=== PATIENT | female | born 1955 | race Caucasian/White ===

== ENCOUNTER 2022-06-09 08:28 | Outpatient (REF) | payer MEDICARE, SELFPAY ==
--- NOTE | ~2022-06-09 | FL_ITS ---
EXAMINATION: FL UPPER GI AND BARIUM SWALLOW CLINICAL INFORMATION: Abdominal pain. COMPARISON: None. TECHNIQUE: Upper GI and barium swallow were performed using thin and thick barium and effervescent granules. Barium tablet was also administered. FLUOROSCOPY TIME: 1 minute. DAP: 6.4 Gy-cm2. IMAGES: 57 saved fluoroscopic images. FINDINGS: There is gastroesophageal reflux. There is mucosal irregularity of the distal thoracic esophagus, abnormal motility with the patient in the prone/CARABALLO drinking position and decreased distention suggestive of esophagitis. There is temporary stasis of the barium tablet in the distal thoracic esophagus. There is a small sliding-type hiatal hernia and Schatzki ring. No esophageal mass or stricture. The stomach and duodenum are normal appearing. No fold thickening, mass, ulcer or stricture is seen. FL/FL upper GI w Ba Swallow IMPRESSION: Gastroesophageal reflux. Question mild esophagitis of the distal thoracic esophagus. Small sliding-type hiatal hernia and Schatzki ring.
== END 2022-06-09 08:29 | disposition home or self-care (01) ==
LOC: HO.XRAY 08:28
PROVIDERS: Visit Provider Internal Medicine Gastroenterology
DX: R10.9 Unspecified abdominal pain (principal)
CPT/HCPCS: 74240

== ENCOUNTER 2022-12-29 09:49 | Day surgery (SDC) | payer MEDICARE, SELFPAY ==
--- NOTE | 2022-12-28 12:32 | HO.ANESPROP2 ---
HPI - Anesthesia Eval Consult details Narrative: 67yo F for Upper Endoscopy [facility] Past Medical History Medical History Anxiety and depression Asthma Fatty liver GERD (gastroesophageal reflux disease) Hyperlipidemia Irritable bowel syndrome with diarrhea Osteoporosis Surgical History Surgical History H/O colonoscopy H/O esophagogastroduodenoscopy Hx of tonsillectomy Social History Social History Patient Tobacco Use Status: Former Tobacco user Are you DNR?: No Advance Directives: No Advance Directives Information Provided: Yes Meds Allergies Allergy/AdvReac Type Severity Reaction Status Date / Time ciprofloxacin [From Cipro] Allergy Unknown Verified 12/28/22 07:28 escitalopram [From Lexapro] Allergy Unknown Verified 12/28/22 07:28 paroxetine [From Paxil] Allergy Unknown Verified 12/28/22 07:28 sulfamethoxazole Allergy Unknown Verified 12/28/22 07:28 [From Bactrim] trimethoprim [From Bactrim] Allergy Unknown Verified 12/28/22 07:28 Home Medications Medication Instructions Recorded Confirmed Last Taken Type Klonopin 12/28/22 12/28/22 Unknown History Probiotic 12/28/22 12/28/22 Unknown History Vitamin C 12/28/22 Unknown History Vitamin D (with calcium) 12/28/22 Unknown History Zyrtec 12/28/22 Unknown History albuterol sulfate 90 mcg/actuation 2 puff inhalation QID PRN wheezing 12/28/22 12/28/22 Unknown History aerosol inhaler amitriptyline 10 mg tablet 20 mg PO BEDTIME 12/28/22 12/28/22 Unknown History calcium 12/28/22 Unknown History choline 12/28/22 Unknown History dicyclomine 10 mg capsule 10 mg PO 12/28/22 Unknown History famotidine 20 mg tablet 20 mg PO BID 12/28/22 12/28/22 Unknown History magnesium 12/28/22 Unknown History nabumetone 500 mg tablet 500 mg PO BID 12/28/22 12/28/22 Unknown History nystatin 100,000 unit/gram topical topical BID 12/28/22 Unknown History cream salmeterol 50 mcg/dose blister 1 inh inhalation BID 12/28/22 12/28/22 Unknown History powder for inhalation (Serevent Diskus) tizanidine 2 mg tablet 2 mg PO Q8H PRN muscle spasms 12/28/22 12/28/22 Unknown History zinc 12/28/22 Unknown History Exam Exam Date and Time: December 28, 2022 1232 Assessment and Plan Assessment Anesthesia Assessment: Chart Reviewed
[2022-12-29 10:08] VITALS: BP 136/75; PULSE 102; RESP 18; TEMP 36.1; O2SAT 97; BMI 27.5
[2022-12-29] MEDS: Lactated Ringers 1,000 ML 100 ML IVCONT (10:36)
--- NOTE | 2022-12-29 11:28 | HO.ANESPROP2 ---
[facility] Past Medical History Medical History Anxiety and depression Asthma Fatty liver GERD (gastroesophageal reflux disease) Hyperlipidemia Irritable bowel syndrome with diarrhea Osteoporosis Functional capacity: independent ambulation Family History Family history of problems with anesthesia: No Surgical History Surgical History H/O colonoscopy H/O esophagogastroduodenoscopy Hx of tonsillectomy History of Problems with Anesthesia: No Social History Social History Patient Tobacco Use Status: Former Tobacco user Are you DNR?: No Advance Directives: No Advance Directives Information Provided: Yes Meds Allergies Allergy/AdvReac Type Severity Reaction Status Date / Time ciprofloxacin [From Cipro] Allergy Unknown Verified 12/28/22 07:28 escitalopram [From Lexapro] Allergy Unknown Verified 12/28/22 07:28 paroxetine [From Paxil] Allergy Unknown Verified 12/28/22 07:28 sulfamethoxazole Allergy Unknown Verified 12/28/22 07:28 [From Bactrim] trimethoprim [From Bactrim] Allergy Unknown Verified 12/28/22 07:28 Active Medications: Current Medications Albuterol Sulfate (Albuterol Sulfate (0.083%) 2.5 Mg/3 Ml Vial.Neb) 2.5 mg INHALE ONCE PRN PRN Reason: Shortness of Breath/Wheezing Lactated Ringer's (Lr) 1,000 mls @ 100 mls/hr IVCONT .Q10H JOHN Last Admin: 12/29/22 10:36 Dose: 100 mls/hr Home Medications Medication Instructions Recorded Confirmed Last Taken Type Klonopin 12/28/22 12/28/22 Unknown History Probiotic 12/28/22 12/28/22 Unknown History Vitamin C 12/28/22 Unknown History Vitamin D (with calcium) 12/28/22 Unknown History Zyrtec 12/28/22 Unknown History albuterol sulfate 90 mcg/actuation 2 puff inhalation QID PRN wheezing 12/28/22 12/28/22 Unknown History aerosol inhaler amitriptyline 10 mg tablet 20 mg PO BEDTIME 12/28/22 12/28/22 Unknown History calcium 12/28/22 Unknown History choline 12/28/22 Unknown History dicyclomine 10 mg capsule 10 mg PO 12/28/22 Unknown History famotidine 20 mg tablet 20 mg PO BID 12/28/22 12/28/22 Unknown History magnesium 12/28/22 Unknown History nabumetone 500 mg tablet 500 mg PO BID 12/28/22 12/28/22 Unknown History nystatin 100,000 unit/gram topical topical BID 12/28/22 Unknown History cream salmeterol 50 mcg/dose blister 1 inh inhalation BID 12/28/22 12/28/22 Unknown History powder for inhalation (Serevent Diskus) tizanidine 2 mg tablet 2 mg PO Q8H PRN muscle spasms 12/28/22 12/28/22 Unknown History zinc 12/28/22 Unknown History Exam Exam Date and Time: December 29, 2022 112 Height,Weight and Vital Signs: Height 5 ft 3 in Weight 70.307 kg Last Vital Signs Temp 97 F 12/29/22 10:08 Pulse 102 H 12/29/22 10:08 Resp 18 12/29/22 10:08 BP 136/75 12/29/22 10:08 Pulse Ox 97 12/29/22 10:08 O2 Del Method Room Air 12/29/22 10:08 Airway Mallampati Class: II TM Dist: >3cm Neck ROM: Full Heart: RRR Lungs: CTA Assessment and Plan Assessment Anesthesia Assessment: Anesthesia Plan Discussed Final Anesthetic Review Family History of Problems with Anesthesia: No History of Problems with Anesthesia: No NPO: Yes ASA Class: II Final Preanesthetic Review: Meds/Allgs Chart Reviewed, Consent Obtained/Reviewed and Anes Risks/Benef Reviewed Patient Risk: Low (u) Procedure Risk: Low Anesthetic Plan Anesthetic Plan: MAC: Disposition: Standard PACU
--- NOTE | 2022-12-29 11:42 | MHC.SHP ---
Pre-Procedural Eval Section A Date of Service: 12/29/22 The patient is an INPATIENT: No Changes since office visit: No Cold of Flu in the past 2 weeks, No New Medical Problems, No Changes in Medication and No Patient answered all questions The History & Physical has been completed within 30 days and I have reviewed it.: Yes Section B Chief Complaint: Epigastric pain Allergies: Allergies Allergy/AdvReac Type Severity Reaction Status Date / Time ciprofloxacin [From Cipro] Allergy Unknown Verified 12/28/22 07:28 escitalopram [From Lexapro] Allergy Unknown Verified 12/28/22 07:28 paroxetine [From Paxil] Allergy Unknown Verified 12/28/22 07:28 sulfamethoxazole Allergy Unknown Verified 12/28/22 07:28 [From Bactrim] trimethoprim [From Bactrim] Allergy Unknown Verified 12/28/22 07:28 Plan I have reviewed the history and physical and performed a pertinent physical examination on my patient. No changes have occurred unless specified. Time Spent With Patient Time: Total time managing care of this patient today ____ minutes.
--- NOTE | 2022-12-29 12:08 | PM.OP ---
Brief Operative Note Date of Service: 12/29/22 Pre-op diagnosis: epigastric pain Post-op diagnosis: same Procedure: EGD Surgeon: Parish Zuluaga Anesthesia: MAC Was an Community Dietitian used for this Procedure?: No Estimated blood loss (mL): 2 Pathology: other Condition: stable Disposition: PACU
[2022-12-29 12:10] VITALS: BP 128/76; PULSE 89; RESP 16; TEMP 36.5; O2SAT 98
--- NOTE | 2022-12-29 12:12 | HO.POSTANES ---
Post Anesthesia Evaluation Post Anesthesia Evaluation Date of Service: 12/29/22 Vital Signs: Vital Signs Temp Pulse Resp BP Pulse Ox O2 Del Method 12/29/22 10:08 97 F 102 H 18 136/75 97 Room Air Anesthesia: Monitored Mental Status: Awake Pain Control: Satisfactory Nausea/Vomiting: None Hydration: Adequate Anesthesia-Related Issues: No Anes. Related Issues
[2022-12-29 12:25] VITALS: BP 139/82; PULSE 84; RESP 16; TEMP 36.6; O2SAT 99
--- NOTE | 2022-12-29 13:02 | OP_ITS ---
DATE OF SERVICE: 12/29/2022 SURGEON: Parish Zuluaga MD INDICATIONS: Epigastric pain and irritable bowel syndrome with diarrhea. PREOPERATIVE DIAGNOSIS: POSTOPERATIVE DIAGNOSIS: PROCEDURE PERFORMED: Upper endoscopy with biopsy. ESTIMATED BLOOD LOSS: COMPLICATIONS: ANESTHESIA: Monitored anesthesia care. ASSISTANTS: SPECIMENS: DESCRIPTION OF PROCEDURE: A history and physical was performed. The risks and benefits of the procedure were explained to the patient. Informed consent was obtained. The patient was placed in the left lateral decubitus position. The Olympus video gastroscope was introduced into the esophagus, stomach, and duodenum. Examination was performed. The scope was removed. She tolerated the procedure well, and was returned to the recovery area in stable condition. FINDINGS: Esophagus: The esophagus was normal. Biopsies were obtained from the EG junction. There was a small sliding hiatal hernia. Stomach: The stomach showed no evidence of masses, ulcers, or polyps. Antral biopsies were obtained to evaluate for H pylori. Duodenum: The bulb and 2nd portion were normal. There was mild duodenitis involving the bulb. Biopsies were obtained from the second portion. IMPRESSION: Duodenitis. RECOMMENDATION: Follow up the biopsy results. MD SHANTI Burns/ERNAL / [id number]
== END 2022-12-29 13:00 | disposition home or self-care (01) ==
PROVIDERS: PCP Internal Medicine; Visit Provider Internal Medicine Gastroenterology
PROC: 0DJ08ZZ Inspection of Upper Intestinal Tract, Via Natural or Artificial Opening Endoscopic (ICD-10-PCS; CPT 43235; principal; 2022-12-29 11:10)
DX: K29.80 Duodenitis without bleeding (principal); K44.9 Diaphragmatic hernia without obstruction or gangrene; R10.13 Epigastric pain; K58.0 Irritable bowel syndrome with diarrhea; K21.9 Gastro-esophageal reflux disease without esophagitis; E78.5 Hyperlipidemia, unspecified; K76.0 Fatty (change of) liver, not elsewhere classified; Z87.891 Personal history of nicotine dependence; Z79.899 Other long term (current) drug therapy
CPT/HCPCS: 43239; 88305; 88342

== ENCOUNTER 2023-05-06 17:14 | Inpatient (IN) | payer MEDICARE, SELFPAY ==
--- NOTE | ~2023-05-06 | US_ITS ---
EXAMINATION: US ABDOMEN LIMITED CLINICAL INFORMATION: The liver function tests, dilated CBD on CT scan. COMPARISON: CT abdomen pelvis from the previous day TECHNIQUE: Real-time imaging of the right upper quadrant abdominal viscera. FINDINGS: PANCREAS: Pancreatic tail obscured. LIVER: Mild increased echogenicity likely related to fatty infiltration. Small hepatic cyst seen in the inferior right lobe tip at 11 x 12 x 10 mm. GALLBLADDER: Cholelithiasis noted. No evidence for gallbladder wall thickening or pericholecystic fluid. Gallbladder appears mildly distended. COMMON BILE DUCT: Maximal dimension 0.7 cm. RIGHT KIDNEY: Normal. No hydronephrosis. No renal calculi or focal parenchymal lesions. The kidney measures 9.4 cm in maximum dimension. FREE FLUID: None. US/US abdomen limited IMPRESSION: Cholelithiasis without any evidence for gallbladder wall thickening or pericholecystic fluid. Maximal CBD dimension 0.7 cm. Mild hepatic fatty infiltration with small hepatic cyst noted.
--- NOTE | ~2023-05-06 | FL_ITS ---
EXAMINATION: XR FLUOROSCOPY WITH IMAGES CLINICAL INFORMATION: Open reduction and internal fixation of femur fracture. COMPARISON: Radiographs of the pelvis/femur from 05/06/2023 TECHNIQUE: Fluoroscopy Time: 0.8 min Cumulative Dose: 23.1 mGy. DAP: 0.4 Gycm2. Images: 6 images are saved FINDINGS: The displaced comminuted intertrochanteric fracture of the right femur is seen on initial images. The fracture is then reduced by the intramedullary nail (with distal interlocking screw), fixation cable encircling subtrochanteric area and dynamic head-neck screw. The hardware is well-positioned. The proximal distal femoral fragments are reduced into near-anatomic position. There is mild residual medial displacement of the lesser trochanteric fragment. The femoral head is well-positioned within the acetabulum. Osteophytes present at the degenerated hip. FL/FL guidance in OR IMPRESSION: Status post open reduction and internal fixation of the intertrochanteric femur fracture.
--- NOTE | ~2023-05-06 | CT_ITS ---
EXAMINATION: CT cervical spine wo IV con, CT head/brain wo IV con INDICATION INFORMATION: Reason for Exam fall, pain COMPARISON: None TECHNIQUE: Separate noncontrast CT examinations of the head and cervical spine were performed. Coronal and sagittal images were created for each examination at the technologist workstation. This CT examination was performed using dose optimization techniques as appropriate, variously including the following: *Automated exposure control *Adjustment of mA and/or kV according to patient size (this includes techniques or standardized protocols for targeted exams where dose is matched to indication/reason for exam; i.e. extremities or head) *Use of iterative reconstruction technique DLP: 962.38 mGy-cm FINDINGS: Head: No acute osseous or soft tissue abnormality. The mastoid air cells and visualized portions of the paranasal sinuses are well aerated. There is no evidence of acute intracranial hemorrhage or territorial infarction. No abnormal mass effect or midline shift is seen. Husain to white matter differentiation is well preserved. No extra-axial fluid collections are identified. No hydrocephalus. No significant volume loss. There is no abnormal attenuation within the brain parenchyma. Cervical spine: There is no evidence of acute cervical spine fracture. Vertebral bodies remain normal in height. Mild anterolisthesis of C3 on C4 and retrolisthesis of C4 on C5 and C5 on C6. Multilevel degenerative disc disease with loss of disc space height with a broad-based disc bulge at C4-C5 and posterior disc osteophyte complex at C5-C6 resulting in at least moderate canal stenosis. No pre- or paravertebral soft tissue abnormality is identified. Mosaic attenuation in the lung apices suggesting small airways vessel disease. Biapical pleural parenchymal scarring 2.2 cm left thyroid nodule which warrants further evaluation with dedicated thyroid ultrasound. CT/CT cervical spine wo IV con IMPRESSION: * No acute intracranial abnormality. * No cervical spine fracture. * Mild anterolisthesis of C3 on C4 and retrolisthesis of C4 on C5 and C5 on C6, favored to be degenerative. Multilevel degenerative disc disease with a broad-based disc bulge at C4-C5 and posterior disc osteophyte complex at C5-C6 resulting in at least moderate canal stenosis. * 2.2 cm left thyroid nodule. Based on the recommendations of the ACR Incidental Thyroid Findings Committee (JACR 2014; 12(2):143-50), further evaluation by thyroid ultrasound is recommended for solitary incidental thyroid nodules greater than or equal to 1.5 cm in largest axial dimension in patients age 35 years and older who do not have limited life expectancy or significant morbidities, unless clinically warranted. * Mosaic attenuation in the lung apices suggesting small airways vessel disease.
--- NOTE | ~2023-05-06 | XR_ITS ---
EXAMINATION: XR chest 1V, XR femur RT 2V, XR pelvis 1-2V CLINICAL INFORMATION: Reason for Exam fall, pain COMPARISON: None. TECHNIQUE: Single frontal view of the chest and 2 views, 4 images of the right femur and frontal view of the pelvis were obtained. FINDINGS: Chest: Both lung whitfield are symmetrically expanded and appear clear. The cardiomediastinal silhouette is within normal limits. No evidence of any pleural effusion or pneumothorax. Visualized upper abdomen is unremarkable. Pelvis and right femur: Moderate diffuse osteopenia. Moderate to severe osteoarthrosis at the left hip. Comminuted intratrochanteric fracture is present involving the right femur the remainder of the right femur otherwise appear intact. XR/XR chest 1V IMPRESSION: 1. The chest radiograph shows bilateral clear lung whitfield. 2. The radiographs of the pelvis and the right femur shows moderate diffuse osteopenia and superimposed comminuted intertrochanteric fracture of the right femur and moderate to severe osteoarthrosis at the left hip.
--- NOTE | ~2023-05-06 | XR_ITS ---
EXAMINATION: XR chest 1V, XR femur RT 2V, XR pelvis 1-2V CLINICAL INFORMATION: Reason for Exam fall, pain COMPARISON: None. TECHNIQUE: Single frontal view of the chest and 2 views, 4 images of the right femur and frontal view of the pelvis were obtained. FINDINGS: Chest: Both lung whitfield are symmetrically expanded and appear clear. The cardiomediastinal silhouette is within normal limits. No evidence of any pleural effusion or pneumothorax. Visualized upper abdomen is unremarkable. Pelvis and right femur: Moderate diffuse osteopenia. Moderate to severe osteoarthrosis at the left hip. Comminuted intratrochanteric fracture is present involving the right femur the remainder of the right femur otherwise appear intact. XR/XR pelvis 1-2V IMPRESSION: 1. The chest radiograph shows bilateral clear lung whitfield. 2. The radiographs of the pelvis and the right femur shows moderate diffuse osteopenia and superimposed comminuted intertrochanteric fracture of the right femur and moderate to severe osteoarthrosis at the left hip.
--- NOTE | ~2023-05-06 | CT_ITS ---
EXAMINATION: CT ABDOMEN AND PELVIS WITH CONTRAST CLINICAL INFORMATION: Elevated lipase. Suspected pancreatitis. COMPARISON: Radiographs of the chest and pelvis and right femur done earlier today. TECHNIQUE: Multidetector volumetric images were obtained from the superior aspect of the liver through the pubic symphysis following administration 85 mL of Omnipaque 350 intravenous contrast. Sagittal and coronal reformatted images were obtained on the technologist's workstation. Oral contrast: No This CT examination was performed using dose optimization techniques as appropriate, variously including the following: *Automated exposure control *Adjustment of mA and/or kV according to patient size (this includes techniques or standardized protocols for targeted exams where dose is matched to indication/reason for exam; i.e. extremities or head) *Use of iterative reconstruction technique DLP: 604 mGy-cm FINDINGS: LUNG BASES: Linear airspace disease is noted at both lower lobes and lingular segment of the left upper lobe, likely represent hypoventilatory, atelectatic changes versus pleural parenchymal scar and less likely to be infiltrate or combination thereof. LIVER, GALLBLADDER, AND BILIARY TREE: The liver is normal in size, shape, and attenuation. There is a circumscribed 1.2 cm subcapsular hyperechoic hypodensity present at the segment 6 of right lobe with mean Hounsfield value of 5 (267:4), consistent with an incidental cyst. Mild central biliary ductal prominence is noted. The common bile duct measures 0.8 cm at its maximum dimension, mildly dilated. The gallbladder is mildly distended, shows mild asymmetric subtle mural thickening near the fundus without any pericholecystic fluid or gallstone (302:4). PANCREAS: The proximal pancreatic duct is slightly prominent however, by measurement within normal limits. No evidence of any pancreatic hypodensity or areas of nonenhancement to suspect edematous or necrotizing pancreatitis. No peripancreatic inflammatory changes. No peripancreatic fluid collection. SPLEEN: Unremarkable. ADRENAL GLANDS: Unremarkable. KIDNEYS AND URETERS: The kidneys are normal in size, shape, and attenuation. Mild fullness of both renal pelvis is likely secondary to physiologic changes given the significantly distended bladder. No evidence of perinephric stranding. No evidence of any urinary tract calculi. BLADDER: Significantly distended, presumably physiologic. GASTROINTESTINAL TRACT: The small and large bowel are unremarkable. The appendix is nonvisualized. No evidence of any pericecal inflammatory changes. ABDOMINAL WALL: No significant hernia is appreciated. Nonspecific soft tissue thickening is noted around the umbilicus. LYMPH NODES: Normal. VASCULAR: Diffuse calcific atherosclerotic disease of the aorta and its branches without aneurysm formation. PELVIC VISCERA: There is no pelvic mass present. No evidence of any free fluid and/or free air. OSSEOUS STRUCTURES: Previously documented comminuted fracture involving the intertrochanteric region of the right femur and associated soft tissue hematoma is reidentified. Marked diffuse osteopenia is noted. Multilevel moderate degenerative spondylosis related changes are present. Moderate to severe osteoarthrosis of the left hip. CT/CT abdomen pelvis w IV con IMPRESSION: 1. Mild central biliary ductal prominence is noted. The common bile duct is mildly dilated measuring 0.8 cm. The gallbladder is also mildly distended and shows mild asymmetric subtle mural thickening near the fundus without any pericholecystic fluid or gallstone. 2. The proximal pancreatic duct is slightly prominent however, by measurement still within normal limits. No CT evidence of any acute or chronic pancreatitis. 3. Markedly distended bladder, presumably physiologic. Mild fullness of both renal pelvicalyceal system is likely secondary to bladder distention. 4. Nonspecific soft tissue thickening around the umbilicus. 5. Marked diffuse osteopenia and comminuted fracture involving the right intertrochanteric region as was seen on the prior radiographs done earlier today. Multilevel moderate degenerative spondylosis and moderate to severe osteoarthrosis of the left hip. Fleischner guidelines were followed.
--- NOTE | ~2023-05-06 | XR_ITS ---
EXAMINATION: XR chest 1V, XR femur RT 2V, XR pelvis 1-2V CLINICAL INFORMATION: Reason for Exam fall, pain COMPARISON: None. TECHNIQUE: Single frontal view of the chest and 2 views, 4 images of the right femur and frontal view of the pelvis were obtained. FINDINGS: Chest: Both lung whitfield are symmetrically expanded and appear clear. The cardiomediastinal silhouette is within normal limits. No evidence of any pleural effusion or pneumothorax. Visualized upper abdomen is unremarkable. Pelvis and right femur: Moderate diffuse osteopenia. Moderate to severe osteoarthrosis at the left hip. Comminuted intratrochanteric fracture is present involving the right femur the remainder of the right femur otherwise appear intact. XR/XR femur RT 2V IMPRESSION: 1. The chest radiograph shows bilateral clear lung whitfield. 2. The radiographs of the pelvis and the right femur shows moderate diffuse osteopenia and superimposed comminuted intertrochanteric fracture of the right femur and moderate to severe osteoarthrosis at the left hip.
--- NOTE | ~2023-05-06 | CT_ITS ---
EXAMINATION: CT ANGIOGRAM OF THE CHEST WITH AND WITHOUT CONTRAST (CT PULMONARY ANGIOGRAM FOR PE) CLINICAL INFORMATION: Tachycardia, post hip surgery. COMPARISON: None available. TECHNIQUE: Prior to contrast administration, noncontrast localization images were obtained. Subsequently, multidetector volumetric imaging was performed from the thoracic inlet to below the diaphragms following the administration of 65 mL Omnipaque 350 intravenous contrast. No contrast reaction reported Sagittal, coronal, and MIP oblique sagittal reformatted images were obtained on the CT workstation, uploaded to PACS, and reviewed. This CT examination was performed using dose optimization techniques as appropriate, variously including the following: *Automated exposure control *Adjustment of mA and/or kV according to patient size (this includes techniques or standardized protocols for targeted exams where dose is matched to indication/reason for exam; i.e. extremities or head) *Use of iterative reconstruction technique Total exam dose-length product 214 mGy-cm FINDINGS: QUALITY OF STUDY/CONTRAST BOLUS: Satisfactory. PULMONARY ARTERIES: Small segmental pulmonary emboli in the right lung base (image 323, series 6). No central pulmonary emboli. THORACIC AORTA: No aneurysm. LUNG: Mild diffuse bronchial wall thickening. Platelike opacities in the right lower lobe favoring to represent subsegmental atelectasis and/or scarring. No focal consolidation or significant groundglass disease. Central airways are patent. A few bilateral up to 4 mm solid pulmonary nodules are seen, for instance employment representative 4 mm left upper lobe nodule on image 182, series 6. PLEURA: No pleural effusion or pneumothorax. MEDIASTINUM: Normal heart size. Trace amount of pericardial fluid. No hilar or mediastinal lymphadenopathy. No evidence of septal bowing or right heart strain. There is a 1.7 cm thyroid nodule in the left posterior lobe (image 7, series 4). CORONARY ARTERY CALCIFICATION: Coronary artery calcifications are present. CHEST WALL/AXILLA: Small calcification versus surgical clip in the medial right breast (image 30, series 4). No axillary or internal mammary lymphadenopathy. OSSEOUS STRUCTURES: No acute or suspicious osseous abnormality. UPPER ABDOMEN: Unremarkable. No reflux of contrast into the hepatic veins to suggest elevated right heart pressures. CT/CT angio chest PE protocol IMPRESSION: 1. Small segmental pulmonary emboli in the right lung base. No central pulmonary emboli. No evidence of increased right-sided heart pressures. 2. Mild diffuse bronchial wall thickening which could be seen in the setting of small airways disease. 3. A few up to 4 mm solid pulmonary nodules are nonspecific, some located in the upper lobes. According to the UPDATED 2017 Fleischner Society recommendations, the advised follow-up imaging for nodules <6mm in the upper lobes is not necessarily required in low-risk patients. In high-risk patients with a nodule in the upper lobe and/or demonstrating suspicious morphology, an optional CT follow-up at 12 months may be obtained. If stable at 12 months, no further follow-up is recommended. . 4. Incidentally noted 1.7 cm left-sided thyroid nodule. Based on the recommendations of the ACR Incidental Thyroid Findings Committee (JACR 2014; 12(2):143-50), further evaluation by thyroid ultrasound is recommended for solitary incidental thyroid nodules greater than or equal to 1.5 cm in largest axial dimension in patients age 35 years and older who do not have limited life expectancy or significant morbidities, unless clinically warranted. This critical result was discussed with BOBO Abraham at 05/10/2023 2:24 PM and it was ascertained that the content and urgency of the report was understood at the time of direct communication.
--- NOTE | 2023-05-06 17:20 | ECG_ITS ---
Test Reason : FALL Blood Pressure : / mmHG Vent. Rate : 082 BPM Atrial Rate : 082 BPM P-R Int : 138 ms QRS Dur : 084 ms QT Int : 380 ms P-R-T Axes : 008 064 024 degrees QTc Int : 443 ms Normal sinus rhythm Normal ECG No previous ECGs available Referred By: Misty Manley Electronically Signed By:ANDRES PERALES MD
--- NOTE | 2023-05-06 17:20 | ED.FALL ---
HPI - Fall General Chief Complaint: Fall Stated Complaint: UNWIT FALL, -THINNERS, CANNOT RECALL EVENT, ETOH Time Seen by Provider: 05/06/23 17:16 History of Present Illness HPI Narrative: Patient is a 59-year-old female who presents emergency department via EMS for evaluation after potential unwitnessed fall. Patient reportedly was out to dinner with her significant other today. Upon arriving back home, she was sleeping in the car. He entered the home to 10 to the dog's. Reportedly when he came outside patient was found to be lying on the ground in the driveway asleep. She was arousable to verbal stimuli. Patient is unable to recall the events surrounding this. Significant other did endorse ETOH consumption today. Patient is oriented only to person at this time, she is reporting pain to the right mid thigh/hip region. She is able to recall that she was out to dinner at a local restaurant with her significant other, which is the report that he provided to EMS as well. When asked, she currently denies headache, neck pain, chest pain, shortness of breath, dizziness, lightheadedness, numbness or tingling of her extremities, abdominal pain. No reported use of anticoagulants Related Data Home Medications Medication Instructions Recorded Confirmed Klonopin 20 mg PO ONCE 12/28/22 05/06/23 Probiotic 12/28/22 12/28/22 Vitamin C 12/28/22 Vitamin D (with calcium) 12/28/22 Zyrtec 12/28/22 albuterol sulfate 90 mcg/actuation 2 puff inhalation QID PRN wheezing 12/28/22 05/06/23 aerosol inhaler amitriptyline 10 mg tablet 20 mg PO BEDTIME 12/28/22 05/06/23 calcium 12/28/22 choline 12/28/22 famotidine 20 mg tablet 20 mg PO BID 12/28/22 05/06/23 magnesium 12/28/22 nabumetone 500 mg tablet 500 mg PO BID 12/28/22 05/06/23 nystatin 100,000 unit/gram topical topical BID 12/28/22 cream salmeterol 50 mcg/dose blister 1 inh inhalation BID 12/28/22 05/06/23 powder for inhalation (Serevent Diskus) tizanidine 2 mg tablet 2 mg PO Q8H PRN muscle spasms 12/28/22 12/28/22 zinc 12/28/22 Allergies Allergy/AdvReac Type Severity Reaction Status Date / Time ciprofloxacin [From Cipro] Allergy Unknown Verified 05/06/23 17:27 escitalopram [From Lexapro] Allergy Unknown Verified 05/06/23 17:27 paroxetine [From Paxil] Allergy Unknown Verified 05/06/23 17:27 sulfamethoxazole Allergy Unknown Verified 05/06/23 17:27 [From Bactrim] trimethoprim [From Bactrim] Allergy Unknown Verified 05/06/23 17:27 Review of Systems Review of Systems: Yes all other systems are reviewed and are negative PMFSH Past Medical History Attestation statement: The following information was validated with the patient. Source: old records reviewed Medical History GERD (gastroesophageal reflux disease) Osteoporosis Hyperlipidemia Irritable bowel syndrome with diarrhea Fatty liver Asthma Anxiety and depression Surgical History Hx of tonsillectomy H/O esophagogastroduodenoscopy H/O colonoscopy Social History Household Members: Spouse Housing: Condominium Do you presently have visiting nurse or other home services: No Alcohol intake: current Alcohol intake frequency: 3 or more drinks per day Alcohol type: hard liquor Patient Tobacco Use Status: Former Tobacco user Quit Date: 2011 Smoked in Last 30 Days: No Patient Interested in Nicotine Replacement: No Patient Given Instructions on How to Stop Smoking: No Second Hand Smoke Exposure: No Use of substances other than those prescribed or required for medical reasons: No Currently Displaying Signs/Symptoms of Drug Intoxication Withdrawal: No Have you been hit, kicked, punched, or otherwise hurt by someone within the past year? If so, by whom?: No Do you feel safe in your current relationship?: Yes Is there a partner from a previous relationship who is making you feel unsafe now?: No Are you made to feel afraid or neglected: No Advance Directives: No Do you have thoughts of harming others: None Do you have a plan to hurt others: No Plan Recently lost weight without trying: No How much weight loss: Not applicable Eating poorly because of decreased appetite: No Nutrition screen score: 0 Nutrition Risks: No Nutritional Risk Patient : No : No Poor oral hygiene: No Physical Exam Vital Signs: Vital Signs: Last Vital Signs Temp 97.8 F 05/06/23 17:28 Pulse 80 05/06/23 17:28 Resp 18 05/06/23 17:28 BP 139/80 05/06/23 17:28 Pulse Ox 99 05/06/23 17:28 O2 Del Method Room Air 05/06/23 17:28 BMI result Body Mass Index 28.1 Appearance: Alert.?Oriented to person, disoriented to event, place and time. No acute distress.?Normal affect. Eyes: Pupils equal, round and reactive to light.? EOMI. No nystagmus. ENT: Pharynx normal.?? Neck: Normal inspection.? Neck supple.??No palpable midline cervical spine tenderness, step-offs, deformities. Hard cervical spine collar is in place. CVS: Heart sounds normal. Normal heart rate and rhythm.? Pulses normal.?? Respiratory: No respiratory distress.? Lung sounds clear to auscultation bilaterally no palpable chest wall tenderness. Back: No palpable thoracic and lumbar spine tenderness, step-offs, deformities.?? Abdomen: Soft and non-tender. Normoactive bowel sounds. ? Skin: Skin warm and dry.? Normal skin color.? Extremities: No lower extremity edema.? No calf ttp. No shortening or rotation of the lower extremities. 2+ DP/PT pulse bilaterally. Tenderness over the right femur/hip. Right lower extremity is externally rotated. Neuro: Moves all extremities spontaneously. Sensation intact bilaterally. No focal neuro deficits. Course Reevaluation(s) Reevaluation #1: I personally Reviewed XR imaging, notable right comminuted intertrochanteric fracture. At this time extremities neurovascularly intact distally. Patient and her significant other were made aware of these findings. Consulted with Orthopedics on-call, Dr. Shay, planning for surgery tomorrow. Time: 18:30 Reevaluation #2: Review of serum labs, noted to have Elevated lipase, with mildly elevated AST and ALT, bilirubin and alk-phos are normal. Abdominal examination is benign, no tenderness. Denies nausea or vomiting. Has been present at bedside who states that she has not complained of any of the above recently. ETOH level is elevated, she may not be the greatest historian at this time. Plan to obtain CT of the abdomen and pelvis to evaluate for pancreatitis, most likely ETOH related verses gallstone pancreatitis. CT of the head and cervical spine without acute intracranial pathology or fracture/subluxation. Hard cervical spine collar removed. Time: 19:48 Reevaluation #3: CT of the abdomen and pelvis revealing mild central biliary ductal prominence, CBD dilation 0.8 cm, gallbladder distension and subtle mural thickening without pericholecystic fluid or gallstones, no CT evidence of acute pancreatitis. I spoke with Dr. De Souza, who accepts patient for admission to medicine service. Medications Administered Generic Name Dose Route Start Last Admin Trade Name Freq PRN Reason Stop Dose Admin Amitriptyline HCl 20 mg 05/06/23 22:15 05/06/23 22:23 Amitriptyline Hcl 10 Mg Tablet PO 20 mg BEDTIME JOHN Administration Melatonin 6 mg 05/06/23 22:30 05/06/23 22:23 Melatonin 3 Mg Tablet PO 6 mg BEDTIME JOHN Administration Morphine Sulfate 4 mg 05/06/23 22:11 05/06/23 22:22 Morphine Sulfate 4 Mg/Ml Cartridge IVPUSH 4 mg Q4H PRN Administration Pain, Severe (Pain Scale 7-10) Protocol Ondansetron HCl 4 mg 05/06/23 20:23 05/06/23 23:49 Ondansetron Hcl 4 Mg/2 Ml Vial IVPUSH 4 mg Q8H PRN Administration Nausea and Vomiting Sodium Chloride 3 ml 05/07/23 00:00 05/06/23 22:23 0.9 % Sodium Chloride Flush 3 Ml Syringe IVFLUSH 3 ml QSHIFT JOHN Administration Discontinued Medications Generic Name Dose Route Start Last Admin Trade Name Freq PRN Reason Stop Dose Admin Acetaminophen 975 mg 05/06/23 17:31 05/06/23 17:39 Acetaminophen 325 Mg Tablet PO 05/06/23 17:32 975 mg ONCE ONE Administration Iohexol 100 ml 05/06/23 20:24 05/06/23 20:25 Iohexol 350 Mg/Ml 100 Ml Infus..Btl IV 05/06/23 20:25 85 ml ONCE ONE Administration Medical Decision Making Medical Decision Making MDM Narrative: Patient is a 67-year-old female past medical history of GERD, osteoporosis, hyperlipidemia, IBS, fatty liver, asthma, anxiety, depression presented to the emergency department for evaluation after a possible unwitnessed fall as per HPI. At this time her only complaint is pain to the right lower extremity without obvious deformity. She is oriented to person, disoriented to place time and event, this may be secondary to ETOH consumption, however plan to obtain CT of the head and cervical spine with good ICH/SDH/rash sure/traumatic subluxation in addition to XR imaging of the right femur/hip and pelvis to exclude fracture/dislocation. Given the uncertainty as to why she was on the ground, plan to obtain labs to exclude alternative etiology including CBC to evaluate for leukocytosis/ anemia, CMP and lipase to evaluate for abnormal electrolytes /abnormal renal function/ abnormal hepatic/biliary function, EKG and troponin to evaluate for ischemia/ACS, toxicology and Urinalysis. Will trial acetaminophen for pain management at this time so as to prevent possible further confusion Differential Diagnosis Differential Diagnoses: The differential diagnosis associated with the presentation includes (As noted above) Admission/Observation Consideration of admission/observation: Escalation of care including admission/observation considered (See narrative above and course narrative for further detail) Consult Healthcare Provider Management of the patient was discussed with: Hospitalist and Sales Representative (Orthopedics as per course narrative) Lab Data MDM Lab Attestation statement: I reviewed the patient's lab results. (See course narrative for further detail) 05/06/23 18:48 05/06/23 18:01 Labs: Lab Results 05/06/23 05/06/23 05/06/23 Range/Units 18:01 18:48 18:58 WBC 11.8 H (4.8-10.8) X10*3/uL RBC 4.37 (4.20-5.50) X10*6/uL Hgb 14.5 (12.0-16.0) g/dl Hct 44.3 (37.0-47.0) % MCV 101.4 H (80.0-98.0) fL MCH 33.2 H (27.0-33.0) pg MCHC 32.7 (31.0-35.0) g/dl RDW 12.8 (11.0-16.0) % Plt Count 314 (160-400) X10*3/uL MPV 9.1 L (9.4-12.3) fL Immature Gran % (Auto) 1.0 H (0.0-0.4) % Neut % (Auto) 85.2 H (45-73) % Lymph % (Auto) 9.1 L (20-40) % [place] % (Auto) 4.1 (2-11) % Eos % (Auto) 0.3 (0-4) % Baso % (Auto) 0.3 (0-2) % Lymph # (Auto) 1.1 L (1.2-4.9) X10*3/uL [place] # (Auto) 0.5 (0.1-1.2) X10*3/uL Eos # (Auto) 0.0 (0.0-0.4) X10*3/uL Baso # (Auto) 0.0 (0.0-0.2) X10*3/uL Abs Immat Gran (auto) 0.12 H (0.00-0.03) X10*3/uL Absolute Neuts (auto) 10.0 H (2.0-8.3) x10*3/uL Absolute Nucleated RBC 0.000 (0.0-0.012) X10*3/uL Nucleated RBC % (auto) 0.0 (0.0-0.2) /100WBC PT 10.1 L (11.1-13.3) SEC INR 0.8 L (0.9-1.1) Sodium 140 (135-145) mmol/L Potassium 4.1 (3.3-5.1) mmol/L Chloride 107 (96-108) mmol/L Carbon Dioxide 21 L (22-29) mmol/L Anion Gap 16 (12-20) BUN 14 (9-16) mg/dL Creatinine 0.88 (0.5-1.4) mg/dL Estim Creat Clear Calc 60.4 Estimated GFR > 60 Random Glucose 100 (60-115) mg/dL Calcium 9.3 (8.4-10.2) mg/dL Total Bilirubin 0.2 (0.0-1.0) mg/dL AST 39 H (5-31) U/L ALT 44 H (0-31) U/L Alkaline Phosphatase 117 (39-117) U/L Total Creatine Kinase 83 (26-140) U/L Total Protein 7.6 (6.5-8.0) g/dL Albumin 4.1 (3.5-5.0) g/dL Lipase 1652 H (8-78) U/L Ethyl Alcohol 208 mg/dL COVID-19 (SID) Negative (Negative) COVID-19 Clin Com See Note Influenza Type A (AIDA) Negative (Negative) Influenza Type B (AIDA) Negative (Negative) Influenza A & B Note See Note Blood Type A Positive Antibody Screen NEGATIVE Independent Interpretation I performed an independent interpretation of an: EKG, Plain X-Ray (I personally interpreted XR imaging of the right femur/hip and pelvis and agree with radiologist impression.) and CT Scan Interpretation: Rate: 82 Rhythm:? Normal sinus rhythm [place]:? Normal Normal P waves.? Normal FABI.?? Normal QRS complex.?? ST T wave :??No ST elevation, no ST depression, T-wave inversion only noted in III qTC: 443 prior studies:? No priors available for review The study has been interpreted contemporaneously by me. Radiology Impression Discussion of test interpretation with radiology: I have reviewed the radiologist's reading. Radiologist Impression: IMPRESSION: 1. The chest radiograph shows bilateral clear lung [place]. 2. The radiographs of the pelvis and the right femur shows moderate diffuse osteopenia and superimposed comminuted intertrochanteric fracture of the right femur and moderate to severe osteoarthrosis at the left hip. CT/CT head/brain wo IV con IMPRESSION: * No acute intracranial abnormality. * No cervical spine fracture. * Mild anterolisthesis of C3 on C4 and retrolisthesis of C4 on C5 and C5 on C6, favored to be degenerative. Multilevel degenerative disc disease with a broad-based disc bulge at C4-C5 and posterior disc osteophyte complex at C5-C6 resulting in at least moderate canal stenosis. * 2.2 cm left thyroid nodule. Based on the recommendations of the ACR Incidental Thyroid Findings Committee (JACR 2015 Jul; 12(2):143-50), further evaluation by thyroid ultrasound is recommended for solitary incidental thyroid nodules greater than or equal to 1.5 cm in largest axial dimension in patients age 35 years and older who do not have limited life expectancy or significant morbidities, unless clinically warranted. * Mosaic attenuation in the lung apices suggesting small airways vessel disease. CT/CT abdomen pelvis w IV con IMPRESSION: 1. Mild central biliary ductal prominence is noted. The common bile duct is mildly dilated measuring 0.8 cm. The gallbladder is also mildly distended and shows mild asymmetric subtle mural thickening near the fundus without any pericholecystic fluid or gallstone. 2. The proximal pancreatic duct is slightly prominent however, by measurement still within normal limits. No CT evidence of any acute or chronic pancreatitis. 3. Markedly distended bladder, presumably physiologic. Mild fullness of both renal pelvicalyceal system is likely secondary to bladder distention. 4. Nonspecific soft tissue thickening around the umbilicus. 5. Marked diffuse osteopenia and comminuted fracture involving the right intertrochanteric region as was seen on the prior radiographs done earlier today. Multilevel moderate degenerative spondylosis and moderate to severe osteoarthrosis of the left hip. Independent Historian Clinical information obtained from an independent historian. History obtained from or confirmed by: EMS External Record Review External record reviewed: Outpatient record and Prior outpatient labs Critical Care Time Critical Care Time Critical Care Time: Yes Total Critical Care Time: 40 Attestation: I personally attest to this critical care time spent taking care of the patient exclusive of all other billable procedures was approximately 40 minutes including initial evaluation of patient, ordering tests, x-ray interpretation, EKG interpretation, medical consultation, documentation, re-evaluation. Discharge Plan Discharge Clinical Impression: Fall Closed comminuted intertrochanteric fracture of femur Qualifiers: Encounter type: initial encounter Laterality: right Qualified Code(s): S72.141A - Displaced intertrochanteric fracture of right femur, initial encounter for closed fracture Patient Disposition: Admitted As Inpatient Interventions: Admission Worksheet (ED) Last Done: 05/06/23 21:04 Discharge Date/Time: 05/06/23 21:52
[2023-05-06 17:28] VITALS: BP 139/80; BP 143/85; PULSE 80; PULSE 85; RESP 18; TEMP 36.6; O2SAT 97; O2SAT 99; BMI 28.1
[2023-05-06] MEDS: Acetaminophen 325 MG TABLET 975 MG PO (17:39)
--- NOTE | 2023-05-06 17:47 | PC.NURSE ---
patient a&ox3, vss, iv previously inserted by ems, labs being drawn by ems, swabs obtained, pt awaiting imaging and ekg.
[2023-05-06 18:21] LABS: COVID-19 Test Negative (Negative); IDNOW Serial# 08D9AD1C
[2023-05-06 18:22] LABS: IDNOW Serial# BCCEAD1C; Influenza A Negative (Negative); Influenza B2 Negative (Negative)
[2023-05-06 18:23] LABS: Alanine Aminotransferase 44 U/L (0-31); Albumin Level 4.1 g/dL (3.5-5.0); Alkaline Phosphatase 117 U/L (39-117); Anion Gap 16 (12-20); Aspartate Amino Transferase 39 U/L (5-31); Bilirubin Total 0.2 mg/dL (0.0-1.0); Blood Urea Nitrogen 14 mg/dL (9-16); Calcium 9.3 mg/dL (8.4-10.2); Carbon Dioxide 21 mmol/L (22-29); Chloride 107 mmol/L (96-108); Creatinine Clr Calc Pharmacy 60.4; Estimated Glomerular Filt Rate > 60; Ethanol 208 mg/dL; Glucose Random 100 mg/dL (60-115); Potassium 4.1 mmol/L (3.3-5.1); Sodium 140 mmol/L (135-145); Total Protein 7.6 g/dL (6.5-8.0)
[2023-05-06 18:30] LABS: Lipase 1652 U/L (8-78)
--- NOTE | 2023-05-06 18:33 | PC.NURSE ---
pt currently in radiology
[2023-05-06 18:51] LABS: MANUAL DIFF FLAG NO
[2023-05-06 18:57] LABS: Basophils Percent Auto 0.3 % (0-2); Eosinophils Percent Auto 0.3 % (0-4); Hematocrit 44.3 % (37.0-47.0); Hemoglobin 14.5 g/dl (12.0-16.0); Imm Gran Abs Auto 0.12 X10*3/uL (0.00-0.03); Lymphocytes Absolute Auto 1.1 X10*3/uL (1.2-4.9); Lymphocytes Percent Auto 9.1 % (20-40); Mean Corpuscular HGB Conc 32.7 g/dl (31.0-35.0); Mean Corpuscular Hemoglobin 33.2 pg (27.0-33.0); Mean Corpuscular Volume 101.4 fL (80.0-98.0); Mean Platelet Volume 9.1 fL (9.4-12.3); Monocytes Absolute Auto 0.5 X10*3/uL (0.1-1.2); Monocytes Percent Auto 4.1 % (2-11); Neutrophils Percent Auto 85.2 % (45-73); Platelet Count 314 X10*3/uL (160-400); Red Blood Count 4.37 X10*6/uL (4.20-5.50); Red Cell Distribution Width 12.8 % (11.0-16.0); White Blood Count 11.8 X10*3/uL (4.8-10.8)
[2023-05-06 19:10] LABS: INTERNATIONAL NORM RATIO 0.8 (0.9-1.1); Prothrombin Time 10.1 SEC (11.1-13.3)
--- NOTE | 2023-05-06 20:16 | PC.NURSE ---
I assumed care of the pt at 1900. Pt resting in bed with huand at bedside, c-collar still in tact. Pt appears comfortable, A&Ox4, GCS 15, no obvious signs of distress. Pt reports needing to void and was placed on a bedpan. Pt was unable to void. Provider aware. Pt going to CT at this time.
[2023-05-06] MEDS: iohexoL 350 MG/ML 100 ML INFUS..BTL IV (20:25)
--- NOTE | 2023-05-06 20:49 | PC.NURSE ---
Pt was able to void, urine collected and sent to lab. Pt given new linens and cleaned. Pt resting comfortably at this time.
[2023-05-06 20:55] LABS: Appearance Urine Clear; Color Urine Yellow; Glucose Urine UA Negative (Negative); Leukocyte Esterase Urine Negative (Negative); Nitrite Urine Negative (Negative); PH 5.5 (5.0-9.0); Urine Blood Negative (Negative); Urine Ketones Trace mg/dL (Negative); Urine Protein Negative (Neg-Trace)
[2023-05-06 21:07] LABS: Amphetamine Screen Urine Not Detected (Not Detect); Barbiturates, Urine Not Detected (Not Detect); Benzodiazepines Screen Urine Not Detected (Not Detect); Cannabinoid Screen Urine Not Detected (Not Detect); Cocaine Screen Urine Not Detected (Not Detect); Fentanyl, urine Not Detected (Not Detect); Opiate Screen Urine Not Detected (Not Detect); Phencyclidine Screen Urine Not Detected (Not Detect)
[2023-05-06 21:52] VITALS: BMI 28.1
--- NOTE | 2023-05-06 22:18 | PM.IMHP ---
History of Present Illness Date of Service: 05/06/23 Chief Complaint: Fall 59-year-old female past medical history of asthma, IBS, anxiety depression, osteoporosis, HLD, GERD comes into the hospital after a fall and having Right leg pain. she was coming home from Thanksgiving dinner, she reports that she had 2 drinks, on the way home she was sleeping in the car, her got in the car go inside, he came out and found her on the floor. Patient reports that she does not remember how she ended up on the floor but has significant right-sided leg pain therefore brought into the hospital. Denies any headache, chest pain, No shortness of breath, no weakness numbness or tingling,no abdominal pain nausea vomiting, no diarrhea constipation, no urinary symptoms and no lower extremity edema on arrival to the ED patient hemodynamically stable Labs are significant for WBC count of 11.8, INR of 0.8, lipase of 1652, ALT of 44, AST of 39, UA negative, Imaging showed moderate diffuse osteopenia and superimposed commuted intra current Luis fracture of the right femur and moderate to severe osteoarthrosis at the left hip The elevated LFTs as well as lipase and abdominal CT was also obtained which showed central biliary ductal prominence with a common bile duct mildly dilated measuring 0.8 cm. The gallbladder is also mildly distended and shows mild asymmetric subtle mural thickening near the fundus without any pericholecystic fluid or gallstone. The proximal pancreatic duct is slightly prominent however by measurements still within normal limits Patient scheduled for surgery in a.m., and will be admitted for further management Review of Systems Review of Systems: Yes all other systems are reviewed and are negative FOR[facility]LY [facility] Medical History GERD (gastroesophageal reflux disease) Osteoporosis Hyperlipidemia Irritable bowel syndrome with diarrhea Fatty liver Asthma Anxiety and depression Surgical History Hx of tonsillectomy H/O esophagogastroduodenoscopy H/O colonoscopy Household Members: Spouse Housing: Condominium Do you presently have visiting nurse or other home services: No Alcohol intake: current Alcohol intake frequency: 3 or more drinks per day Alcohol type: hard liquor Patient Tobacco Use Status: Former Tobacco user Quit Date: 2011 Smoked in Last 30 Days: No Patient Interested in Nicotine Replacement: No Patient Given Instructions on How to Stop Smoking: No Second Hand Smoke Exposure: No Use of substances other than those prescribed or required for medical reasons: No Currently Displaying Signs/Symptoms of Drug Intoxication Withdrawal: No Have you been hit, kicked, punched, or otherwise hurt by someone within the past year? If so, by whom?: No Do you feel safe in your current relationship?: Yes Is there a partner from a previous relationship who is making you feel unsafe now?: No Are you made to feel afraid or neglected: No Advance Directives: No Do you have thoughts of harming others: None Do you have a plan to hurt others: No Plan Recently lost weight without trying: No How much weight loss: Not applicable Eating poorly because of decreased appetite: No Nutrition screen score: 0 Nutrition Risks: No Nutritional Risk Patient : No : No Poor oral hygiene: No Meds Allergies Allergy/AdvReac Type Severity Reaction Status Date / Time ciprofloxacin [From Cipro] Allergy Unknown Verified 05/06/23 17:27 escitalopram [From Lexapro] Allergy Unknown Verified 05/06/23 17:27 paroxetine [From Paxil] Allergy Unknown Verified 05/06/23 17:27 sulfamethoxazole Allergy Unknown Verified 05/06/23 17:27 [From Bactrim] trimethoprim [From Bactrim] Allergy Unknown Verified 05/06/23 17:27 Active Medications: Current Medications Acetaminophen (Acetaminophen 325 Mg Tablet) 650 mg PO Q6H PRN PRN Reason: Pain, Mild (Pain Scale 1-3) Amitriptyline HCl (Amitriptyline Hcl 10 Mg Tablet) 20 mg PO BEDTIME JOHN Docusate Sodium (Docusate Sodium 100 Mg Capsule) 100 mg PO DAILY PRN PRN Reason: Constipation Famotidine (Famotidine 20 Mg Tablet) 20 mg PO BID JOHN Morphine Sulfate (Morphine Sulfate 4 Mg/Ml Cartridge) 4 mg IVPUSH Q4H PRN; Protocol PRN Reason: Pain, Severe (Pain Scale 7-10) Non-Formulary Medication (Klonopin) 20 mg PO ONCE JOHN Ondansetron HCl (Ondansetron Hcl 4 Mg/2 Ml Vial) 4 mg IVPUSH Q8H PRN PRN Reason: Nausea and Vomiting Sodium Chloride (0.9 % Sodium Chloride Flush 3 Ml Syringe) 3 ml IVFLUSH QSHIFT [facility] Home Medications Medication Instructions Recorded Confirmed Last Taken Type Klonopin 20 mg PO ONCE 12/28/22 05/06/23 05/05/23 History Probiotic 12/28/22 12/28/22 05/05/23 History Vitamin C 12/28/22 05/05/23 History Vitamin D (with calcium) 12/28/22 05/05/23 History Zyrtec 12/28/22 05/05/23 History albuterol sulfate 90 mcg/actuation 2 puff inhalation QID PRN wheezing 12/28/22 05/06/23 05/05/23 History aerosol inhaler amitriptyline 10 mg tablet 20 mg PO BEDTIME 12/28/22 05/06/23 05/05/23 History calcium 12/28/22 05/05/23 History choline 12/28/22 Unknown History famotidine 20 mg tablet 20 mg PO BID 12/28/22 05/06/23 05/05/23 History magnesium 12/28/22 05/05/23 History nabumetone 500 mg tablet 500 mg PO BID 12/28/22 05/06/23 05/05/23 History nystatin 100,000 unit/gram topical topical BID 12/28/22 05/05/23 History cream salmeterol 50 mcg/dose blister 1 inh inhalation BID 12/28/22 05/06/23 05/06/23 History powder for inhalation (Serevent Diskus) tizanidine 2 mg tablet 2 mg PO Q8H PRN muscle spasms 12/28/22 12/28/22 05/05/23 History zinc 12/28/22 05/05/23 History Physical Exam Vital Signs and Narrative: Vital Signs: Last Vital Signs Temp 97.8 F 05/06/23 17:28 Pulse 80 05/06/23 17:28 Resp 18 05/06/23 17:28 BP 139/80 05/06/23 17:28 Pulse Ox 99 05/06/23 17:28 O2 Del Method Room Air 05/06/23 17:28 BMI result Body Mass Index 28.1 Const: General: cooperative and no acute distress Orientation/consciousness: patient oriented x3 Eyes: General: appearance normal, both eyes and all related structures Resp: Effort & Inspection: normal respiratory effort Auscultation: clear to auscultation bilaterally Cardio: Rate: regular rate Rhythm: regular rhythm GI: Other: abdomen is soft, nontender, no rebound or guarding, no right upper quadrant tenderness Palpation (GI): Soft to palpation Auscultation: normal bowel sounds Skin: General skin exam: no rashes or lesions noted Neuro: General: patient oriented x3 Cognition (Neuro): normal cognition Extrem: Other: tenderness around right hip General: Yes normal to inspection and Yes no pedal edema Results Labs 05/06/23 18:48 05/06/23 18:01 Labs: Laboratory Results - last 24 hr 05/06/23 05/06/23 05/06/23 18:01 18:48 18:58 MCV 101.4 H MCH 33.2 H MCHC 32.7 RDW 12.8 Plt Count 314 MPV 9.1 L Immature Gran % (Auto) 1.0 H Neut % (Auto) 85.2 H Lymph % (Auto) 9.1 L [place] % (Auto) 4.1 Eos % (Auto) 0.3 Baso % (Auto) 0.3 Lymph # (Auto) 1.1 L [place] # (Auto) 0.5 Eos # (Auto) 0.0 Baso # (Auto) 0.0 Abs Immat Gran (auto) 0.12 H Absolute Neuts (auto) 10.0 H Absolute Nucleated RBC 0.000 Nucleated RBC % (auto) 0.0 PT 10.1 L INR 0.8 L Anion Gap 16 Estim Creat Clear Calc 60.4 Estimated GFR > 60 Random Glucose 100 Calcium 9.3 Total Bilirubin 0.2 AST 39 H ALT 44 H Alkaline Phosphatase 117 Total Creatine Kinase 83 Total Protein 7.6 Albumin 4.1 Lipase 1652 H Urine Color Urine Appearance Urine pH Ur Specific [place] Urine Protein Urine Glucose (UA) Urine Ketones Urine Blood Urine Nitrite Ur Leukocyte Esterase Urine Opiates Screen Urine Fentanyl Screen Ur Barbiturates Screen Ur Phencyclidine Scrn Ur Amphetamines Screen U Benzodiazepines Scrn Urine Cocaine Screen U Marijuana (THC) Screen Ethyl Alcohol 208 COVID-19 (SID) Negative COVID-19 Clin Com See Note Influenza Type A (AIDA) Negative Influenza Type B (AIDA) Negative Influenza A & B Note See Note Blood Type A Positive Antibody Screen NEGATIVE 05/06/23 20:47 MCV MCH MCHC RDW Plt Count MPV Immature Gran % (Auto) Neut % (Auto) Lymph % (Auto) [place] % (Auto) Eos % (Auto) Baso % (Auto) Lymph # (Auto) [place] # (Auto) Eos # (Auto) Baso # (Auto) Abs Immat Gran (auto) Absolute Neuts (auto) Absolute Nucleated RBC Nucleated RBC % (auto) PT INR Anion Gap Estim Creat Clear Calc Estimated GFR Random Glucose Calcium Total Bilirubin AST ALT Alkaline Phosphatase Total Creatine Kinase Total Protein Albumin Lipase Urine Color Yellow Urine Appearance Clear Urine pH 5.5 Ur Specific [place] 1.010 Urine Protein Negative Urine Glucose (UA) Negative Urine Ketones Trace Urine Blood Negative Urine Nitrite Negative Ur Leukocyte Esterase Negative Urine Opiates Screen Not Detected Urine Fentanyl Screen Not Detected Ur Barbiturates Screen Not Detected Ur Phencyclidine Scrn Not Detected Ur Amphetamines Screen Not Detected U Benzodiazepines Scrn Not Detected Urine Cocaine Screen Not Detected U Marijuana (THC) Screen Not Detected Ethyl Alcohol COVID-19 (SID) COVID-19 Clin Com Influenza Type A (AIDA) Influenza Type B (AIDA) Influenza A & B Note Blood Type Antibody Screen Imaging Radiologist's Impressions: Impressions Chest X-Ray 05/06/23 18:37 IMPRESSION: 1. The chest radiograph shows bilateral clear lung whitfield. 2. The radiographs of the pelvis and the right femur shows moderate diffuse osteopenia and superimposed comminuted intertrochanteric fracture of the right femur and moderate to severe osteoarthrosis at the left hip. Femur X-Ray 05/06/23 18:37 IMPRESSION: 1. The chest radiograph shows bilateral clear lung whitfield. 2. The radiographs of the pelvis and the right femur shows moderate diffuse osteopenia and superimposed comminuted intertrochanteric fracture of the right femur and moderate to severe osteoarthrosis at the left hip. Pelvis X-Ray 05/06/23 18:37 IMPRESSION: 1. The chest radiograph shows bilateral clear lung whitfield. 2. The radiographs of the pelvis and the right femur shows moderate diffuse osteopenia and superimposed comminuted intertrochanteric fracture of the right femur and moderate to severe osteoarthrosis at the left hip. Cervical Spine CT 05/06/23 18:51 IMPRESSION: * No acute intracranial abnormality. * No cervical spine fracture. * Mild anterolisthesis of C3 on C4 and retrolisthesis of C4 on C5 and C5 on C6, favored to be degenerative. Multilevel degenerative disc disease with a broad-based disc bulge at C4-C5 and posterior disc osteophyte complex at C5-C6 resulting in at least moderate canal stenosis. * 2.2 cm left thyroid nodule. Based on the recommendations of the ACR Incidental Thyroid Findings Committee (JACR 2014; 12(2):143-50), further evaluation by thyroid ultrasound is recommended for solitary incidental thyroid nodules greater than or equal to 1.5 cm in largest axial dimension in patients age 35 years and older who do not have limited life expectancy or significant morbidities, unless clinically warranted. * Mosaic attenuation in the lung apices suggesting small airways vessel disease. Head CT 05/06/23 18:51 IMPRESSION: * No acute intracranial abnormality. * No cervical spine fracture. * Mild anterolisthesis of C3 on C4 and retrolisthesis of C4 on C5 and C5 on C6, favored to be degenerative. Multilevel degenerative disc disease with a broad-based disc bulge at C4-C5 and posterior disc osteophyte complex at C5-C6 resulting in at least moderate canal stenosis. * 2.2 cm left thyroid nodule. Based on the recommendations of the ACR Incidental Thyroid Findings Committee (JACR 2014; 12(2):143-50), further evaluation by thyroid ultrasound is recommended for solitary incidental thyroid nodules greater than or equal to 1.5 cm in largest axial dimension in patients age 35 years and older who do not have limited life expectancy or significant morbidities, unless clinically warranted. * Mosaic attenuation in the lung apices suggesting small airways vessel disease. Assessment and Plan (1) Closed comminuted intertrochanteric fracture of femur: Qualifiers: Encounter type: initial encounter Laterality: right Qualified Code(s): S72.141A - Displaced intertrochanteric fracture of right femur, initial encounter for closed fracture Status: Acute (2) Fall: Qualifiers: Encounter type: initial encounter Qualified Code(s): W19.XXXA - Unspecified fall, initial encounter Status: Acute (3) Transaminitis: Status: Acute (4) Elevated lipase: Status: Acute (5) Dilated cbd, acquired: Status: Acute Plan 59-year-old female past medical history as mentioned above comes into the hospital after a noted to have a fracture of the right intertrochanteric femur # close comminuted intertrochanteric fracture of the femur on the right - likely do to a mechanical fall secondary to intoxication - patient plan for surgery in a.m. - NPO after midnight - pain management # transaminitis - unclear etiology, abdominal CT shows dilated CBD, no evidence of cholecystitis, or retained stone, - patient's exam completely benign - at this time possibly secondary to a past gallbladder stone versus alcohol related transaminitis - will obtain abdominal ultrasound - follow LFTs # elevated lipase - no evidence of acute pancreatitis - possibly secondary to alcohol consumption - CT abdomen shows no acute or chronic pancreatitis - monitor # dilated CBD - possibly secondary to past bladder stone - will obtain abdominal ultrasound # fall - likely mechanical due to intoxication - PT OT prior to discharge # history of anxiety and depression - continue Klonopin and amitriptyline DVT prophylaxis: SCDs in anticipation of surgery in a.m. given patient's need for surgical intervention patient require minimum 2 nights inpatient hospital stay for further management and monitoring Quality Stroke Does the patient have a stroke diagnosis?: No VTE Prior VTE?: No VTE Risk Level:: Medical - moderate - high VTE Device Contraindication: N/A - Device Ordered VTE Drug Contraindication: Treatment Not Indicated
[2023-05-06] MEDS: Morphine Sulfate 4 MG/ML CARTRIDGE IVPUSH (22:22)
[2023-05-06] MEDS: Amitriptyline HCl 10 MG TABLET 20 MG PO (22:23)
[2023-05-06] MEDS: Melatonin 3 MG TABLET 6 MG PO (22:23)
[2023-05-06] MEDS: 0.9 % Sodium Chloride Flush 3 ML SYRINGE IVFLUSH (22:23)
[2023-05-06] MEDS: ondansetron HCL 4 MG/2 ML VIAL IVPUSH (23:49)
[2023-05-07] VITALS (10 sets, daily range): BP systolic 125–157; BP diastolic 61–83; PULSE 65–104; RESP 16–18; TEMP 36–37.6; O2SAT 92–97
[2023-05-07] MEDS: HYDROmorphone HCl 1 MG/ML SYRINGE IVPUSH (01:40)
--- NOTE | 2023-05-07 01:42 | PC.NURSE ---
Addendum entered by Kavita Gant RN 05/07/23 01:46: tiger text to Dr. De Souza to let her know. Original Note: discussed with pt regarding dilaudid vs. morphine and explained that dilaudid was stronger than morphine. pt agreed to try 0.5 mg rather than 1 mg of dilaudid. will continue to monitor.
[2023-05-07] MEDS: clonazePAM 1 MG TABLET PO ×2 (03:18→23:00)
[2023-05-07] MEDS: Prochlorperazine Edisylate 10 MG/2 ML VIAL 5 MG IVPUSH (05:25)
[2023-05-07 05:54] LABS: Basophils Percent Auto 0.4 % (0-2); Hematocrit 40.6 % (37.0-47.0); Hemoglobin 13.6 g/dl (12.0-16.0); Imm Gran Abs Auto 0.04 X10*3/uL (0.00-0.03); Imm Gran Pct Auto 0.4 % (0.0-0.4); Lymphocytes Absolute Auto 0.5 X10*3/uL (1.2-4.9); Lymphocytes Percent Auto 4.3 % (20-40); MANUAL DIFF FLAG SCAN; Mean Corpuscular HGB Conc 33.5 g/dl (31.0-35.0); Mean Corpuscular Hemoglobin 33.9 pg (27.0-33.0); Mean Corpuscular Volume 101.2 fL (80.0-98.0); Mean Platelet Volume 9.5 fL (9.4-12.3); Monocytes Absolute Auto 0.4 X10*3/uL (0.1-1.2); Monocytes Percent Auto 3.4 % (2-11); Neutrophils Absolute Auto 10.3 x10*3/uL (2.0-8.3); Neutrophils Percent Auto 91.5 % (45-73); Platelet Count 318 X10*3/uL (160-400); Red Blood Count 4.01 X10*6/uL (4.20-5.50); Red Cell Distribution Width 13.1 % (11.0-16.0); SCAN SMEAR FLAG 1; White Blood Count 11.3 X10*3/uL (4.8-10.8)
[2023-05-07 06:12] LABS: Alanine Aminotransferase 53 U/L (0-31); Albumin Level 4.2 g/dL (3.5-5.0); Alkaline Phosphatase 114 U/L (39-117); Anion Gap 15 (12-20); Aspartate Amino Transferase 36 U/L (5-31); Bilirubin Total 0.5 mg/dL (0.0-1.0); Blood Urea Nitrogen 17 mg/dL (9-16); Calcium 9.4 mg/dL (8.4-10.2); Carbon Dioxide 25 mmol/L (22-29); Chloride 104 mmol/L (96-108); Creatinine Clr Calc Pharmacy 62.5; Estimated Glomerular Filt Rate > 60; Glucose Random 123 mg/dL (60-115); Potassium 4.8 mmol/L (3.3-5.1); Sodium 139 mmol/L (135-145); Total Protein 7.7 g/dL (6.5-8.0)
[2023-05-07] MEDS: HYDROmorphone HCl 1 MG/ML SYRINGE 0.5 MG IVPUSH ×3 (06:35→22:59)
--- NOTE | 2023-05-07 07:49 | PHA.MEDREC ---
Pharmacy Consult ? Medication Reconciliation Medication reconciliation completed by RN, reviewed pharmacy
[2023-05-07 08:02] LABS: Lipase 283 U/L (8-78)
[2023-05-07 08:03] LABS: SLIDE REVIEW VERIFIED
[2023-05-07] MEDS: 0.9 % Sodium Chloride Flush 3 ML SYRINGE IVFLUSH (08:10)
--- NOTE | 2023-05-07 08:17 | P.CONAN_ITS ---
HPI - Anesthesia Eval Consult details Narrative: hip fracture PMFSH Active Problems Active Problems: All Active Problems (Updated 05/07/23 @ 05:08 by Angie De Souza MD) Dilated cbd, acquired (Acute) Elevated lipase (Acute) Transaminitis (Acute) Closed comminuted intertrochanteric fracture of femur (Acute) Fall (Acute) Past Medical History Medical History GERD (gastroesophageal reflux disease) Osteoporosis Hyperlipidemia Irritable bowel syndrome with diarrhea Fatty liver Asthma Anxiety and depression Family History Family history of problems with anesthesia: No Surgical History Surgical History Hx of tonsillectomy H/O esophagogastroduodenoscopy H/O colonoscopy History of Problems with Anesthesia: No Social History Household Members: [facility] Do you presently have visiting nurse or other home services: No Alcohol intake: current Alcohol intake frequency: 3 or more drinks per day Alcohol type: hard liquor Patient Tobacco Use Status: Former Tobacco user Quit Date: 2011 Smoked in Last 30 Days: No Patient Interested in Nicotine Replacement: No Patient Given Instructions on How to Stop Smoking: No Second Hand Smoke Exposure: No Use of substances other than those prescribed or required for medical reasons: No Currently Displaying Signs/Symptoms of Drug Intoxication Withdrawal: No Have you been hit, kicked, punched, or otherwise hurt by someone within the past year? If so, by whom?: No Do you feel safe in your current relationship?: Yes Is there a partner from a previous relationship who is making you feel unsafe now?: No Are you made to feel afraid or neglected: No Advance Directives: No Do you have thoughts of harming others: None Do you have a plan to hurt others: No Plan Recently lost weight without trying: No How much weight loss: Not applicable Eating poorly because of decreased appetite: No Nutrition screen score: 0 Nutrition Risks: No Nutritional Risk Patient : No : No Poor oral hygiene: No Meds Allergies Allergy/AdvReac Type Severity Reaction Status Date / Time ciprofloxacin [From Cipro] Allergy Unknown Verified 05/06/23 17:27 escitalopram [From Lexapro] Allergy Unknown Verified 05/06/23 17:27 paroxetine [From Paxil] Allergy Unknown Verified 05/06/23 17:27 sulfamethoxazole Allergy Unknown Verified 05/06/23 17:27 [From Bactrim] trimethoprim [From Bactrim] Allergy Unknown Verified 05/06/23 17:27 Active Medications: Current Medications Acetaminophen (Acetaminophen 325 Mg Tablet) 650 mg PO Q6H PRN PRN Reason: Pain, Mild (Pain Scale 1-3) Amitriptyline HCl (Amitriptyline Hcl 10 Mg Tablet) 20 mg PO BEDTIME [facility] Last Admin: 05/06/23 22:23 Dose: 20 mg Clonazepam (Clonazepam 1 Mg Tablet) 1 mg PO BID PRN PRN Reason: Anxiety Last Admin: 05/07/23 03:18 Dose: 1 mg Docusate Sodium (Docusate Sodium 100 Mg Capsule) 100 mg PO DAILY PRN PRN Reason: Constipation Famotidine (Famotidine 20 Mg Tablet) 20 mg PO BID [facility] Hydromorphone HCl (Hydromorphone Hcl 1 Mg/Ml Syringe) 0.5 mg IVPUSH Q4H PRN; Protocol PRN Reason: Pain, Severe (Pain Scale 7-10) Last Admin: 05/07/23 06:35 Dose: 0.5 mg Melatonin (Melatonin 3 Mg Tablet) 6 mg PO BEDTIME [facility] Last Admin: 05/06/23 22:23 Dose: 6 mg Morphine Sulfate (Morphine Sulfate 4 Mg/Ml Cartridge) 4 mg IVPUSH Q4H PRN; Protocol PRN Reason: Pain, Severe (Pain Scale 7-10) Ondansetron HCl (Ondansetron Hcl 4 Mg/2 Ml Vial) 4 mg IVPUSH Q8H PRN PRN Reason: Nausea and Vomiting Last Admin: 05/06/23 23:49 Dose: 4 mg Sodium Chloride (0.9 % Sodium Chloride Flush 3 Ml Syringe) [facility] Last Admin: 05/07/23 08:10 Dose: 3 ml Home Medications Medication Instructions Recorded Confirmed Last Taken Type albuterol sulfate 90 mcg/actuation 2 puff inhalation QID PRN wheezing 12/28/22 05/06/23 05/05/23 History aerosol inhaler amitriptyline 10 mg tablet 20 mg PO BEDTIME 12/28/22 05/06/23 05/05/23 History famotidine 20 mg tablet 20 mg PO BID 12/28/22 05/06/23 05/05/23 History nabumetone 500 mg tablet 500 mg PO BID 12/28/22 05/06/23 05/05/23 History salmeterol 50 mcg/dose blister 1 inh inhalation BID 12/28/22 05/06/23 05/06/23 History powder for inhalation (Serevent Diskus) clonazepam 1 mg tablet 1 mg PO BID 05/07/23 05/07/23 Unknown History ketoconazole 2 % topical cream 1 appl topical BID 05/07/23 05/07/23 Unknown History nystatin 100,000 unit/gram topical 1 appl topical BID 05/07/23 05/07/23 Unknown History cream Exam Height,Weight and Vital Signs: Height 5 ft 4 in Weight 74.2 kg Last Vital Signs Temp 98.2 F 05/07/23 03:15 Pulse 94 05/07/23 03:15 Resp 18 05/07/23 03:15 BP 133/61 05/07/23 03:15 Pulse Ox 96 05/07/23 03:15 O2 Del Method Room Air 05/07/23 03:15 Pertinent Lab Results Pertinent Lab Results: Laboratory Tests 05/06/23 05/06/23 05/06/23 18:01 18:48 18:58 WBC 11.8 H RBC 4.37 Hgb 14.5 Hct 44.3 MCV 101.4 H MCH 33.2 H MCHC 32.7 RDW 12.8 Plt Count 314 MPV 9.1 L Immature Gran % (Auto) 1.0 H Neut % (Auto) 85.2 H Lymph % (Auto) 9.1 L [place] % (Auto) 4.1 Eos % (Auto) 0.3 Baso % (Auto) 0.3 Lymph # (Auto) 1.1 L [place] # (Auto) 0.5 Eos # (Auto) 0.0 Baso # (Auto) 0.0 Abs Immat Gran (auto) 0.12 H Absolute Neuts (auto) 10.0 H Absolute Nucleated RBC 0.000 Nucleated RBC % (auto) 0.0 Smear Tech's Comments PT 10.1 L INR 0.8 L Sodium 140 Potassium 4.1 Chloride 107 Carbon Dioxide 21 L Anion Gap 16 BUN 14 Creatinine 0.88 Estim Creat Clear Calc 60.4 Estimated GFR > 60 Random Glucose 100 Calcium 9.3 Total Bilirubin 0.2 AST 39 H ALT 44 H Alkaline Phosphatase 117 Total Creatine Kinase 83 Total Protein 7.6 Albumin 4.1 Lipase 1652 H Urine Color Urine Appearance Urine pH Ur Specific [place] Urine Protein Urine Glucose (UA) Urine Ketones Urine Blood Urine Nitrite Ur Leukocyte Esterase Urine Opiates Screen Urine Fentanyl Screen Ur Barbiturates Screen Ur Phencyclidine Scrn Ur Amphetamines Screen U Benzodiazepines Scrn Urine Cocaine Screen U Marijuana (THC) Screen Ethyl Alcohol 208 COVID-19 (SID) Negative COVID-19 Clin Com See Note Influenza Type A (AIDA) Negative Influenza Type B (AIDA) Negative Influenza A & B Note See Note Blood Type A Positive Antibody Screen NEGATIVE 05/06/23 05/07/23 20:47 05:17 WBC 11.3 H RBC 4.01 L Hgb 13.6 Hct 40.6 MCV 101.2 H MCH 33.9 H MCHC 33.5 RDW 13.1 Plt Count 318 MPV 9.5 Immature Gran % (Auto) 0.4 Neut % (Auto) 91.5 H Lymph % (Auto) 4.3 L [place] % (Auto) 3.4 Eos % (Auto) 0.0 Baso % (Auto) 0.4 Lymph # (Auto) 0.5 L [place] # (Auto) 0.4 Eos # (Auto) 0.0 Baso # (Auto) 0.0 Abs Immat Gran (auto) 0.04 H Absolute Neuts (auto) 10.3 H Absolute Nucleated RBC 0.000 Nucleated RBC % (auto) 0.0 Smear Tech's Comments VERIFIED PT INR Sodium 139 Potassium 4.8 Chloride 104 Carbon Dioxide 25 Anion Gap 15 BUN 17 H Creatinine 0.85 Estim Creat Clear Calc 62.5 Estimated GFR > 60 Random Glucose 123 H Calcium 9.4 Total Bilirubin 0.5 AST 36 H ALT 53 H Alkaline Phosphatase 114 Total Creatine Kinase Total Protein 7.7 Albumin 4.2 Lipase 283 H Urine Color Yellow Urine Appearance Clear Urine pH 5.5 Ur Specific [place] 1.010 Urine Protein Negative Urine Glucose (UA) Negative Urine Ketones Trace Urine Blood Negative Urine Nitrite Negative Ur Leukocyte Esterase Negative Urine Opiates Screen Not Detected Urine Fentanyl Screen Not Detected Ur Barbiturates Screen Not Detected Ur Phencyclidine Scrn Not Detected Ur Amphetamines Screen Not Detected U Benzodiazepines Scrn Not Detected Urine Cocaine Screen Not Detected U Marijuana (THC) Screen Not Detected Ethyl Alcohol COVID-19 (SID) COVID-19 Clin Com Influenza Type A (AIDA) Influenza Type B (AIDA) Influenza A & B Note Blood Type Antibody Screen Airway Mallampati Class: II TM Dist: >3cm Neck ROM: Limited Heart: rrr Lungs: cta Assessment and Plan Assessment Anesthesia Assessment: Anesthesia Plan Discussed and Chart Reviewed Final Anesthetic Review Family History of Problems with Anesthesia: No History of Problems with Anesthesia: No NPO: Yes ASA Class: III and Emergency Final Preanesthetic Review: No Changes in Pt Med Stat, Meds/Allgs Chart Reviewed, Consent Obtained/Reviewed and Anes Risks/Benef Reviewed Patient Risk: Intermediate Procedure Risk: Intermediate Anesthetic Plan Anesthetic Plan: GA Disposition: Standard PACU
[2023-05-07] MEDS: oxyCODONE HCl Immed Release 5 MG TABLET PO (11:08)
--- NOTE | 2023-05-07 11:18 | MHC.CM.PN ---
CM ATTEMPTED TO MEET WITH PT WHO IS IN THE OR CM WILL RETURN WHEN PT IS BACK ON THE UNIT
--- NOTE | 2023-05-07 11:18 | PM.OP ---
Brief Operative Note Date of Service: 05/07/23 Pre-op diagnosis: Right hip intertrochanteric fracture Post-op diagnosis: same Procedure: Open reduction and internal fixation of right hip intertrochanteric fracture with placement of a Dall-Miles cable and short gamma nail Implants: Hermilo short gamma nail measuring 180 mm in length by 11 mm in diameter with a 130 degree neck-shaft angle, lag screw measuring 105 mm in length, a standard set screw, distal locking bolt measuring 35 mm in length, 1 Dall-Miles cable Surgeon: Ephraim Shay MD Anesthesia: GETA Was an Direct Support Professional used for this Procedure?: No Estimated blood loss (mL): 50 Pathology: none sent Condition: stable Disposition: PACU
--- NOTE | 2023-05-07 11:20 | P.OP_ITS ---
Operative Note Operative Note Date of Service: 05/07/23 Narrative: After the patient was identified as Manju Ashley and her right hip was initialed by myself they were brought to the operating room where general anesthesia was induced by the anesthesiologist in routine fashion. The patient was given 2 g of IV Ancef for infection prophylaxis. The patient was then gently transferred from the hospital bed onto the fracture table. The patient's left lower extremity was placed into the well leg hernandez. The patient's right lower extremity was placed in gentle in-line traction with their patella parallel to the floor. All bony prominences were well padded. C-arm AP and lateral radio graphs were taken of the fracture site. In spite of multiple closed reduction attempts the fracture did remain medially displaced on the AP view. Thus, the decision was made to place a Dall-Miles cable around the fracture prior to insertion of the gamma nail. The patient's right hip region was prepped and draped in sterile fashion. A formal time-out was completed. A #10 scalpel blade was used to make a 10 cm incision along the lateral aspect of the patient's thigh at the level of the fracture. The subcutaneous tissues, fascia curry and vastus lateralis were split using electrocautery. The fracture site was identified. A Dall-Miles cable was then placed in routine fashion. C-arm AP and lateral radiographs were taken to confirm good fracture reduction. A #10 scalpel blade was used to make a 5 cm incision just proximal to the tip of the greater trochanter. A curved cannulated awl was introduced into the proximal femur in routine fashion. A ball-tipped guidewire was then placed through the cannula and into the femoral canal. The awl was removed. Reaming was begun with a 9 mm reamer. Reaming was increased incrementally up to a size 13 reamer distally. The proximal canal was reamed with a 15.5 mm reamer. The gamma nail measuring 11 mm in diameter by 180 mm in length was passed over the guidewire. Good fracture reduction and nail positioning were confirmed using C-arm AP and lateral radiographs. A 2 cm incision was then made where the lag screw trocar met the patient's lateral thigh. The subcutaneous tissues and fascia curry were split down to the lateral cortex of the femur using a hemostat. The lag screw trocar was passed down to the lateral cortex of the femur. A threaded guidewire was then placed into the inferior aspect of the femoral head on the AP x-ray and the center of the femoral head on the lateral x-ray. The guidewire measured 105 mm in length. Reaming was then performed over the guidewire to a depth of 105 mm. The lag screw measuring 105 mm in length was then placed over the guidewire. The guidewire was removed. The set screw was then placed into the nail and tightened fully. It was then turned 1/4 of a turn counter-clockwise to allow for fracture compression. The end cap was then put into place in routine fashion. A 2 cm incision was then made where the distal locking bolt trocar met the lateral aspect of the patient's thigh. The subcutaneous tissues and the fascia curry were split down to the lateral cortex of the femur. The locking bolt hole was drilled in routine fashion. The drill bit measured 35 mm in length. The distal locking bolt measuring 35 mm in length was put into place without difficulty. The Dall-Miles cable was then tightened, crimped and cut in routine fashion. Final AP and lateral radiographs showed good fracture reduction and hardware positioning. All 3 wounds were irrigated with copious amounts of normal saline solution. The distal 2 wounds were closed with 2-0 Vicryl and skin andrew. The proximal wound was once again irrigated. The fascia curry was closed with 0 Vicryl [id number] interrupted suture. The wound was once again irrigated. The subcutaneous tissues were closed with 2-0 Vicryl interrupted suture. The skin was closed with skin andrew. Dry sterile dressing was placed over all incisions. The patient was gently transferred from the fracture table onto their hospital bed. The patient was awoken and extubated in the operating room. The patient was transferred to the recovery room in stable condition.
[2023-05-07] MEDS: Lactated Ringers 1,000 ML 100 ML IVCONT ×2 (11:50→20:36)
--- NOTE | 2023-05-07 13:48 | P.PNIM_ITS ---
Subjective Subjective Date of Service: 05/07/23 Interval History: seen and examined this morning follow up for right hip fracture s/p right ORIF pain under adequate control, denies abdominal pain, nausea or vomiting Review of Systems Review of Systems: Yes all other systems are reviewed and are negative Constitutional Constitutional: Denies chills and Denies fever(s) Cardiovascular Cardiovascular: Denies chest pain, Denies palpitations and Denies dyspnea Respiratory Respiratory: Denies cough and Denies dyspnea Gastrointestinal Gastrointestinal: Denies abdominal pain, Denies nausea and Denies vomiting Endocrine Endocrine: Denies palpitations Physical Exam 2 Vital Signs: Vital Signs: Last Vital Signs Temp 96.8 F 05/07/23 13:00 Pulse 96 05/07/23 13:00 Resp 16 05/07/23 13:00 BP 137/66 05/07/23 13:00 Pulse Ox 97 05/07/23 13:00 O2 Del Method Room Air 05/07/23 13:00 BMI result Body Mass Index 28.1 Const: General: cooperative, comfortable, no acute distress, alert and awake Nutritional Appearance: average body habitus Orientation/consciousness: p atient oriented x3 Resp: Effort & Inspection: normal respiratory effort, able to speak in complete sentences, no respiratory distress and no use of accessory muscles Cardio: Rate: regular rate GI: Inspection: No distended Palpation (GI): Soft to palpation and nontender Neuro: General: patient oriented x3, moves all extremities and CN's II-XI intact bilaterally Extrem: Other: right hip dressing c/d/i Objective Data Active Medications Acetaminophen (Acetaminophen 325 Mg Tablet) 650 mg PO Q6H PRN PRN Reason: Pain, Mild (Pain Scale 1-3) Albuterol Sulfate (Albuterol Sulfate 90 Mcg 8 Gm Inhaler) 2 puff INHALE QID PRN PRN Reason: wheezing Amitriptyline HCl (Amitriptyline Hcl 10 Mg Tablet) 20 mg PO BEDTIME [facility] Last Admin: 05/06/23 22:23 Dose: 20 mg Documented By: RASHMI Aspirin (Aspirin 325 Mg Tablet) 325 mg PO BID [facility] Clonazepam (Clonazepam 1 Mg Tablet) 1 mg PO BID PRN PRN Reason: Anxiety Last Admin: 05/07/23 03:18 Dose: 1 mg Documented By: RASHMI Clonazepam (Clonazepam 1 Mg Tablet) 1 mg PO BID [facility] Clotrimazole (Clotrimazole 1 % Cream 15 Gm Tube) 1 appl TOPICAL BID [facility] Docusate Sodium (Docusate Sodium 100 Mg Capsule) 100 mg PO DAILY PRN PRN Reason: Constipation Famotidine (Famotidine 20 Mg Tablet) 20 mg PO BID [facility] Last Admin: 05/07/23 10:24 Dose: Not Given Documented By: KIKO Non-Admin Reason: NPO Hydromorphone HCl (Hydromorphone Hcl 1 Mg/Ml Syringe) 0.5 mg IVPUSH Q4H PRN; Protocol PRN Reason: Pain, Severe (Pain Scale 7-10) Last Admin: 05/07/23 06:35 Dose: 0.5 mg Documented By: RASHMI Hydromorphone HCl (Hydromorphone Hcl 0.5 Mg/0.5 Ml Syringe) 0.25 mg IVPUSH Q5M PRN; Protocol PRN Reason: Pain, Severe (Pain Scale 7-10) Cefazolin Sodium/Dextrose (Ancef) 2 gm in 50 mls @ 100 mls/hr IV Q8H [facility] Stop: 05/08/23 08:00 Lactated Ringer's (Lr) 1,000 mls @ 100 mls/hr IVCONT .Q10H [facility] Last Admin: 05/07/23 11:50 Dose: 100 mls/hr Documented By: KIKO Melatonin (Melatonin 3 Mg Tablet) 6 mg PO BEDTIME [facility] Last Admin: 05/06/23 22:23 Dose: 6 mg Documented By: RASHMI Morphine Sulfate (Morphine Sulfate 4 Mg/Ml Cartridge) 4 mg IVPUSH Q4H PRN; Protocol PRN Reason: Pain, Severe (Pain Scale 7-10) Nystatin (Nystatin Cream 15 Gm Tube) 1 appl TOPICAL BID [facility]; Protocol Ondansetron HCl (Ondansetron Hcl 4 Mg/2 Ml Vial) 4 mg IVPUSH Q8H PRN PRN Reason: Nausea and Vomiting Last Admin: 05/06/23 23:49 Dose: 4 mg Documented By: RASHMI Ondansetron HCl (Ondansetron Hcl 4 Mg/2 Ml Vial) 4 mg IVPUSH ONCE PRN PRN Reason: Nausea and Vomiting Salmeterol Xinafoate (Salmeterol Xinafoate 50 Mcg Blst.W.Dev) 1 puff INHALE BID [facility] Sodium Chloride (0.9 % Sodium Chloride Flush 3 Ml Syringe) 3 ml IVFLUSH QSHIFT [facility] Last Admin: 05/07/23 08:10 Dose: 3 ml Documented By: KIKO Labs 05/07/23 05:17 05/07/23 05:17 Labs: Laboratory Results - last 24 hr 05/06/23 05/06/23 05/06/23 18:01 18:48 18:58 MCV 101.4 H MCH 33.2 H MCHC 32.7 RDW 12.8 Plt Count 314 MPV 9.1 L Immature Gran % (Auto) 1.0 H Neut % (Auto) 85.2 H Lymph % (Auto) 9.1 L [place] % (Auto) 4.1 Eos % (Auto) 0.3 Baso % (Auto) 0.3 Lymph # (Auto) 1.1 L [place] # (Auto) 0.5 Eos # (Auto) 0.0 Baso # (Auto) 0.0 Abs Immat Gran (auto) 0.12 H Absolute Neuts (auto) 10.0 H Absolute Nucleated RBC 0.000 Nucleated RBC % (auto) 0.0 Smear Tech's Comments PT 10.1 L INR 0.8 L Anion Gap 16 Estim Creat Clear Calc 60.4 Estimated GFR > 60 Random Glucose 100 Calcium 9.3 Total Bilirubin 0.2 AST 39 H ALT 44 H Alkaline Phosphatase 117 Total Creatine Kinase 83 Total Protein 7.6 Albumin 4.1 Lipase 1652 H Urine Color Urine Appearance Urine pH Ur Specific [place] Urine Protein Urine Glucose (UA) Urine Ketones Urine Blood Urine Nitrite Ur Leukocyte Esterase Urine Opiates Screen Urine Fentanyl Screen Ur Barbiturates Screen Ur Phencyclidine Scrn Ur Amphetamines Screen U Benzodiazepines Scrn Urine Cocaine Screen U Marijuana (THC) Screen Ethyl Alcohol 208 COVID-19 (SID) Negative COVID-19 Clin Com See Note Influenza Type A (AIDA) Negative Influenza Type B (AIDA) Negative Influenza A & B Note See Note Blood Type A Positive Antibody Screen NEGATIVE 05/06/23 05/07/23 20:47 05:17 MCV 101.2 H MCH 33.9 H MCHC 33.5 RDW 13.1 Plt Count 318 MPV 9.5 Immature Gran % (Auto) 0.4 Neut % (Auto) 91.5 H Lymph % (Auto) 4.3 L [place] % (Auto) 3.4 Eos % (Auto) 0.0 Baso % (Auto) 0.4 Lymph # (Auto) 0.5 L [place] # (Auto) 0.4 Eos # (Auto) 0.0 Baso # (Auto) 0.0 Abs Immat Gran (auto) 0.04 H Absolute Neuts (auto) 10.3 H Absolute Nucleated RBC 0.000 Nucleated RBC % (auto) 0.0 Smear Tech's Comments VERIFIED PT INR Anion Gap 15 Estim Creat Clear Calc 62.5 Estimated GFR > 60 Random Glucose 123 H Calcium 9.4 Total Bilirubin 0.5 AST 36 H ALT 53 H Alkaline Phosphatase 114 Total Creatine Kinase Total Protein 7.7 Albumin 4.2 Lipase 283 H Urine Color Yellow Urine Appearance Clear Urine pH 5.5 Ur Specific [place] 1.010 Urine Protein Negative Urine Glucose (UA) Negative Urine Ketones Trace Urine Blood Negative Urine Nitrite Negative Ur Leukocyte Esterase Negative Urine Opiates Screen Not Detected Urine Fentanyl Screen Not Detected Ur Barbiturates Screen Not Detected Ur Phencyclidine Scrn Not Detected Ur Amphetamines Screen Not Detected U Benzodiazepines Scrn Not Detected Urine Cocaine Screen Not Detected U Marijuana (THC) Screen Not Detected Ethyl Alcohol COVID-19 (SID) COVID-19 Clin Com Influenza Type A (AIDA) Influenza Type B (AIDA) Influenza A & B Note Blood Type Antibody Screen Assessment and Plan (1) Transaminitis: Status: Acute (2) Closed comminuted intertrochanteric fracture of femur: Status: Acute Plan 59-year-old female past medical history as mentioned above comes into the hospital after a noted to have a fracture of the right intertrochanteric femur # close comminuted intertrochanteric fracture of the femur on the right due to a mechanical fall secondary to intoxication s/p ORIF ortho following # mild transaminitis abdominal exam benign, no GI complaints abdominal ultrasound with cholelithiasis without evidence of acute cholecystitis likely due to fatty liver dz LFTs stable # elevated lipase - no evidence of acute pancreatitis - possibly secondary to alcohol consumption no GI symptoms, trending down # dilated CBD does not appear dilated on abdominal ultrasound # fall - likely mechanical due to intoxication etoh level 208 on arrival in ED # history of anxiety and depression - continue Klonopin and amitriptyline DVT prophylaxis: ASA per orthopedic service attending - dr. logan needs ongoing inpatient stay for post-op care/safe dispo Quality Stroke Does the patient have a stroke diagnosis?: No VTE Prior VTE?: No VTE Risk Level:: Medical - moderate - high VTE Device Contraindication: N/A - Device Ordered VTE Drug Contraindication: Treatment Not Indicated
--- NOTE | 2023-05-07 14:33 | MHC.CM.PN ---
PT REPORTS SHE LIVES WITH HER S/O SHE IS INDEPENDENT WITH CARE NO DME OR SERVICES SHE SAYS SHE HAS A HCP NAMING HER S/O HER AGENT - COPY REQUESTED PCP: [facility] IMM DELIVERED PT REPORTS SHE DOES NOT WANT TO GO TO STR SHE IS AGREEABLE TO HOME SERVICES SHE IS AWARE SHE WILL HAVE A PT EVAL PRIOR TO DISCHARGE SAYS S/O WILL TRANSPORT LONG SHE CAN GET IN AND OUT OF CAR
[2023-05-07] MEDS: ceFAZolin Sodium/Dextrose,Iso 2 GM/50 ML PIGGYBACK IV (19:21)
[2023-05-07] MEDS: Salmeterol Xinafoate 50 MCG BLST.W.DEV 1 PUFF INHALE (19:26)
[2023-05-07] MEDS: Acetaminophen 325 MG TABLET 650 MG PO (19:28)
[2023-05-07] MEDS: Aspirin 325 MG TABLET PO (20:29)
[2023-05-07] MEDS: Famotidine 20 MG TABLET PO (20:39)
[2023-05-07] MEDS: Melatonin 3 MG TABLET 6 MG PO (23:00)
[2023-05-07] MEDS: Amitriptyline HCl 10 MG TABLET 20 MG PO (23:01)
[2023-05-08] VITALS (9 sets, daily range): BP systolic 116–150; BP diastolic 59–80; PULSE 89–109; RESP 16–18; TEMP 36.3–36.9; O2SAT 94–98
[2023-05-08] MEDS: HYDROmorphone HCl 1 MG/ML SYRINGE 0.5 MG IVPUSH ×3 (03:06→22:30)
[2023-05-08] MEDS: ceFAZolin Sodium/Dextrose,Iso 2 GM/50 ML PIGGYBACK IV ×3 (03:14→18:14)
[2023-05-08] MEDS: Lactated Ringers 1,000 ML 100 ML IVCONT (05:54)
[2023-05-08] MEDS: Famotidine 20 MG TABLET PO ×2 (08:01→20:49)
[2023-05-08] MEDS: Aspirin 325 MG TABLET PO ×2 (08:01→22:34)
[2023-05-08] MEDS: clonazePAM 1 MG TABLET PO ×2 (08:01→22:24)
[2023-05-08] MEDS: Clotrimazole 1 % Cream 15 GM TUBE 1 APPL TOPICAL ×2 (08:02→20:49)
[2023-05-08] MEDS: Nystatin Cream 15 GM TUBE 1 APPL TOPICAL ×2 (08:02→20:22)
[2023-05-08] MEDS: Salmeterol Xinafoate 50 MCG BLST.W.DEV 1 PUFF INHALE ×2 (08:18→19:46)
--- NOTE | 2023-05-08 09:16 | PM.PNORT ---
Subjective Subjective Date of Service: 05/08/23 Principal diagnosis: Right hip fracture ORIF Interval history: The patient is seen resting in bed this AM c/o mild to moderate right hip pain s/p ORIF yesterday. She has not yet been out of bed. She denies any f/c, sob, cp. Physical Exam Vital Signs: Vital Signs: Last Vital Signs Temp 98.3 F 05/08/23 07:00 Pulse 99 05/08/23 08:19 Resp 16 05/08/23 08:19 BP 131/60 05/08/23 07:00 Pulse Ox 97 05/08/23 07:00 O2 Del Method Room Air 05/08/23 07:00 BMI result Body Mass Index 28.1 Extrem: Other: Right LE - dressing clean, EHL/sens nl Procedures Date of Service Date of Service: 05/08/23 Progress Note: A&P Assessment and plan (1) Intertrochanteric fracture of right hip: Status: Acute Plan Ms. Ashley is doing well after undergoing right hip fracture open reduction and internal fixation surgery yesterday. Continue aspiring BID for DVT prophylaxis. OOB with PT. Will keep 50% weight bearing on her right leg for now using walker/assistance due to fracture comminution. commissioner of relocation services for home PT or possible inpt rehab over the next few days. The patient is stable at present. Time Spent With Patient Time: Total time managing care of this patient today 14 minutes. Quality Stroke Does the patient have a stroke diagnosis?: No VTE Prior VTE?: No VTE Risk Level:: Medical - moderate - high VTE Device Contraindication: N/A - Device Ordered VTE Drug Contraindication: Treatment Not Indicated
--- NOTE | 2023-05-08 11:38 | P.PNIM_ITS ---
Subjective Subjective Date of Service: 05/08/23 Interval History: seen and examined this morning follow up for right hip fracture s/p right ORIF pain under adequate control, denies abdominal pain, nausea or vomiting Review of Systems Review of Systems: Yes all other systems are reviewed and are negative Constitutional Constitutional: Denies chills and Denies fever(s) Cardiovascular Cardiovascular: Denies chest pain, Denies palpitations and Denies dyspnea Respiratory Respiratory: Denies cough and Denies dyspnea Gastrointestinal Gastrointestinal: Denies abdominal pain, Denies nausea and Denies vomiting Endocrine Endocrine: Denies palpitations Physical Exam 2 Vital Signs: Vital Signs: Last Vital Signs Temp 98.3 F 05/08/23 07:00 Pulse 99 05/08/23 08:19 Resp 16 05/08/23 08:19 BP 131/60 05/08/23 07:00 Pulse Ox 97 05/08/23 07:00 O2 Del Method Room Air 05/08/23 07:00 BMI result Body Mass Index 28.1 Objective Data Active Medications Acetaminophen (Acetaminophen 325 Mg Tablet) 650 mg PO Q6H PRN PRN Reason: Pain, Mild (Pain Scale 1-3) Last Admin: 05/07/23 19:28 Dose: 650 mg Documented By: BEN Albuterol Sulfate (Albuterol Sulfate 90 Mcg 8 Gm Inhaler) 2 puff INHALE QID PRN PRN Reason: wheezing Amitriptyline HCl (Amitriptyline Hcl 10 Mg Tablet) 20 mg PO BEDTIME [facility] Last Admin: 05/07/23 23:01 Dose: 20 mg Documented By: BEN Aspirin (Aspirin 325 Mg Tablet) 325 mg PO BID [facility] Last Admin: 05/08/23 08:01 Dose: 325 mg Documented By: BEATA Clonazepam (Clonazepam 1 Mg Tablet) 1 mg PO BID PRN PRN Reason: Anxiety Last Admin: 05/07/23 03:18 Dose: 1 mg Documented By: RASHMI Clonazepam (Clonazepam 1 Mg Tablet) 1 mg PO BID [facility] Last Admin: 05/08/23 08:01 Dose: 1 mg Documented By: BEATA Clotrimazole (Clotrimazole 1 % Cream 15 Gm Tube) 1 appl TOPICAL BID [facility] Last Admin: 05/08/23 08:02 Dose: 1 appl Documented By: BEATA Docusate Sodium (Docusate Sodium 100 Mg Capsule) 100 mg PO DAILY PRN PRN Reason: Constipation Famotidine (Famotidine 20 Mg Tablet) 20 mg PO BID [facility] Last Admin: 05/08/23 08:01 Dose: 20 mg Documented By: BEATA Hydromorphone HCl (Hydromorphone Hcl 1 Mg/Ml Syringe) 0.5 mg IVPUSH Q4H PRN; Protocol PRN Reason: Pain, Severe (Pain Scale 7-10) Last Admin: 05/08/23 08:18 Dose: 0.5 mg Documented By: BEATA Hydromorphone HCl (Hydromorphone Hcl 0.5 Mg/0.5 Ml Syringe) 0.25 mg IVPUSH Q5M PRN; Protocol PRN Reason: Pain, Severe (Pain Scale 7-10) Cefazolin Sodium/Dextrose (Ancef) 2 gm in 50 mls @ 100 mls/hr IV Q8H [facility] Last Infusion: 05/08/23 11:07 Dose: Infused Documented By: BEATA Melatonin (Melatonin 3 Mg Tablet) 6 mg PO BEDTIME [facility] Last Admin: 05/07/23 23:00 Dose: 6 mg Documented By: ODRISDylon Morphine Sulfate (Morphine Sulfate 4 Mg/Ml Cartridge) 4 mg IVPUSH Q4H PRN; Protocol PRN Reason: Pain, Severe (Pain Scale 7-10) Nystatin (Nystatin Cream 15 Gm Tube) 1 appl TOPICAL BID [facility]; Protocol Last Admin: 05/08/23 08:02 Dose: 1 appl Documented By: BEATA Ondansetron HCl (Ondansetron Hcl 4 Mg/2 Ml Vial) 4 mg IVPUSH Q8H PRN PRN Reason: Nausea and Vomiting Last Admin: 05/06/23 23:49 Dose: 4 mg Documented By: RASHMI Ondansetron HCl (Ondansetron Hcl 4 Mg/2 Ml Vial) 4 mg IVPUSH ONCE PRN PRN Reason: Nausea and Vomiting Salmeterol Xinafoate (Salmeterol Xinafoate 50 Mcg Blst.W.Dev) 1 puff INHALE BID [facility] Last Admin: 05/08/23 08:18 Dose: 1 puff Documented By: RIANA Labs 05/07/23 05:17 05/07/23 05:17 Assessment and Plan (1) Transaminitis: Status: Acute (2) Closed comminuted intertrochanteric fracture of femur: Status: Acute Plan 59-year-old female past medical history as mentioned above comes into the hospital after a noted to have a fracture of the right intertrochanteric femur Close comminuted intertrochanteric fracture of the femur on the right due to a mechanical fall secondary to intoxication s/p ORIF ortho following PT consult pending pain management mild transaminitis abdominal exam benign, no GI complaints abdominal ultrasound with cholelithiasis without evidence of acute cholecystitis likely due to fatty liver dz LFTs stable elevated lipase no evidence of acute pancreatitis possibly secondary to alcohol consumption no GI symptoms, trending down dilated CBD does not appear dilated on abdominal ultrasound fall likely mechanical due to intoxication etoh level 208 on arrival in ED history of anxiety and depression continue Klonopin and amitriptyline DVT prophylaxis: ASA per orthopedic service attending - dr. logan needs ongoing inpatient stay for post-op care/safe dispo Quality Stroke Does the patient have a stroke diagnosis?: No VTE Prior VTE?: No VTE Risk Level:: Medical - moderate - high VTE Device Contraindication: N/A - Device Ordered VTE Drug Contraindication: Treatment Not Indicated
[2023-05-08] MEDS: HYDROmorphone HCl 0.5 MG/0.5 ML SYRINGE 0.25 MG IVPUSH (16:58)
[2023-05-08] MEDS: Acetaminophen 325 MG TABLET 650 MG PO (20:49)
[2023-05-08] MEDS: Amitriptyline HCl 10 MG TABLET 20 MG PO (22:23)
[2023-05-08] MEDS: Melatonin 3 MG TABLET 6 MG PO (22:24)
[2023-05-09] VITALS (8 sets, daily range): BP systolic 113–138; BP diastolic 59–80; PULSE 115–122; RESP 18; TEMP 36.3–37.1; O2SAT 92–98
[2023-05-09] MEDS: ceFAZolin Sodium/Dextrose,Iso 2 GM/50 ML PIGGYBACK IV ×3 (02:40→18:27)
[2023-05-09] MEDS: Morphine Sulfate 4 MG/ML CARTRIDGE IVPUSH ×4 (02:48→23:06)
--- NOTE | 2023-05-09 03:04 | PC.NURSE ---
pt was very disoriented middle of the night; she was yelling for help to change incontinent of urine. provided incontinent care. pt abd palpated with distention. feels like a something in there. abd CT shows that bladder distention. pt c/o heartburn esophageal pain and headache. provided famotidine but still pain and tylenol per eMar. will continue to monitor.
[2023-05-09] MEDS: HYDROmorphone HCl 1 MG/ML SYRINGE 0.5 MG IVPUSH (05:52)
[2023-05-09] MEDS: Salmeterol Xinafoate 50 MCG BLST.W.DEV 1 PUFF INHALE ×2 (08:09→19:45)
--- NOTE | 2023-05-09 08:26 | ECG_ITS ---
Test Reason : tachycardia Blood Pressure : / mmHG Vent. Rate : 126 BPM Atrial Rate : 126 BPM P-R Int : 118 ms QRS Dur : 078 ms QT Int : 304 ms P-R-T Axes : 013 061 014 degrees QTc Int : 440 ms Sinus tachycardia Nonspecific T wave abnormality Abnormal ECG When compared with ECG of 06-MAY-2023 18:08, Vent. rate has increased BY 44 BPM Referred By: Heaven Pickett Electronically Signed By:ANDRES PERALES MD
[2023-05-09] MEDS: clonazePAM 1 MG TABLET PO ×2 (08:35→23:06)
[2023-05-09] MEDS: Famotidine 20 MG TABLET PO ×2 (08:35→23:06)
[2023-05-09] MEDS: Aspirin 325 MG TABLET PO ×2 (08:35→23:05)
[2023-05-09] MEDS: Nystatin Cream 15 GM TUBE 1 APPL TOPICAL (08:35)
[2023-05-09] MEDS: Clotrimazole 1 % Cream 15 GM TUBE 1 APPL TOPICAL (08:35)
--- NOTE | 2023-05-09 09:14 | P.PNIM_ITS ---
Subjective Subjective Date of Service: 05/09/23 Interval History: follow up for right hip fracture s/p right ORIF pain under adequate control, denies abdominal pain, nausea or vomiting Review of Systems Review of Systems: Yes all other systems are reviewed and are negative Constitutional Constitutional: Denies chills and Denies fever(s) Cardiovascular Cardiovascular: Denies chest pain, Denies palpitations and Denies dyspnea Respiratory Respiratory: Denies cough and Denies dyspnea Gastrointestinal Gastrointestinal: Denies abdominal pain, Denies nausea and Denies vomiting Endocrine Endocrine: Denies palpitations Physical Exam 2 Vital Signs: Vital Signs: Last Vital Signs Temp 97.7 F 05/09/23 07:00 Pulse 122 H 05/09/23 08:10 Resp 18 05/09/23 08:10 BP 130/68 05/09/23 07:00 Pulse Ox 92 05/09/23 07:00 O2 Del Method Room Air 05/09/23 07:00 BMI result Body Mass Index 28.1 Appearing in no acute distress lung sounds are clear to auscultation heart regular rate rhythm, clear S1, S2 positive bowel sounds, abdomen is soft, nontender neuro patient is alert x3, no focal deficits Surgical incision covered with dry clean dressing Objective Data Active Medications Acetaminophen (Acetaminophen 325 Mg Tablet) 650 mg PO Q6H PRN PRN Reason: Pain, Mild (Pain Scale 1-3) Last Admin: 05/08/23 20:49 Dose: 650 mg Documented By: SHANNON Albuterol Sulfate (Albuterol Sulfate 90 Mcg 8 Gm Inhaler) 2 puff INHALE QID PRN PRN Reason: wheezing Amitriptyline HCl (Amitriptyline Hcl 10 Mg Tablet) 20 mg PO DAILY@2300 [facility] Last Admin: 05/08/23 22:23 Dose: 20 mg Documented By: SHANNON Aspirin (Aspirin 325 Mg Tablet) 325 mg PO BID@0900,2300 [facility] Last Admin: 05/09/23 08:35 Dose: 325 mg Documented By: BEATA Clonazepam (Clonazepam 1 Mg Tablet) 1 mg PO BID PRN PRN Reason: Anxiety Last Admin: 05/07/23 03:18 Dose: 1 mg Documented By: RASHMI Clonazepam (Clonazepam 1 Mg Tablet) 1 mg PO BID@0900,2300 [facility] Last Admin: 05/09/23 08:35 Dose: 1 mg Documented By: BEATA Clotrimazole (Clotrimazole 1 % Cream 15 Gm Tube) 1 appl TOPICAL BID [facility] Last Admin: 05/09/23 08:35 Dose: 1 appl Documented By: BEATA Docusate Sodium (Docusate Sodium 100 Mg Capsule) 100 mg PO DAILY PRN PRN Reason: Constipation Famotidine (Famotidine 20 Mg Tablet) 20 mg PO BID@0900,2300 [facility] Last Admin: 05/09/23 08:35 Dose: 20 mg Documented By: BEATA Hydromorphone HCl (Hydromorphone Hcl 1 Mg/Ml Syringe) 0.5 mg IVPUSH Q4H PRN; Protocol PRN Reason: Pain, Severe (Pain Scale 7-10) Last Admin: 05/09/23 05:52 Dose: 0.5 mg Documented By: SHANNON Hydromorphone HCl (Hydromorphone Hcl 0.5 Mg/0.5 Ml Syringe) 0.25 mg IVPUSH Q5M PRN; Protocol PRN Reason: Pain, Severe (Pain Scale 7-10) Last Admin: 05/08/23 16:58 Dose: 0.25 mg Documented By: KAREN Cefazolin Sodium/Dextrose (Ancef) 2 gm in 50 mls @ 100 mls/hr IV Q8H [facility] Last Infusion: 05/09/23 03:10 Dose: Infused Documented By: SHANNON Melatonin (Melatonin 3 Mg Tablet) 6 mg PO DAILY@2300 [facility] Last Admin: 05/08/23 22:24 Dose: 6 mg Documented By: SHANNON Morphine Sulfate (Morphine Sulfate 4 Mg/Ml Cartridge) 4 mg IVPUSH Q4H PRN; Protocol PRN Reason: Pain, Severe (Pain Scale 7-10) Last Admin: 05/09/23 08:55 Dose: 4 mg Documented By: BEATA Nystatin (Nystatin Cream 15 Gm Tube) 1 appl TOPICAL BID [facility]; Protocol Last Admin: 05/09/23 08:35 Dose: 1 appl Documented By: BEATA Ondansetron HCl (Ondansetron Hcl 4 Mg/2 Ml Vial) 4 mg IVPUSH Q8H PRN PRN Reason: Nausea and Vomiting Last Admin: 05/06/23 23:49 Dose: 4 mg Documented By: RASHMI Ondansetron HCl (Ondansetron Hcl 4 Mg/2 Ml Vial) 4 mg IVPUSH ONCE PRN PRN Reason: Nausea and Vomiting Salmeterol Xinafoate (Salmeterol Xinafoate 50 Mcg Blst.W.Dev) 1 puff INHALE BID [facility] Last Admin: 05/09/23 08:09 Dose: 1 puff Documented By: RIANA Labs 05/07/23 05:17 05/07/23 05:17 Assessment and Plan (1) Transaminitis: Status: Acute (2) Closed comminuted intertrochanteric fracture of femur: Status: Acute Plan 59-year-old female past medical history as mentioned above comes into the hospital after a noted to have a fracture of the right intertrochanteric femur Close comminuted intertrochanteric fracture of the femur on the right due to a mechanical fall secondary to intoxication s/p ORIF ortho following PT consult>rec acute rehab, cm looking at facilities pain management mild transaminitis abdominal exam benign, no GI complaints abdominal ultrasound with cholelithiasis without evidence of acute cholecystitis likely due to fatty liver dz LFTs stable elevated lipase no evidence of acute pancreatitis possibly secondary to alcohol consumption no GI symptoms, trending down dilated CBD does not appear dilated on abdominal ultrasound fall likely mechanical due to intoxication etoh level 208 on arrival in ED patient denied heavy alcohol use and no signs of withdrawal during hospitalization history of anxiety and depression continue Klonopin and amitriptyline DVT prophylaxis: ASA per orthopedic service attending - dr. logan needs ongoing inpatient stay for post-op care/safe dispo Quality Stroke Does the patient have a stroke diagnosis?: No VTE Prior VTE?: No VTE Risk Level:: Medical - moderate - high VTE Device Contraindication: N/A - Device Ordered VTE Drug Contraindication: Treatment Not Indicated
--- NOTE | 2023-05-09 10:46 | PC.NURSE ---
8:30am Patient heart rate 122 while lying in bed. Pt with no complaint of pain or shortness of breath. Hospitalist notified. 12 lead EKG ordered. EKG showed sinus tach.
[2023-05-09] MEDS: Melatonin 3 MG TABLET 6 MG PO (22:17)
[2023-05-09] MEDS: Amitriptyline HCl 10 MG TABLET 20 MG PO (22:17)
[2023-05-10] VITALS (8 sets, daily range): BP systolic 113–128; BP diastolic 58–84; PULSE 100–122; RESP 16–20; TEMP 36.1–37; O2SAT 92–97
[2023-05-10] MEDS: ceFAZolin Sodium/Dextrose,Iso 2 GM/50 ML PIGGYBACK IV (03:03)
--- NOTE | 2023-05-10 04:26 | PC.NURSE ---
Pt seen on bed alert and oriented, disoriented at times but redirectible, right hip dressing CDI, right hip pain claimed but tolerated, pt also mentioned some chest pressure that is relieved by deep breathing, encouraged use of incentive spirometry, meds tolerated, encouraged po fluids. Pt had HR at 118-122 on routine vitals, pt is on and off and claimed chest pressure is gone, denies any pain, noted with poor intake, Dr. De Souza was updated.
--- NOTE | 2023-05-10 07:43 | PM.PNORT ---
Subjective Subjective Date of Service: 05/10/23 Principal diagnosis: Right hip fracture ORIF Interval history: POD2 s/p right hip IM Nail Patient is resting in bed comfortably No overnight events Pain is managed Reports urinary incontinence that is not her baseline No additional complaints Physical Exam Vital Signs: Vital Signs: Last Vital Signs Temp 97.8 F 05/10/23 07:31 Pulse 100 05/10/23 07:31 Resp 16 05/10/23 07:31 BP 113/84 05/10/23 07:31 Pulse Ox 94 05/10/23 07:31 O2 Del Method Room Air 05/10/23 07:31 BMI result Body Mass Index 28.1 Const: General: cooperative, healthy appearing and no acute distress Resp: Effort & Inspection: normal respiratory effort and able to speak in complete sentences Cardio: Rate: regular rate Peripheral pulses: Peripheral pulses 2+ throughout GI: Palpation (GI): Soft to palpation Skin: Lesions: no lesions Rashes: no rashes Extrem: Other: right hip dressing is c/d/i. Able to dorsi/plantar flex. Calf is supple and nontender. Sensation intact. Pedal pulse intact. Procedures Date of Service Date of Service: 05/10/23 Progress Note: A&P Assessment and plan (1) Intertrochanteric fracture of right hip: Status: Acute Assessment and Plan: Continue pain mgmnt Continue ASA for dvt ppx Continue PT for right hip IM Nail - WBAT Dispo planning-Pending PT eval, pain mgmnt (2) Closed comminuted intertrochanteric fracture of femur: Status: Acute Time Spent With Patient Time: Total time managing care of this patient today ____ minutes. Quality Stroke Does the patient have a stroke diagnosis?: No VTE Prior VTE?: No VTE Risk Level:: Medical - moderate - high VTE Device Contraindication: N/A - Device Ordered VTE Drug Contraindication: Treatment Not Indicated
[2023-05-10] MEDS: Acetaminophen 325 MG TABLET 650 MG PO (07:47)
[2023-05-10] MEDS: Aspirin 325 MG TABLET PO (07:47)
[2023-05-10] MEDS: Salmeterol Xinafoate 50 MCG BLST.W.DEV 1 PUFF INHALE (07:47)
[2023-05-10] MEDS: clonazePAM 1 MG TABLET PO (07:48)
[2023-05-10] MEDS: Docusate Sodium 100 MG CAPSULE PO (07:48)
[2023-05-10] MEDS: Famotidine 20 MG TABLET PO (07:48)
--- NOTE | 2023-05-10 08:36 | MHC.CM.PN ---
Medical indicates Pt requesting [facility] and that [facility] is first choice. Reached out to [facility] requesting they pursue auth. Pending auth status. CM to follow.
[2023-05-10] MEDS: Morphine Sulfate 4 MG/ML CARTRIDGE IVPUSH (10:57)
[2023-05-10] MEDS: iohexoL 350 MG/ML 100 ML INFUS..BTL IV (12:22)
--- NOTE | 2023-05-10 12:28 | P.DS_ITS ---
DS: Providers Provider Date of Service: 05/10/23 Date of admission: 05/06/23 20:23 Primary care physician: Francisco Parnell MD DS: Diagnosis Discharge Diagnosis (1) Intertrochanteric fracture of right hip: Status: Acute (2) Closed comminuted intertrochanteric fracture of femur: Status: Acute DS: Summary Hospital Course Hospital Course: History and physical as per admitting provider. 59-year-old female past medical history of asthma, IBS, anxiety depression, osteoporosis, HLD, GERD comes into the hospital after a fall and having Right leg pain. she was coming home from [employer] dinner, she reports that she had 2 drinks, on the way home she was sleeping in the car, her got in the car go inside, he came out and found her on the floor. Patient reports that she does not remember how she ended up on the floor but has significant right-sided leg pain therefore brought into the hospital. Denies any headache, chest pain, No shortness of breath, no weakness numbness or tingling,no abdominal pain nausea vomiting, no diarrhea constipation, no urinary symptoms and no lower extremity edema on arrival to the ED patient hemodynamically stable Labs are significant for WBC count of 11.8, INR of 0.8, lipase of 1652, ALT of 44, AST of 39, UA negative, Imaging showed moderate diffuse osteopenia and superimposed commuted intra current Luis fracture of the right femur and moderate to severe osteoarthrosis at the left hip The elevated LFTs as well as lipase and abdominal CT was also obtained which showed central biliary ductal prominence with a common bile duct mildly dilated measuring 0.8 cm. The gallbladder is also mildly distended and shows mild asymmetric subtle mural thickening near the fundus without any pericholecystic fluid or gallstone. The proximal pancreatic duct is slightly prominent however by measurements still within normal limits. Patient scheduled for surgery in a.m., and will be admitted for further management 67-year-old woman admitted and treated for close comminuted inter trochanteric fracture of the right femur secondary to mechanical fall after intoxication. She is status post ORIF. She has done well postoperatively, she had mild transaminitis likely secondary to the alcohol use, had abdominal ultrasound which did not show any evidence of acute cholecystitis. She also had elevated lipase with no evidence of acute pancreatitis. Patient reported that she did have some drinks for the holidays but she does not drink on a daily basis or excessively. She has been out of bed to the chair and ambulating with physical therapy, appetite has been good. Patient did have a degree of tachycardia as well with no hypoxia shortness of breath but due to being postoperative hip surgery a chest CTA was obtained which showed a small segmental right lower lobe pulmonary embolus. Patient started on Eliquis, 10 mg twice daily for 7 days then 5 mg daily for at least 3 months. She should follow-up with primary care provider to manage this medication and determine when she can stop taking it. At this time she is hemodynamically stable and ready for rehab. She is weight- bearing as tolerated. Mental health. Continue Klonopin and amitriptyline Time Attestation Discharge coordination time: Greater than 30 minutes Quality: Safe Use of Opioids Does Pt have an Active Cancer Diagnosis on the Problem List?: No Quality: Stroke Does the patient have a stroke diagnosis?: No Physical Exam Vital Signs: Vital Signs: Last Vital Signs Temp 97.8 F 05/10/23 11:43 Pulse 118 H 05/10/23 11:49 Resp 16 05/10/23 11:43 BP 128/61 05/10/23 11:49 Pulse Ox 97 05/10/23 11:49 O2 Del Method Room Air 05/10/23 11:43 BMI result Body Mass Index 28.1 Appearing in no acute distress head is normocephalic atraumatic eyes pupils are PERRLA sclera is anicteric mouth throat mucous membranes are intact and moist neck is supple no lymphadenopathy, no JVD noted lung sounds are clear to auscultation heart regular rate rhythm, clear S1, S2 positive bowel sounds, abdomen is soft, nontender neuro patient is alert x3, no focal deficits Discharge Plan Discharge Anticipated Discharge Date/Time: 05/10/23 12:31 Patient Disposition: Xfer Inpatient Rehab Fac Discharge Diagnosis: Intertrochanteric right femur fracture status post ORIF Transaminitis Elevated lipase Fall Pulmonary embolism Referrals: Francisco Parnell MD [Primary Care Provider] - 1 Week Discharge Medications: New Eliquis 5 mg tablet 10 mg PO BID Qty: 64 0RF Rx Instructions: Take 10 mg twice daily for 7 days then 5 mg twice daily Continued clonazepam 1 mg tablet 1 mg PO BID nystatin 100,000 unit/gram cream 1 appl TOPICAL BID ketoconazole 2 % cream 1 appl topical BID Rx Instructions: APPLY TO FEET famotidine 20 mg tablet 20 mg PO BID amitriptyline 10 mg tablet 20 mg PO BEDTIME Serevent Diskus 50 mcg/dose blister with device 1 inh inhalation BID albuterol sulfate 90 mcg/actuation HFA aerosol inhaler 2 puff inhalation QID PRN (Reason: wheezing) nabumetone 500 mg tablet 500 mg PO BID Discharge Orders: Discharge Order (Routine); Ordered 05/10/23 Ordered By: Heaven Pickett Diet: Advance to usual diet Activity on Discharge: As tolerated Stand Alone Forms: Patient Portal Discharge page Care Plan Goals: Transfer to acute rehabilitation center Health Concerns: Intertrochanteric right femur fracture status post ORIF Transaminitis Elevated lipase Fall Pulmonary embolism Plan of Treatment: Follow-up with primary care provider as needed Take all medications as prescribed He has been diagnosed with pulmonary embolism, you will be on Eliquis. Take 10 mg twice daily for 7 days then 5 mg twice daily after that. Follow-up with primary care provider for management of this medication, he will likely need to be on it for at least 3 months. give first dose of eliquis at 7pm on 05/10/23 Assessment: See discharge summary
--- NOTE | 2023-05-10 13:31 | MHC.CM.PN ---
MD request D/C today for 3:00pm to Acute Rehab; [facility] offering bed and has authorization. 3:30pm transport booked through [facility]. Medical Necessity Form completed and turned in to desk and Pt's nurse notified.
== END 2023-05-10 17:20 | DRG 482 ==
LOC: HO.ED 18:05 → HO.EDOVER 20:28 → HO.S3 20:44
PROVIDERS: Nurse Practitioner Family; Orthopaedic Surgery; Physician Assistant Medical; Admitting Provider Internal Medicine; Emergency Provider Emergency Medicine Emergency Medical Services; PCP Internal Medicine; Visit Provider Nurse Practitioner Acute Care
PROC: 0QS604Z Reposition Right Upper Femur with Internal Fixation Device, Open Approach (ICD-10-PCS; principal; 2023-05-07 08:30)
DX: S72.141A Displaced intertrochanteric fracture of right femur, initial encounter for closed fracture (principal); W19.XXXA Unspecified fall, initial encounter; F10.929 Alcohol use, unspecified with intoxication, unspecified; M85.851 Other specified disorders of bone density and structure, right thigh; J45.909 Unspecified asthma, uncomplicated; K21.9 Gastro-esophageal reflux disease without esophagitis; E78.5 Hyperlipidemia, unspecified; Y90.7 Blood alcohol level of 200-239 mg/100 ml; F41.9 Anxiety disorder, unspecified; F32.A Depression, unspecified; Z20.822 Contact with and (suspected) exposure to COVID-19; Z87.891 Personal history of nicotine dependence; Z79.899 Other long term (current) drug therapy
CPT/HCPCS: 36415; 70450; 71045; 71275; 72125; 72170; 73552; 74177; 76705; 80053; 80307; 81003; 82550; 83690; 85025; 85610; 86850; 86900; 86901; 87502; 87635; 93005; 97161; 97165; 97530; 99285; C1713; C1769; J0131; J0690; J0737; J1100; J1170; J1885; J2270; J2371; J2405; J2704; J3010; J7120; Q9967

== ENCOUNTER → 2023-05-06 20:23 | Outpatient (BNV) | payer MEDICARE, SELFPAY | PROVIDERS: Admitting Provider Internal Medicine; Emergency Provider Emergency Medicine Emergency Medical Services; PCP Internal Medicine; Visit Provider Orthopaedic Surgery | DX: S72.141A Displaced intertrochanteric fracture of right femur, initial encounter for closed fracture (principal) | CPT/HCPCS: 27245; 99024 ==

== ENCOUNTER → 2023-05-06 20:23 | Outpatient (BNV) | payer MEDICARE, SELFPAY | PROVIDERS: Admitting Provider Internal Medicine; Emergency Provider Emergency Medicine Emergency Medical Services; PCP Internal Medicine; Visit Provider Internal Medicine | DX: S72.141A Displaced intertrochanteric fracture of right femur, initial encounter for closed fracture (principal) | CPT/HCPCS: 99223; 99232; 99233; 99239 ==

== ENCOUNTER 2023-05-25 11:37 | Outpatient (REF) | payer MEDICARE, SELFPAY ==
--- NOTE | ~2023-05-25 | XR_ITS ---
EXAMINATION: XR HIP, RIGHT CLINICAL INFORMATION: Hip pain COMPARISON: Femur radiographs 05/06/2023 TECHNIQUE: Two views of the right hip. One view of the pelvis. FINDINGS: Interval open reduction internal fixation of the previously seen comminuted intertrochanteric hip fracture in improved alignment with the displaced lesser trochanteric fragment excluded from the fixation hardware. No evidence of hardware fracture or complication. Mild osteoarthritis of the right hip with degenerative osteophytes and advanced osteoarthritis of the left hip with complete loss of joint space. Increasing amorphous mineralization adjacent to the right hip may reflect sequelae of developing heterotopic ossification. XR/XR hip RT min 2V IMPRESSION: 1. Interval open reduction internal fixation of the previously seen comminuted intertrochanteric hip fracture in improved alignment with the displaced lesser trochanteric fragment excluded from the fixation hardware. No evidence of hardware fracture or complication. 2. Mild osteoarthritis of the right hip with advanced osteoarthritis of the left hip. 3. Increasing amorphous mineralization adjacent to the right hip may reflect sequelae of developing heterotopic ossification.
== END 2023-05-25 11:38 | disposition home or self-care (01) ==
LOC: HO.HOSX 11:37
PROVIDERS: Visit Provider Orthopaedic Surgery
DX: S72.001D Fracture of unspecified part of neck of right femur, subsequent encounter for closed fracture with routine healing (principal); M25.551 Pain in right hip; X58.XXXD Exposure to other specified factors, subsequent encounter; Z79.899 Other long term (current) drug therapy
CPT/HCPCS: 73502; 99212

== ENCOUNTER 2023-05-25 13:39 | Outpatient (AMB) | payer MEDICARE, SELFPAY ==
--- NOTE | 2023-05-25 13:51 | A.OFFVIS_ITS ---
Intake Intake Visit Reasons: PO - Right Hip ORIF 05/08/23 Intake Note: Manju a 67 year old female presents today for a post operative right hip ORIF, DOS 05/07/23 The patient reports mild to moderate discomfort in her right hip. She denies any fevers or chills. She has returned to living at home after being at [facility]. Allergies ciprofloxacin [From Cipro] Allergy (Verified 05/25/23 13:54) Unknown escitalopram [From Lexapro] Allergy (Verified 05/25/23 13:54) Unknown paroxetine [From Paxil] Allergy (Verified 05/25/23 13:54) Unknown sulfamethoxazole [From Bactrim] Allergy (Verified 05/25/23 13:54) Unknown trimethoprim [From Bactrim] Allergy (Verified 05/25/23 13:54) Unknown Medication List - Last Reconciled 05/26/23 by Ephraim Shay MD albuterol sulfate 90 mcg/actuation 2 puffs inhalation QID PRN amitriptyline 20 mg PO BEDTIME apixaban (Eliquis) 10 mg (2 x 5 mg) PO BID clonazepam 1 mg PO BID famotidine 20 mg PO BID ketoconazole 2% 1 appl topical BID nabumetone 500 mg PO BID nystatin 1 appl topical BID salmeterol (Serevent Diskus) 1 inh inhalation BID PFSH Medical History (Updated 05/25/23 @ 15:00 by Мария Cabrera RN) Pulmonary embolism Intertrochanteric fracture of right hip Closed comminuted intertrochanteric fracture of femur GERD (gastroesophageal reflux disease) Osteoporosis Hyperlipidemia Irritable bowel syndrome with diarrhea Fatty liver Asthma Anxiety and depression Surgical History Hx of tonsillectomy H/O esophagogastroduodenoscopy H/O colonoscopy Social History Household Members: Spouse Housing: Condominium Do you presently have visiting nurse or other home services: No Alcohol intake: current Alcohol intake frequency: 3 or more drinks per day Alcohol type: hard liquor Patient Tobacco Use Status: Former Tobacco user Quit Date: 2011 Second Hand Smoke Exposure: No service: No Physical Exam Extrem Other: Right hip examination shows that the surgical incisions are well healed, no erythema, mild discomfort with range of motion Results Reviewed Results Reviewed: X-rays of the patient's right hip show a short gamma nail in good position with no signs of loosening, her subtrochanteric fracture remains minimally displaced, no callus formation Assessment & Plan Assessment & Plan (1) Right hip pain: Code(s): M25.551 - Pain in right hip Plan: Ms. Ashley continues to do well after undergoing open reduction and internal fixation of her right hip fracture with placement of a short gamma nail on 05/07/2023. She can continue weight-bearing as tolerated. She will contact me prior to her follow-up appointment in 4-6 weeks should any questions or concerns arise. Feel free to call me at any time should questions regarding her orthopedic management arise. Orders: Orders XR hip RT min 2V 05/25/23 M25.551 - Pain in right hip Referrals Urology Referral R33.9 - Retention of urine, unspecified Coding Level of Care Code Global (49952) Diagnoses Right hip pain M25.551
== END 2023-05-25 14:23 | disposition home or self-care (01) ==
PROVIDERS: PCP Internal Medicine; Visit Provider Orthopaedic Surgery
DX: M25.551 Pain in right hip (principal)
CPT/HCPCS: 99024

== ENCOUNTER 2023-05-28 10:58 | Inpatient (IN) | payer MEDICARE, SELFPAY ==
[2023-05-28] VITALS (9 sets, daily range): BP systolic 96–148; BP diastolic 51–94; PULSE 107–124; RESP 16–21; TEMP 36.6–37.2; O2SAT 94–99; BMI 25.7; BMI 28.9
--- NOTE | ~2023-05-28 | CT_ITS ---
EXAMINATION: CT ANGIOGRAM OF THE CHEST WITH AND WITHOUT CONTRAST (CT PULMONARY ANGIOGRAM FOR PE) CLINICAL INFORMATION: Reason for Exam sob tachy non med compliant w/ anticoagas COMPARISON: CT chest 05/10/2023. TECHNIQUE: Prior to contrast administration, noncontrast localization images were obtained. Subsequently, multidetector volumetric imaging was performed from the thoracic inlet to below the diaphragms following the administration of 80 mL Omnipaque 350 intravenous contrast. No contrast reaction reported Sagittal, coronal, and MIP oblique sagittal reformatted images were obtained on the CT workstation, uploaded to PACS, and reviewed. This CT examination was performed using dose optimization techniques as appropriate, variously including the following: *Automated exposure control *Adjustment of mA and/or kV according to patient size (this includes techniques or standardized protocols for targeted exams where dose is matched to indication/reason for exam; i.e. extremities or head) *Use of iterative reconstruction technique Total exam dose-length product 247 mGy-cm FINDINGS: QUALITY OF STUDY/CONTRAST BOLUS: Satisfactory. PULMONARY ARTERIES: Normal pulmonary arteries without any evidence of PE. THORACIC AORTA: No aneurysm or dissection seen. LUNG: There is bibasilar compressive atelectasis. Rest of lungs are clear and expanded. PLEURA: There are small bilateral pleural effusions. MEDIASTINUM: The left thyroid lobe is slightly enlarged with a small Normal heart size. Mild to moderate pericardial effusion is visualized. No hilar or mediastinal lymphadenopathy. No evidence of septal bowing or right heart strain. CORONARY ARTERY CALCIFICATION: Mild coronary artery calcification is present. CHEST WALL/AXILLA: No axillary or internal mammary lymphadenopathy. OSSEOUS STRUCTURES: No aggressive lytic or sclerotic process seen. UPPER ABDOMEN: Unremarkable. No reflux of contrast into the hepatic veins to suggest elevated right heart pressures. CT/CT angio chest PE protocol IMPRESSION: No evidence of PE. No evidence of aortic aneurysm or dissection. Small bilateral pleural effusions slightly greater on the left. There is mild to moderate pericardial effusion. Small left thyroid nodule. VTE: negative
--- NOTE | ~2023-05-28 | US_ITS ---
EXAMINATION: US VENOUS ULTRASOUND WITH DOPPLER LOWER EXTREMITY, BILATERAL CLINICAL INFORMATION: Leg swelling COMPARISON: None available. TECHNIQUE: Ultrasound of the deep veins is performed from the hip to the calf with compression sonography and color and pulse Doppler assessment. Spectral analysis with color-flow imaging is performed. FINDINGS: RIGHT: There is normal venous compression and respiratory variation and augmented flow. The visualized common femoral vein, superficial femoral vein, profunda femoral vein, popliteal vein, and the trifurcation region shows no evidence of deep venous thrombosis. There is no significant popliteal fossa cyst. LEFT: There is normal venous compression and respiratory variation and augmented flow. The visualized common femoral vein, superficial femoral vein, profunda femoral vein, popliteal vein, and the trifurcation region shows no evidence of deep venous thrombosis. There is no significant popliteal fossa cyst. If the patient's symptoms persist, followup ultrasound in 5 days 7 days might be of value to exclude proximal propagation from a non-visualized calf vein. US/US venous duplex LE BI IMPRESSION: No DVT demonstrated in the bilateral lower extremity.
--- NOTE | ~2023-05-28 | XR_ITS ---
EXAMINATION: XR CHEST CLINICAL INFORMATION: Chest pain, shortness of breath. COMPARISON: 05/06/2023 TECHNIQUE: 2 views of the chest were obtained. FINDINGS: Lungs are well expanded. The left lateral costophrenic sulcus is blunted from a small pleural effusion. No evidence of pulmonary edema, consolidation or pneumothorax. Cardiac silhouette is normal in size. The hilar contours are normal. Bones are diffusely osteopenic. Mild multilevel discovertebral degenerative changes of the visualized spine. XR/XR chest 2V IMPRESSION: * Small left pleural effusion is present. * No evidence of pulmonary edema, pneumothorax or other significant change.
--- NOTE | 2023-05-28 11:16 | ECG_ITS ---
Test Reason : sob Blood Pressure : / mmHG Vent. Rate : 121 BPM Atrial Rate : 121 BPM P-R Int : 122 ms QRS Dur : 072 ms QT Int : 314 ms P-R-T Axes : 046 054 027 degrees QTc Int : 445 ms Sinus tachycardia Low voltage QRS Nonspecific T wave abnormality Abnormal ECG When compared with ECG of 09-MAY-2023 08:32, Nonspecific T wave abnormality, worse in Anterior leads Referred By: Aurora Mckeon Electronically Signed By:Jamir Dagile
--- NOTE | 2023-05-28 11:16 | ED.GENADULT ---
HPI - General Adult General Chief complaint: Dyspnea Stated complaint: Diff Breathing Time Seen by Provider: 05/28/23 11:51 Related Data Home Medications Medication Instructions Recorded Confirmed albuterol sulfate 90 mcg/actuation 2 puff inhalation QID PRN wheezing 12/28/22 05/26/23 aerosol inhaler amitriptyline 10 mg tablet 20 mg PO BEDTIME 12/28/22 05/26/23 famotidine 20 mg tablet 20 mg PO BID 12/28/22 05/26/23 nabumetone 500 mg tablet 500 mg PO BID 12/28/22 05/26/23 salmeterol 50 mcg/dose blister 1 inh inhalation BID 12/28/22 05/26/23 powder for inhalation (Serevent Diskus) clonazepam 1 mg tablet 1 mg PO BID 05/07/23 05/26/23 ketoconazole 2 % topical cream 1 appl topical BID 05/07/23 05/26/23 nystatin 100,000 unit/gram topical 1 appl topical BID 05/07/23 05/26/23 cream Previous Rx's Medication Instructions Recorded apixaban 5 mg tablet (Eliquis) 10 mg (2 x 5 mg) PO BID #64 tabs 05/10/23 Allergies Allergy/AdvReac Type Severity Reaction Status Date / Time ciprofloxacin [From Cipro] Allergy Unknown Verified 05/25/23 13:54 escitalopram [From Lexapro] Allergy Unknown Verified 05/25/23 13:54 paroxetine [From Paxil] Allergy Unknown Verified 05/25/23 13:54 sulfamethoxazole Allergy Unknown Verified 05/25/23 13:54 [From Bactrim] trimethoprim [From Bactrim] Allergy Unknown Verified 05/25/23 13:54 COUNT INCLUDES THE [facility] Past Medical History Medical History (Updated 05/25/23 @ 15:00 by Мария Cabrera RN) Pulmonary embolism Intertrochanteric fracture of right hip Closed comminuted intertrochanteric fracture of femur GERD (gastroesophageal reflux disease) Osteoporosis Hyperlipidemia Irritable bowel syndrome with diarrhea Fatty liver Asthma Anxiety and depression Surgical History Hx of tonsillectomy H/O esophagogastroduodenoscopy H/O colonoscopy Social History Social History Household Members: Spouse Housing: Condominium Do you presently have visiting nurse or other home services: No Alcohol intake: current Alcohol intake frequency: 3 or more drinks per day Alcohol type: hard liquor Patient Tobacco Use Status: Former Tobacco user Quit Date: 2011 Second Hand Smoke Exposure: No service: No Physical Exam ED Vital Signs: Vital Signs - 24 hr 05/28/23 11:14 Temperature 98.3 F Pulse Rate 124 H Respiratory Rate 20 Blood Pressure 96/51 L Pulse Oximetry 96 Oxygen Delivery Method Room Air BMI result Body Mass Index 25.7 Course Course Course Narrative: RME performed by Aurora Mckeon PA-C. Patient is a 67 year old assigned female at presenting to the emergency department with a cough / shortness of breath. Labs, imaging, swabs ordered. Patient placed back in the waiting room pending room availability and results. Medical Decision Making Lab Data 05/28/23 11:47 05/28/23 11:47 Labs: Lab Results 05/28/23 05/28/23 Range/Units 11:42 11:47 WBC 11.2 H (4.8-10.8) X10*3/uL RBC 2.73 L D (4.20-5.50) X10*6/uL Hgb 8.8 L D (12.0-16.0) g/dl Hct 28.3 L D (37.0-47.0) % MCV 103.7 H (80.0-98.0) fL MCH 32.2 (27.0-33.0) pg MCHC 31.1 (31.0-35.0) g/dl RDW 14.9 (11.0-16.0) % Plt Count 602 H D (160-400) X10*3/uL MPV 8.5 L (9.4-12.3) fL Immature Gran % (Auto) 0.4 (0.0-0.4) % Neut % (Auto) 83.8 H (45-73) % Lymph % (Auto) 7.2 L (20-40) % Walker % (Auto) 7.5 (2-11) % Eos % (Auto) 0.7 (0-4) % Baso % (Auto) 0.4 (0-2) % Lymph # (Auto) 0.8 L (1.2-4.9) X10*3/uL Walker # (Auto) 0.8 (0.1-1.2) X10*3/uL Eos # (Auto) 0.1 (0.0-0.4) X10*3/uL Baso # (Auto) 0.0 (0.0-0.2) X10*3/uL Abs Immat Gran (auto) 0.05 H (0.00-0.03) X10*3/uL Absolute Neuts (auto) 9.4 H (2.0-8.3) x10*3/uL Absolute Nucleated RBC 0.000 (0.0-0.012) X10*3/uL Nucleated RBC % (auto) 0.0 (0.0-0.2) /100WBC Urine Color Dark Yellow Urine Appearance Turbid Urine pH 5.5 (5.0-9.0) Ur Specific [place] 1.020 (1.005-1.025) Urine Protein 300 (3+) H (Neg-Trace) mg/dL Urine Glucose (UA) Negative (Negative) mg/dL Urine Ketones Trace (Negative) mg/dL Urine Blood Large (3+) H (Negative) Urine Nitrite Positive H (Negative) Ur Leukocyte Esterase Moderate (2+) H (Negative) Discharge Plan Discharge Prescriptions: No Action clonazepam 1 mg tablet 1 mg PO BID nystatin 100,000 unit/gram cream 1 appl TOPICAL BID ketoconazole 2 % cream 1 appl topical BID Rx Instructions: APPLY TO FEET Eliquis 5 mg tablet 10 mg PO BID Qty: 64 0RF Rx Instructions: Take 10 mg twice daily for 7 days then 5 mg twice daily famotidine 20 mg tablet 20 mg PO BID amitriptyline 10 mg tablet 20 mg PO BEDTIME Serevent Diskus 50 mcg/dose blister with device 1 inh inhalation BID albuterol sulfate 90 mcg/actuation HFA aerosol inhaler 2 puff inhalation QID PRN (Reason: wheezing) nabumetone 500 mg tablet 500 mg PO BID
[2023-05-28 11:55] LABS: MANUAL DIFF FLAG NO
[2023-05-28 11:58] LABS: Appearance Urine Turbid; Color Urine Dark Yellow; Glucose Urine UA Negative (Negative); Leukocyte Esterase Urine Moderate (2+) (Negative); Nitrite Urine Positive (Negative); PH 5.5 (5.0-9.0); UMIC TRIGGER UACC YES; Urine Blood Large (3+) (Negative); Urine Ketones Trace mg/dL (Negative); Urine Protein 300 (3+) mg/dL (Neg-Trace)
[2023-05-28 12:02] LABS: Basophils Percent Auto 0.4 % (0-2); Eosinophils Absolute Auto 0.1 X10*3/uL (0.0-0.4); Eosinophils Percent Auto 0.7 % (0-4); Hematocrit 28.3 % (37.0-47.0); Hemoglobin 8.8 g/dl (12.0-16.0); INTERNATIONAL NORM RATIO 1.6 (0.9-1.1); Imm Gran Abs Auto 0.05 X10*3/uL (0.00-0.03); Imm Gran Pct Auto 0.4 % (0.0-0.4); Lymphocytes Absolute Auto 0.8 X10*3/uL (1.2-4.9); Lymphocytes Percent Auto 7.2 % (20-40); Mean Corpuscular HGB Conc 31.1 g/dl (31.0-35.0); Mean Corpuscular Hemoglobin 32.2 pg (27.0-33.0); Mean Corpuscular Volume 103.7 fL (80.0-98.0); Mean Platelet Volume 8.5 fL (9.4-12.3); Monocytes Absolute Auto 0.8 X10*3/uL (0.1-1.2); Monocytes Percent Auto 7.5 % (2-11); Neutrophils Absolute Auto 9.4 x10*3/uL (2.0-8.3); Neutrophils Percent Auto 83.8 % (45-73); Platelet Count 602 X10*3/uL (160-400); Prothrombin Time 19.3 SEC (11.1-13.3); Red Blood Count 2.73 X10*6/uL (4.20-5.50); Red Cell Distribution Width 14.9 % (11.0-16.0)
[2023-05-28 12:04] LABS: White Blood Count 11.2 X10*3/uL (4.8-10.8)
--- NOTE | 2023-05-28 12:04 | ED_ITS ---
HPI - SOB/Dyspnea General Chief Complaint: Dyspnea Stated Complaint: Diff Breathing Time Seen by Provider: 05/28/23 11:51 Source: patient and family Mode of arrival: ambulatory Limitations: no limitations History of Present Illness HPI Narrative: 59-year-old female history of PE on Eliquis, IBS, osteoporosis, GERD presenting to the emergency department with complaints of fatigue, malaise, myalgias, shortness of breath since this morning, patient does has not been feeling herself over the past few days. Feels like something is wrong. Lower abdominal pressure recently had a fooley placed. She reports she has not been taking her blood thinners as prescribed however she still taking them daily. Poor historian. Denies chest pain, nausea, vomiting, fevers, chills. Related Data Home Medications Medication Instructions Recorded Confirmed albuterol sulfate 90 mcg/actuation 2 puff inhalation QID PRN wheezing 12/28/22 05/26/23 aerosol inhaler amitriptyline 10 mg tablet 20 mg PO BEDTIME 12/28/22 05/26/23 famotidine 20 mg tablet 20 mg PO BID 12/28/22 05/26/23 nabumetone 500 mg tablet 500 mg PO BID 12/28/22 05/26/23 salmeterol 50 mcg/dose blister 1 inh inhalation BID 12/28/22 05/26/23 powder for inhalation (Serevent Diskus) clonazepam 1 mg tablet 1 mg PO BID 05/07/23 05/26/23 ketoconazole 2 % topical cream 1 appl topical BID 05/07/23 05/26/23 nystatin 100,000 unit/gram topical 1 appl topical BID 05/07/23 05/26/23 cream Previous Rx's Medication Instructions Recorded apixaban 5 mg tablet (Eliquis) 10 mg (2 x 5 mg) PO BID #64 tabs 05/10/23 Allergies Allergy/AdvReac Type Severity Reaction Status Date / Time ciprofloxacin [From Cipro] Allergy Unknown Verified 05/25/23 13:54 escitalopram [From Lexapro] Allergy Unknown Verified 05/25/23 13:54 paroxetine [From Paxil] Allergy Unknown Verified 05/25/23 13:54 sulfamethoxazole Allergy Unknown Verified 05/25/23 13:54 [From Bactrim] trimethoprim [From Bactrim] Allergy Unknown Verified 05/25/23 13:54 Review of Systems 2 Review of Systems: Constitutional : No Weight loss, No Fever, No Chills, + Fatigue, + Malaise ENT/Mouth : No sore throat, No Rhinorrhea Eyes: No Eye Pain, No Swelling, No Redness Cardiovascular : No Chest Pain, + SOB, No Dyspnea on Exertion, No Orthopnea, No Edema, No Palpitations Respiratory : No Cough, No Sputum, No Wheezing Gastrointestinal : No Nausea, No Vomiting, No Diarrhea, No Constipation, No abdominal Pain, No Hematochezia, No Melena Genitourinary : No Dysuria, No Urinary Frequency, No Hematuria, Musculoskeletal : No joint pain, No Myalgias, No Joint Swelling Skin : No Skin Lesions, No rash Neuro : No Weakness, No Numbness, No Dizziness, No Headache Psych : No Anxiety/Panic, No Depression All other systems reviewed and are negative Yes all other systems are reviewed and are negative [facility] Past Medical History Attestation statement: The following information was validated with the patient. Source: old records reviewed and nursing notes reviewed Medical History Pulmonary embolism Intertrochanteric fracture of right hip Closed comminuted intertrochanteric fracture of femur GERD (gastroesophageal reflux disease) Osteoporosis Hyperlipidemia Irritable bowel syndrome with diarrhea Fatty liver Asthma Anxiety and depression Surgical History Hx of tonsillectomy H/O esophagogastroduodenoscopy H/O colonoscopy Social History Social History Household Members: Spouse Housing: Condominium Do you presently have visiting nurse or other home services: No Alcohol intake: current Alcohol intake frequency: 3 or more drinks per day Alcohol type: hard liquor Patient Tobacco Use Status: Former Tobacco user Quit Date: 2011 Second Hand Smoke Exposure: No Advance Directives: No Advance Directives Information Provided: No service: No Physical Exam 2 Vital Signs: Vital Signs: Last Vital Signs Temp 98.7 F 05/28/23 12:45 Pulse 113 H 05/28/23 12:45 Resp 19 05/28/23 12:45 BP 128/94 H 05/28/23 12:45 Pulse Ox 95 05/28/23 12:45 O2 Del Method Room Air 05/28/23 12:45 BMI result Body Mass Index 25.7 Patient noted to be hypotensive, tachycardic. Appearance: Alert.? Oriented X3.? No acute distress.? Head: Normocephalic, atraumatic, no step-offs or deformities Eyes: Pupils equal, round and reactive to light.? ENT: Pharynx normal.? Neck: Normal inspection.? Neck supple.? CVS: Normal heart rate and rhythm.? Pulses normal.? Respiratory: No respiratory distress.? Breath sounds diminished throughout with crackles to the left lower lobe..? Abdomen: Soft and nontender.? Massey catheter in place Skin: Skin warm and dry.? Normal skin color.? Normal skin turgor.? Extremities: No lower extremity edema.? No calf ttp. 5/5 strength to bilateral upper and lower extremities Neuro: Oriented X 3.? No motor deficit.? No sensory deficit. CN 2-12 intact Course Reevaluation(s) Reevaluation #1: CBC with leukocytosis and left shift also noted to be anemic and have high platelets I suspect this is secondary to sepsis/infection. Chemistry pending. UA with positive nitrates, leukocyte esterases concerning for UTI. Urosepsis is suspected at this time. Lactic acid, blood cultures pending. 30 cc/kilos bolus as well as antibiotics have been ordered Time: 12:11 Reevaluation #2: Family no tells us that patient is not actually med compliant with her Eliquis. There for CTA ordered. Time: 12:21 Reevaluation #3: Lactic acid normal however patient is meeting SIRS criteria. Chest x-ray small left pleural effusion. Chest CTA with no PE. There is bilateral pleural effusions slightly greater on the left mild to moderate pericardial effusion. Time: 13:54 Additional Reevaluation(s): Plan hospital admission Dr. Hernández Medications Administered Discontinued Medications Generic Name Dose Route Start Last Admin Trade Name Freq PRN Reason Stop Dose Admin Sodium Chloride 2,041.17 mls @ 2,041.17 mls/hr 05/28/23 12:04 05/28/23 12:45 Ns 30 ml/kg infuse over 1 hr (2041.17 ml) 05/28/23 13:03 2,041.17 mls/hr IV Administration .Q1H STA Ceftriaxone Sodium 1 gm/ 50 mls @ 100 mls/hr 05/28/23 12:05 05/28/23 13:13 Sodium Chloride IV 05/28/23 12:34 100 mls/hr ONCE ONE Administration Iohexol 65 ml 05/28/23 13:28 05/28/23 13:28 Iohexol 350 Mg/Ml 100 Ml Infus..Btl IV 05/28/23 13:29 65 ml ONCE ONE Administration Medical Decision Making Medical Decision Making [facility] Narrative: 1204 67-year-old female presents with shortness of breath, fatigue malaise since this morning. Physical examination crackles to left lung base and diminished breath sounds bilaterally. With right-sided carotid bruit History and physical exam concerning for possible pneumonia versus UTI. Carotid bruits likely old, unlikely acute. No signs of TIA, stroke, posterior stroke. History and physical exam with low suspicion for pulmonary embolism as patient is anticoagulated. Unlikely ACS, dissection, acute abdomen. This history and physical exam is however concerning for urosepsis and possibly sepsis secondary to pneumonia due to findings on physical exam. Sepsis alert paged overhead. Concerns for infection. Sepsis focus exam done on initial eval of patient after coming in from waitingroom Differential Diagnosis Differential Diagnoses: The differential diagnosis associated with the presentation includes History and physical exam concerning for possible pneumonia versus UTI. Carotid bruits likely old, unlikely acute. No signs of TIA, stroke, posterior stroke. History and physical exam with low suspicion for pulmonary embolism as patient is anticoagulated. Unlikely ACS, dissection, acute abdomen. This history and physical exam is however concerning for urosepsis and possibly sepsis secondary to pneumonia due to findings on physical exam. Admission/Observation Consideration of admission/observation: Escalation of care including admission/observation considered Lab Data [facility] Lab Attestation statement: I reviewed the patient's lab results. 05/28/23 11:47 05/28/23 11:47 Labs: Lab Results 05/28/23 05/28/23 05/28/23 Range/Units 11:42 11:47 12:39 WBC 11.2 H (4.8-10.8) X10*3/uL RBC 2.73 L D (4.20-5.50) X10*6/uL Hgb 8.8 L D (12.0-16.0) g/dl Hct 28.3 L D (37.0-47.0) % MCV 103.7 H (80.0-98.0) fL MCH 32.2 (27.0-33.0) pg MCHC 31.1 (31.0-35.0) g/dl RDW 14.9 (11.0-16.0) % Plt Count 602 H D (160-400) X10*3/uL MPV 8.5 L (9.4-12.3) fL Immature Gran % (Auto) 0.4 (0.0-0.4) % Neut % (Auto) 83.8 H (45-73) % Lymph % (Auto) 7.2 L (20-40) % [place] % (Auto) 7.5 (2-11) % Eos % (Auto) 0.7 (0-4) % Baso % (Auto) 0.4 (0-2) % Lymph # (Auto) 0.8 L (1.2-4.9) X10*3/uL Fallon # (Auto) 0.8 (0.1-1.2) X10*3/uL Eos # (Auto) 0.1 (0.0-0.4) X10*3/uL Baso # (Auto) 0.0 (0.0-0.2) X10*3/uL Abs Immat Gran (auto) 0.05 H (0.00-0.03) X10*3/uL Absolute Neuts (auto) 9.4 H (2.0-8.3) x10*3/uL Absolute Nucleated RBC 0.000 (0.0-0.012) X10*3/uL Nucleated RBC % (auto) 0.0 (0.0-0.2) /100WBC PT 19.3 H D (11.1-13.3) SEC INR 1.6 H (0.9-1.1) APTT 30.5 (26.0-36.4) SEC Sodium 139 (135-145) mmol/L Potassium 3.4 D (3.3-5.1) mmol/L Chloride 102 (96-108) mmol/L Carbon Dioxide 28 (22-29) mmol/L Anion Gap 12 (12-20) BUN 9 (9-16) mg/dL Creatinine 0.74 (0.5-1.4) mg/dL Estim Creat Clear Calc 68.9 Estimated GFR > 60 Random Glucose 140 H (60-115) mg/dL Lactic Acid 1.3 (0.5-2.0) mmol/L Calcium 8.6 D (8.4-10.2) mg/dL Magnesium 1.9 (1.6-2.6) mg/dL Total Bilirubin 0.7 (0.0-1.0) mg/dL AST 26 (5-31) U/L ALT 15 (0-31) U/L Alkaline Phosphatase 150 H (39-117) U/L Troponin I High Sens < 2.7 (<3.5-17.0) ng/L B-Natriuretic Peptide 26 (<100) pg/mL Total Protein 6.9 (6.5-8.0) g/dL Albumin 2.9 L (3.5-5.0) g/dL Urine Color Dark Yellow Urine Appearance Turbid Urine pH 5.5 (5.0-9.0) Ur Specific [employer] 1.020 (1.005-1.025) Urine Protein 300 (3+) H (Neg-Trace) mg/dL Urine Glucose (UA) Negative (Negative) mg/dL Urine Ketones Trace (Negative) mg/dL Urine Blood Large (3+) H (Negative) Urine Nitrite Positive H (Negative) Ur Leukocyte Esterase Moderate (2+) H (Negative) Urine RBC >20 H (0-2) /HPF Urine WBC >50 H (0-5) /HPF Ur Squamous Epith Cells 3-5 (0-2) /HPF Urine Bacteria 4+ (None Seen) Hyaline Casts 6-10 (0-2) /LPF Influenza Type A (PCR) NEGATIVE (Negative) Influenza Type B (PCR) NEGATIVE (Negative) RSV RNA Qual (PCR) NEGATIVE (Negative) SARS-CoV-2 RNA (RT-PCR) NEGATIVE (Negative) Independent Interpretation I performed an independent interpretation of an: Plain X-Ray (Left-sided pleural effusion) and CT Scan ( CT/CT angio chest PE protocol IMPRESSION: No evidence of PE. No evidence of aortic aneurysm or dissection. Small bilateral pleural effusions slightly greater on the left. There is mild to moderate pericardial effusion. Small left thyroid nodule. VTE: negative) Radiology Impression Discussion of test interpretation with radiology: I have reviewed the radiologist's reading. Chronic Conditions Patient?s care impacted by: Other (Pulmonary embolism on Eliquis. GERD, asthma,) Critical Care Time Critical Care Time Critical Care Time: Yes Total Critical Care Time: 35 Attestation: I attest to this time spent taking care of the patient, obtaining history, physical, reviewing labs, imaging, speaking to my attending, speaking to specialist. Discharge Plan Discharge Clinical Impression: Acute UTI, Sepsis Patient Disposition: Admitted As Inpatient Prescriptions: No Action clonazepam 1 mg tablet 1 mg PO BID nystatin 100,000 unit/gram cream 1 appl TOPICAL BID ketoconazole 2 % cream 1 appl topical BID Rx Instructions: APPLY TO FEET Eliquis 5 mg tablet 10 mg PO BID Qty: 64 0RF Rx Instructions: Take 10 mg twice daily for 7 days then 5 mg twice daily famotidine 20 mg tablet 20 mg PO BID amitriptyline 10 mg tablet 20 mg PO BEDTIME Serevent Diskus 50 mcg/dose blister with device 1 inh inhalation BID albuterol sulfate 90 mcg/actuation HFA aerosol inhaler 2 puff inhalation QID PRN (Reason: wheezing) nabumetone 500 mg tablet 500 mg PO BID
[2023-05-28 12:05] LABS: Partial Thromboplastin Time 30.5 SEC (26.0-36.4)
[2023-05-28 12:10] LABS: Alanine Aminotransferase 15 U/L (0-31); Albumin Level 2.9 g/dL (3.5-5.0); Alkaline Phosphatase 150 U/L (39-117); Anion Gap 12 (12-20); Aspartate Amino Transferase 26 U/L (5-31); Bilirubin Total 0.7 mg/dL (0.0-1.0); Blood Urea Nitrogen 9 mg/dL (9-16); Calcium 8.6 mg/dL (8.4-10.2); Carbon Dioxide 28 mmol/L (22-29); Chloride 102 mmol/L (96-108); Creatinine Clr Calc Pharmacy 68.9; Estimated Glomerular Filt Rate > 60; Glucose Random 140 mg/dL (60-115); Magnesium 1.9 mg/dL (1.6-2.6); Potassium 3.4 mmol/L (3.3-5.1); Sodium 139 mmol/L (135-145); Total Protein 6.9 g/dL (6.5-8.0)
[2023-05-28 12:18] LABS: Troponin-I High Sensitivity < 2.7 ng/L (<3.5-17.0)
[2023-05-28 12:18] LABS: Bacteria Urine 4+ (None Seen); RBC Urine >20 /HPF (0-2); UACC Culture Trigger YES; WBC Urine >50 /HPF (0-5)
--- OUTSIDE RECORDS SUMMARY | 2023-05-28 12:23 | XMS_ITS | Continuity of Care Document ---
Author Name Unknown Organization [facility] Address [address] [place] [address]- Care Team Providers Care Drug Room Clerk Name Role Phone Soheila SORTO, Francisco Lim Primary Care Physician Encounter [facility] Date(s): 03/20/20 - 04/19/20 [facility] [address] [place] [address]- Allergies, Adverse Reactions, Alerts Substance Reaction Severity Status meclizine Active hydrOXYzine Unknown Active selective serotonin reuptake inhibitors U nknown Active Cipro Active Zithromax Active Valtrex 1 Active Paxil makes her manic Active Bactrim Active Lexapro manic depressive thoughts Ac tive traZODone BRAIN FOG SEVERE Active 1GI/other Immunizations Given and Recorded Vaccine Date Status Refusal Reason pneumococcal 13-valent vaccine 12/07/19 Given influenza virus vaccine, inactivated 03/03/18 Give n influenza virus vaccine, inactivated 1 03/12/16 Re corded influenza virus vaccine, inactivated 2 02/21/15 Re corded influenza virus vaccine, inactivated 04/06/14 Cristi rded influenza virus vaccine, inactivated 3 03/14/14 Re corded Influenza Virus Vaccine (oldterm) 4 02/12/17 Given Zoster Vaccine Live 5 11/26/14 Recorded tetanus/diphtheria/pertussis, acel(Tdap) 09/03/14 Given pneumococcal 23-valent vaccine 6 11/25/11 Recorded 1Location History: [facility] 2Location History[facility] 3Location [facility] [place] 4[facility] 6Location History: [facility] Medications amitriptyline 10 mg oral tablet 20 mg, 2, tablet, By Mouth, Daily at bedtime, Patient is allergic to red and blue dye. Pt requires a tablet that is dye free., # 60 tablet, Refills 11, Tot. Refills 11, Maintenance, 07/26/19 16:18:00EST, Route to Pharmacy Electronically, [facility]/pharmacy... Start Date: 07/26/19 Status: Ordered Calcium And Vitamin D Combination See Instructions, 1 tab daily, 0 Refills, Maintenance, 10/25/15 10:45:23 Start Date: 10/25/15 Status: Ordered Choline 0 Refills, Maintenance, 09/03/14 14:38:35 Start Date: 09/03/14 Status: Ordered clonazePAM 1 mg oral tablet 1 tablet = 1 mg, By Mouth, 2 times a day, # 60 tablet, 5 Refills, Soft Stop, 02/12/20 15:30:00 EDT,[facility]/pharmacy #1230, 162, cm, 02/12/20 15:07:00 EDT, Height Start Date: 02/12/20 Stop Date: 08/10/20 Status: Ordered D-Mannose Maintenance, urinary frequency, 12/17/16 11:39:55, D-Mannose Start Date: 12/17/16 Status: Ordered hyluronic acid Maintenance, 12/17/16 11:49:49, hyluronic acid Start Date: 12/17/16 Status: Ordered ipratropium nasal 21 mcg/inh spray 2 sprays, Nares, Both, 2 times a day, # 30 mL, 1 Refills, Maintenance, 04/09/20 9:39:00 EDT, [place],[facility]/pharmacy #1230, 2 sprays Nares, Both 2 times a day, 162, cm, 02/20/20 14:33:00 EDT, Height Start Date: 04/09/20 Status: Ordered magnesium malate Maintenance, 12/17/16 11:46:55, magnesium malate Start Date: 12/17/16 Status: Ordered Melatonin 3 mg oral tablet 1 tablet = 3 mg, By Mouth, Daily at bedtime, PRN for insomnia, # 60 tablet, 0 Refills, Maintenance,09/27/15 14:34:23, Tablet Start Date: 09/27/15 Status: Ordered Multivitamin By Mouth, Daily, 0 Refills, Maintenance Start Date: 01/01/12 Status: Ordered nystatin topical 441854 u/gm cream 1 application, Topically, 2 times a day, # 30 Gm, 1 Refills, Maintenance, 03/29/20 15:20:00 EDT, Cream, [facility]/pharmacy #1230, 1 application Topically 2 times a day, 162, cm, 02/20/20 14:33:00 EDT, Height Start Date: 03/29/20 Status: Ordered ProAir HFA 90 mcg/inh inhalation aerosol with adapter 1, puffs, Inhalation, 4 times a day, PRN, BRAND NAME ONLY, # 8.5 Gm, Refills 6, Tot. Refills 6, Maintenance, 07/26/19 16:20:00 EST, Aerosol, Route to Pharmacy Electronically, [id number][facility], cm, 07/26/19... Start Date: 07/26/19 Status: Ordered Probiotic Formula 1 capsule, By Mouth, Daily, 0 Refills, Maintenance Start Date: 05/12/13 Status: Ordered Serevent Diskus 50 mcg inhalation powder 1 each = 50 mcg, Inhalation, Every 12 hours, # 180 each, 11 Refills, Maintenance, 12/22/19 13:33:00EDT, Powder, [facility]/pharmacy #1230, 1 each Inhalation Every 12 hours, 162, cm, 12/06/19 15:37:00 EDT, Height Start Date: 12/22/19 Status: Ordered Vitamin C 100 mg oral tablet, chewable 1 tablet = 100 mg, Chew, Daily, # 30 tablet, 0 Refills, Maintenance, 09/03/14 14:36:57, Chew Tablet Start Date: 09/03/14 Status: Ordered ZyrTEC 10 mg oral tablet 1 tablet = 10 mg, By Mouth, 2 times a day, # 30 tablet, 0 Refills, Maintenance, 09/27/15 14:34:10, Tablet Start Date: 09/27/15 Status: Ordered Problem List Condition Effective Dates Status Health Status Inform ant Rhinitis, allergic(Confirmed) Active Anxiety(Confirmed) Active Asthma(Confirmed) Active Chronic interstitial cystitis(Confirmed) Active Depression(Confirmed) Active Diarrhea(Confirmed) Active Disorder of back(Confirmed) Active Rash(Confirmed) Active GERD (gastroesophageal reflu x disease)(Confirmed) Active H/O thyroid nodule(Confirmed) Active H/O colonoscopy(Confirmed) 1 Active Hypercholesterolemia(Confirmed) Active Increased frequency of urination(Confirmed) Active Indigestion(Confirmed) Active Injury of left shoulder(Confirmed) 06/14/15 Active Insomnia(Confirmed) Active Internal hemorrhoids(Confirmed) 2 Active Osteoporosis(Confirmed) 3, 4, 5 Active Tinea cruris(Confirmed) Active 1Colonoscopy 2011 normal, repeat 2021. 2colo 2011 3Bone density 2016 positive for osteopenia. 4Patient intolerant to bisphosphonates. Patient treating with calcium and vitamin D and weightbearing exercise. 5Osteoporosis on one view on bone density 2013. Social History Social History Type Response Smoking Status Former smoker; Other : Quit smoking 2011.; entered on: 11/08/15 Sex
--- OUTSIDE RECORDS SUMMARY | 2023-05-28 12:23 | XMS_ITS | Continuity of Care Document ---
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 Name Role Phone Soheila SORTO, Francisco Lim Primary Care Physician [phone] [place] [facility] [place]04[place]20 [facility] [address] [place] [id number]- [facility] Attending Physician: Nabila Casarez Admitting Physician: AdmNabila winhcester Referring Physician: AdmtrNabila Allergies, Adverse Reactions, Alerts Substance Reaction Severity [...] [facility] 3Location History[facility] [place] [facility]Location [facility] [place] 6Location History: [facility] Medications amitriptyline 10 mg oral tablet 20 mg, 2, tablet, By Mouth, Daily at bedtime, Patient is allergic to red and blue dye. Pt requires a tablet that is dye free., # 60 tablet, Refills 11, Tot. Refills 11, Maintenance, 07/26/19 16:18:00EST, Route to Pharmacy Electronically, [facility]/pharmacy... Start Date: 07/26/19 Status: Ordered Calcium And Vitamin D Combination See Instructions, 1 tab daily, 0 Refills, Maintenance, 10/25/15 10:45:23 Start Date: 10/25/15 Status: Ordered Choline 0 Refills, Maintenance, 09/03/14 14:38:35 Start Date: 09/03/14 Status: Ordered clonazePAM 1 mg oral tablet 1 tablet = 1 mg, By Mouth, 2 times a day, # 60 tablet, 5 Refills, Soft Stop, 02/12/20 15:30:00 EDT,[facility]/pharmacy #1230, 162, cm, 02/12/20 15:07:00 EDT, Height Start Date: 02/12/20 Stop Date: 08/10/20 Status: Ordered D-Mannose Maintenance, urinary frequency, 12/17/16 11:39:55, D-Mannose Start Date: 12/17/16 Status: Ordered hyluronic acid Maintenance, 12/17/16 11:49:49, hyluronic acid Start Date: 12/17/16 Status: Ordered magnesium malate Maintenance, 12/17/16 11:46:55, magnesium malate Start Date: 12/17/16 Status: Ordered Melatonin 3 mg oral tablet 1 tablet = 3 mg, By Mouth, Daily at bedtime, PRN for insomnia, # 60 tablet, 0 Refills, Maintenance,09/27/15 14:34:23, Tablet Start Date: 09/27/15 Status: Ordered Multivitamin By Mouth, Daily, 0 Refills, Maintenance Start Date: 01/01/12 Status: Ordered nystatin topical [id number] u/gm cream 1 application, Topically, 2 times a day, # 30 Gm, 1 Refills, Maintenance, 03/29/20 15:20:00 EDT, Cream, [facility]/pharmacy #1230, 1 application Topically 2 times a day, 162, cm, 02/20/20 14:33:00 EDT, Height Start Date: 03/29/20 Status: Ordered ProAir HFA 90 mcg/inh inhalation aerosol with adapter 1, puffs, Inhalation, 4 times a day, PRN, BRAND NAME ONLY, # 8.5 Gm, Refills 6, Tot. Refills 6, Maintenance, 07/26/19 16:20:00 EST, Aerosol, Route to Pharmacy Electronically, [id number], [facility]/pharmacy #1230, 162, cm, 07/26/19... Start Date: 07/26/19 Status: Ordered Probiotic Formula 1 capsule, By Mouth, Daily, 0 Refills, Maintenance Start Date: 05/12/13 Status: Ordered Serevent Diskus 50 mcg inhalation powder 1 each = 50 mcg, Inhalation, Every 12 hours, # 180 each, 11 Refills, Maintenance, 12/22/19 13:33:00EDT, Powder, [facility]/pharmacy #1230, 1 each Inhalation Every 12 hours, [...]
--- OUTSIDE RECORDS SUMMARY | 2023-05-28 12:23 | XMS_ITS | Continuity of Care Document ---
Author Name Unknown Organization [facility] [place] Address [address] [place] [address]- Care Team Providers Care Silk Hanger Name Role Phone Francisco Parnell MD Primary Care Physician [phone] Encounter [facility] Date(s): 02/25/22 - 03/27/22 [facility] [place] [address], [place] [address] Attending Physician: Hermelindo, Nabila Admitting Physician: Admtr, Nabila Referring Physician: Admtr, Ar8 Allergies, Adverse Reactions, Alerts Substance Reaction Severity Status meclizine Active hydrOXYzine Unknown Active selective serotonin reuptake inhibitors U nknown Active Cipro Active Zithromax Active Valtrex 1 Active Paxil makes her manic Active Bactrim Active Lexapro manic depressive thoughts Ac tive traZODone BRAIN FOG SEVERE Active 1GI/other Immunizations Given and Recorded Vaccine Date Status Refusal Reason pneumococcal 13-valent vaccine 06/08/21 Recorded pneumococcal 13-valent vaccine 12/07/19 Given SARS-CoV-2 (COVID-19) mRNA BNT-162b2 vac 03/09/21 Recorded SARS-CoV-2 (COVID-19) mRNA BNT-162b2 vac 08/12/20 Recorded SARS-CoV-2 (COVID-19) mRNA BNT-162b2 vac 07/22/20 Recorded influenza virus vaccine, inactivated 03/05/21 Cristi rded influenza virus vaccine, inactivated 02/17/20 Cristi rded influenza virus vaccine, inactivated 03/03/18 Give n influenza virus vaccine, inactivated 1 03/12/16 Re corded influenza virus vaccine, inactivated 2 02/21/15 Re corded influenza virus vaccine, inactivated 04/06/14 Cristi rded influenza virus vaccine, inactivated 3 10/1/14 Re corded zoster vaccine, inactivated 02/25/21 Recorded zoster vaccine, inactivated 11/29/20 Recorded Influenza Virus Vaccine (oldterm) 4 02/12/17 Given Zoster Vaccine Live 5 11/26/14 Recorded tetanus/diphtheria/pertussis, acel(Tdap) 09/03/14 Given pneumococcal 23-valent vaccine 6 11/25/11 Recorded pneumococcal 23-valent vaccine 05/27/01 Recorded 1Location History: [facility] 2Location History: [facility] 3Location History[facility] [place] 4Admin Note: [facility] 5[facility]: [facility] 6Location History: [facility] Medications Albuterol (Eqv-ProAir HFA) 90 mcg/inh inhalation aerosol 2 puffs, Inhalation, 4 times a day, PRN NEEDED FOR WHEEZING, # 8.5 each, 11 Refills, Maintenance, 02/09/22 8:40:00 EDT, [facility] STORE [id number], 25, INHALE 2 PUFFS BY MOUTH 4 TIMES A DAY NEEDED FOR WHEEZING, 162, cm, 09/23/21 15:24:00 EDT, Height Start Date: 02/09/22 Status: Ordered amitriptyline 10 mg oral tablet 2, tablet, By Mouth, Daily at bedtime, INSTR:PATIENT IS ALLERGIC TO RED AND BLUE DYE, # 180 tablet,Refills 3, Tot. Refills 3, 09/23/21 15:52:00 EDT, Route to Pharmacy Electronically, [facility]/pharmacy #[id number], 162, cm, 09/23/21 15:24:00 EDT, Height Start Date: 09/23/21 Status: Ordered azelastine nasal 0.15% spray 2 sprays, Nares, Both, Daily, PRN for allergy symptoms, # 30 mL, 5 Refills, Maintenance, 01/16/22 13:15:00 EDT, [place], [id number], Partial fill upon patient request if the prescription is for a schedule II opioid drug., 2 sprays Nares,... Start Date: 01/16/22 Status: Ordered Calcium And Vitamin D Combination See Instructions, 1 tab daily, 0 Refills, Maintenance, 10/25/15 10:45:23 Start Date: 10/25/15 Status: Ordered Choline 0 Refills, Maintenance, 09/03/14 14:38:35 Start Date: 09/03/14 Status: Ordered clonazePAM 1 mg oral tablet 1 tablet, By Mouth, 2 times a day, # 60 tablet, 5 Refills, Maintenance, 12/12/21 9:06:00 EDT, [facility]/pharmacy #1230, 162, cm, 09/23/21 15:24:00 EDT, Height Start Date: 12/12/21 Stop Date: 06/10/22 Status: Ordered D-Mannose Maintenance, urinary frequency, 12/17/16 [...] 14:34:23, Tablet Start Date: 09/27/15 Status: Ordered nystatin topical 360423 u/gm cream See Instructions, APPLY TO AFFECTED AREA TWICE A DAY, # 30 Gm, 11 Refills, Maintenance, 09/23/21 15:51:00 EDT, [facility]/pharmacy #1230, 30, APPLY TO AFFECTED AREA TWICE A DAY, 162, cm, 09/23/21 15:24:00 EDT, Height Start Date: 09/23/21 Status: Ordered Probiotic Formula 1 capsule, By Mouth, Daily, 0 Refills, Maintenance Start Date: 05/12/13 Status: Ordered Serevent Diskus 50 mcg inhalation powder 1 puffs, Inhalation, Every 12 hours, # 180 Unknown, 5 Refills, Maintenance, 12/29/20 13:31:00 EDT, [facility], 90, INHALE 1 PUFF BY MOUTH EVERY 12 HOURS, 162, cm, 09/03/20 15:36:00 EDT, Height Start Date: 12/29/20 Status: Ordered Vitamin C 100 mg oral tablet, chewable 1 tablet = 100 mg, Chew, Daily, # 30 tablet, 0 Refills, Maintenance, 03/23/15 14:36:57, Chew Tablet Start Date: 09/03/14 Status: Ordered ZyrTEC 10 mg oral tablet 1 tablet = 10 mg, By Mouth, 2 times a day, # 30 tablet, 0 Refills, Maintenance, 09/27/15 14:34:10, Tablet Start Date: 09/27/15 Status: Ordered Problem List Condition Confirmation Course Effective Dates Status Health Status Informant Rhinitis, allergic Confirmed Active Anxiety Confirmed Active Asthma Confirmed Active Chronic interstitial cystitis Confirmed Active Depression Confirmed Active Diarrhea Confirmed Active Disorder of back Confirmed Active Rash Confirmed Active Gallstone 1 Confirmed Active GERD (gastroesophageal reflux disease) Confirmed Active H/O thyroid nodule Confirmed Active H/O colonoscopy 2 Confirmed Active Hypercholesterolemia Confirmed Active Increased frequency of urination Confirmed Active Indigestion Confirmed Active Injury of left shoulder Confirmed 06/14/15 Active Insomnia Confirmed Active Internal hemorrhoids 3 Confirmed Active IBS (irritable bowel syndrome) Confirmed Active Osteoporosis 4, 5, 6 Confirmed Active Fatty liver 7 Confirmed Active Tinea cruris Confirmed Active 1U/S done at [place] 2Colonoscopy 2011 normal, repeat 2021. 3colo 2011 4Bone density 2016 positive for osteopenia. 5Patient intolerant to bisphosphonates. Patient treating with calcium and vitamin D and weightbearing exercise. 6Osteoporosis on one view on bone density 2013. 7ultrasound Procedures Procedure Date Related Diagnosis Body Site Status Gastroscopy 1 12/17/16 Completed 1biopsies look okay Social History Social History Type Response Smoking Status Former smoker; Other : Quit smoking 2011.; entered on: 11/08/15 Sex Patient Care team information Personnel Name: Soheila SORTO, Francisco Lim Address: Address: [address] [place] [address]
--- OUTSIDE RECORDS SUMMARY | 2023-05-28 12:23 | XMS_ITS | Continuity of Care Document ---
Author Name Unknown Organization [facility] [place] Address [address] [place] [address]- Care Team Providers Care Plater Helper Name Role Phone Francisco Parnell MD Primary Care Physician Encounter [facility] Date(s): 04/08/21 - 05/08/21 [facility] [place] [address] [place] [address]- Attending Physician: Nabila Casarez Admitting Physician: AdmtrNabila Referring Physician: Admtr, Ar8 Allergies, Adverse Reactions, Alerts Substance Reaction Severity Status meclizine Active hydrOXYzine Unknown Active selective serotonin reuptake inhibitors U nknown Active Cipro Active Zithromax Active Valtrex 1 Active Paxil makes her manic Active Bactrim Active Lexapro manic depressive thoughts Ac tive traZODone BRAIN FOG SEVERE Active 1GI/other Immunizations Given and Recorded Vaccine Date Status Refusal Reason SARS-CoV-2 (COVID-19) mRNA BNT-162b2 vac 03/09/21 Recorded SARS-CoV-2 (COVID-19) mRNA BNT-162b2 vac 08/12/20 Recorded SARS-CoV-2 (COVID-19) mRNA BNT-162b2 vac 07/22/20 Recorded influenza virus vaccine, inactivated 03/05/21 Cristi rded influenza virus vaccine, inactivated 03/03/18 Give n influenza virus vaccine, inactivated 1 03/12/16 Re corded influenza virus vaccine, inactivated 2 02/21/15 Re corded influenza virus vaccine, inactivated 04/06/14 Cristi rded influenza virus vaccine, inactivated 3 03/14/14 Re corded zoster vaccine, inactivated 02/25/21 Recorded zoster vaccine, inactivated 11/29/20 Recorded pneumococcal 13-valent vaccine 12/07/19 Given Influenza Virus Vaccine (oldterm) 4 02/12/17 Given Zoster Vaccine Live 5 11/26/14 Recorded tetanus/diphtheria/pertussis, acel(Tdap) 09/03/14 Given pneumococcal 23-valent vaccine 6 11/25/11 Recorded pneumococcal 23-valent vaccine 05/27/01 Recorded 1Location History: [facility] 2Location History: [facility] 3Location History: [facility] [place] 4Admin Note: [facility] 5Location History: [facility] [place] 6Location History: [facility] Medications albuterol CFC free 90 mcg/inh inhalation aerosol 2, puffs, Inhalation, 4 times a day, PRN, for 30 days, # 1 each, Refills 11, Tot. Refills 11, Hard Stop 08/29/21 15:52:00 EDT, 09/03/20 15:52:00 EDT, Aerosol, Route to Pharmacy Electronically, [id number], [facility]/pharmacy #[id number],... Start Date: 09/03/20 Stop Date: 08/29/21 Status: Ordered amitriptyline 10 mg oral tablet 2, tablet, By Mouth, Daily at bedtime, INSTR:PATIENT IS ALLERGIC TO RED AND BLUE DYE, # 180 tablet,Refills 1, Tot. Refills 0, Maintenance, 12/29/20 13:31:00 EDT, Route to Pharmacy Electronically, [id number], 162, cm, 09/03/20 15:36:00 EDT, Height Start Date: 12/29/20 Status: Ordered Calcium And Vitamin D Combination See Instructions, 1 tab daily, 0 Refills, Maintenance, 10/25/15 10:45:23 Start Date: 10/25/15 Status: Ordered Choline 0 Refills, Maintenance, 09/03/14 14:38:35 Start Date: 09/03/14 Status: Ordered clonazePAM 1 mg oral tablet 1 tablet = 1 mg, By Mouth, 2 times a day, # 60 tablet, 5 Refills, Soft Stop, 02/24/21 7:46:00 EDT, [facility]/pharmacy #1230, 162, cm, 01/23/21 14:21:00 EDT, Height Start Date: 02/24/21 Stop Date: 08/23/21 Status: Ordered D-Mannose Maintenance, urinary frequency, 12/17/16 11:39:55, D-Mannose Start Date: 12/17/16 Status: Ordered FiberCon 625 mg oral tablet 1 tablet = 625 mg, By Mouth, Daily, # 30 tablet, 11 Refills, Maintenance, 03/13/21 10:44:00 EDT, [facility]/pharmacy #1230, Partial fill upon patient request if the prescription is for a schedule II opioid drug., 162, cm, 03/10/21 14:31:00 EDT, Height Start Date: 03/13/21 Status: Ordered fluocinonide 0.05% topical cream 1 application, Topically, 2 times a day, # 60 Gm, 2 Refills, Maintenance, 09/03/20 15:53:00 EDT, Cream, [facility]/pharmacy #1230, Partial fill upon patient request if the prescription is for a schedule II opioid drug., 1 application Topically 2 times a day,... Start Date: 09/03/20 Status: Ordered hyluronic acid Maintenance, 12/17/16 11:49:49, hyluronic acid Start Date: 12/17/16 Status: Ordered ipratropium nasal 21 mcg/inh spray See Instructions, SPRAY 2 SPRAYS INTO EACH NOSTRIL 2 TIMES A DAY, # 30 sprays, 5 Refills, Acute, [facility], 30, SPRAY 2 SPRAYS INTO EACH NOSTRIL 2 TIMES A DAY, 162, cm, 09/03/20 15:36:00 EDT, Height Start Date: 12/01/20 Status: Ordered magnesium malate Maintenance, 12/17/16 11:46:55, magnesium malate Start Date: 12/17/16 Status: Ordered Melatonin 3 mg oral tablet 1 tablet = 3 mg, By Mouth, Daily at bedtime, PRN for insomnia, # 60 tablet, 0 Refills, Maintenance,09/27/15 14:34:23, Tablet Start Date: 09/27/15 Status: Ordered Multivitamin By Mouth, Daily, 0 Refills, Maintenance Start Date: 01/01/12 Status: Ordered nystatin topical 044688 u/gm cream See Instructions, APPLY TO AFFECTED AREA TWICE A DAY, # 30 Gm, 11 Refills, Maintenance, 03/10/21 15:03:00 EDT, [facility], 30, APPLY TO AFFECTED AREA TWICE A DAY, 162, cm, 03/10/21 14:31:00 EDT, Height Start Date: 03/10/21 Status: Ordered Probiotic Formula 1 capsule, By Mouth, Daily, 0 Refills, Maintenance Start Date: 05/12/13 Status: Ordered Serevent Diskus 50 mcg inhalation powder 1 puffs, Inhalation, Every 12 hours, # 180 Unknown, 5 Refills, Maintenance, 12/29/20 13:31:00 EDT, [facility], 90, INHALE 1 PUFF BY MOUTH EVERY [...] Active Insomnia(Confirmed) Active Internal hemorrhoids(Confirmed) 2 Active IBS (irritable bowel syndrome)(Confirmed) Active Osteoporosis(Confirmed) 3, 4, 5 Active Tinea [...]
--- OUTSIDE RECORDS SUMMARY | 2023-05-28 12:24 | XMS_ITS | Continuity of Care Document ---
Author Name Unknown Organization [facility] Address [address] [place] [address]- Care Team Providers Care Swift Tender Name Role Phone Soheila SORTO, Francisco Lim Primary Care Physician [phone] Encounter [facility] Date(s): 01/11/23 - 02/10/23 [facility] Adult [address] [place] [address]- Allergies, Adverse Reactions, Alerts Substance Reaction Severity Status meclizine Active hydrOXYzine Unknown Active selective serotonin reuptake inhibitors U nknown Active Cipro Active Zithromax Active Valtrex 1 Active Paxil makes her manic Active Bactrim Active Lexapro manic depressive thoughts Ac tive traZODone BRAIN FOG SEVERE Active 1GI/other Immunizations Given and Recorded Vaccine Date Status Refusal Reason influenza virus vaccine, inactivated 03/09/22 Cristi rded influenza virus vaccine, inactivated 03/05/21 Cristi rded influenza virus vaccine, inactivated 02/17/20 Cristi rded influenza virus vaccine, inactivated 03/03/18 Give n influenza virus vaccine, inactivated 1 03/12/16 Re corded influenza virus vaccine, inactivated 2 02/21/15 Re corded influenza virus vaccine, inactivated 04/06/14 Cristi rded influenza virus vaccine, inactivated 3 03/14/14 Re corded [id number] 12y+ bivalent booster vax 03/09/22 Recorded SARS-CoV-2 mRNA ([id number]) vax 09/24/21 Recorded pneumococcal 13-valent vaccine 06/08/21 Recorded pneumococcal 13-valent vaccine 12/07/19 Given SARS-CoV-2 (COVID-19) mRNA BNT-162b2 vac 03/09/21 Recorded SARS-CoV-2 (COVID-19) mRNA BNT-162b2 vac 08/12/20 Recorded SARS-CoV-2 (COVID-19) mRNA BNT-162b2 vac 07/22/20 Recorded zoster vaccine, inactivated 02/25/21 Recorded zoster vaccine, inactivated 11/29/20 Recorded Influenza Virus Vaccine (oldterm) 4 02/12/17 Given Zoster Vaccine Live 5 11/26/14 Recorded tetanus/diphtheria/pertussis, acel(Tdap) 09/03/14 Given pneumococcal 23-valent vaccine 6 11/25/11 Recorded pneumococcal 23-valent vaccine 05/27/01 Recorded 1Location History: [facility] 2Location History: [facility] 3Location History: [facility] [place] 4Admin Note: [facility] 5[facility] 6Location History: [facility] Medications Albuterol (Eqv-ProAir HFA) 90 mcg/inh inhalation aerosol 2 puffs, Inhalation, 4 times a day, PRN NEEDED FOR WHEEZING, # 8.5 each, 5 Refills, Maintenance,11/22/22 10:28:00 EDT, [facility]/pharmacy #1230, 25, 2 puffs Inhalation 4 times a day,PRN: NEEDED FOR WHEEZING, 162, cm, 11/18/22 15:00:00 EDT, Height, 76,... Start Date: 11/22/22 Status: Ordered amitriptyline 10 mg oral tablet 2, tablet, By Mouth, Daily at bedtime, INSTR:PATIENT IS ALLERGIC TO RED AND BLUE DYE, # 180 tablet,Refills 3, Tot. Refills 3, 05/26/22 15:23:00 EST, Route to Pharmacy Electronically, [facility]/pharmacy #1230, 162, cm, 05/26/22 14:47:00 EST, Height Start Date: 05/26/22 Status: Ordered Calcium And Vitamin D Combination See Instructions, 1 tab daily, 0 Refills, Maintenance, 10/25/15 10:45:23 Start Date: 10/25/15 Status: Ordered Choline 0 Refills, Maintenance, 09/03/14 14:38:35 Start Date: 09/03/14 Status: Ordered Claritin 10 mg oral tablet 10 mg, 1, tablet, By Mouth, Daily, # 30 tablet, Refills 0, Maintenance, 12/30/22 16:08:00 EDT, Partial fill upon patient request if the prescription is for a schedule II opioid drug. Start Date: 12/30/22 Status: Ordered clonazePAM 1 mg oral tablet 1 tablet, By Mouth, 2 times a day, # 60 tablet, 5 Refills, Maintenance, 12/30/22 16:09:00 EDT, [facility]/pharmacy #1230, 162, cm, 12/30/22 15:36:00 EDT, Height, 76, kg, 11/10/22 16:02:00 EDT, Dry Weight Start Date: 12/30/22 Stop Date: 06/28/23 Status: Ordered D-Mannose Maintenance, urinary frequency, 12/17/16 11:39:55, D-Mannose Start Date: 12/17/16 Status: Ordered Flonase 50 mcg/inh nasal spray 2 sprays, Nares, Both, Daily in AM, 0 Refills, Maintenance, 12/30/22 16:08:00 EDT, [place], Partial fill upon patient request if the prescription is for a schedule II opioid drug. Start Date: 12/30/22 Status: Ordered hyluronic acid Maintenance, 12/17/16 11:49:49, hyluronic acid Start Date: 12/17/16 Status: Ordered magnesium malate Maintenance, 12/17/16 11:46:55, magnesium malate Start Date: 12/17/16 Status: Ordered Melatonin 3 mg oral tablet 1 tablet = 3 mg, By Mouth, Daily at bedtime, PRN for insomnia, # 60 tablet, 0 Refills, Maintenance,09/27/15 14:34:23, Tablet Start Date: 09/27/15 Status: Ordered nabumetone 500 mg oral tablet 1 tablet = 500 mg, By Mouth, 2 times a day, # 60 tablet, 1 Refills, Maintenance, 01/16/23 10:07:00 EDT, [facility], Partial fill upon patient request if the prescription is for a schedule II opioid drug., 162, cm, 12/30/22 15:36:00 EDT, Height... Start Date: 01/16/23 Status: Ordered nystatin topical 336561 u/gm cream See Instructions, APPLY TO AFFECTED AREA TWICE A DAY, # 30 Gm, 11 Refills, Maintenance, 12/30/22 16:08:00 EDT, [facility]/pharmacy #1230, 30, APPLY TO AFFECTED AREA TWICE A DAY, 162, cm, 12/30/22 15:36:00 EDT, Height, 76, kg, 11/10/22 16:02:00 EDT, Dry Weight Start Date: 12/30/22 Status: Ordered Probiotic Formula 1 capsule, By Mouth, Daily, 0 Refills, Maintenance Start Date: 05/12/13 Status: Ordered Serevent Diskus 50 mcg inhalation powder 1 puffs = 50 mcg, Inhalation, 2 times a day, # 3 each, 3 Refills, Maintenance, 06/10/22 15:52:00 EST, Powder, [facility], Partial fill upon patient request if the prescription is for a schedule II opioid drug., 1 puffs Inhalatio... Start Date: 06/10/22 Status: Ordered tiZANidine 2 mg oral tablet 1, tablet, By Mouth, Every 8 hours, PRN, # 90 tablet, Refills 1, Maintenance, NEEDED, 02/03/23 16:10:00 EDT, Route to Pharmacy Electronically, [id number], 162, cm, 12/30/22 15:36:00 EDT, Height, 76, kg, 11/10/22 16:02:00 EDT, Dry Weight Start Date: 02/03/23 Status: Ordered Vitamin C 100 mg oral [...] Tinea cruris Confirmed Active 1U/S done at [place] 2Colonoscopy 2011 normal, repeat 2021. 3colo 2011 4Bone density 2016 positive for osteopenia. 5Patient intolerant to bisphosphonates. Patient treating with calcium and vitamin D and weightbearing exercise. 6Osteoporosis on one view on bone density 2013. 7ultrasound Social History Social History Type Response Smoking Status Former smoker; Other : Quit smoking 2011.; entered on: 11/08/15 Sex Patient Care team information Care Team Personnel Name: Francisco Parnell MD Position: [facility] Physician - Primary Care Member Role: PCP Address: Address: [address] [place] [address]- Care Team Related Persons Name: DONAVON PETTIT Name: DONAVON REDDING Address: home [address] [place] [id number] Name: MARY LOYD Address: home [address] [address] Name: MARY PHILLIPS Address: [address] [address]
--- OUTSIDE RECORDS SUMMARY | 2023-05-28 12:24 | XMS_ITS | Continuity of Care Document ---
Author Name Unknown Organization [facility] [place] Address [address] [place] [address]- Care Team Providers Care Microfiche Duplicator Name Role Phone Soheila SORTO, Francisco Lim Primary Care Physician Encounter [facility] Date(s): 10/12/19 - 11/11/19 [facility] [place] [address] [place] [address]- [facility] Attending Physician: Admranulfo, Agustin8 Admitting Physician: Admtr, Agustin8 Referring Physician: Admtr, Ar8 Allergies, Adverse Reactions, Alerts Substance Reaction Severity Status meclizine Active hydrOXYzine Unknown Active selective serotonin reuptake inhibitors U nknown Active Cipro Active Zithromax Active Valtrex 1 Active Paxil makes her manic Active Bactrim Active Lexapro manic depressive thoughts Ac tive traZODone BRAIN FOG SEVERE Active 1GI/other Immunizations Given and Recorded Vaccine Date Status Refusal Reason influenza virus vaccine, inactivated 03/03/18 Give n [...] [facility] 3Location History[facility] [place] [facility]Location [facility] 6Location History: [facility] Medications amitriptyline 10 mg oral tablet 20 mg, 2, tablet, By Mouth, Daily at bedtime, Patient is allergic to red and blue dye. Pt requires a tablet that is dye free., # 60 tablet, Refills 11, Tot. Refills 11, Maintenance, 07/26/19 16:18:00EST, Route to Pharmacy Electronically, [facility]/pharmacy... Start Date: 07/26/19 Status: Ordered Calcium And Vitamin D Combination See Instructions, 1 tab daily, 0 Refills, Maintenance, 10/25/15 10:45:23 Start Date: 10/25/15 Status: Ordered Choline 0 Refills, Maintenance, 09/03/14 14:38:35 Start Date: 09/03/14 Status: Ordered clonazePAM 1 mg oral tablet 1 tablet = 1 mg, By Mouth, 2 times a day, # 60 tablet, 5 Refills, Soft Stop, 07/26/19 16:19:00 EST,[facility]/pharmacy #1230, 162, cm, 07/26/19 15:53:00 EST, Height Start Date: 07/26/19 Stop Date: 01/22/20 Status: Ordered D-Mannose Maintenance, urinary frequency, 12/17/16 11:39:55, D-Mannose Start Date: 12/17/16 Status: Ordered fluticasone-salmeterol 500 mcg-50 mcg inhalation powder 1, puffs, Inhalation, 2 times a day, # 60 each, Refills 11, Tot. Refills 11, Maintenance, 10/16/19 11:57:00 EDT, Powder, Route to Pharmacy Electronically, [id number], [facility]/pharmacy #1230, 162, cm, 08/21/19 15:55:00 EDT, Height Start Date: 10/16/19 Status: Ordered hyluronic acid Maintenance, 12/17/16 11:49:49, hyluronic acid Start Date: 12/17/16 Status: Ordered ibuprofen 200 mg oral capsule 3 capsule = 600 mg, By Mouth, Every 8 hours, PRN for fever, # 120 capsule, 0 Refills, Maintenance, 07/12/18 15:01:22 EST, Capsule Start Date: 07/12/18 Status: Ordered magnesium malate Maintenance, 12/17/16 11:46:55, magnesium malate Start Date: 12/17/16 Status: Ordered Melatonin 3 mg oral tablet 1 tablet = 3 mg, By Mouth, Daily at bedtime, PRN for insomnia, # 60 tablet, 0 Refills, Maintenance,09/27/15 14:34:23, Tablet Start Date: 09/27/15 Status: Ordered Multivitamin By Mouth, Daily, 0 Refills, Maintenance Start Date: 01/01/12 Status: Ordered nystatin topical [id number] u/gm cream 1 application, Topically, 2 times a day, # 30 Gm, 5 Refills, Maintenance, 07/26/19 16:20:00 EST, Cream, [facility]/pharmacy #1230, 1 application Topically 2 times a day, 162, cm, 07/26/19 15:53:00 EST, Height Start Date: 07/26/19 Status: Ordered ProAir HFA 90 mcg/inh inhalation aerosol with adapter 1, puffs, Inhalation, 4 times a day, PRN, BRAND NAME ONLY, # 8.5 Gm, Refills 6, Tot. Refills 6, Maintenance, 07/26/19 16:20:00 EST, Aerosol, Route to Pharmacy Electronically, [id number], [facility]/pharmacy #1230, 162, cm, 07/26/19... Start Date: 07/26/19 Status: Ordered Probiotic Formula 1 capsule, By Mouth, Daily, 0 Refills, Maintenance Start Date: 05/12/13 Status: Ordered Vitamin C 100 mg oral [...] Active Chronic interstitial cystitis(Confirmed) Active Depression(Confirmed) Active Disorder of back(Confirmed) Active Rash(Confirmed) Active [...]
--- OUTSIDE RECORDS SUMMARY | 2023-05-28 12:24 | XMS_ITS | Continuity of Care Document ---
Author Name Unknown Organization [facility] [place]ris [place] Address [address] [place] [address]- Care Team Providers Care Test Lab Technician Name Role Phone Soheila SORTO, Francisco Lim Primary Care Physician [phone] [facility]counter [facility] Date[facility]s): 03/04/20 - 04/03/20 [facility] Adult [address] [place] [address]- [facility] Allergies, Adverse Reactions, Alerts Substance Reaction Severity [...] Note: [facility] 6Location History: [facility] Medications amitriptyline 10 mg oral tablet 20 mg, 2, tablet, By Mouth, Daily at bedtime, Patient is allergic to red and blue dye. Pt requires a tablet that is dye free., # 60 tablet, Refills 11, Tot. Refills 11, Maintenance, 07/26/19 16:18:00EST, Route to Pharmacy Electronically, [facility]/pharmacy... Start Date: 07/26/19 Status: Ordered Calcium And Vitamin D Combination See Instructions, 1 tab daily, 0 Refills, Maintenance, 10/25/15 10:45:23 Start Date: 10/25/15 Status: Ordered Choline 0 Refills, Maintenance, 09/03/14 14:38:35 Start Date: 09/03/14 Status: Ordered clonazePAM 1 mg oral tablet 1 tablet = 1 mg, By Mouth, 2 times a day, # 60 tablet, 5 Refills, Soft Stop, 02/12/20 15:30:00 EDT,[facility]/pharmacy #1230, 162, cm, 02/12/20 15:07:00 EDT, [...] Start Date: 01/01/12 Status: Ordered nystatin topical 734665 u/gm cream 1 application, Topically, 2 times a day, # 30 Gm, 1 Refills, Maintenance, 03/29/20 15:20:00 EDT, Cream, [facility]/pharmacy #1230, 1 application Topically 2 times a day, 162, cm, 02/20/20 14:33:00 EDT, Height Start Date: 03/29/20 Status: Ordered ProAir HFA 90 mcg/inh inhalation aerosol with adapter 1, puffs, Inhalation, 4 times a day, PRN, BRAND NAME ONLY, # 8.5 Gm, Refills 6, Tot. Refills 6, Maintenance, 07/26/19 16:20:00 EST, Aerosol, Route to Pharmacy Electronically, [id number], [facility]/pharmacy #1230, 162, cm, 07/26/19... Start Date: 07/26/19 Status: Ordered Probiotic Formula 1 capsule, By Mouth, Daily, 0 Refills, Maintenance Start Date: 05/12/13 Status: Ordered Serevent Diskus 50 mcg inhalation powder 1 each = 50 mcg, Inhalation, Every 12 hours, # 180 each, 11 Refills, Maintenance, 12/22/19 13:33:00EDT, Powder, [facility]/pharmacy #1230, 1 each Inhalation Every 12 [...]
--- OUTSIDE RECORDS SUMMARY | 2023-05-28 12:24 | XMS_ITS | Continuity of Care Document ---
Author Name Unknown Organization [facility]ris [place] Address [address] [place] [address]- Care Team Providers Care Ethnographer Name Role Phone Soheila SORTO, Francisco Lim Primary Care Physician [facility] Date(s): 09/04/20 - 10/04/20 [facility] Adult [address] [place] [address]- Allergies, Adverse Reactions, Alerts Substance Reaction Severity Status meclizine Active selective serotonin reuptake inhibitors U nknown Active Bactrim Active traZODone BRAIN FOG SEVERE Active hydrOXYzine Unknown Active Cipro Active Zithromax Active Valtrex 1 Active Paxil makes her manic Active Lexapro manic depressive thoughts Ac tive 1GI/other Immunizations Given and Recorded Vaccine Date [...] Note: [facility] 6Location History: [facility] Medications albuterol CFC free 90 mcg/inh inhalation aerosol 2, puffs, Inhalation, 4 times a day, PRN, for 30 days, # 1 each, Refills 11, Tot. Refills 11, Hard Stop 08/29/21 15:52:00 EDT, 09/03/20 15:52:00 EDT, Aerosol, Route to Pharmacy Electronically, [id number], [facility]/pharmacy #1230,... Start Date: 09/03/20 Stop Date: 08/29/21 Status: Ordered albuterol CFC free 90 mcg/inh inhalation aerosol 2, puffs, Inhalation, 4 times a day, PRN, # 1 each, Refills 5, Tot. Refills 5, Maintenance, 08/29/21 15:52:00 EDT, Aerosol, Route to Pharmacy Electronically, [id number], [facility]/pharmacy #1230, 162, cm, 09/03/20 15:36:00 EDT, Height Start Date: 08/29/21 Stop Date: 02/25/22 Status: Ordered amitriptyline 10 mg oral tablet 20 mg, 2, tablet, By Mouth, Daily at bedtime, Patient is allergic to red and blue dye. Pt requires a tablet that is dye free., # 60 tablet, Refills 5, Tot. Refills 5, Maintenance, 07/29/20 11:02:00 EST, [facility], [facility] Start Date: 07/29/20 Status: Ordered Calcium And Vitamin D Combination See Instructions, 1 tab daily, 0 Refills, Maintenance, 10/25/15 10:45:23 Start Date: 10/25/15 Status: Ordered Choline 0 Refills, Maintenance, 09/03/14 14:38:35 Start Date: 09/03/14 Status: Ordered clonazePAM 1 mg oral tablet 1 tablet = 1 mg, By Mouth, 2 times a day, # 60 tablet, 5 Refills, Soft Stop, 07/30/20 7:21:00 EST, [facility], 08/05/20, 162, cm, 02/20/20 14:33:00 EDT, Height Start Date: 07/30/20 Stop Date: 01/26/21 Status: Ordered D-Mannose Maintenance, urinary frequency, 12/17/16 11:39:55, D-Mannose Start Date: 12/17/16 Status: Ordered fluocinonide 0.05% topical cream 1 application, Topically, 2 times a day, # 60 Gm, 2 Refills, Maintenance, 09/03/20 15:53:00 EDT, Cream, [facility]/pharmacy #1230, Partial fill upon patient request if the prescription is for a schedule II opioid drug., 1 application Topically 2 times a day,... Start Date: 09/03/20 Status: Ordered hyluronic acid Maintenance, 12/17/16 11:49:49, hyluronic acid Start Date: 12/17/16 Status: Ordered ipratropium nasal 21 mcg/inh spray 2 sprays, Nares, Both, 2 times a day, # 30 mL, 5 Refills, Maintenance, 05/27/20 16:22:00 EST, [place], [facility], 2 sprays Nares, Both 2 times a day, 162, cm, 02/20/20 14:33:00 EDT, Height Start Date: 05/27/20 Status: Ordered magnesium malate Maintenance, 12/17/16 11:46:55, magnesium malate Start Date: 12/17/16 Status: Ordered Melatonin 3 mg oral tablet 1 tablet = 3 mg, By Mouth, Daily at bedtime, PRN for insomnia, # 60 tablet, 0 Refills, Maintenance,09/27/15 14:34:23, Tablet Start Date: 09/27/15 Status: Ordered Multivitamin By Mouth, Daily, 0 Refills, Maintenance Start Date: 01/01/12 Status: Ordered nystatin topical 939327 u/gm cream 1 application, Topically, 2 times a day, # 30 Gm, 1 Refills, Maintenance, 07/30/20 7:20:00 EST, Cream, [facility], 1 application Topically 2 times a day, 162, cm, 02/20/20 14:33:00 EDT, Height Start Date: 07/30/20 Status: Ordered nystatin topical 800947 u/gm powder 1 application, Topically, 2 times a day, # 60 Gm, 2 Refills, Maintenance, 09/03/20 15:54:00 EDT, Powder, [facility], Partial fill upon patient request if the prescription is for a schedule IIopioid drug., 1 application Topically 2 times a day... Start Date: 09/03/20 Status: Ordered Probiotic Formula 1 capsule, By Mouth, Daily, 0 Refills, Maintenance Start Date: 05/12/13 Status: Ordered Serevent Diskus 50 mcg inhalation powder 1 each = 50 mcg, Inhalation, Every 12 hours, # 180 each, 11 Refills, Maintenance, 12/22/19 13:33:00EDT, Powder, [facility]/pharmacy #1230, 1 each Inhalation Every 12 hours, [...]
--- OUTSIDE RECORDS SUMMARY | 2023-05-28 12:24 | XMS_ITS | Continuity of Care Document ---
Author Name Unknown Organization [facility] Idris [place] Address [address] [place] [address]- Care Team Providers Care Sales Representative Printing Name Role Phone Soheila SORTO, Francisco Lim Primary Care Physician [phone] Encounter [facility] Date(s): 12/22/19 - 01/21/20 [facility] Adult [address] [place] [address]- [facility] Allergies, Adverse Reactions, Alerts Substance [...] Note: [facility] 5Location [facility]: [facility] [place] 6Location History: [facility] Medications amitriptyline 10 mg oral tablet 20 mg, 2, tablet, By Mouth, Daily at bedtime, Patient is allergic to red and blue dye. Pt requires a tablet that is dye free., # 60 tablet, Refills 11, Tot. Refills 11, Maintenance, 07/26/19 16:18:00EST, Route to Pharmacy Electronically, [facility]/pharmacy... Start Date: 07/26/19 Status: Ordered Calcium And Vitamin D Combination See Instructions, 1 tab daily, 0 Refills, Maintenance, 10/25/15 10:45:23 Start Date: 10/25/15 Status: Ordered Choline 0 Refills, Maintenance, 09/03/14 14:38:35 Start Date: 09/03/14 Status: Ordered clonazePAM 1 mg oral tablet 1 tablet = 1 mg, By Mouth, 2 times a day, # 60 tablet, 5 Refills, Soft Stop, 07/26/19 16:19:00 EST,[facility]/pharmacy #1230, 162, cm, 07/26/19 15:53:00 EST, Height [...] Start Date: 01/01/12 Status: Ordered nystatin topical 292337 u/gm cream 1 application, Topically, 2 times a day, # 30 Gm, 5 Refills, Maintenance, 07/26/19 16:20:00 EST, Cream, [facility]/pharmacy #1230, 1 application Topically 2 times a day, 162, cm, 07/26/19 15:53:00 EST, Height Start Date: 07/26/19 Status: Ordered ProAir HFA 90 mcg/inh inhalation aerosol with adapter 1, puffs, Inhalation, 4 times a day, PRN, BRAND NAME ONLY, # 8.5 Gm, Refills 6, Tot. Refills 6, Maintenance, 07/26/19 16:20:00 EST, Aerosol, Route to Pharmacy Electronically, [id number], [facility], 162, cm, 07/26/19... Start Date: 07/26/19 Status: Ordered Probiotic Formula 1 capsule, By Mouth, Daily, 0 Refills, Maintenance Start Date: 05/12/13 Status: Ordered Serevent Diskus 50 mcg inhalation powder 1 each = 50 mcg, Inhalation, Every 12 hours, # 180 each, 11 Refills, Maintenance, 12/22/19 13:33:00EDT, Powder, [facility]/pharmacy #1230, 1 each Inhalation Every 12 hours, [...]
--- OUTSIDE RECORDS SUMMARY | 2023-05-28 12:24 | XMS_ITS | Continuity of Care Document ---
Author Name Unknown Organization [facility] Address [address] [place] [address]- Care Team Providers Care Product Development Director Name Role Phone Francisco Parnell MD Primary Care Physician Encounter [facility] Date(s): 01/27/23 - 02/26/23 [facility] [address] [place] [address]- Allergies, Adverse Reactions, Alerts Substance Reaction Severity Status traZODone BRAIN FOG SEVERE Active meclizine Active Bactrim Active hydrOXYzine Unknown Active selective serotonin reuptake [...] virus vaccine, inactivated 3 03/14/14 Re corded [id number] 12y+ bivalent booster vax 03/09/22 Recorded SARS-CoV-2 mRNA ([id number]) vax 09/24/21 Recorded pneumococcal 13-valent vaccine 06/08/21 [...] pneumococcal 23-valent vaccine 05/27/01 Recorded 1Location History: [facility] 2Location History: [facility] 3Location History: [facility] 4Admin Note: [facility] 5Location History: [facility] 6Location History: [facility] Medications Albuterol (Eqv-ProAir HFA) 90 mcg/inh inhalation aerosol 2 puffs, Inhalation, 4 times a day, PRN NEEDED FOR WHEEZING, # 8.5 each, 5 Refills, Maintenance,11/22/22 10:28:00 EDT, [facility]/pharmacy #1230, 25, 2 puffs Inhalation 4 times a day,PRN: NEEDED FOR WHEEZING, 162, cm, 11/18/22 15:00:00 EDT, Height, 76,... Start Date: 11/22/22 Status: Ordered amitriptyline 10 mg oral tablet 2, tablet, By Mouth, Daily at bedtime, INSTR:PATIENT IS ALLERGIC TO RED AND BLUE DYE, # 180 tablet,Refills 3, Tot. Refills 3, 05/26/22 15:23:00 EST, Route to Pharmacy Electronically, [facility]/pharmacy #1230, 162, cm, 05/26/22 14:47:00 EST, Height [...] tablet, 5 Refills, Maintenance, 12/30/22 16:09:00 EDT, [facility]/pharmacy #1230, 162, cm, 12/30/22 15:36:00 EDT, Height, 76, kg, 11/10/22 16:02:00 EDT, Dry Weight Start Date: 12/30/22 Stop Date: 06/28/23 Status: Ordered D-Mannose Maintenance, urinary frequency, 12/17/16 11:39:55, D-Mannose Start Date: 12/17/16 Status: Ordered Flonase 50 mcg/inh nasal spray 2 sprays, Nares, Both, Daily in AM, 0 Refills, Maintenance, 12/30/22 16:08:00 EDT, [place], Partial fill upon patient request if the [...] Start Date: 01/16/23 Status: Ordered nystatin topical 495180 u/gm cream See Instructions, APPLY TO AFFECTED AREA TWICE A DAY, # 30 Gm, 11 Refills, Maintenance, 12/30/22 16:08:00 EDT, [facility], 30, APPLY TO AFFECTED [...] 3 Refills, Maintenance, 06/10/22 15:52:00 EST, Powder, [facility], Partial fill upon patient request if the prescription is for a schedule II opioid drug., 1 puffs Inhalatio... Start Date: 06/10/22 Status: Ordered tiZANidine 2 mg oral tablet 1, tablet, By Mouth, Every 8 hours, PRN, # 90 tablet, Refills 1, Maintenance, NEEDED, 02/03/23 16:10:00 EDT, Route to Pharmacy Electronically, [facility] STORE [id number], 162, cm, 12/30/22 15:36:00 EDT, Height, 76, [...] Tinea cruris Confirmed Active 1U/S done at [facility] 2Colonoscopy 2011 normal, repeat 2021. 3colo 2011 [...] Team Personnel Name: Francisco Parnell MD Position: [facility] Physician - Primary Care Member Role: PCP Address: Address: [address] [place] [address]- Care Team Related Persons Name: DONAVON PETTIT Name: DONAVON REDDING Address: home [address] [place] [address] Name: MARY LOYD Address: home [address] [address] Name: MARY PHILLIPS Address: home [address] [address]
--- OUTSIDE RECORDS SUMMARY | 2023-05-28 12:24 | XMS_ITS | Continuity of Care Document ---
Author Name Unknown Organization [facility] Idris lt Address [address] [place] [address]- Care Team Providers Care Licensed Physical Therapist Name Role Phone Francisco Parnell MD Primary Care Physician Encounter [facility] Date(s): 11/23/19 - 01/04/20 [facility] Adult [address] [place] [address]- [facility] Attending Physician: Francisco Parnell MD Allergies, Adverse Reactions, Alerts Substance Reaction Severity [...] History: [facility] 6Location History: [facility] Medications amitriptyline 10 mg oral tablet 20 mg, 2, tablet, By Mouth, Daily at bedtime, Patient is allergic to red and blue dye. Pt requires a tablet that is dye free., # 60 tablet, Refills 11, Tot. Refills 11, Maintenance, 07/26/19 16:18:00EST, Route to Pharmacy Electronically, [facility]/pharmacy... Start Date: 07/26/19 Status: Ordered Calcium And Vitamin D Combination See Instructions, 1 tab daily, 0 Refills, Maintenance, 10/25/15 10:45:23 Start Date: 10/25/15 Status: Ordered Choline 0 Refills, Maintenance, 09/03/14 14:38:35 Start Date: 09/03/14 Status: Ordered clonazePAM 1 mg oral tablet 1 tablet = 1 mg, By Mouth, 2 times a day, # 60 tablet, 5 Refills, Soft Stop, 07/26/19 16:19:00 EST,[facility]/pharmacy #1230, 162, cm, 07/26/19 15:53:00 EST, Height [...] Start Date: 01/01/12 Status: Ordered nystatin topical 244918 u/gm cream 1 application, Topically, 2 times a day, # 30 Gm, 5 Refills, Maintenance, 07/26/19 16:20:00 EST, Cream, [facility]/pharmacy #1230, 1 application Topically 2 times a day, 162, cm, 07/26/19 15:53:00 EST, Height Start Date: 07/26/19 Status: Ordered ProAir HFA 90 mcg/inh inhalation aerosol with adapter 1, puffs, Inhalation, 4 times a day, PRN, BRAND NAME ONLY, # 8.5 Gm, Refills 6, Tot. Refills 6, Maintenance, 07/26/19 16:20:00 EST, Aerosol, Route to Pharmacy Electronically, [id number][facility], cm, 07/26/19... Start Date: 07/26/19 Status: Ordered Probiotic Formula 1 capsule, By Mouth, Daily, 0 Refills, Maintenance Start Date: 05/12/13 Status: Ordered Serevent Diskus 50 mcg inhalation powder 1 each = 50 mcg, Inhalation, Every 12 hours, # 180 each, 11 Refills, Maintenance, 12/22/19 13:33:00EDT, Powder, [facility]/pharmacy #1230, 1 each Inhalation Every 12 hours, [...]
--- OUTSIDE RECORDS SUMMARY | 2023-05-28 12:24 | XMS_ITS | Continuity of Care Document ---
Author Name Unknown Organization [facility] Address [address] [place] [address]- Care Team Providers Care Quality Control Tester Name Role Phone Francisco Parnell MD Primary Care Physician Encounter [facility] Date(s): 04/01/21 - 05/01/21 [facility] [address] [place] [address]- Allergies, Adverse Reactions, Alerts Substance Reaction Severity [...] Vaccine Live 5 11/26/14 Recorded tetanus/diphtheria/pertussis, acel(Tdap) 3/23/15 Given pneumococcal 23-valent vaccine 6 11/25/11 Recorded pneumococcal 23-valent vaccine 05/27/01 Recorded 1Location History: [facility] 2Location History: [facility] 3Location History: [facility] [place] 4[facility]: [facility] Medications albuterol CFC free 90 mcg/inh inhalation aerosol 2, puffs, Inhalation, 4 times a day, PRN, for 30 days, # 1 each, Refills 11, Tot. Refills 11, Hard Stop 08/29/21 15:52:00 EDT, 09/03/20 15:52:00 EDT, Aerosol, Route to Pharmacy Electronically, [id number], [facility]/pharmacy #1230,... Start Date: 09/03/20 Stop Date: 08/29/21 Status: Ordered amitriptyline 10 mg oral tablet 2, tablet, By Mouth, Daily at bedtime, INSTR:PATIENT IS ALLERGIC TO RED AND BLUE DYE, # 180 tablet,Refills 1, Tot. Refills 0, Maintenance, 12/29/20 13:31:00 EDT, Route to Pharmacy Electronically, [facility] ST[facility] 04[facility], 162, cm, 09/03/20 15:36:00 EDT, Height Start [...] 5 Refills, Soft Stop, 02/24/21 7:46:00 EDT, [facility]/pharmacy #1230, 162, cm, 01/23/21 14:21:00 EDT, Height Start Date: 02/24/21 Stop Date: 08/23/21 Status: Ordered D-Mannose Maintenance, urinary frequency, 12/17/16 11:39:55, D-Mannose Start Date: 12/17/16 Status: Ordered FiberCon 625 mg oral tablet 1 tablet = 625 mg, By Mouth, Daily, # 30 tablet, 11 Refills, Maintenance, 03/13/21 10:44:00 EDT, [facility], Partial fill upon patient request if the prescription is for a schedule II opioid drug., 162, cm, 03/10/21 14:31:00 EDT, Height Start Date: 03/13/21 Status: Ordered fluocinonide 0.05% topical cream 1 application, Topically, 2 times a day, # 60 Gm, 2 Refills, Maintenance, 09/03/20 15:53:00 EDT, Cream, [facility], Partial fill upon patient request [...] 30 sprays, 5 Refills, Acute, [facility], 30, SPRAY 2 SPRAYS INTO EACH NOSTRIL [...] Start Date: 01/01/12 Status: Ordered nystatin topical 544759 u/gm cream See Instructions, APPLY TO AFFECTED [...] Unknown, 5 Refills, Maintenance, 12/29/20 13:31:00 EDT, [facility], 90, INHALE 1 PUFF BY MOUTH EVERY [...]
--- OUTSIDE RECORDS SUMMARY | 2023-05-28 12:24 | XMS_ITS | Continuity of Care Document ---
Author Name Unknown Organization [facility] Address [address] [place] [address]- Care Team Providers Care Retail Pricing Coordinator Name Role Phone Francisco Parnell MD Primary Care Physician Encounter [facility] Date(s): 12/06/19 - 12/13/19 [facility] Adult [address] [place] [address]- [facility] Encounter Diagnosis Asthma(Discharge Diagnosis) - 12/06/19 Attending Physician: Francisco Parnell MD Allergies, Adverse [...] Note: [facility] [place] 6Location History: [facility] Medications amitriptyline 10 mg oral tablet 20 mg, 2, tablet, By Mouth, Daily at bedtime, Patient is allergic to red and blue dye. Pt requires a tablet that is dye free., # 60 tablet, Refills 11, Tot. Refills 11, Maintenance, 07/26/19 16:18:00EST, Route to Pharmacy Electronically, [facility]/pharmacy... Start Date: 07/26/19 Status: Ordered Calcium And Vitamin D Combination See Instructions, 1 tab daily, 0 Refills, Maintenance, 10/25/15 10:45:23 Start Date: 10/25/15 Status: Ordered Choline 0 Refills, Maintenance, 09/03/14 14:38:35 Start Date: 09/03/14 Status: Ordered clonazePAM 1 mg oral tablet 1 tablet = 1 mg, By Mouth, 2 times a day, # 60 tablet, 5 Refills, Soft Stop, 07/26/19 16:19:00 EST,[facility]/pharmacy #1230, 162, cm, 07/26/19 15:53:00 EST, Height [...] Start Date: 01/01/12 Status: Ordered nystatin topical 739746 u/gm cream 1 application, Topically, 2 times a day, # 30 Gm, 5 Refills, Maintenance, 07/26/19 16:20:00 EST, Cream, [facility]/pharmacy #1230, 1 application Topically 2 times a day, 162, cm, 07/26/19 15:53:00 EST, Height Start Date: 07/26/19 Status: Ordered ProAir HFA 90 mcg/inh inhalation aerosol with adapter 1, puffs, Inhalation, 4 times a day, PRN, BRAND NAME ONLY, # 8.5 Gm, Refills 6, Tot. Refills 6, Maintenance, 07/26/19 16:20:00 EST, Aerosol, Route to Pharmacy Electronically, [id number], [facility]/pharmacy #1230, 162, cm, 07/26/19... Start Date: 07/26/19 [...] on one view on bone density 2013. Diagnosis Diagnosis Type Effective Dates Health Status Clini gladys Service Informant Asthma Discharge Diagnosis 12/06/19 Vital Signs Most recent to oldest [Reference Range]: 1 Height 162 cm (12/06/19 3:37 PM) Weight 75.3 kg (12/06/19 3:37 PM) Oxygen Saturation [94-100 %] 98 % (12/06/19 3:37 PM) Pulse Rate [55-90 bpm] 98 bpm *H* (12/06/19 3:37 PM) Body Mass Index [18.5-24.99] 28.69 *H* (12/06/19 3:37 PM) Blood Pressure [90-138/55-84 mm Hg] 116/ 70mm Hg (12/06/19 3:37 PM) Respiratory Rate [16-30 br/min] 12 br/mi n *L* (12/06/19 3:37 PM) Mode of Delivery (Oxygen) Room air (12/06/19 3:37 PM) Blood pressure sites Arm, left (12/06/19 3:37 PM) Weight Obtained Via Standing scale (12/06/19 3:37 PM) Social History Social History Type Response Smoking Status Former smoker; Other : Quit smoking 2011.; entered on: 11/08/15 Sex
--- OUTSIDE RECORDS SUMMARY | 2023-05-28 12:24 | XMS_ITS | Continuity of Care Document ---
Author Name Unknown Organization [facility] Idris lt Address [address] [place] [address]- Care Team Providers Care Gaming Table Operator Name Role Phone Francisco Parnell MD Primary Care Physician [phone] [place] [facility] [place] 10/26/22 - 11/25/22 [facility] Adult [address] [place] [address]- Allergies, Adverse Reactions, Alerts Substance Reaction Severity [...] virus vaccine, inactivated 3 03/14/14 Re corded [id number] 12y+ bivalent booster vax 03/09/22 Recorded SARS-CoV-2 mRNA ([id number]-qxdqo) vax 09/24/21 Recorded pneumococcal 13-valent vaccine 06/08/21 [...] pneumococcal 23-valent vaccine 05/27/01 Recorded 1Location History: [facility] 2Location History: [facility] 3Location History: [facility] [place] 4Admin Note: [facility] 5Location History: [facility] [place] 6Location History: [facility] Medications Albuterol (Eqv-ProAir HFA) 90 mcg/inh inhalation aerosol 2 puffs, Inhalation, 4 times a day, PRN NEEDED FOR WHEEZING, # 8.5 each, 5 Refills, Maintenance,11/22/22 10:28:00 EDT, [facility], 25, 2 puffs Inhalation 4 times a day,PRN: NEEDED FOR WHEEZING, 162, cm, 11/18/22 15:00:00 EDT, Height, 76,... Start Date: 11/22/22 Status: Ordered amitriptyline 10 mg oral tablet 2, tablet, By Mouth, Daily at bedtime, INSTR:PATIENT IS ALLERGIC TO RED AND BLUE DYE, # 180 tablet,Refills 3, Tot. Refills 3, 05/26/22 15:23:00 EST, Route to [facility] Electronically, [facility], 162, cm, 05/26/22 14:47:00 EST, Height Start Date: 05/26/22 Status: Ordered azelastine nasal 0.15% spray 2 sprays, Nares, Both, Daily, PRN for allergy symptoms, # 30 mL, 5 Refills, Maintenance, 01/16/22 13:15:00 EDT, [place], [facility], Partial fill [...] day, # 60 tablet, 5 Refills, Maintenance, 05/26/22 15:23:00 EST, [facility]/pharmacy #1230, 162, cm, 05/26/22 14:47:00 EST, Height Start Date: 05/26/22 Stop Date: 11/22/22 Status: Ordered D-Mannose Maintenance, urinary frequency, 12/17/16 [...] day, # 60 tablet, 1 Refills, Maintenance, 11/19/22 15:29:00 EDT, [facility]/pharmacy #1230, Partial fill upon patient request if the prescription is for a schedule II opioid drug., 162, cm, 11/18/22 15:00:00 EDT, Height... Start Date: 11/19/22 Status: Ordered nystatin topical 348938 u/gm cream See Instructions, APPLY TO AFFECTED AREA TWICE A DAY, # 30 Gm, 1 Refills, Maintenance, 11/22/22 13:10:00 EDT, [id number], 30, APPLY TO AFFECTED AREA TWICE A DAY, 162, cm, 11/18/22 15:00:00 EDT, Height, 76, kg, 11/10/22 16:02:00 EDT, Dry Weight Start Date: 11/22/22 Status: Ordered Probiotic Formula 1 capsule, By Mouth, Daily, 0 Refills, Maintenance Start Date: 05/12/13 Status: Ordered Serevent Diskus 50 mcg inhalation powder 1 puffs = 50 mcg, Inhalation, 2 times a day, # 3 each, 3 Refills, Maintenance, 06/10/22 15:52:00 EST, Pow[place], [facility], Partial fill upon patient request if the prescription is for a schedule II opioid drug., 1 puffs Inhalatio... Start Date: 06/10/22 Status: Ordered tiZANidine 2 mg oral tablet 2 mg, 1, tablet, By Mouth, Every 8 hours, Take as needed, # 90 tablet, Refills 0, Tot. Refills 0, Maintenance, 11/19/22 13:59:00 EDT, [facility] Partial fill upon patient request if the prescription is for a... Start Date: 11/19/22 Stop Date: 12/19/22 Status: Ordered tiZANidine 2 mg oral tablet 2 mg, 1, tablet, By Mouth, Every 8 hours, Take as needed, # 90 tablet, Refills 1, Tot. Refills 1, Maintenance, 11/19/22 15:30:00 EDT, [facility]ically[facility] Partial fill upon patient request if the prescription is for a... Start Date: 11/19/22 Status: Ordered Vitamin C 100 mg oral [...] Tinea cruris Confirmed Active 1U/S done at [place] 2Colonoscopy 2011 normal, repeat 2021. 3colo 2011 [...] Team Personnel Name: Francisco Parnell MD Position: [facility] Physician - Primary Care Member Role: PCP Address: Address: [address] [place] [phone] [place] Care Team Related Persons Name: DONAVON PETTIT Name: DONAVON REDDING Address: home [address] [place] [id number] Name: MARY LOYD Address: [address] [address] Name: MARY PHILLIPS Address: [address] [address]
--- OUTSIDE RECORDS SUMMARY | 2023-05-28 12:24 | XMS_ITS | Continuity of Care Document ---
Author Name Unknown Organization [facility] Address [address] [place] [address]- Care Team Providers Care Textiles Printer Name Role Phone Francisco Parnell MD Primary Care Physician Encounter [facility] Date(s): 04/25/19 - 10/25/[address] [address]- [facility] [phone] Attending Physician: Bishop Miller MD Admitting Physician: Bishop Miller MD Referring Physician: Bishop Miller MD Allergies, Adverse Reactions, Alerts Substance Reaction Severity Status meclizine Active selective serotonin reuptake inhibitors U nknown Active Cipro Active Zithromax Active Bactrim Active Lexapro manic depressive thoughts Ac tive traZODone BRAIN FOG SEVERE Active hydrOXYzine Unknown Active Valtrex 1 Active Paxil makes her manic Active 1GI/other Immunizations Given and Recorded Vaccine [...] [facility] 3Location History[facility] [place] 4[facility] 5Location History: [facility] [place] 6Location History: [facility] Medications amitriptyline 10 mg oral tablet 20 mg, 2, tablet, By Mouth, Daily at bedtime, Patient is allergic to red and blue dye. Pt requires a tablet that is dye free., # 60 tablet, Refills 11, Tot. Refills 11, Maintenance, 07/26/19 16:18:00EST, [facility], [facility] Start Date: 07/26/19 Status: Ordered Calcium And Vitamin D Combination See Instructions, 1 tab daily, 0 Refills, Maintenance, 10/25/15 10:45:23 Start Date: 10/25/15 Status: Ordered Choline 0 Refills, Maintenance, 09/03/14 14:38:35 Start Date: 09/03/14 Status: Ordered clonazePAM 1 mg oral tablet 1 tablet = 1 mg, By Mouth, 2 times a day, # 60 tablet, 5 Refills, Soft Stop, 07/26/19 16:19:00 EST,[facility], 162, cm, 07/26/19 15:53:00 EST, Height Start Date: 07/26/19 Stop Date: 01/22/20 Status: Ordered D-Mannose Maintenance, urinary frequency, 12/17/16 11:39:55, D-Mannose Start Date: 12/17/16 Status: Ordered fluticasone-salmeterol 500 mcg-50 mcg inhalation powder 1, puffs, Inhalation, 2 times a day, # 60 each, Refills 11, Tot. Refills 11, Maintenance, 10/16/19 11:57:00 EDT, Powder, Route to Pharmacy Electronically, [id number], [facility] #1230, 162, cm, 08/21/19 15:55:00 EDT, Height [...] Start Date: 01/01/12 Status: Ordered nystatin topical 337882 u/gm cream 1 application, Topically, 2 times a day, # 30 Gm, 5 Refills, Maintenance, 07/26/19 16:20:00 EST, Cream, [facility] #1230, 1 application Topically 2 times a day, 162, cm, 07/26/19 15:53:00 EST, Height Start Date: 07/26/19 Status: Ordered ProAir HFA 90 mcg/inh inhalation aerosol with adapter 1, puffs, Inhalation, 4 times a day, PRN, BRAND NAME ONLY, # 8.5 Gm, Refills 6, Tot. Refills 6, Maintenance, 07/26/19 16:20:00 EST, Aerosol, Route to Pharmacy Electronically, [id number], [facility] #1230, 162, cm, 07/26/19... Start Date: [...]
--- OUTSIDE RECORDS SUMMARY | 2023-05-28 12:24 | XMS_ITS | Continuity of Care Document ---
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 Adult [address] [place] [address]- Encounter Diagnosis COVID-19 virus infection(Discharge Diagnosis) - 04/02/22 Attending Physician: Aneesh WEB ANALYTICS SPECIALIST, Renée Allergies, Adverse Reactions, Alerts Substance Reaction Severity [...] [facility]: [facility] [place] 4Admin Note: [facility] 5[facility] 6Location History: [facility] Medications Albuterol (Eqv-ProAir HFA) 90 mcg/inh inhalation aerosol 2 puffs, Inhalation, 4 times a day, PRN NEEDED FOR WHEEZING, # 8.5 each, 11 Refills, Maintenance, 02/09/22 8:40:00 EDT, [facility], 25, INHALE 2 PUFFS BY MOUTH 4 TIMES A DAY NEEDED FOR WHEEZING, 162, cm, 09/23/21 15:24:00 EDT, Height Start Date: 02/09/22 Status: Ordered amitriptyline 10 mg oral tablet 2, tablet, By Mouth, Daily at bedtime, INSTR:PATIENT IS ALLERGIC TO RED AND BLUE DYE, # 180 tablet,Refills 3, Tot. Refills 3, 09/23/21 15:52:00 EDT, Route to Pharmacy Electronically, [facility]12[facility], 162, cm, 09/23/21 15:24:00 EDT, Height Start Date: 09/23/21 Status: Ordered azelastine nasal 0.15% spray 2 sprays, Nares, Both, Daily, PRN for allergy symptoms, # 30 mL, 5 Refills, Maintenance, 01/16/22 13:15:00 EDT, [place], [facility], Partial fill upon patient request if the prescription is for a schedule II opioid drug., 2 sprays Nares,... Start Date: 01/16/22 Status: Ordered Calcium And Vitamin D Combination See Instructions, 1 tab daily, 0 Refills, Maintenance, 10/25/15 10:45:23 Start Date: 10/25/15 Status: Ordered Choline 0 Refills, Maintenance, 03/23/15 14:38:35 Start Date: 09/03/14 Status: Ordered clonazePAM 1 mg oral tablet 1 tablet, By Mouth, 2 times a day, # 60 tablet, 5 Refills, Maintenance, 12/12/21 9:06:00 EDT, [facility] #1230, 162, cm, 09/23/21 15:24:00 EDT, [...] Start Date: 09/27/15 Status: Ordered nystatin topical [id number] u/gm cream See Instructions, APPLY TO AFFECTED AREA TWICE A DAY, # 30 Gm, 11 Refills, Maintenance, 09/23/21 15:51:00 EDT, [facility] #1230, 30, APPLY TO AFFECTED AREA TWICE A DAY, 162, cm, 09/23/21 15:24:00 EDT, Height Start Date: 09/23/21 Status: Ordered Paxlovid 150 mg-100 mg (150 mg-100 mg Dose) oral tablet See Instructions, Take 3 tablets twice a day by mouth for 5 days. GFR above 60., # 30 tablet, 0 Refills, Maintenance, 04/02/22 13:28:00 EDT, [facility], Partial fill upon patient request if the prescription is for a schedule II opioid drug.,... Start Date: 04/02/22 Status: Ordered Probiotic Formula 1 capsule, By Mouth, Daily, 0 Refills, Maintenance Start Date: 05/12/13 Status: Ordered Serevent Diskus 50 mcg inhalation powder 1 puffs, Inhalation, Every 12 hours, # 180 Unknown, 5 Refills, Maintenance, 12/29/20 13:31:00 EDT, [facility], 90, INHALE 1 PUFF BY MOUTH EVERY [...] Tinea cruris Confirmed Active 1U/S done at [place] 2Colonoscopy 2011 normal, repeat 2021. 3colo 2011 4Bone density 2016 positive for osteopenia. 5Patient intolerant to bisphosphonates. Patient treating with calcium and vitamin D and weightbearing exercise. 6Osteoporosis on one view on bone density 2013. 7ultrasound Diagnosis Diagnosis Type Effective Dates Health Status Cl inical Service Informant COVID-19 virus infection Discharge Diagnosis 04/02/22 Vital Signs Most recent to oldest [Reference Range]: 1 Height 162 cm (04/02/22 1:14 PM) Social History Social History Type Response Smoking Status Former smoker; Other : Quit smoking 2011.; entered on: 11/08/15 Sex Patient Care team information Personnel Name: Soheila SORTO, Francisco Lim Address: Address: [address] [place] [address]
--- OUTSIDE RECORDS SUMMARY | 2023-05-28 12:24 | XMS_ITS | Continuity of Care Document ---
Author Name Unknown Organization [facility] Idris lt Address [address] [place] [address]- Care Team Providers Care Visitor Services Specialist Name Role Phone Francisco Parnell MD Primary Care Physician Encounter [facility] Date(s): 10/16/19 - 10/23/19 [facility] Adult [address] [place] [address]- [facility] Attending Physician: Francisco Parnell MD Allergies, Adverse [...] History: [facility] [place] 6Location History: [facility] Medications amitriptyline 10 mg oral tablet 20 [...] tablet, 5 Refills, Soft Stop, 07/26/19 16:19:00 EST,[facility] #1230, 162, cm, 07/26/19 15:53:00 EST, Height Start Date: 07/26/19 Stop Date: 01/22/20 Status: Ordered D-Mannose Maintenance, urinary frequency, 12/17/16 11:39:55, D-Mannose Start Date: 12/17/16 Status: Ordered fluticasone-salmeterol 500 mcg-50 mcg inhalation powder 1, puffs, Inhalation, 2 times a day, # 60 each, Refills 11, Tot. Refills 11, Maintenance, 10/16/19 11:57:00 EDT, Powder, Route to Pharmacy Electronically, [id number], [facility]/pharmacy #1230, 162, cm, 08/21/19 15:55:00 EDT, Height [...] Start Date: 01/01/12 Status: Ordered nystatin topical [id number] u/gm cream 1 application, Topically, 2 times a day, # 30 Gm, 5 Refills, Maintenance, 07/26/19 16:20:00 EST, Cream, [facility]/pharmacy #1230, 1 application Topically 2 times a day, 162, cm, 07/26/19 15:53:00 EST, Height Start Date: 07/26/19 Status: Ordered ProAir HFA 90 mcg/inh inhalation aerosol with adapter 1, puffs, Inhalation, 4 times a day, PRN, BRAND NAME ONLY, # 8.5 Gm, Refills 6, Tot. Refills 6, Maintenance, 07/26/19 16:20:00 EST, Aerosol, Route to Pharmacy Electronically, [id number], [facility]/pharmacy #1230, 162, cm, 07/26/19... Start Date: [...]
--- OUTSIDE RECORDS SUMMARY | 2023-05-28 12:24 | XMS_ITS | Continuity of Care Document ---
Author Name Unknown Organization [facility] Idris lt Address [address] [place] [address]- Care Team Providers Care Accountant Assistant Name Role Phone Soheila SORTO, Francisco Lim Primary Care Physician Encounter [facility] Date(s): 03/04/23 - 04/03/23 [facility] Adult [address] [place] [address]- Allergies, Adverse Reactions, Alerts Substance Reaction Severity Status hydrOXYzine Unknown Active Zithromax Active Paxil makes her manic Active traZODone BRAIN FOG SEVERE Active meclizine Active Bactrim Active selective serotonin reuptake inhibitors U nknown Active Cipro Active Valtrex 1 Active Lexapro manic depressive thoughts Ac tive [...] virus vaccine, inactivated 3 03/14/14 Re corded [id number] 12y+ bivalent booster vax 03/09/22 Recorded SARS-CoV-2 mRNA (lmjwvgf-hoiw-fajan) vax 09/24/21 Recorded pneumococcal 13-valent vaccine 06/08/21 [...] pneumococcal 23-valent vaccine 05/27/01 Recorded 1Location History: [facility] 2Location History: [facility] 3Location History: [facility] [place] 4Admin Note: [facility] 5[facility] 6Location History: [facility] Medications Albuterol (Eqv-ProAir HFA) 90 mcg/inh inhalation aerosol 2 puffs, Inhalation, 4 times a day, PRN NEEDED FOR WHEEZING, # 8.5 each, 5 Refills, Maintenance,11/22/22 10:28:00 EDT, [facility]/pharmacy #1230, 25, 2 puffs Inhalation 4 times a day,PRN: NEEDED FOR WHEEZING, 162, cm, 11/18/22 15:00:00 EDT, Height, 76,... Start Date: 11/22/22 Status: Ordered amitriptyline 10 mg oral tablet 2, tablet, By Mouth, Daily at bedtime, INSTR:PATIENT IS ALLERGIC TO RED AND BLUE DYE, # 180 tablet,Refills 3, Tot. Refills 3, 05/26/22 15:23:00 EST, Route to Pharmacy Electronically, [facility]/pharmacy #1230, 162, cm, 05/26/22 14:47:00 EST, [...] 2 times a day, # 60 tablet, 0 Refills, Maintenance, 03/04/23 12:27:00 EDT, [facility]/pharmacy #7111, 162, cm, 12/30/22 15:36:00 EDT, Height, 76, kg, 11/10/22 16:02:00 EDT, Dry Weight Start Date: 03/04/23 Stop Date: 04/03/23 Status: Ordered clonazePAM 1 mg oral tablet 1 tablet, By Mouth, 2 times a day, # 60 tablet, 5 Refills, Maintenance, 12/30/22 16:09:00 EDT, [facility]/pharmacy #1230, 162, cm, 12/30/22 15:36:00 EDT, Height, 76, kg, 11/10/22 16:02:00 EDT, Dry Weight Start Date: 12/30/22 Stop Date: 06/28/23 Status: Ordered D-Mannose Maintenance, urinary frequency, 12/17/16 11:39:55, D-Mannose Start Date: 12/17/16 Status: Ordered Flonase 50 mcg/inh nasal spray 2 sprays, Nares, Both, Daily in AM, 0 Refills, Maintenance, 12/30/22 16:08:00 EDT, [place], Partial fill upon patient request if the [...] day, # 60 tablet, 1 Refills, Maintenance, 03/18/23 11:42:00 EDT, [facility]/pharmacy #1230, Partial fill upon patient request if the prescription is for a schedule II opioid drug., 162, cm, 12/30/22 15:36:00 EDT, Height... Start Date: 03/18/23 Status: Ordered nystatin topical 249209 u/gm cream See Instructions, APPLY TO AFFECTED AREA TWICE A DAY, # 30 Gm, 11 Refills, Maintenance, 12/30/22 16:08:00 EDT, [facility]/pharmacy #1230, 30, APPLY TO AFFECTED AREA [...] 3 Refills, Maintenance, 06/10/22 15:52:00 EST, Powder, [facility], Partial fill upon patient request if the prescription is for a schedule II opioid drug., 1 puffs Inhalatio... Start Date: 06/10/22 Status: Ordered tiZANidine 2 mg oral tablet 1, tablet, By Mouth, Every 8 hours, PRN, # 90 tablet, Refills 1, Maintenance, NEEDED, 02/03/23 16:10:00 EDT, Route to Pharmacy Electronically, [facility], 162, cm, 12/30/22 15:36:00 EDT, Height, 76, [...] Tinea cruris Confirmed Active 1U/S done at [place] 2Colonoscopy 2011 normal, repeat 2021. 3colo 2011 [...] Team Personnel Name: Francisco Parnell MD Position: [facility] Physician - Primary Care Member Role: PCP Address: Address: [address] [place] [address]- Care Team Related Persons Name: DONAVON PETTIT Name: DONAVON REDDING Address: home [address] [place] [address] Name: MARY LOYD Address: [address] [address] Name: MARY PHILLIPS Address: [address] [address]
--- OUTSIDE RECORDS SUMMARY | 2023-05-28 12:24 | XMS_ITS | Continuity of Care Document ---
Author Name Unknown Organization [facility] Idris lt Address [address] [place] [address]- Care Team Providers Care Powerhouse Electrician Apprentice Name Role Phone Francisco Parnell MD Primary Care Physician Encounter [facility] Date(s): 03/10/22 - 04/09/22 [facility] Adult [address] [place] [address]- Allergies, Adverse Reactions, Alerts Substance Reaction Severity [...] History: [facility] [place] 4Admin Note: [facility] 5Location History: [facility] [place] 6Location History: [facility] Medications Albuterol (Eqv-ProAir HFA) 90 mcg/inh inhalation aerosol 2 puffs, Inhalation, 4 times a day, PRN NEEDED FOR WHEEZING, # 8.5 each, 11 Refills, Maintenance, 02/09/22 8:40:00 EDT, [facility] STORE 137[facility], 25, INHALE 2 PUFFS BY MOUTH 4 TIMES A DAY NEEDED FOR WHEEZING, 162, cm, 09/23/21 15:24:00 EDT, Height Start Date: 02/09/22 Status: Ordered amitriptyline 10 mg oral tablet 2, tablet, By Mouth, Daily at bedtime, INSTR:PATIENT IS ALLERGIC TO RED AND BLUE DYE, # 180 tablet,Refills 3, Tot. Refills 3, 09/23/21 15:52:00 EDT, Route to Pharmacy Electronically, [facility]/pharmacy #1230, 162, cm, 09/23/21 15:24:00 EDT, Height Start Date: 09/23/21 Status: Ordered azelastine nasal 0.15% spray 2 sprays, Nares, Both, Daily, PRN for allergy symptoms, # 30 mL, 5 Refills, Maintenance, 01/16/22 13:15:00 EDT, [place], [facility], Partial fill [...] 5 Refills, Maintenance, 12/12/21 9:06:00 EDT, [facility]/pharmacy #1230, 162, cm, 09/23/21 15:24:00 EDT, Height [...] Start Date: 09/27/15 Status: Ordered nystatin topical 546129 u/gm cream See Instructions, APPLY TO AFFECTED AREA TWICE A DAY, # 30 Gm, 11 Refills, Maintenance, 09/23/21 15:51:00 EDT, [facility]/pharmacy #1230, 30, APPLY TO AFFECTED AREA TWICE [...] Unknown, 5 Refills, Maintenance, 12/29/20 13:31:00 EDT, [facility] STORE 34[facility], 90, INHALE 1 PUFF BY MOUTH EVERY [...] Tinea cruris Confirmed Active 1U/S done at [place] 2Colonoscopy 2011 normal, repeat 2021. 3colo 2011 4Bone density 2016 positive for osteopenia. 5Patient intolerant to bisphosphonates. Patient treating with calcium and vitamin D and weightbearing exercise. 6Osteoporosis on one view on bone density 2013. 7ultrasound Social History Social History Type Response Smoking Status Former smoker; Other : Quit smoking 2011.; entered on: 11/08/15 Sex Patient Care team information Personnel Name: Francisco Parnell MD Address: Address: [address] [place] [id number]
--- OUTSIDE RECORDS SUMMARY | 2023-05-28 12:24 | XMS_ITS | Continuity of Care Document ---
Author Name Unknown Organization [facility] [place] Address [address] [place] [address]- Care Team Providers Care Plant Control Operator Name Role Phone Francisco Parnell MD Primary Care Physician Encounter [facility] Date(s): 01/23/21 - 02/22/21 [facility] [place] [address] [place] [address]- Attending Physician: Nabila Casarez Admitting Physician: Nabila Casarez Referring Physician: Nabila Casarez Allergies, Adverse Reactions, Alerts Substance Reaction Severity Status meclizine Active hydrOXYzine Unknown Active selective serotonin reuptake inhibitors U nknown Active Cipro Active Zithromax Active Valtrex 1 Active Paxil makes her manic Active Bactrim Active Lexapro manic depressive thoughts Ac tive traZODone BRAIN FOG SEVERE Active 1GI/other Immunizations Given and Recorded Vaccine Date Status Refusal Reason zoster vaccine, inactivated 11/29/20 Recorded pneumococcal 13-valent vaccine 12/07/19 Given influenza virus [...] [facility] 3Location History: [facility] [place] 4Admin Note: [facility] 5Location History: [facility] [place] 6Location History: [facility] Medications albuterol CFC free 90 mcg/inh inhalation aerosol 2, puffs, Inhalation, 4 times a day, PRN, for 30 days, # 1 each, Refills 11, Tot. Refills 11, Hard Stop 08/29/21 15:52:00 EDT, 09/03/20 15:52:00 EDT, Aerosol, Route to Pharmacy Electronically, [id number], [facility]/pharmacy #1230,... Start Date: 09/03/20 Stop Date: 08/29/21 Status: Ordered albuterol CFC free 90 mcg/inh inhalation aerosol 2, puffs, Inhalation, 4 times a day, PRN, # 1 each, Refills 5, Tot. Refills 5, Maintenance, 08/29/21 15:52:00 EDT, Aerosol, Route to Pharmacy Electronically, [id number], [facility]/pharmacy #1230, 162, cm, 09/03/20 15:36:00 EDT, Height Start Date: 08/29/21 Stop Date: 02/25/22 Status: Ordered amitriptyline 10 mg oral tablet 2, tablet, By Mouth, Daily at bedtime, INSTR:PATIENT IS ALLERGIC TO RED AND BLUE DYE, # 180 tablet,Refills 1, Tot. Refills 0, Maintenance, 12/29/20 13:31:00 EDT, Route to Pharmacy Electronically, [facility] STORE [facility], 162, cm, 09/03/20 15:36:00 EDT, Height Start [...] 5 Refills, Soft Stop, 07/30/20 7:21:00 EST, [facility]/pharmacy #1230, 08/05/20, 162, cm, 02/20/20 14:33:00 EDT, [...] DAY, # 30 sprays, 5 Refills, Acute, [facility], 30, SPRAY 2 SPRAYS INTO EACH NOSTRIL [...] Start Date: 01/01/12 Status: Ordered nystatin topical 282751 u/gm cream See Instructions, APPLY TO AFFECTED AREA TWICE A DAY, # 30 Gm, 1 Refills, Acute, [facility], 30, APPLY TO AFFECTED AREA TWICE A DAY, 162, cm, 09/03/20 15:36:00 EDT, Height Start Date: 12/17/20 Status: Ordered nystatin topical 639516 u/gm cream 1 application, Topically, 2 times a day, # 30 Gm, 1 Refills, Maintenance, 07/30/20 7:20:00 EST, Cream, [facility]/pharmacy #1230, 1 application Topically 2 times a day, 162, cm, 02/20/20 14:33:00 EDT, Height Start Date: 07/30/20 Status: Ordered nystatin topical 389555 u/gm powder 1 application, Topically, 2 times a day, # 60 Gm, 2 Refills, Maintenance, 09/03/20 15:54:00 EDT, Powder, [facility]/pharmacy #1230, Partial fill [...] Unknown, 5 Refills, Maintenance, 12/29/20 13:31:00 EDT, [facility] STORE 38325, 90, INHALE 1 PUFF BY MOUTH EVERY [...] on one view on bone density 2013. Procedures Procedure Date Related Diagnosis Body Site Status Gastroscopy 1 12/17/16 Completed 1biopsies look okay Social History Social History Type Response Smoking Status Former smoker; Other : Quit smoking 2011.; entered on: 11/08/15 Sex
--- OUTSIDE RECORDS SUMMARY | 2023-05-28 12:24 | XMS_ITS | Continuity of Care Document ---
Author Name Unknown Organization [facility] Address [address] [place] [address]- Care Team Providers Care Environmental Aid Name Role Phone Francisco Parnell MD Primary Care Physician [phone] Encounter [facility] Date(s): 11/20/22 - 12/20/22 [facility] [address] [place] [address]- Allergies, Adverse Reactions, Alerts Substance Reaction Severity [...] virus vaccine, inactivated 3 03/14/14 Re corded [id number] 12y+ bivalent booster vax 03/09/22 Recorded SARS-CoV-2 mRNA ([id number]) vax 09/24/21 Recorded pneumococcal 13-valent vaccine 06/08/21 [...] pneumococcal 23-valent vaccine 05/27/01 Recorded 1Location History: [facility] 2Location History: [facility] 3Location History: [facility] [place] 4[facility] Note: [facility] 6Location History: [facility] Medications Albuterol (Eqv-ProAir HFA) 90 [...] mL, 5 Refills, Maintenance, 01/16/22 13:15:00 EDT, [place], Partial fill [...] tablet, 5 Refills, Maintenance, 05/26/22 15:23:00 EST, [facility]/pharmacy #1230, 162, cm, 05/26/22 14:47:00 EST, Height [...] tablet, 1 Refills, Maintenance, 11/19/22 15:29:00 EDT, [facility]/pharmacy #1230, Partial fill upon patient request if the prescription is for a schedule II opioid drug., 162, cm, 11/18/22 15:00:00 EDT, Height... Start Date: 11/19/22 Status: Ordered nystatin topical 146084 u/gm cream See Instructions, APPLY TO AFFECTED AREA TWICE A DAY, # 30 Gm, 1 Refills, Maintenance, 11/22/22 13:10:00 EDT, [facility], 30, APPLY TO AFFECTED AREA TWICE A [...] 3 Refills, Maintenance, 06/10/22 15:52:00 EST, Pow[place], [facility], Partial fill upon patient request if the prescription is for a schedule II opioid drug., 1 puffs Inhalatio... Start Date: 06/10/22 Status: Ordered tiZANidine 2 mg oral tablet 1, tablet, By Mouth, Every 8 hours, PRN, # 90 tablet, Refills 0, Maintenance, NEEDED FOR, 12/16/22 10:38:00 EDT, Route to Pharmacy Electronically, [facility] STORE [facility]262, 162, cm, 11/18/22 15:00:00 EDT, Height, 76, kg, 11/10/22 16:02:00 EDT, Dry Weight Start Date: 12/16/22 Stop Date: 01/15/23 Status: Ordered Vitamin C 100 mg oral [...] Tinea cruris Confirmed Active 1U/S done at [place] 2Colonoscopy 2011 normal, repeat 2021. 3colo 2011 [...] Team Personnel Name: Francisco Parnell MD Position: S Physician - Primary Care Member Role: PCP Address: Address: [address] [place] [address]- Care Team Related Persons Name: DONAVON PETTIT Name: DONAVON REDDING Address: home [address] [place] [address] Name: MARY LOYD Address: home [address] [address] Name: MARY PHILLIPS Address: [address] [address]
--- OUTSIDE RECORDS SUMMARY | 2023-05-28 12:25 | XMS_ITS | Continuity of Care Document ---
Author Name Unknown Organization [facility] [place] Address [address] [place] [address]- Care Team Providers Care Coordinator Cardiopulmonary Services Name Role Phone Francisco Parnell MD Primary Care Physician Encounter [facility] Date(s): 09/29/22 - 10/29/22 [facility] Adult [address] [place] [address]- Allergies, Adverse Reactions, Alerts Substance Reaction Severity Status Paxil makes her manic Active traZODone BRAIN FOG SEVERE Active meclizine Active Bactrim Active hydrOXYzine Unknown Active selective serotonin reuptake inhibitors U nknown Active Cipro Active Zithromax Active Valtrex 1 Active Lexapro manic depressive [...] virus vaccine, inactivated 3 03/14/14 Re corded [id number] 12y+ bivalent booster vax 03/09/22 Recorded SARS-CoV-2 mRNA (jaquovh-ghcv-dxkur) vax 09/24/21 Recorded pneumococcal 13-valent vaccine 06/08/21 [...] pneumococcal 23-valent vaccine 05/27/01 Recorded 1Location History: [facility] 2Location History: [facility] 3Location History: [facility] [place] 4Admin Note: [facility] 5Location History[facility] [place] 6Location History: [facility] Medications Albuterol (Eqv-ProAir HFA) 90 mcg/inh inhalation aerosol 2 puffs, Inhalation, 4 times a day, PRN NEEDED FOR WHEEZING, # 8.5 each, 11 Refills, Maintenance, 02/09/22 8:40:00 EDT, [facility] STORE 93809, 25, INHALE 2 PUFFS BY MOUTH 4 TIMES A DAY NEEDED FOR WHEEZING, 162, cm, 09/23/21 15:24:00 EDT, Height Start Date: 02/09/22 Status: Ordered amitriptyline 10 mg oral tablet 2, tablet, By Mouth, Daily at bedtime, INSTR:PATIENT IS ALLERGIC TO RED AND BLUE DYE, # 180 tablet,Refills 3, Tot. Refills 3, 05/26/22 15:23:00 EST, Route to Pharmacy Electronically, [facility]/pharmacy #1230, 162, cm, 05/26/22 14:47:00 EST, Height Start Date: 05/26/22 Status: Ordered azelastine nasal 0.15% spray 2 sprays, Nares, Both, Daily, PRN for allergy symptoms, # 30 mL, 5 Refills, Maintenance, 01/16/22 13:15:00 EDT, [place], [facility], Partial fill [...] tablet, 5 Refills, Maintenance, 05/26/22 15:23:00 EST, [facility]/pharmacy #1230, 162, cm, 05/26/22 14:47:00 EST, Height [...] Start Date: 09/27/15 Status: Ordered nystatin topical [id number] u/gm cream See Instructions, APPLY TO AFFECTED AREA TWICE A DAY, # 30 Gm, 1 Refills, Maintenance, 09/29/22 16:11:00 EDT, [facility] STORE 03568, 30, APPLY TO AFFECTED AREA TWICE A DAY, 162, cm, 05/26/22 14:47:00 EST, Height Start Date: 09/29/22 Status: Ordered Probiotic Formula 1 capsule, By Mouth, Daily, 0 Refills, Maintenance Start Date: 05/12/13 Status: Ordered Serevent Diskus 50 mcg inhalation powder 1 puffs = 50 mcg, Inhalation, 2 times a day, # 3 each, 3 Refills, Maintenance, 06/10/22 15:52:00 EST, Powder, [facility], Partial fill upon patient request if the prescription is for a schedule II opioid drug., 1 puffs Inhalatio... Start Date: 06/10/22 Status: Ordered Vitamin C 100 mg oral [...] Tinea cruris Confirmed Active 1U/S done at [place] 2Colonoscopy 2011 normal, repeat 2021. 3colo 2011 [...] Team Personnel Name: Francisco Parnell MD Position: [facility] Primary Care Physician Member Role: PCP Address: Address: [address] [place] [id number]- Care Team Related Persons Name: DONAVON PETTIT Name: DONAVON REDDING Address: home [address] [place] [address] Name: MARY LOYD Address: [address] Name: MARY PHILLIPS Address: [address] [address]
--- OUTSIDE RECORDS SUMMARY | 2023-05-28 12:25 | XMS_ITS | Continuity of Care Document ---
Author Name Unknown Organization [facility] [place] Address [address] [place] [address]- Care Team Providers Care Primary Health Care Nurse Name Role Phone Soheila SORTO, Francisco Lim Primary Care Physician [phone] Encounter [facility] Date(s): 07/29/20 - 08/28/20 [facility] Adult [address] [place] [address]- Allergies, Adverse Reactions, Alerts Substance Reaction Severity [...] [facility] 6Location History: [facility] Medications albuterol CFC free 90 mcg/inh inhalation aerosol 2, puffs, Inhalation, 4 times a day, PRN, # 1 each, Refills 1, Tot. Refills 1, Maintenance, 07/31/20 20:56:00 EST, Aerosol, Route to Pharmacy Electronically, [id number], [facility], 162, cm, 02/20/20 14:33:00 EDT, Height Start Date: 07/31/20 Stop Date: 09/29/20 Status: Ordered amitriptyline 10 mg oral tablet [...] mL, 5 Refills, Maintenance, 05/27/20 16:22:00 EST, [place], [facility], 2 sprays Nares, Both 2 [...] Start Date: 01/01/12 Status: Ordered nystatin topical 403801 u/gm cream 1 application, Topically, 2 times a day, # 30 Gm, 1 Refills, Maintenance, 07/30/20 7:20:00 EST, Cream, [facility]/pharmacy #1230, 1 application Topically 2 times a day, 162, cm, 02/20/20 14:33:00 EDT, Height Start Date: 07/30/20 Status: Ordered ProAir HFA 90 mcg/inh inhalation aerosol with adapter 1, puffs, Inhalation, 4 times a day, PRN, BRAND NAME ONLY, # 8.5 Gm, Refills 5, Tot. Refills 5, Maintenance, 07/29/20 11:02:00 EST, Aerosol, Route to Pharmacy Electronically, [id number], [facility]/pharmacy #1230, 162, cm, 02/20/20... Start Date: 07/29/20 Status: Ordered Probiotic Formula 1 capsule, By Mouth, Daily, 0 Refills, Maintenance Start Date: 05/12/13 Status: Ordered Serevent Diskus 50 mcg inhalation powder 1 each = 50 mcg, Inhalation, Every 12 hours, # 180 each, 11 Refills, Maintenance, 12/22/19 13:33:00EDT, Powder, [facility]/pharmacy #1230, 1 each Inhalation Every 12 [...]
--- OUTSIDE RECORDS SUMMARY | 2023-05-28 12:25 | XMS_ITS | Continuity of Care Document ---
Author Name Unknown Organization [facility] [place] Address [address] [place] [address]- Care Team Providers Care Chief Medical Technologist Name Role Phone Soheila SORTO, Francisco Lim Primary Care Physician Encounter [facility] Date(s): 02/20/20 - 03/21/20 [facility] Adult [address] [place] [address]- [facility] Attending Physician: Admtr, Ar8 Admitting Physician: Admtr, Ar8 Referring Physician: Admtr, Ar8 Allergies, Adverse Reactions, Alerts Substance Reaction Severity Status Cipro Active traZODone BRAIN FOG SEVERE Active meclizine Active Bactrim Active hydrOXYzine Unknown Active selective serotonin reuptake inhibitors U nknown Active Zithromax Active Valtrex 1 Active Paxil [...] & [facility] 3Location History: [facility] [place] 4Admin Note: [facility] 5Location History: [facility] [place] 6Location History: [facility] Medications amitriptyline 10 mg oral tablet 20 mg, 2, tablet, By Mouth, Daily at bedtime, Patient is allergic to red and blue dye. Pt requires a tablet that is dye free., # 60 tablet, Refills 11, Tot. Refills 11, Maintenance, 07/26/19 16:18:00EST, Route to Pharmacy Electronically, [facility]/pharmacy... Start Date: 07/26/19 Status: Ordered Calcium And Vitamin D Combination See Instructions, 1 tab daily, 0 Refills, Maintenance, 10/25/15 10:45:23 Start Date: 10/25/15 Status: Ordered Choline 0 Refills, Maintenance, 09/03/14 14:38:35 Start Date: 09/03/14 Status: Ordered clonazePAM 1 mg oral tablet 1 tablet = 1 mg, By Mouth, 2 times a day, # 60 tablet, 5 Refills, Soft Stop, 02/12/20 15:30:00 EDT,[facility]/pharmacy #1230, 162, cm, 02/12/20 15:07:00 EDT, Height [...] Start Date: 01/01/12 Status: Ordered nystatin topical 714834 u/gm cream 1 application, Topically, 2 times a day, # 30 Gm, 1 Refills, Maintenance, 03/20/20 10:29:00 EDT, Cream, [facility]/pharmacy #1230, 1 application Topically 2 times a day, 162, cm, 02/20/20 14:33:00 EDT, Height Start Date: 03/20/20 Status: Ordered ProAir HFA 90 mcg/inh inhalation aerosol with adapter 1, puffs, Inhalation, 4 times a day, PRN, BRAND NAME ONLY, # 8.5 Gm, Refills 6, Tot. Refills 6, Maintenance, 07/26/19 16:20:00 EST, Aerosol, Route to Pharmacy Electronically, [id number], [facility]/pharmacy #1230, 162, cm, 07/26/19... Start Date: 07/26/19 Status: Ordered Probiotic Formula 1 capsule, By Mouth, Daily, 0 Refills, Maintenance Start Date: 05/12/13 Status: Ordered Serevent Diskus 50 mcg inhalation powder 1 each = 50 mcg, Inhalation, Every 12 hours, # 180 each, 11 Refills, Maintenance, 12/22/19 13:33:00EDT, Powder, [facility]/pharmacy #1230, 1 each Inhalation Every 12 hours, [...]
--- OUTSIDE RECORDS SUMMARY | 2023-05-28 12:25 | XMS_ITS | Continuity of Care Document ---
Author Name Unknown Organization [facility] Idris lt Address [address] [place] [address]- Care Team Providers Care Organ Builder Name Role Phone Soheila SORTO, Francisco Lim Primary Care Physician [facility]): [facility]22 - 07/05/22 [facility] Adult [address] [place] [address]- Attending Physician: Nabila Casarez Admitting Physician: AdmtrNabila Referring Physician: Admtr, ArAlly Allergies, Adverse Reactions, Alerts Substance Reaction Severity Status Paxcari makes her manic Active traZODone BRAIN FOG [...] virus vaccine, inactivated 3 03/14/14 Re corded [id number] 12y+ bivalent booster vax 03/09/22 Recorded SARS-CoV-2 mRNA (uhshnur-quua-hrzys) vax 09/24/21 Recorded pneumococcal 13-valent vaccine 06/08/21 [...] pneumococcal 23-valent vaccine 05/27/01 Recorded 1Location History: [facility] 2Location History: [facility] 3Location History: [facility] [place] 4Admin Note: [facility] 5Location History: [facility] [place] 6Location History: [facility] Medications Albuterol (Eqv-ProAir HFA) 90 mcg/inh inhalation aerosol 2 puffs, Inhalation, 4 times a day, PRN NEEDED FOR WHEEZING, # 8.5 each, 11 Refills, Maintenance, 02/09/22 8:40:00 EDT, [facility]52, 25, INHALE 2 PUFFS BY MOUTH 4 TIMES A DAY NEEDED FOR WHEEZING, 162, cm, 09/23/21 15:24:00 EDT, Height Start Date: 02/09/22 Status: Ordered amitriptyline 10 mg oral tablet 2, tablet, By Mouth, Daily at bedtime, INSTR:PATIENT IS ALLERGIC TO RED AND BLUE DYE, # 180 tablet,Refills 3, Tot. Refills 3, 05/26/22 15:23:00 EST, Route to Pharmacy Electronically, [facility]/pharmacy #1230, 162, cm, 05/26/22 14:47:00 EST, Height Start Date: 05/26/22 Status: Ordered azelastine nasal 0.15% spray 2 sprays, Nares, Both, Daily, PRN for allergy symptoms, # 30 mL, 5 Refills, Maintenance, 01/16/22 13:15:00 EDT, [place], [facility], Partial fill [...] tablet, 5 Refills, Maintenance, 05/26/22 15:23:00 EST, [facility]/pharmacy #1230, 162, cm, 05/26/22 14:47:00 EST, Height [...] Start Date: 09/27/15 Status: Ordered nystatin topical 133253 u/gm cream See Instructions, APPLY TO AFFECTED AREA TWICE A DAY, # 30 Gm, 11 Refills, Maintenance, 09/23/21 15:51:00 EDT, [facility]/pharmacy #1230, 30, APPLY TO AFFECTED AREA TWICE A DAY, 162, cm, 09/23/21 15:24:00 EDT, Height Start Date: 09/23/21 Status: Ordered Probiotic Formula 1 capsule, By Mouth, Daily, 0 Refills, Maintenance Start Date: 05/12/13 Status: Ordered Serevent Diskus 50 mcg inhalation powder 1 puffs = 50 mcg, Inhalation, 2 times a day, # 3 each, 3 Refills, Maintenance, 06/10/22 15:52:00 EST, Powder, [facility], Partial fill upon patient request if [...] Tinea cruris Confirmed Active 1U/S done at [place] 2Colonoscopy 2011 normal, repeat 2021. 3colo 2011 4Bone density 2016 positive for osteopenia. 5Patient intolerant to bisphosphonates. Patient treating with calcium and vitamin D and weightbearing exercise. 6Osteoporosis on one view on bone density 2013. 7ultrasound Social History Social History Type Response Smoking Status Former smoker; Other : Quit smoking 2011.; entered on: 11/08/15 Sex EKG study * Event Display: EKG Authored Date: * Event Display: EKG Authored Date: Note * Event Display: MM Mammogram Authored Date: * Event Display: Ultrasound Abdomen, Non-BH Authored Date: * Event Display: Non BH Lab Results Authored Date: * Event Display: Laboratory Result Scanned Authored Date: * Event Display: Laboratory Result Scanned Authored Date: * Event Display: MM Mammogram Authored Date: * Event Display: MM Mammogram Authored Date: * Event Display: MM Mammogram, Non- BH Authored Date: * Event Display: MM Mammogram, Non- BH Authored Date: * Event Display: MM Mammogram, Non- BH Authored Date: * Kaitlyn Verdin: PERFORM, SIGN, VERIFY Event Display: Patient Education/Instruction Authored Date: [facility] BMP So Jonny Gleason Clinical Summary Person Information Visit Date 03/09/2016 1:20 PM Name JANET SUTHERLAND Age 59 Years 1955 12:00 AM PCP Francisco Guerrier MD PCP Sex Female Race White Ethnicity Non-/Non- Language Surinamese You can now view a summary of your hospital visit from the comfort of your home through a free online portal called [employer]. [employer] is a website that allows you to securely view your medical information including discharge summary, medications and follow-up visits. You can also send a secure electronic message to your doctor???s office to request appointments, renew medicationsor just ask a question. You can enroll at [email or web address] or register during your next office visit. Smoking can increase your chances of developing chronic health problems and can cause harmful effects to other family members in your house. If you smoke, you are strongly encouraged to quit. Please call the [place] Smokers??? Helpline at 2-170-ARGBNOW (or ) or log on to [email or web address] for more information. Reason for Visit: Allergy Info: traZODone; Lexapro; Bactrim; Paxil; Cipro; meclizine Smoking Status Former smoker Vital Signs Height Weight BMI Blood Pressure / Temperature Pulse Rate Respiratory Rate 02 Sat Mode of Delivery / Medication Information Albuterol (albuterol CFC free 90 mcg/inh inhalation aerosol) 1 puffs, Inhalation, 4 times a day, AsNeeded, for wheezing, Refills: 11 amiTRIPTYLINE (amitriptyline 10 mg oral tablet) 2 tablet, Oral, Daily at Bedtime, Patient is allergic to red and blue dye. If possible patient needs pill that is not red or blue or pink., 30 days, Refills: 11 Ascorbic Acid (Vitamin C 100 mg oral tablet, chewable) 1 tablet, Chew, Daily, Refills: 0 bifidobacterium-lactobacillus (Probiotic Formula) 1 capsule, Oral, Daily, Refills: 0 Choline , Refills: 0 Clonazepam (Klonopin 1 mg oral tablet) , See Instructions, 1/2 to 1 tablet By Mouth 2 times a day PRN fax [phone] GUERRIER REPLACES LORAZEPAM, Refills: 5 Magnesium Citrate (magnesium citrate - oral tablet) , Refills: 0 Multivitamin , Oral, Daily, Refills: 0 Niacin , Oral Coamo-3 Polyunsaturated Fatty Acids (omega-3 polyunsaturated fatty acids 1000 mg oral capsule) 1 capsule, Oral, twice a day, Refills: 0 Ubiquinone (elppa CoQ10) 50 mg, Oral, Daily, Refills: 0 Zinc Sulfate (Zinc) 140 mg, Oral, Daily, Refills: 0 Future Orders No future orders Orders Completed this Visit No visit orders documented Problem List Problem Injury of shoulder region Asthma 19-AUG-2013 07:18:10 GERD (gastroesophageal reflux disease) 19-AUG-2013 07:21:16 Depression 19-AUG-2013 07:24:12 Anxiety 19-AUG-2013 07:27:06 Chronic interstitial cystitis Increased frequency of urination Osteoporosis Allergic rhinitis Disorder of back Indigestion History of colonoscopy 10-SEP-2015 19:14:30 Insomnia Internal hemorrhoids Diagnosis Other forms of dyspnea Procedures No Procedures Documented If the following labs have been performed in the last year, the most recent result is displayed below. Diagnostic Results Lab Result Value Date Lead Hemoglobin A1C LDL 170 03/06/15 HDL Triglycerides Total Cholesterol Disclaimer: The information provided is of a general nature and is intended to be used in conjunction with the recommendations and advice of your health care practitioner. Every effort has been made to ensure that the information provided is accurate and complete at the time it is provided to you however, as your needs change, or, as new information becomes available, different or additional instructions may be required. If you have questions, please consult with your primary care provider or pharmacist, as appropriate. This information is not intended to serve as substitution for assessment and evaluation by a qualified health care provider. If you do not have a primary care provider, you may find a [facility] provider by calling [facility] Link at [phone]. For information about the plan of care including goals and instructions for your diagnosis, please see the patient education orders section of this document. Patient Visit Summary: Future Appointments: Type Location Start [facility] State New Patient Visit [facility] 09/27/2015 2:40 PM 09/27/2015 3:00 PM Pending Follow-Up Instructions With: Address: When: Consult - Orders Referral Coordinator : Oleg Nunez MD Appointment Date and Time : 09/24/2015 14:40 ACPOE - Location : [facility], [address] Consult note sent or requested : No Consult - Comments : dx: thyromegaly, mailed appt in Comments: Patient Education Materials Additional Instructions: * Event Display: CT Scan Neck, Non- BH Authored Date: * Event Display: Bone Density, Non-BH Authored Date: Patient Care team information Care Team Personnel Name: Francisco Guerrier MD Position: S Primary Care Physician Member Role: PCP Address: Address: [address] [place] [address]- Care Team Related Persons Name: DONAVON PETTIT Name: DONAVON REDDING Address: home [address] [place] [address] Name: MARY LOYD Address: [address] Name: MARY PHILLIPS Address: [address] [address]
--- OUTSIDE RECORDS SUMMARY | 2023-05-28 12:25 | XMS_ITS | Continuity of Care Document ---
Author Name Unknown Organization [facility] Idris lt Address [address] [place] [address]- Care Team Providers Care Anglesmith Name Role Phone Francisco Parnell MD Primary Care Physician [facility]): 03/10/22 - 04/09/22 [facility] [place] Adult [address] [place] [address]- Allergies, Adverse Reactions, Alerts Substance Reaction Severity [...] History: [facility] [place] 4Admin Note: [facility] 5Location History: [facility] [place] 6Location History: [facility] Medications Albuterol (Eqv-ProAir HFA) 90 mcg/inh inhalation aerosol 2 puffs, Inhalation, 4 times a day, PRN NEEDED FOR WHEEZING, # 8.5 each, 11 Refills, Maintenance, 02/09/22 8:40:00 EDT, [facility] [address], 25, INHALE 2 PUFFS BY MOUTH 4 TIMES A DAY NEEDED FOR WHEEZING, 162, cm, 09/23/21 15:24:00 EDT, Height Start Date: 02/09/22 Status: Ordered amitriptyline 10 mg oral tablet 2, tablet, By Mouth, Daily at bedtime, INSTR:PATIENT IS ALLERGIC TO RED AND BLUE DYE, # 180 tablet,Refills 3, Tot. Refills 3, 09/23/21 15:52:00 EDT, Route to Pharmacy Electronically, [facility]/pharmacy #1230, 162, cm, 09/23/21 15:24:00 EDT, Height Start Date: 09/23/21 Status: Ordered azelastine nasal 0.15% spray 2 sprays, Nares, Both, Daily, PRN for allergy symptoms, # 30 mL, 5 Refills, Maintenance, 01/16/22 13:15:00 EDT, [place], [facility], Partial fill [...] tablet, 5 Refills, Maintenance, 12/12/21 9:06:00 EDT, [facility]/pharmacy #1230, 162, cm, 09/23/21 15:24:00 EDT, [...] Start Date: 09/27/15 Status: Ordered nystatin topical 237141 u/gm cream See Instructions, APPLY TO AFFECTED AREA TWICE A DAY, # 30 Gm, 11 Refills, Maintenance, 09/23/21 15:51:00 EDT, [facility]/pharmacy #1230, 30, APPLY TO AFFECTED AREA [...] 5 Refills, Maintenance, 12/29/20 13:31:00 EDT, [facility] [address]17, 90, INHALE 1 PUFF BY MOUTH EVERY [...] Tinea cruris Confirmed Active 1U/S done at [place] 2Colonoscopy 2011 normal, repeat 2021. 3colo 2011 [...] Personnel Name: Francisco Parnell MD Address: Address: [address] [place] [address]-
--- OUTSIDE RECORDS SUMMARY | 2023-05-28 12:25 | XMS_ITS | Continuity of Care Document ---
Author Name Unknown Organization [facility] Idris lt Address [address] [place] [address]- Care Team Providers Care Campus Director Name Role Phone Soheila SORTO, Francisco Lim Primary Care Physician Encounter [facility] Date(s): 05/26/22 - 06/02/22 [facility] Adult [address] [place] [address]- Encounter Diagnosis Anxiety(Discharge Diagnosis) - 05/26/22 Insomnia(Discharge Diagnosis) - 05/26/22 Rhinitis, allergic(Discharge Diagnosis) - 05/26/22 IBS (irritable bowel syndrome)(Discharge Diagnosis) - 05/26/22 Attending Physician: Francisco Parnell MD Allergies, Adverse [...] virus vaccine, inactivated 3 03/14/14 Re corded [id number] 12y+ bivalent booster vax 03/09/22 Recorded SARS-CoV-2 mRNA (ozkiism-bepu-ttqqb) vax 09/24/21 Recorded pneumococcal 13-valent vaccine 06/08/21 [...] pneumococcal 23-valent vaccine 05/27/01 Recorded 1Location History: [facility] 2Location [facility]: [facility] 3Location History: [facility] [place] 4Admin Note: [facility] 5[facility] 6Location History: [facility] Medications Albuterol (Eqv-ProAir HFA) 90 mcg/inh inhalation aerosol 2 puffs, Inhalation, 4 times a day, PRN NEEDED FOR WHEEZING, # 8.5 each, 11 Refills, Maintenance, 02/09/22 8:40:00 EDT, [facility] [address], 25, INHALE 2 PUFFS BY MOUTH 4 TIMES A DAY NEEDED FOR WHEEZING, 162, cm, 09/23/21 15:24:00 EDT, Height Start Date: 02/09/22 Status: Ordered amitriptyline 10 mg oral tablet 2, tablet, By Mouth, Daily at bedtime, INSTR:PATIENT IS ALLERGIC TO RED AND BLUE DYE, # 180 tablet,Refills 3, Tot. Refills 3, 05/26/22 15:23:00 EST, Route to Pharmacy Electronically, [facility]/pharmacy #1230, 162, cm, 05/26/22 14:47:00 EST, Height Start Date: 05/26/22 Status: Ordered azelastine nasal 0.15% spray 2 sprays, Nares, Both, Daily, PRN for allergy symptoms, # 30 mL, 5 Refills, Maintenance, 01/16/22 13:15:00 EDT, [place], [facility], Partial fill [...] tablet, 5 Refills, Maintenance, 05/26/22 15:23:00 EST, [facility]/pharmacy #1230, 162, cm, 05/26/22 14:47:00 EST, [...] Start Date: 09/27/15 Status: Ordered nystatin topical 197014 u/gm cream See Instructions, APPLY TO AFFECTED AREA TWICE A DAY, # 30 Gm, 11 Refills, Maintenance, 09/23/21 15:51:00 EDT, [facility]/pharmacy #1230, 30, APPLY TO AFFECTED AREA TWICE A DAY, 162, cm, 09/23/21 15:24:00 EDT, Height Start Date: 09/23/21 Status: Ordered predniSONE 20 mg oral tablet See Instructions, 2 tablets daily for 5 days then 1 tablet daily for 5 days, # 15 tablet, 0 Refills, Maintenance, 05/26/22 15:30:00 EST, Tablet, [facility]/pharmacy #1230, Partial fill upon patient request if the prescription is for a schedule II opioid drug... Start Date: 05/26/22 Status: Ordered Probiotic Formula 1 capsule, By [...] Tinea cruris Confirmed Active 1U/S done at [place] 2Colonoscopy 2011 normal, repeat 2021. 3colo 2011 4Bone density 2016 positive for osteopenia. 5Patient intolerant to bisphosphonates. Patient treating with calcium and vitamin D and weightbearing exercise. 6Osteoporosis on one view on bone density 2013. 7ultrasound Diagnosis Diagnosis Type Effective Dates Health Status inical Service Informant Anxiety Discharge Diagnosis 05/26/22 Insomnia Discharge Diagnosis 05/26/22 Rhinitis, allergic Discharge Diagnosis 05/26/22 IBS (irritable bowel syndrome) Discharge Diagnosis 05/26/22 Vital Signs Most recent to oldest [Reference Range]: 1 Height 162 cm (05/26/22 2:47 PM) Weight 77.6 kg (05/26/22 2:47 PM) Oxygen Saturation [94-100 %] 97 % (05/26/22 2:47 PM) Pulse Rate [55-90 bpm] 106 bpm *H* (05/26/22 2:47 PM) Body Mass Index [18.5-24.99 kg/m2] 29.57 kg/m2 *H* (05/26/22 2:47 PM) Blood Pressure [90-138/55-84 mm Hg] 132/ 70mm Hg (05/26/22 2:47 PM) Mode of Delivery (Oxygen) Room air (05/26/22 2:47 PM) Blood pressure sites Arm, left (05/26/22 2:47 PM) Weight Obtained Via Standing scale (05/26/22 2:47 PM) Social History Social History Type Response Smoking Status Former smoker; Other : Quit smoking 2011.; entered on: 11/08/15 Sex Patient Care team information Care Team Personnel Name: Francisco Parnell MD Position: [facility] Primary Care Physician Member Role: PCP Address: Address: [address] [place] [address]- Care Team Related Persons Name: DONAVON PETTIT Name: DONAVON REDDING Address: home [address] [place] [address] Name: MARY LOYD Address: home [address] [facility] [address] [place] [address] Name: MARY PHILLIPS Address: [address] [address]
--- OUTSIDE RECORDS SUMMARY | 2023-05-28 12:25 | XMS_ITS | Continuity of Care Document ---
Author Name Unknown Organization [facility] Address [address] [place] [address]- Care Team Providers Care School Examiner Name Role Phone Francisco Parnell MD Primary Care Physician [phone] Encounter [facility] Date(s): 05/09/19 - 10/27/[address] [address]- [facility] Attending Physician: Bishop Miller MD Admitting Physician: [...] [facility] 3[facility] 4[facility] 5Location History[facility] 6Location History: [facility] Medications amitriptyline 10 mg oral tablet 20 mg, 2, tablet, By Mouth, Daily at bedtime, Patient is allergic to red and blue dye. Pt requires a tablet that is dye free., # 60 tablet, Refills 11, Tot. Refills 11, Maintenance, 07/26/19 16:18:00EST, Route to Pharmacy Electronically, [facility]/pharmacy... Start Date: 07/26/19 Status: Ordered Calcium And Vitamin D Combination See Instructions, 1 tab daily, 0 Refills, Maintenance, 10/25/15 10:45:23 Start Date: 10/25/15 Status: Ordered Choline 0 Refills, Maintenance, 09/03/14 14:38:35 Start Date: 09/03/14 Status: Ordered clonazePAM 1 mg oral tablet 1 tablet = 1 mg, By Mouth, 2 times a day, # 60 tablet, 5 Refills, Soft Stop, 07/26/19 16:19:00 EST,[facility]/pharmacy #1230, 162, cm, 07/26/19 15:53:00 EST, Height Start Date: 07/26/19 Stop Date: 01/22/20 Status: Ordered D-Mannose Maintenance, urinary frequency, 12/17/16 11:39:55, D-Mannose Start Date: 12/17/16 Status: Ordered fluticasone-salmeterol 500 mcg-50 mcg inhalation powder 1, puffs, Inhalation, 2 times a day, # 60 each, Refills 11, Tot. Refills 11, Maintenance, 10/16/19 11:57:00 EDT, Powder, Route to Pharmacy Electronically, [id number], [facility]/pharmacy #1230, 162, cm, 08/21/19 15:55:00 EDT, Height [...] Start Date: 01/01/12 Status: Ordered nystatin topical 530002 u/gm cream 1 application, Topically, 2 times a day, # 30 Gm, 5 Refills, Maintenance, 07/26/19 16:20:00 EST, Cream, [facility]/pharmacy #1230, 1 application Topically 2 times a day, 162, cm, 07/26/19 15:53:00 EST, Height Start Date: 07/26/19 Status: Ordered ProAir HFA 90 mcg/inh inhalation aerosol with adapter 1, puffs, Inhalation, 4 times a day, PRN, BRAND NAME ONLY, # 8.5 Gm, Refills 6, Tot. Refills 6, Maintenance, 07/26/19 16:20:00 EST, Aerosol, Route to Pharmacy Electronically, [id number], [facility]/pharmacy #1230, 162, cm, 07/26/19... Start Date: 07/26/19 [...]
--- OUTSIDE RECORDS SUMMARY | 2023-05-28 12:25 | XMS_ITS | Continuity of Care Document ---
Author Name Unknown Organization [facility] Idris lt Address [address] [place] [address]- Care Team Providers Care Automobile Club Travel Counselor Name Role Phone Soheila SORTO, Francisco Lim Primary Care Physician [facility]): 02[facility]15[facility]20 - 03/16/20 [facility] Adult [address] [place] [address]- [facility] Allergies, Adverse Reactions, Alerts Substance [...] History: [facility] [place] 6Location History: [facility] Medications amitriptyline 10 mg oral tablet 20 [...] tablet, 5 Refills, Soft Stop, 02/12/20 15:30:00 EDT,[facility]/pharmacy #1230, 162, cm, 02/12/20 15:07:00 EDT, Height [...] Start Date: 01/01/12 Status: Ordered nystatin topical 618350 u/gm cream 1 application, Topically, 2 times [...] 16:20:00 EST, Aerosol, Route to Pharmacy Electronically, [id number], [facility]/pharmacy #1230, 162, cm, 07/26/19... Start Date: 07/26/19 [...]
--- OUTSIDE RECORDS SUMMARY | 2023-05-28 12:25 | XMS_ITS | Continuity of Care Document ---
Author Name Unknown Organization [facility] Idris lt Address [address] [place] [address]- Care Team Providers Care Hair Baler Name Role Phone Soheila SORTO, Francisco Lim Primary Care Physician [facility]s): 09/15/22 - 10/15/22 [facility] Adult [address] [place] [address]- Allergies, Adverse Reactions, Alerts Substance Reaction Severity [...] virus vaccine, inactivated 3 03/14/14 Re corded [id number] 12y+ bivalent booster vax 03/09/22 Recorded SARS-CoV-2 mRNA (kyghvnx-vrmv-zqchy) vax 09/24/21 Recorded pneumococcal 13-valent vaccine 06/08/21 [...] pneumococcal 23-valent vaccine 05/27/01 Recorded 1Location History: [facility] 2Location History: [facility] 3[facility] 4Admin Note: [facility] 5Location History[facility] 6Location History: [facility] Medications Albuterol (Eqv-ProAir HFA) 90 mcg/inh inhalation aerosol 2 puffs, Inhalation, 4 times a day, PRN NEEDED FOR WHEEZING, # 8.5 each, 11 Refills, Maintenance, 02/09/22 8:40:00 EDT, [facility], 25, INHALE 2 PUFFS BY MOUTH 4 TIMES A DAY NEEDED FOR WHEEZING, 162, cm, 09/23/21 15:24:00 EDT, Height Start Date: 02/09/22 Status: Ordered amitriptyline 10 mg oral tablet 2, tablet, By Mouth, Daily at bedtime, INSTR:PATIENT IS ALLERGIC TO RED AND BLUE DYE, # 180 tablet,Refills 3, Tot. Refills 3, 05/26/22 15:23:00 EST, Route to Pharmacy Electronically, [facility]/pharmacy #1230, 162, cm, 05/26/22 14:47:00 EST, Height Start Date: 05/26/22 Status: Ordered azelastine nasal 0.15% spray 2 sprays, Nares, Both, Daily, PRN for allergy symptoms, # 30 mL, 5 Refills, Maintenance, 01/16/22 13:15:00 EDT, [place], [facility], Partial [...] tablet, 5 Refills, Maintenance, 05/26/22 15:23:00 EST, [facility]/pharmacy #1230, 162, cm, 05/26/22 14:47:00 EST, Height [...] Start Date: 09/27/15 Status: Ordered nystatin topical 755257 u/gm cream See Instructions, APPLY TO AFFECTED AREA TWICE A DAY, # 30 Gm, 1 Refills, Maintenance, 09/29/22 16:11:00 EDT, [facility], 30, APPLY TO AFFECTED AREA TWICE A DAY, 162, cm, 05/26/22 14:47:00 EST, Height Start Date: 09/29/22 Status: Ordered Probiotic Formula 1 capsule, By Mouth, Daily, 0 Refills, Maintenance Start Date: 05/12/13 Status: Ordered Serevent Diskus 50 mcg inhalation powder 1 puffs = 50 mcg, Inhalation, 2 times a day, # 3 each, 3 Refills, Maintenance, 06/10/22 15:52:00 EST, Powder, [facility], Partial fill upon patient request [...] Tinea cruris Confirmed Active 1U/S done at [place] 2Colonoscopy 2011 normal, repeat 2021. 3colo 2011 [...] Team Personnel Name: Francisco Parnell MD Position: [facility] Primary Care Physician Member Role: PCP Address: Address: [address] [place] [address]- Care Team Related Persons Name: DONAVON PETTIT Name: DONAVON REDDING Address: home [address] [place] [address] Name: MARY LOYD Address: [address] [address] Name: MARY PHILLIPS Address: home [address] [address]
--- OUTSIDE RECORDS SUMMARY | 2023-05-28 12:25 | XMS_ITS | Continuity of Care Document ---
Author Name Unknown Organization [facility] Jonny Idris Address [address] [place] [address]- Care Team Providers Care Looping Machine Operator Name Role Phone Francisco Parnell MD Primary Care Physician Encounter [facility] [place] Date(s): 03/10/21 - 03/17/21 [facility] [place], operated [facility] Adult [address] [place] [address]- Encounter Diagnosis Chronic interstitial cystitis(Discharge Diagnosis) - 03/10/21 Anxiety(Discharge Diagnosis) - 03/10/21 Attending Physician: Francisco Parnell MD Allergies, Adverse Reactions, Alerts Substance Reaction Severity Status hydrOXYzine Unknown Active selective serotonin reuptake inhibitors U nknown Active traZODone BRAIN FOG SEVERE Active meclizine Active Bactrim Active Cipro Active Zithromax Active Valtrex 1 [...] [facility] 3Location [facility] 4Admin Note: [facility] 5Location History[facility] 6Location History: [facility] Medications albuterol CFC free 90 mcg/inh inhalation aerosol 2, puffs, Inhalation, 4 times a day, PRN, for 30 days, # 1 each, Refills 11, Tot. Refills 11, Hard Stop 08/29/21 15:52:00 EDT, 09/03/20 15:52:00 EDT, Aerosol, Route to Pharmacy Electronically, [id number], [facility]/pharmacy #1230,... Start Date: 09/03/20 Stop Date: 08/29/21 Status: Ordered amitriptyline 10 mg oral tablet 2, tablet, By Mouth, Daily at bedtime, INSTR:PATIENT IS ALLERGIC TO RED AND BLUE DYE, # 180 tablet,Refills 1, Tot. Refills 0, Maintenance, 12/29/20 13:31:00 EDT, Route to Pharmacy Electronically, [facility] STORE 98620, 162, cm, 09/03/20 15:36:00 EDT, Height Start [...] 5 Refills, Soft Stop, 02/24/21 7:46:00 EDT, [facility]/pharmacy #1230, 162, cm, 01/23/21 14:21:00 EDT, Height Start Date: 02/24/21 Stop Date: 08/23/21 Status: Ordered D-Mannose Maintenance, urinary frequency, 12/17/16 11:39:55, D-Mannose Start Date: 12/17/16 Status: Ordered FiberCon 625 mg oral tablet 1 tablet = 625 mg, By Mouth, Daily, # 30 tablet, 11 Refills, Maintenance, 03/13/21 10:44:00 EDT, [facility]/pharmacy #1230, Partial fill upon patient request if the prescription is for a schedule II opioid drug., 162, cm, 03/10/21 14:31:00 EDT, Height Start Date: 03/13/21 Status: Ordered fluocinonide 0.05% topical cream 1 application, Topically, 2 times a day, # 60 Gm, 2 Refills, Maintenance, 09/03/20 15:53:00 EDT, Cream, [facility]/pharmacy #1230, Partial fill upon patient request if [...] 30 sprays, 5 Refills, Acute, [facility], 30, SPRAY 2 SPRAYS INTO EACH NOSTRIL [...] Start Date: 01/01/12 Status: Ordered nystatin topical [id number] u/gm cream See Instructions, APPLY TO AFFECTED AREA TWICE A DAY, # 30 Gm, 11 Refills, Maintenance, 03/10/21 15:03:00 EDT, [facility]/pharmacy #1230, 30, APPLY TO AFFECTED AREA TWICE A DAY, 162, cm, 03/10/21 14:31:00 EDT, Height Start Date: 03/10/21 Status: Ordered Probiotic Formula 1 capsule, By Mouth, Daily, 0 Refills, Maintenance Start Date: 05/12/13 Status: Ordered Serevent Diskus 50 mcg inhalation powder 1 puffs, Inhalation, Every 12 hours, # 180 Unknown, 5 Refills, Maintenance, 12/29/20 13:31:00 EDT, [facility], 90, INHALE 1 PUFF BY MOUTH EVERY [...] Diagnosis Diagnosis Type Effective Dates Health Status Clinical Service Informant Chronic interstitial cystitis Discharge Diagnosis 03/10/21 Anxiety Discharge Diagnosis 03/10/21 Vital Signs Most recent to oldest [Reference Range]: 1 Height 162 cm (03/10/21 2:31 PM) Weight 72.8 kg (03/10/21 2:31 PM) Oxygen Saturation [94-100 %] 98 % (03/10/21 2:31 PM) Pulse Rate [55-90 bpm] 112 bpm *H* (03/10/21 2:31 PM) Body Mass Index [18.5-24.99] 27.74 *H* (03/10/21 2:31 PM) Blood Pressure [90-138/55-84 mm Hg] 102/ 64mm Hg (03/10/21 2:31 PM) Blood pressure sites Arm, left (03/10/21 2:31 PM) Weight Obtained Via Standing scale (03/10/21 2:31 PM) Social History Social History Type Response Smoking Status Former smoker; Other : Quit smoking 2011.; entered on: 11/08/15 Sex
--- OUTSIDE RECORDS SUMMARY | 2023-05-28 12:25 | XMS_ITS | Continuity of Care Document ---
Author Name Unknown Organization [facility] Jonny Idris lt Address [address] [place] [address]- Care Team Providers Care Lead Architect Name Role Phone Soheila SORTO, Francisco Lim Primary Care Physician [phone] Encounter [facility] Date(s): 06/04/22 - 07/04/22 [facility] Adult [address] [place] [address]- Allergies, Adverse Reactions, Alerts Substance Reaction Severity [...] virus vaccine, inactivated 3 03/14/14 Re corded [id number] 12y+ bivalent booster vax 03/09/22 Recorded SARS-CoV-2 mRNA ([id number]) vax 09/24/21 Recorded pneumococcal 13-valent vaccine 06/08/21 [...] pneumococcal 23-valent vaccine 05/27/01 Recorded 1Location History: [facility] 2Location History: [facility] 3[facility] 5[facility] 6Location History: [facility] Medications Albuterol (Eqv-ProAir HFA) 90 mcg/inh inhalation aerosol 2 puffs, Inhalation, 4 times a day, PRN NEEDED FOR WHEEZING, # 8.5 each, 11 Refills, Maintenance, 02/09/22 8:40:00 EDT, [facility] STORE 57699, 25, INHALE 2 PUFFS BY MOUTH 4 TIMES A DAY NEEDED FOR WHEEZING, 162, cm, 09/23/21 15:24:00 EDT, Height Start Date: 02/09/22 Status: Ordered amitriptyline 10 mg oral tablet 2, tablet, By Mouth, Daily at bedtime, INSTR:PATIENT IS ALLERGIC TO RED AND BLUE DYE, # 180 tablet,Refills 3, Tot. Refills 3, 05/26/22 15:23:00 EST, Route to Pharmacy Electronically, [facility]/pharmacy #1230, 162, cm, 05/26/22 14:47:00 EST, Height Start Date: 05/26/22 Status: Ordered azelastine nasal 0.15% spray 2 sprays, Nares, Both, Daily, PRN for allergy symptoms, # 30 mL, 5 Refills, Maintenance, 01/16/22 13:15:00 EDT, [place], [facility], Partial fill [...] tablet, 5 Refills, Maintenance, 05/26/22 15:23:00 EST, [facility]/pharmacy #1230, 162, cm, 05/26/22 14:47:00 EST, Height [...] Start Date: 09/27/15 Status: Ordered nystatin topical [id number] u/gm cream See Instructions, APPLY TO AFFECTED AREA TWICE A DAY, # 30 Gm, 11 Refills, Maintenance, 09/23/21 15:51:00 EDT, [facility]/pharmacy #1230, 30, APPLY TO AFFECTED AREA TWICE A DAY, 162, cm, 09/23/21 15:24:00 EDT, Height Start Date: 09/23/21 Status: Ordered Probiotic Formula 1 capsule, By Mouth, Daily, 0 Refills, Maintenance Start Date: 05/12/13 Status: Ordered Serevent Diskus 50 mcg inhalation powder 1 puffs = 50 mcg, Inhalation, 2 times a day, # 3 each, 3 Refills, Maintenance, 06/10/22 15:52:00 EST, [place], [facility], Partial fill upon patient request if the prescription is for a schedule II opioid drug., 1 puffs Inhalatio... Start Date: 12/28/22 Status: Ordered Vitamin C 100 mg oral [...] Tinea cruris Confirmed Active 1U/S done at [place] 2Colonoscopy 2011 normal, repeat 2021. 3colo 2011 [...] Personnel Name: Francisco Parnell MD Position: [facility] Primary Care Physician Member Role: PCP Address: Address: [address] [place] [id number]- Care Team Related Persons Name: DONAVON PETTIT Name: DONAVON REDDING Address: home [address] [place] [address] Name: MARY LOYD Address: home [address] Name: MARY PHILLIPS Address: home [address] [address]
--- OUTSIDE RECORDS SUMMARY | 2023-05-28 12:25 | XMS_ITS | Continuity of Care Document ---
Author Name Unknown Organization [facility] Address [address] [place] [address]- Care Team Providers Care Stockkeeper Name Role Phone Francisco Parnell MD Primary Care Physician [phone] Encounter [facility] Date(s): 11/18/22 - 12/18/22 [facility] [address] [place] [address]- Allergies, Adverse Reactions, Alerts Substance Reaction Severity [...] virus vaccine, inactivated 3 03/14/14 Re corded [id number] 12y+ bivalent booster vax 03/09/22 Recorded SARS-CoV-2 mRNA (wdrulcz-[id number]) vax 09/24/21 Recorded pneumococcal 13-valent vaccine 06/08/21 [...] pneumococcal 23-valent vaccine 05/27/01 Recorded 1Location History: [facility] 2Location History: [facility] 3Location History: [facility] [place] 4Admin Note: [facility] 5Location History[facility] 6Location History: [facility] Medications [...] mL, 5 Refills, Maintenance, 01/16/22 13:15:00 EDT, [place], [facility], Partial fill [...] tablet, 5 Refills, Maintenance, 05/26/22 15:23:00 EST, [facility]/pharmacy #1230, 162, cm, 05/26/22 14:47:00 [...] tablet, 1 Refills, Maintenance, 11/19/22 15:29:00 EDT, [facility]/pharmacy #1230, Partial fill upon patient request if the prescription is for a schedule II opioid drug., 162, cm, 11/18/22 15:00:00 EDT, Height... Start Date: 11/19/22 Status: Ordered nystatin topical [id number] u/gm cream See Instructions, APPLY TO AFFECTED AREA TWICE A DAY, # 30 Gm, 1 Refills, Maintenance, 11/22/22 13:10:00 EDT, [facility], 30, APPLY TO AFFECTED AREA TWICE A [...] 3 Refills, Maintenance, 06/10/22 15:52:00 EST, [place], [facility], Partial fill upon patient request if the prescription is for a schedule II opioid drug., 1 puffs Inhalatio... Start Date: 06/10/22 Status: Ordered tiZANidine 2 mg oral tablet 1, tablet, By Mouth, Every 8 hours, PRN, # 90 tablet, Refills 0, Maintenance, NEEDED FOR, 12/16/22 10:38:00 EDT, Route to Pharmacy Electronically, [facility] STORE 98733, 162, cm, 11/18/22 15:00:00 EDT, Height, 76, [...] Tinea cruris Confirmed Active 1U/S done at [place] 2Colonoscopy 2011 normal, repeat 2021. 3colo 2011 [...] Primary Care Member Role: PCP Address: Address: [address] [place] [address]- Care Team Related Persons Name: DONAVON PETTIT Name: DONAVON REDDING Address: home [address] [place] [address] Name: MARY LOYD Address: [address] [address] Name: MARY PHILLIPS Address: home [address] [address]
--- OUTSIDE RECORDS SUMMARY | 2023-05-28 12:25 | XMS_ITS | Continuity of Care Document ---
Author Name Unknown Organization [facility] Idris lt Address [address] [place] [address]- Care Team Providers Care Fine Artist Name Role Phone Soheila SORTO, Francisco Lim Primary Care Physician [place] [facility] [place](s): 09/23/21 - 09/30/21 [facility] Adult [address] [place] [address]- Encounter Diagnosis Anxiety(Discharge Diagnosis) - 09/23/21 Insomnia(Discharge Diagnosis) - 09/23/21 IBS (irritable bowel syndrome)(Discharge Diagnosis) - 09/23/21 Asthma(Discharge Diagnosis) - 09/23/21 Rhinitis, allergic(Discharge Diagnosis) - 09/23/21 Attending Physician: Francisco Parnell MD Allergies, Adverse Reactions, Alerts Substance Reaction Severity Status Cipro Active Lexapro manic depressive thoughts Ac tive traZODone BRAIN FOG SEVERE Active meclizine Active [...] [facility] 6Location History: [facility] Medications amitriptyline 10 mg oral tablet 2, tablet, By Mouth, Daily at bedtime, INSTR:PATIENT IS ALLERGIC TO RED AND BLUE DYE, # 180 tablet,Refills 3, Tot. Refills 3, 09/23/21 15:52:00 EDT, Route to Pharmacy Electronically, [facility]/pharmacy #1230, 162, cm, 09/23/21 15:24:00 EDT, Height Start Date: 09/23/21 Status: Ordered azelastine nasal 0.15% spray 2 sprays, Nares, Both, Daily, PRN for allergy symptoms, # 30 mL, 11 Refills, Maintenance, 07/17/21 12:30:00 EST, [place], [facility]/pharmacy #1230, Partial fill upon patient request if the prescription is for a schedule II opioid drug., 2 sprays Nares, Both D... Start Date: 07/17/21 Status: Ordered Calcium And Vitamin D Combination See Instructions, 1 tab daily, 0 Refills, Maintenance, 10/25/15 10:45:23 Start Date: 10/25/15 Status: Ordered Choline 0 Refills, Maintenance, 09/03/14 14:38:35 Start Date: 09/03/14 Status: Ordered clonazePAM 1 mg oral tablet 1 tablet = 1 mg, By Mouth, 2 times a day, # 60 tablet, 5 Refills, Soft Stop, 06/11/21 13:09:00 EST,[facility]/pharmacy #1230, 162, cm, 03/10/21 14:31:00 EDT, Height Start Date: 06/11/21 Stop Date: 12/08/21 Status: Ordered D-Mannose Maintenance, urinary frequency, 12/17/16 [...] Start Date: 09/27/15 Status: Ordered nystatin topical 333506 u/gm cream See Instructions, APPLY TO AFFECTED AREA TWICE A DAY, # 30 Gm, 11 Refills, Maintenance, 09/23/21 15:51:00 EDT, [facility]/pharmacy #1230, 30, APPLY TO AFFECTED AREA TWICE A DAY, 162, cm, 09/23/21 15:24:00 EDT, Height Start Date: 09/23/21 Status: Ordered ProAir HFA 90 mcg/inh inhalation aerosol 2 puffs, Inhalation, Every 6 hours, PRN as needed for wheezing, # 18 Gm, 0 Refills, Maintenance, 09/23/21 15:51:00 EDT, Aerosol, Partial fill upon patient request if the prescription is for a schedule II opioid drug. Start Date: 09/23/21 Status: Ordered Probiotic Formula 1 capsule, By Mouth, Daily, 0 Refills, Maintenance Start Date: 05/12/13 Status: Ordered Serevent Diskus 50 mcg inhalation powder 1 puffs, Inhalation, Every 12 hours, # 180 Unknown, 5 Refills, Maintenance, 12/29/20 13:31:00 EDT, [facility] STORE 61762, 90, INHALE 1 PUFF BY MOUTH EVERY [...] Dates Health Status Cl inical Service Informant Anxiety Discharge Diagnosis 09/23/21 Insomnia Discharge Diagnosis 09/23/21 IBS (irritable bowel syndrome) Discharge Diagnosis 09/23/21 Asthma Discharge Diagnosis 09/23/21 Rhinitis, allergic Discharge Diagnosis 09/23/21 Vital Signs Most recent to oldest [Reference Range]: 1 Height 162 cm (09/23/21 3:29 PM) Weight 75.1 kg (09/23/21 3:29 PM) Oxygen Saturation [94-100 %] 98 % (09/23/21 3:29 PM) Pulse Rate [55-90 bpm] 99 bpm *H* (09/23/21 3:29 PM) Body Mass Index [18.5-24.99] 28.62 *H* (09/23/21 3:29 PM) Blood Pressure [90-138/55-84 mm Hg] 132/ 72mm Hg (09/23/21 3:29 PM) Mode of Delivery (Oxygen) Room air (09/23/21 3:29 PM) Blood pressure sites Arm, left (09/23/21 3:29 PM) Weight Obtained Via Standing scale (09/23/21 3:29 PM) Social History Social History Type Response Smoking Status Former smoker; Other : Quit smoking 2011.; entered on: 11/08/15 Sex
--- OUTSIDE RECORDS SUMMARY | 2023-05-28 12:25 | XMS_ITS | Continuity of Care Document ---
Author Name Unknown Organization [facility] Idris lt Address [address] [place] [address]- Care Team Providers Care Geophysical Laboratory Supervisor Name Role Phone Francisco Parnell MD Primary Care Physician [phone] Encounter [facility] Date(s): 02/20/20 - 02/27/20 [facility] Adult [address] [place] [address]- [facility] Encounter Diagnosis Hypercholesterolemia(Discharge Diagnosis) - 02/20/20 Attending Physician: Francisco Parnell MD Allergies, Adverse [...] [facility]: [facility] 6Location History: [facility] Medications amitriptyline 10 mg oral tablet 20 mg, 2, tablet, By Mouth, Daily at bedtime, Patient is allergic to red and blue dye. Pt requires a tablet that is dye free., # 60 tablet, Refills 11, Tot. Refills 11, Maintenance, 07/26/19 16:18:00EST, Route to Pharmacy Electronically, [facility]/pharmacy... Start Date: 07/26/19 Status: Ordered Calcium And Vitamin D Combination See Instructions, 1 tab daily, 0 Refills, Maintenance, 10/25/15 10:45:23 Start Date: 10/25/15 Status: Ordered Choline 0 Refills, Maintenance, 09/03/14 14:38:35 Start Date: 09/03/14 Status: Ordered clonazePAM 1 mg oral tablet 1 tablet = 1 mg, By Mouth, 2 times a day, # 60 tablet, 5 Refills, Soft Stop, 02/12/20 15:30:00 EDT,[facility]/pharmacy #1230, 162, cm, 02/12/20 15:07:00 EDT, [...] Start Date: 01/01/12 Status: Ordered nystatin topical [id number] u/gm cream 1 application, Topically, 2 times a day, # 30 Gm, 5 Refills, Maintenance, 07/26/19 16:20:00 EST, [facility], [facility], 1 application Topically 2 times a day, 162, cm, 07/26/19 15:53:00 EST, Height Start Date: 07/26/19 Status: Ordered ProAir HFA 90 mcg/inh inhalation aerosol with adapter 1, puffs, Inhalation, 4 times a day, PRN, BRAND NAME ONLY, # 8.5 Gm, Refills 6, Tot. Refills 6, Maintenance, 07/26/19 16:20:00 EST, Aerosol, Route to Pharmacy Electronically, [id number], [facility]/pharmacy #1230, 162, cm, 07/26/19... Start Date: 07/26/19 Status: Ordered Probiotic Formula 1 capsule, By Mouth, Daily, 0 Refills, Maintenance Start Date: 05/12/13 Status: Ordered Serevent Diskus 50 mcg inhalation powder 1 each = 50 mcg, Inhalation, Every 12 hours, # 180 each, 11 Refills, Maintenance, 12/22/19 13:33:00EDT, [place], [facility]/pharmacy #1230, 1 each Inhalation Every 12 [...] Effective Dates Health Status Clinical Service Informant Hypercholesterolemia Discharge Diagnosis 02/20/20 Vital Signs Most recent to oldest [Reference Range]: 1 Height 162 cm (02/20/20 2:33 PM) Social History Social History Type Response Smoking Status Former smoker; Other : Quit smoking 2011.; entered on: 11/08/15 Sex
--- OUTSIDE RECORDS SUMMARY | 2023-05-28 12:25 | XMS_ITS | Continuity of Care Document ---
Author Name Unknown Organization [facility] Idris lt Address [address] [place] [address]- Care Team Providers Care Central Sterilization Technician Name Role Phone Francisco Parnell MD Primary Care Physician Encounter [facility] Date(s): 03/18/21 - 04/17/21 [facility] Adult [address] [place] [address]- Allergies, Adverse Reactions, Alerts Substance Reaction Severity Status hydrOXYzine Unknown Active selective serotonin reuptake inhibitors U nknown Active Paxil makes her manic Active Lexapro manic depressive thoughts Ac tive traZODone BRAIN FOG SEVERE Active meclizine Active Bactrim Active Cipro Active Zithromax Active Valtrex 1 Active 1GI/other Immunizations Given and Recorded Vaccine [...] [facility]: [facility] 6Location History: [facility] Medications albuterol CFC free 90 mcg/inh inhalation aerosol 2, puffs, Inhalation, 4 times a day, PRN, for 30 days, # 1 each, Refills 11, Tot. Refills 11, Hard Stop 08/29/21 15:52:00 EDT, 09/03/20 15:52:00 EDT, Aerosol, Route to Pharmacy Electronically, [id number], [facility]/pharmacy #1230,... Start Date: 09/03/20 Stop Date: 08/29/21 Status: Ordered amitriptyline 10 mg oral tablet 2, tablet, By Mouth, Daily at bedtime, INSTR:PATIENT IS ALLERGIC TO RED AND BLUE DYE, # 180 tablet,Refills 1, Tot. Refills 0, Maintenance, 12/29/20 13:31:00 EDT, Route to Pharmacy Electronically, [facility] STORE 13299, 162, cm, 09/03/20 15:36:00 EDT, Height Start [...] 5 Refills, Soft Stop, 02/24/21 7:46:00 EDT, [facility]/pharmacy #1230, 162, cm, 01/23/21 14:21:00 EDT, Height [...] 30 sprays, 5 Refills, Acute, [facility], 30, SPRAY 2 SPRAYS INTO EACH NOSTRIL [...] Start Date: 01/01/12 Status: Ordered nystatin topical 660277 u/gm cream See Instructions, APPLY TO AFFECTED [...] Refills, Maintenance, 12/29/20 13:31:00 EDT, [facility], 90, INHALE 1 PUFF BY MOUTH EVERY [...]
--- OUTSIDE RECORDS SUMMARY | 2023-05-28 12:26 | XMS_ITS | Continuity of Care Document ---
Author Name Unknown Organization [facility] Jonny Idris lt Address [address] [place] [address]- Care Team Providers Care Java Flex Developer Name Role Phone Francisco Parnell MD Primary Care Physician Encounter [facility] Date(s): 04/02/22 - 05/02/22 [facility] Adult [address] [place] [address]- Allergies, Adverse Reactions, Alerts Substance Reaction Severity [...] pneumococcal 23-valent vaccine 05/27/01 Recorded 1[facility] 2Location History: [facility] 3Location History: [facility] [place] 4Admin Note: [facility] 5Location History[facility] 6Location History: [facility] Medications Albuterol (Eqv-ProAir HFA) 90 mcg/inh inhalation aerosol 2 puffs, Inhalation, 4 times a day, PRN NEEDED FOR WHEEZING, # 8.5 each, 11 Refills, Maintenance, 02/09/22 8:40:00 EDT, [facility] STORE 39492, 25, INHALE 2 PUFFS BY MOUTH 4 TIMES A DAY NEEDED FOR WHEEZING, 162, cm, 09/23/21 15:24:00 EDT, Height Start Date: 02/09/22 Status: Ordered amitriptyline 10 mg oral tablet 2, tablet, By Mouth, Daily at bedtime, INSTR:PATIENT IS ALLERGIC TO RED AND BLUE DYE, # 180 tablet,Refills 3, Tot. Refills 3, 09/23/21 15:52:00 EDT, Route to Pharmacy Electronically, [facility]/pharmacy #1230, 162, cm, 09/23/21 15:24:00 EDT, Height Start Date: 09/23/21 Status: Ordered azelastine nasal 0.15% spray 2 sprays, Nares, Both, Daily, PRN for allergy symptoms, # 30 mL, 5 Refills, Maintenance, 01/16/22 13:15:00 EDT, [place], [facility], Partial fill [...] tablet, 5 Refills, Maintenance, 12/12/21 9:06:00 EDT, [facility]/pharmacy #1230, 162, cm, 09/23/21 15:24:00 EDT, [...] Start Date: 09/27/15 Status: Ordered nystatin topical 125659 u/gm cream See Instructions, APPLY TO AFFECTED AREA TWICE A DAY, # 30 Gm, 11 Refills, Maintenance, 09/23/21 15:51:00 EDT, [facility]/pharmacy #1230, 30, APPLY TO AFFECTED AREA [...] Unknown, 5 Refills, Maintenance, 12/29/20 13:31:00 EDT, [facility] STORE 63985, 90, INHALE 1 PUFF BY MOUTH EVERY [...] Tinea cruris Confirmed Active 1U/S done at [place] 2Colonoscopy 2011 normal, repeat 2021. 3colo 2011 [...] Team Personnel Name: Francisco Parnell MD Position: [facility] Primary Care Physician Member Role: PCP Address: Address: [address] [place] [address]- Care Team Related Persons Name: DONAVON PETTIT Name: DONAVON REDDING Address: home [address] [place] [address] Name: MARY LOYD Address: [address] [address] Name: MARY PHILLIPS Address: [address] [address]
--- OUTSIDE RECORDS SUMMARY | 2023-05-28 12:26 | XMS_ITS | Continuity of Care Document ---
Author Name Unknown Organization [facility] Address [address] [place] [address]- Care Team Providers Care Automation Technician Name Role Phone Soheila SORTO, Francisco Lim Primary Care Physician En[place] [facility] Date(s): 11/13/19 - 12/13/19 [facility] [address] [place] [address]- [facility] Attending Physician: Admranulfo, Agustin8 Admitting Physician: Admtr, [...] [facility] 3Location History: [facility] [place] 4Admin Note: [facility] 5Location History: [facility] [place] 6Location History: [facility] Medications amitriptyline 10 mg oral tablet 20 mg, 2, tablet, By Mouth, Daily at bedtime, Patient is allergic to red and blue dye. Pt requires a tablet that is dye free., # 60 tablet, Refills 11, Tot. Refills 11, Maintenance, 07/26/19 16:18:00EST, Route to Pharmacy Electronically, [facility]/pharmacy... Start Date: 07/26/19 Status: Ordered Calcium And Vitamin D Combination See Instructions, 1 tab daily, 0 Refills, Maintenance, 10/25/15 10:45:23 Start Date: 10/25/15 Status: Ordered Choline 0 Refills, Maintenance, 09/03/14 14:38:35 Start Date: 09/03/14 Status: Ordered clonazePAM 1 mg oral tablet 1 tablet = 1 mg, By Mouth, 2 times a day, # 60 tablet, 5 Refills, Soft Stop, 07/26/19 16:19:00 EST,[facility]/pharmacy #1230, 162, cm, 07/26/19 15:53:00 EST, Height [...] Start Date: 01/01/12 Status: Ordered nystatin topical 581054 u/gm cream 1 application, Topically, 2 times a day, # 30 Gm, 5 Refills, Maintenance, 07/26/19 16:20:00 EST, Cream, [facility]/pharmacy #1230, 1 application Topically 2 times a day, 162, cm, 07/26/19 15:53:00 EST, Height Start Date: 07/26/19 Status: Ordered ProAir HFA 90 mcg/inh inhalation aerosol with adapter 1, puffs, Inhalation, 4 times a day, PRN, BRAND NAME ONLY, # 8.5 Gm, Refills 6, Tot. Refills 6, Maintenance, 07/26/19 16:20:00 EST, Aerosol, Route to Pharmacy Electronically, [id number], [facility]/pharmacy #1230, 162, cm, 07/26/19... Start Date: 07/26/19 [...]
--- OUTSIDE RECORDS SUMMARY | 2023-05-28 12:26 | XMS_ITS | Continuity of Care Document ---
Author Name Unknown Organization [facility] Address [address] [place] [address]- Care Team Providers Care Car Changer Name Role Phone Soheila SORTO, Francisco Lim Primary Care Physician [phone] Encounter [facility] Date(s): 09/06/19 - 12/08/[address] [address]- [facility] [phone] Attending Physician: Bishop Miller MD Admitting Physician: [...] [facility]Location [facility] [place] 6Location History: [facility] Medications amitriptyline 10 mg oral tablet 20 mg, 2, tablet, By Mouth, Daily at bedtime, Patient is allergic to red and blue dye. Pt requires a tablet that is dye free., # 60 tablet, Refills 11, Tot. Refills 11, Maintenance, 07/26/19 16:18:00EST, Route to Pharmacy Electronically, [facility]/pharmacy... Start Date: 07/26/19 Status: Ordered Calcium And Vitamin D Combination See Instructions, 1 tab daily, 0 Refills, Maintenance, 10/25/15 10:45:23 Start Date: 10/25/15 Status: Ordered Choline 0 Refills, Maintenance, 09/03/14 14:38:35 Start Date: 09/03/14 Status: Ordered clonazePAM 1 mg oral tablet 1 tablet = 1 mg, By Mouth, 2 times a day, # 60 tablet, 5 Refills, Soft Stop, 07/26/19 16:19:00 EST,[facility]/pharmacy #1230, 162, cm, 07/26/19 15:53:00 EST, Height [...] Start Date: 01/01/12 Status: Ordered nystatin topical 711986 u/gm cream 1 application, Topically, 2 times a day, # 30 Gm, 5 Refills, Maintenance, 07/26/19 16:20:00 EST, Cream, [facility]/pharmacy #1230, 1 application Topically 2 times a day, 162, cm, 07/26/19 15:53:00 EST, Height Start Date: 07/26/19 Status: Ordered ProAir HFA 90 mcg/inh inhalation aerosol with adapter 1, puffs, Inhalation, 4 times a day, PRN, BRAND NAME ONLY, # 8.5 Gm, Refills 6, Tot. Refills 6, Maintenance, 07/26/19 16:20:00 EST, Aerosol, Route to Pharmacy Electronically, [id number], [facility], 162, cm, 07/26/19... Start Date: 07/26/19 Status: Ordered Probiotic Formula 1 capsule, By Mouth, Daily, 0 Refills, Maintenance Start Date: 05/12/13 Status: Ordered Serevent Diskus 50 mcg inhalation powder 1 each = 50 mcg, Inhalation, Every 12 hours, # 180 each, 11 Refills, Maintenance, 12/06/19 16:02:00EDT, Powder, [facility]/pharmacy #1230, 1 each Inhalation Every 12 hours, 162, cm, 12/06/19 15:37:00 EDT, Height Start Date: 12/06/19 Status: Ordered Vitamin C 100 mg oral [...]
--- OUTSIDE RECORDS SUMMARY | 2023-05-28 12:26 | XMS_ITS | Continuity of Care Document ---
Author Name Unknown Organization [facility] Idris lt Address [address] [place] [address]- Care Team Providers Care Head Cleaning Porter Name Role Phone Francisco Parnell MD Primary Care Physician [phone] [facility]counter [facility] Date(s): 05/14/20 - 09/11/20 [facility] Adult [address] [place] [address]- Attending Physician: Francisco Parnell MD Allergies, Adverse [...] Note: [facility] 6Location History: [facility] Medications albuterol CFC free 90 mcg/inh inhalation aerosol 2, puffs, Inhalation, 4 times a day, PRN, for 30 days, # 1 each, Refills 11, Tot. Refills 11, Hard Stop 08/29/21 15:52:00 EDT, 09/03/20 15:52:00 EDT, Aerosol, Route to Pharmacy Electronically, [id number], [facility]/pharmacy #1230,... Start Date: 09/03/20 Stop Date: 08/29/21 Status: Ordered albuterol CFC free 90 mcg/inh inhalation aerosol 2, puffs, Inhalation, 4 times a day, PRN, # 1 each, Refills 5, Tot. Refills 5, Maintenance, 08/29/21 15:52:00 EDT, Aerosol, Route to Pharmacy Electronically, [id number], [facility], 162, cm, 09/03/20 15:36:00 EDT, Height [...] mL, 5 Refills, Maintenance, 05/27/20 16:22:00 EST, [place], [facility], 2 sprays Nares, Both 2 [...] Start Date: 01/01/12 Status: Ordered nystatin topical 778920 u/gm cream 1 application, Topically, 2 times a day, # 30 Gm, 1 Refills, Maintenance, 07/30/20 7:20:00 EST, Cream, [facility], 1 application Topically 2 times a day, 162, cm, 02/20/20 14:33:00 EDT, Height Start Date: 07/30/20 Status: Ordered nystatin topical 494034 u/gm powder 1 application, Topically, 2 times a day, # 60 Gm, 2 Refills, Maintenance, 09/03/20 15:54:00 EDT, Powder, [facility]acy #1230, Partial fill upon patient request if [...] each, 11 Refills, Maintenance, 12/22/19 13:33:00EDT, Powder, [facility]/pharmacy #1230, 1 each Inhalation Every 12 hours, [...]
--- OUTSIDE RECORDS SUMMARY | 2023-05-28 12:26 | XMS_ITS | Continuity of Care Document ---
Author Name Unknown Organization [facility] Idris lt Address [address] [place] [address]- Care Team Providers Care Playback Operator Name Role Phone Francisco Parnell MD Primary Care Physician [place] [facility] [place] 07/26[place]19 - 08/02/19 [facility] Adult [address] [place] [address]- [facility] Encounter Diagnosis Anxiety(Discharge Diagnosis) - 07/26/19 Asthma(Discharge Diagnosis) - 07/26/19 Insomnia(Discharge Diagnosis) - 07/26/19 Attending Physician: Francisco Parnell MD Allergies, Adverse [...] Note: [facility] 5Location History: [facility] 6Location History: [facility] Medications amitriptyline 10 mg oral tablet 20 mg, 2, tablet, By Mouth, Daily at bedtime, Patient is allergic to red and blue dye. Pt requires a tablet that is dye free., # 60 tablet, Refills 11, Tot. Refills 11, Maintenance, 07/26/19 16:18:00EST, Route to Pharmacy Electronically, [facility]/pharmacy... Start Date: 07/26/19 Status: Ordered Calcium And Vitamin D Combination See Instructions, 1 tab daily, 0 Refills, Maintenance, 10/25/15 10:45:23 Start Date: 10/25/15 Status: Ordered Choline 0 Refills, Maintenance, 09/03/14 14:38:35 Start Date: 09/03/14 Status: Ordered clonazePAM 1 mg oral tablet 1 tablet = 1 mg, By Mouth, 2 times a day, # 60 tablet, 5 Refills, Soft Stop, 07/26/19 16:19:00 EST,[facility]/pharm[facility] #1230, 162, cm, 07/26/19 15:53:00 EST, Height [...] Start Date: 01/01/12 Status: Ordered nystatin topical 666836 u/gm cream 1 application, Topically, 2 times a day, # 30 Gm, 5 Refills, Maintenance, 07/26/19 16:20:00 EST, Cream, [facility]/pharmacy #1230, 1 application Topically 2 times a day, 162, cm, 07/26/19 15:53:00 EST, Height Start Date: 07/26/19 Status: Ordered ProAir HFA 90 mcg/inh inhalation aerosol with adapter 1, puffs, Inhalation, 4 times a day, PRN, BRAND NAME ONLY, # 8.5 Gm, Refills 6, Tot. Refills 6, Maintenance, 07/26/19 16:20:00 EST, Aerosol, Route to Pharmacy Electronically, [id number], [facility]/pharmacy #1230, 162, cm, 07/26/19... Start Date: 07/26/19 [...] Dates Health Status Clini gladys Service Informant Anxiety Discharge Diagnosis 07/26/19 Asthma Discharge Diagnosis 07/26/19 Insomnia Discharge Diagnosis 07/26/19 Vital Signs Most recent to oldest [Reference Range]: 1 Height 162 cm (07/26/19 3:53 PM) Weight 74.6 kg (07/26/19 3:53 PM) Pulse Rate [55-90 bpm] 80 bpm (07/26/19 3:53 PM) Body Mass Index [18.5-24.99] 28.43 *H* (07/26/19 3:53 PM) Blood Pressure [90-138/55-84 mm Hg] 124/ 64mm Hg (07/26/19 3:53 PM) Respiratory Rate [16-30 br/min] 12 br/mi n *L* (07/26/19 3:53 PM) Mode of Delivery (Oxygen) Room air (07/26/19 3:53 PM) Blood pressure sites Arm, left (07/26/19 3:53 PM) Weight Obtained Via Standing scale (07/26/19 3:53 PM) Social History Social History Type Response Smoking Status Former smoker; Other : Quit smoking 2011.; entered on: 11/08/15 Sex
--- OUTSIDE RECORDS SUMMARY | 2023-05-28 12:26 | XMS_ITS | Continuity of Care Document ---
Author Name Unknown Organization [facility] Idris lt Address [address] [place] [address]- Care Team Providers Care Fiberglass Boat Builder Name Role Phone Soheila SORTO, Francisco Lim Primary Care Physician [phone] Encounter [facility] Date(s): 09/06/20 - 10/06/20 [facility] Adult [address] [place] [address]- Allergies, Adverse Reactions, Alerts Substance Reaction Severity [...] Note: [facility] 6Location History: [facility] Medications albuterol CFC free 90 mcg/inh inhalation aerosol 2, puffs, Inhalation, 4 times a day, PRN, for 30 days, # 1 each, Refills 11, Tot. Refills 11, Hard Stop 08/29/21 15:52:00 EDT, 09/03/20 15:52:00 EDT, Aerosol, Route to Pharmacy Electronically, [id number], [facility]/pharmacy #1230,... Start Date: 09/03/20 Stop Date: 08/29/21 Status: Ordered albuterol CFC free 90 mcg/inh inhalation aerosol 2, puffs, Inhalation, 4 times a day, PRN, # 1 each, Refills 5, Tot. Refills 5, Maintenance, 08/29/21 15:52:00 EDT, Aerosol, Route to Pharmacy Electronically, [id number], [facility]/pharmacy #1230, 162, cm, 09/03/20 15:36:00 EDT, Height [...] Refills, Maintenance, 09/03/20 15:53:00 EDT, Cream, [facility]/pharmacy #1230, Partial fill upon [...] mL, 5 Refills, Maintenance, 05/27/20 16:22:00 EST, [place], [facility], 2 sprays Nares, Both 2 [...] Start Date: 01/01/12 Status: Ordered nystatin topical 679729 u/gm cream 1 application, Topically, 2 times a day, # 30 Gm, 1 Refills, Maintenance, 07/30/20 7:20:00 EST, [place], [facility], 1 application Topically 2 times a day, 162, cm, 02/20/20 14:33:00 EDT, Height Start Date: 07/30/20 Status: Ordered nystatin topical 917043 u/gm powder 1 application, Topically, 2 times [...] each, 11 Refills, Maintenance, 12/22/19 13:33:00EDT, Powder, [facility]/pharmacy #1230, 1 each Inhalation [...]
--- OUTSIDE RECORDS SUMMARY | 2023-05-28 12:26 | XMS_ITS | Continuity of Care Document ---
Author Name Unknown Organization [facility] Idris lt Address [address] [place] [address]- Care Team Providers Care Instrument Assembler Name Role Phone Soheila SORTO, Francisco Lim Primary Care Physician [phone] [place] [facility] [place] 08/21/19 - 08/31/19 [facility] Adult [address] [place] [address]- [facility] Attending Physician: AdmAgustin [email or web address] Admitting Physician: Admtr, Nabila Referring Physician: Admtr, [...] [facility] 3Location History: [facility] [place] 4Admin Note: [facility]Location History: [facility] [place] 6Location History: [facility] Medications amitriptyline 10 mg oral tablet 20 mg, 2, tablet, By Mouth, Daily at bedtime, Patient is allergic to red and blue dye. Pt requires a tablet that is dye free., # 60 tablet, Refills 11, Tot. Refills 11, Maintenance, 07/26/19 16:18:00EST, Route to Pharmacy Electronically, [facility]/pharmacy... Start Date: 07/26/19 Status: Ordered Calcium And Vitamin D Combination See Instructions, 1 tab daily, 0 Refills, Maintenance, 10/25/15 10:45:23 Start Date: 10/25/15 Status: Ordered Choline 0 Refills, Maintenance, 09/03/14 14:38:35 Start Date: 09/03/14 Status: Ordered clonazePAM 1 mg oral tablet 1 tablet = 1 mg, By Mouth, 2 times a day, # 60 tablet, 5 Refills, Soft Stop, 07/26/19 16:19:00 EST,[facility]/pharmacy #1230, 162, cm, 07/26/19 15:53:00 EST, [...] Start Date: 01/01/12 Status: Ordered nystatin topical 779419 u/gm cream 1 application, Topically, 2 times a day, # 30 Gm, 5 Refills, Maintenance, 07/26/19 16:20:00 EST, Cream, [facility]/pharmacy #1230, 1 application Topically 2 times a day, 162, cm, 07/26/19 15:53:00 EST, Height Start Date: 07/26/19 Status: Ordered ProAir HFA 90 mcg/inh inhalation aerosol with adapter 1, puffs, Inhalation, 4 times a day, PRN, BRAND NAME ONLY, # 8.5 Gm, Refills 6, Tot. Refills 6, Maintenance, 07/26/19 16:20:00 EST, Aerosol, Route to Pharmacy Electronically, [id number], [facility]/pharmacy #1230, 162, cm, 07/26/19... Start Date: [...]
--- OUTSIDE RECORDS SUMMARY | 2023-05-28 12:26 | XMS_ITS | Continuity of Care Document ---
Author Name Unknown Organization [facility] Idris lt Address [address] [place] [address]- Care Team Providers Care Lead Advisor Name Role Phone Soheila SORTO, Francisco Lim Primary Care Physician [facility] Date(s): 12/12/19 - 01/11/20 [facility] Adult [address] [place] [address]- [facility] Allergies, Adverse Reactions, Alerts Substance Reaction Severity [...] Maintenance, 07/26/19 16:18:00EST, Route to Pharmacy Electronically, [facility]/pharmacy... Start Date: 07/26/19 Status: Ordered Calcium And Vitamin D Combination See Instructions, 1 tab daily, 0 Refills, Maintenance, 10/25/15 10:45:23 Start Date: 10/25/15 Status: Ordered Choline 0 Refills, Maintenance, 09/03/14 14:38:35 Start Date: 09/03/14 Status: Ordered clonazePAM 1 mg oral tablet 1 tablet = 1 mg, By Mouth, 2 times a day, # 60 tablet, 5 Refills, Soft Stop, 07/26/19 16:19:00 EST,[facility]/pharmacy #1230, 162, cm, 07/26/19 15:53:00 EST, [...] Start Date: 01/01/12 Status: Ordered nystatin topical 829479 u/gm cream 1 application, Topically, 2 times a day, # 30 Gm, 5 Refills, Maintenance, 07/26/19 16:20:00 EST, Cream, [facility]/pharmacy #1230, 1 application Topically 2 times a day, 162, cm, 07/26/19 15:53:00 EST, Height Start Date: 07/26/19 Status: Ordered ProAir HFA 90 mcg/inh inhalation aerosol with adapter 1, puffs, Inhalation, 4 times a day, PRN, BRAND NAME ONLY, # 8.5 Gm, Refills 6, Tot. Refills 6, Maintenance, 07/26/19 16:20:00 EST, Aerosol, Route to Pharmacy Electronically, [id number], [facility]/pharmacy #1230, 162, cm, 07/26/19... Start Date: 07/26/19 Status: Ordered Probiotic Formula 1 capsule, By Mouth, Daily, 0 Refills, Maintenance Start Date: 05/12/13 Status: Ordered Serevent Diskus 50 mcg inhalation powder 1 each = 50 mcg, Inhalation, Every 12 hours, # 180 each, 11 Refills, Maintenance, 12/22/19 13:33:00EDT, Powder, [facility]/pharmacy #1230, 1 each Inhalation Every 12 [...]
--- OUTSIDE RECORDS SUMMARY | 2023-05-28 12:26 | XMS_ITS | Continuity of Care Document ---
Author Name Unknown Organization [facility] Jonny Idris lt Address [address] [place] [address]- Care Team Providers Care Battery Stacker Name Role Phone Soheila SORTO, Francisco Lim Primary Care Physician [facility] Date(s): 06/03/22 - 07/03/22 [facility] Adult [address] [place] [address]- Allergies, Adverse Reactions, Alerts Substance Reaction Severity [...] virus vaccine, inactivated 3 03/14/14 Re corded [id number] 12y+ bivalent booster vax 03/09/22 Recorded SARS-CoV-2 mRNA (bzygdnc-xlnv-ozdhq) vax 09/24/21 Recorded pneumococcal 13-valent vaccine 06/08/21 [...] pneumococcal 23-valent vaccine 05/27/01 Recorded 1Location History: [facility] 2Location History: [facility] 3[facility] 4Admin Note: [facility] 5Location History: [facility] 6Location History: [facility] Medications Albuterol (Eqv-ProAir HFA) 90 mcg/inh inhalation aerosol 2 puffs, Inhalation, 4 times a day, PRN NEEDED FOR WHEEZING, # 8.5 each, 11 Refills, Maintenance, 02/09/22 8:40:00 EDT, [facility] STORE 577[facility], 25, INHALE 2 PUFFS BY MOUTH 4 TIMES A DAY NEEDED FOR WHEEZING, 162, cm, 09/23/21 15:24:00 EDT, Height Start Date: 02/09/22 Status: Ordered amitriptyline 10 mg oral tablet 2, tablet, By Mouth, Daily at bedtime, INSTR:PATIENT IS ALLERGIC TO RED AND BLUE DYE, # 180 tablet,Refills 3, Tot. Refills 3, 05/26/22 15:23:00 EST, Route to Pharmacy Electronically, [facility]/pharmacy #1230, 162, cm, 05/26/22 14:47:00 EST, Height Start Date: 05/26/22 Status: Ordered azelastine nasal 0.15% spray 2 sprays, Nares, Both, Daily, PRN for allergy symptoms, # 30 mL, 5 Refills, Maintenance, 01/16/22 13:15:00 EDT, [place], Partial fill [...] tablet, 5 Refills, Maintenance, 05/26/22 15:23:00 EST, [facility]/pharmacy #1230, 162, cm, 05/26/22 14:47:00 EST, [...] Start Date: 09/27/15 Status: Ordered nystatin topical 182190 u/gm cream See Instructions, APPLY TO AFFECTED AREA TWICE A DAY, # 30 Gm, 11 Refills, Maintenance, 09/23/21 15:51:00 EDT, [facility]/pharmacy #1230, 30, APPLY TO AFFECTED AREA TWICE A DAY, 162, cm, 09/23/21 15:24:00 EDT, Height Start Date: 09/23/21 Status: Ordered Probiotic Formula 1 capsule, By Mouth, Daily, 0 Refills, Maintenance Start Date: 05/12/13 Status: Ordered Serevent Diskus 50 mcg inhalation powder 1 puffs = 50 mcg, Inhalation, 2 times a day, # 3 each, 3 Refills, Maintenance, 06/10/22 15:52:00 EST, [place], [facility], Partial fill upon patient request [...] Tinea cruris Confirmed Active 1U/S done at [place] 2Colonoscopy 2011 normal, repeat 2021. 3colo 2011 [...] Team Personnel Name: Francisco Parnell MD Position: [facility] Primary Care Physician Member Role: PCP Address: Address: [address] [place] [address]- Care Team Related Persons Name: DONAVON PETTIT Name: DONAVON REDDING Address: home [address] [place] [address] Name: MARY LOYD Address: [address] Name: MARY PHILLIPS Address: [address] [address]
--- OUTSIDE RECORDS SUMMARY | 2023-05-28 12:26 | XMS_ITS | Continuity of Care Document ---
Author Name Unknown Organization [facility] Idris lt Address [address] [place] [address]- Care Team Providers Care Table Maker Name Role Phone Soheila SORTO, Francisco Lim Primary Care Physician [facility] Date(s): 09/22/22 - 10/22/22 [facility] Adult [address] [place] [address]- Allergies, Adverse Reactions, Alerts Substance Reaction Severity Status meclizine Active Bactrim Active Lexapro manic depressive thoughts Ac tive traZODone BRAIN FOG SEVERE Active hydrOXYzine Unknown Active selective serotonin reuptake [...] virus vaccine, inactivated 3 03/14/14 Re corded [id number] 12y+ bivalent booster vax 03/09/22 Recorded SARS-CoV-2 mRNA (mwsvxfq-bemr-yvgvb) vax 09/24/21 Recorded pneumococcal 13-valent vaccine 06/08/21 [...] pneumococcal 23-valent vaccine 05/27/01 Recorded 1Location History: [facility] 2Location History: [facility] 3Location History: [facility] 4Admin Note: [facility] 5Location History: [facility] [place] 6Location History: [facility] Medications Albuterol (Eqv-ProAir HFA) 90 mcg/inh inhalation aerosol 2 puffs, Inhalation, 4 times a day, PRN NEEDED FOR WHEEZING, # 8.5 each, 11 Refills, Maintenance, 02/09/22 8:40:00 EDT, [facility] STORE 428[facility], 25, INHALE 2 PUFFS BY MOUTH 4 TIMES A DAY NEEDED FOR WHEEZING, 162, cm, 09/23/21 15:24:00 EDT, Height Start Date: 02/09/22 Status: Ordered amitriptyline 10 mg oral tablet 2, tablet, By Mouth, Daily at bedtime, INSTR:PATIENT IS ALLERGIC TO RED AND BLUE DYE, # 180 tablet,Refills 3, Tot. Refills 3, 05/26/22 15:23:00 EST, Route to Pharmacy Electronically, [facility]/pharmacy #1230, 162, cm, 05/26/22 14:47:00 EST, Height Start Date: 05/26/22 Status: Ordered azelastine nasal 0.15% spray 2 sprays, Nares, Both, Daily, PRN for allergy symptoms, # 30 mL, 5 Refills, Maintenance, 01/16/22 13:15:00 EDT, [place], [facility], Partial fill [...] tablet, 5 Refills, Maintenance, 05/26/22 15:23:00 EST, [facility]/pharmacy #1230, 162, cm, 05/26/22 14:47:00 EST, [...] Start Date: 09/27/15 Status: Ordered nystatin topical 383211 u/gm cream See Instructions, APPLY TO AFFECTED AREA TWICE A DAY, # 30 Gm, 1 Refills, Maintenance, 09/29/22 16:11:00 EDT, [facility] STORE 612[facility], 30, APPLY TO AFFECTED AREA TWICE A DAY, 162, cm, 05/26/22 14:47:00 EST, Height Start Date: 09/29/22 Status: Ordered Probiotic Formula 1 capsule, By Mouth, Daily, 0 Refills, Maintenance Start Date: 05/12/13 Status: Ordered Serevent Diskus 50 mcg inhalation powder 1 puffs = 50 mcg, Inhalation, 2 times a day, # 3 each, 3 Refills, Maintenance, 06/10/22 15:52:00 EST, [place], [facility], Partial fill upon patient request [...] Tinea cruris Confirmed Active 1U/S done at [place] 2Colonoscopy 2011 normal, repeat 2021. 3colo 2011 [...] Team Personnel Name: Francisco Parnell MD Position: [facility] Primary Care Physician Member Role: PCP Address: Address: [address] [place] [address]- Care Team Related Persons Name: DONAVON PETTIT Name: DONAVON REDDING Address: home [address] [place] [address] Name: MARY LOYD Address: [address] [address] Name: MARY PHILLIPS Address: home [address] [address]
--- OUTSIDE RECORDS SUMMARY | 2023-05-28 12:26 | XMS_ITS | Continuity of Care Document ---
Author Name Unknown Organization [facility] Idris [facility] Address [address] [place] [address]- Care Team Providers Care Tailings Dam Pumper Name Role Phone Soheila SORTO, Francisco Lim Primary Care Physician [facility] Date[facility]s): 07/[facility]/20 - 08/28/20 [facility] [address] [place] [address]- Allergies, Adverse Reactions, Alerts Substance Reaction Severity [...] [facility] 6Location History: [facility] Medications albuterol CFC free 90 mcg/inh inhalation aerosol 2, puffs, Inhalation, 4 times a day, PRN, # 1 each, Refills 1, Tot. Refills 1, Maintenance, 07/31/20 20:56:00 EST, Aerosol, Route to Pharmacy Electronically, [id number], [facility], 162, cm, 02/20/20 14:33:00 EDT, [...] mL, 5 Refills, Maintenance, 05/27/20 16:22:00 EST, [place], [facility], 2 sprays Nares, Both 2 [...] Start Date: 01/01/12 Status: Ordered nystatin topical 292134 u/gm cream 1 application, Topically, 2 times a day, # 30 Gm, 1 Refills, Maintenance, 07/30/20 7:20:00 EST, Cream, [facility]/pharmacy #1230, 1 application Topically 2 times a day, 162, cm, 02/20/20 14:33:00 EDT, Height Start Date: 07/30/20 Status: Ordered ProAir HFA 90 mcg/inh inhalation aerosol with adapter 1, puffs, Inhalation, 4 times a day, PRN, BRAND NAME ONLY, # 8.5 Gm, Refills 5, Tot. Refills 5, Maintenance, 07/29/20 11:02:00 EST, Aerosol, Route to Pharmacy Electronically, [id number], [facility]/pharmacy #1230, 162, cm, 02/20/20... Start Date: 07/29/20 Status: Ordered Probiotic Formula 1 capsule, By Mouth, Daily, 0 Refills, Maintenance Start Date: 05/12/13 Status: Ordered Serevent Diskus 50 mcg inhalation powder 1 each = 50 mcg, Inhalation, Every 12 hours, # 180 each, 11 Refills, Maintenance, 12/22/19 13:33:00EDT, Powder, [facility]/pharmacy #1230, 1 each Inhalation Every 12 [...]
--- OUTSIDE RECORDS SUMMARY | 2023-05-28 12:26 | XMS_ITS | Continuity of Care Document ---
Author Name Unknown Organization [facility] Address [address] [place] [address]- Care Team Providers Care Silo Operator Name Role Phone Francisco Parnell MD Primary Care Physician [phone] Encounter [facility] Date(s): 11/20/22 - 12/20/22 [facility] [address] [place] [address]- Allergies, Adverse Reactions, Alerts Substance Reaction Severity [...] virus vaccine, inactivated 3 03/14/14 Re corded [id number] 12y+ bivalent booster vax 03/09/22 Recorded SARS-CoV-2 mRNA ([id number]-clabc) vax 09/24/21 Recorded pneumococcal 13-valent vaccine 06/08/21 [...] pneumococcal 23-valent vaccine 05/27/01 Recorded 1Location History: [facility] 2Location History: [facility] 3Location History: [facility] [place] 4Admin Note: [facility] 5[facility] 6Location History: [facility] Medications Albuterol (Eqv-ProAir HFA) 90 [...] mL, 5 Refills, Maintenance, 01/16/22 13:15:00 EDT, [place], [facility], Partial fill [...] tablet, 5 Refills, Maintenance, 05/26/22 15:23:00 EST, [facility]1230, 162, cm, 05/26/22 14:47:00 EST, Height [...] tablet, 1 Refills, Maintenance, 11/19/22 15:29:00 EDT, [facility]/pharmacy #1230, Partial fill upon patient request if the prescription is for a schedule II opioid drug., 162, cm, 11/18/22 15:00:00 EDT, Height... Start Date: 11/19/22 Status: Ordered nystatin topical 103758 u/gm cream See Instructions, APPLY TO AFFECTED AREA TWICE A DAY, # 30 Gm, 1 Refills, Maintenance, 11/22/22 13:10:00 EDT, [facility], 30, APPLY TO AFFECTED AREA TWICE A [...] 3 Refills, Maintenance, 06/10/22 15:52:00 EST, [place], [facility], Partial fill upon patient request if the prescription is for a schedule II opioid drug., 1 puffs Inhalatio... Start Date: 06/10/22 Status: Ordered tiZANidine 2 mg oral tablet 1, tablet, By Mouth, Every 8 hours, PRN, # 90 tablet, Refills 0, Maintenance, NEEDED FOR, 12/16/22 10:38:00 EDT, Route to Pharmacy Electronically, [facility], 162, cm, 11/18/22 15:00:00 EDT, Height, 76, [...] Tinea cruris Confirmed Active 1U/S done at [place] 2Colonoscopy 2011 normal, repeat 2021. 3colo 2011 [...] Primary Care Member Role: PCP Address: Address: [address] [place] [address]- Care Team Related Persons Name: DONAVON PETTIT Name: DONAVON REDDING Address: home [address] [place] [address] Name: MARY LOYD Address: home [address] [address] Name: MARY PHILLIPS Address: [address] [address]
--- OUTSIDE RECORDS SUMMARY | 2023-05-28 12:26 | XMS_ITS | Continuity of Care Document ---
Author Name Unknown Organization [facility] Idris lt Address [address] [place] [address]- Care Team Providers Care Barratte Operator Name Role Phone Francisco Parnell MD Primary Care Physician [phone] Encounter [facility] Date(s): 02/12/20 - 02/19/20 [facility] Adult [address] [place] [address]- [facility] Encounter Diagnosis Anxiety(Discharge Diagnosis) - 02/12/20 Insomnia(Discharge Diagnosis) - 02/12/20 Increased frequency of urination(Discharge Diagnosis) - 02/12/20 Attending Physician: Francisco Parnell MD Allergies, Adverse [...] [facility] 6Location History: [facility] Medications amitriptyline 10 mg oral tablet 20 mg, 2, tablet, By Mouth, Daily at bedtime, Patient is allergic to red and blue dye. Pt requires a tablet that is dye free., # 60 tablet, Refills 11, Tot. Refills 11, Maintenance, 07/26/19 16:18:00EST, Route to Pharmacy Electronically, [facility]/pharmacy... Start Date: 07/26/19 Status: Ordered Calcium And Vitamin D Combination See Instructions, 1 tab daily, 0 Refills, Maintenance, 10/25/15 10:45:23 Start Date: 10/25/15 Status: Ordered Choline 0 Refills, Maintenance, 09/03/14 14:38:35 Start Date: 09/03/14 Status: Ordered clonazePAM 1 mg oral tablet 1 tablet = 1 mg, By Mouth, 2 times a day, # 60 tablet, 5 Refills, Soft Stop, 02/12/20 15:30:00 EDT,[facility]/pharmacy #1230, 162, cm, 02/12/20 15:07:00 [...] Start Date: 01/01/12 Status: Ordered nystatin topical 464657 u/gm cream 1 application, Topically, 2 times a day, # 30 Gm, 5 Refills, Maintenance, 07/26/19 16:20:00 EST, Cream, [facility]/pharmacy #1230, 1 application Topically 2 times a day, 162, cm, 07/26/19 15:53:00 EST, Height Start Date: 07/26/19 Status: Ordered ProAir HFA 90 mcg/inh inhalation aerosol with adapter 1, puffs, Inhalation, 4 times a day, PRN, BRAND NAME ONLY, # 8.5 Gm, Refills 6, Tot. Refills 6, Maintenance, 07/26/19 16:20:00 EST, Aerosol, Route to Pharmacy Electronically, [id number], [facility]/pharmacy #1230, 162, cm, 07/26/19... Start Date: 07/26/19 Status: Ordered Probiotic Formula 1 capsule, By Mouth, Daily, 0 Refills, Maintenance Start Date: 05/12/13 Status: Ordered Serevent Diskus 50 mcg inhalation powder 1 each = 50 mcg, Inhalation, Every 12 hours, # 180 each, 11 Refills, Maintenance, 12/22/19 13:33:00EDT, [place], [facility]/pharmacy #1230, 1 each Inhalation Every [...] Cl inical Service Informant Anxiety Discharge Diagnosis 02/12/20 Insomnia Discharge Diagnosis 02/12/20 Increased frequency of urination Discharge Diagnosis 02/12/20 Vital Signs Most recent to oldest [Reference Range]: 1 2 Height 162 cm (02/12/20 3:07 PM) 162 cm (02/12/20 2:51 PM) Weight 73.6 kg (02/12/20 2:51 PM) Oxygen Saturation [94-100 %] 98 % (02/12/20 2:51 PM) Pulse Rate [55-90 bpm] 101 bpm *H* (02/12/20 2:51 PM) Body Mass Index [18.5-24.99] 28.04 *H* (02/12/20 2:51 PM) Blood Pressure [90-138/55-84 mm Hg] 124/ 62mm Hg (02/12/20 2:51 PM) Mode of Delivery (Oxygen) Room air (02/12/20 2:51 PM) Blood pressure sites Arm, left (02/12/20 2:51 PM) Weight Obtained Via Standing scale (02/12/20 2:51 PM) Social History Social History Type Response Smoking Status Former smoker; Other : Quit smoking 2011.; entered on: 11/08/15 Sex
--- OUTSIDE RECORDS SUMMARY | 2023-05-28 12:26 | XMS_ITS | Continuity of Care Document ---
Author Name Unknown Organization [facility] Idris lt Address [address] [place] [address]- Care Team Providers Care Horseradish Maker Name Role Phone Francisco Parnell MD Primary Care Physician [facility] Date(s): 03/14/21 - 04/13/21 [facility] Adult [address] [place] [address]- Allergies, Adverse Reactions, Alerts Substance Reaction Severity [...] [facility] 6Location History: [facility] Medications albuterol CFC free 90 mcg/inh inhalation aerosol 2, puffs, Inhalation, 4 times a day, PRN, for 30 days, # 1 each, Refills 11, Tot. Refills 11, Hard Stop 08/29/21 15:52:00 EDT, 09/03/20 15:52:00 EDT, Aerosol, Route to Pharmacy Electronically, [id number], [facility]/pharmacy #1230,... Start Date: 09/03/20 Stop Date: 08/29/21 Status: Ordered amitriptyline 10 mg oral tablet 2, tablet, By Mouth, Daily at bedtime, INSTR:PATIENT IS ALLERGIC TO RED AND BLUE DYE, # 180 tablet,Refills 1, Tot. Refills 0, Maintenance, 12/29/20 13:31:00 EDT, Route to Pharmacy Electronically, [facility] STORE 08217, 162, cm, 09/03/20 15:36:00 EDT, Height Start [...] Refills, Soft Stop, 02/24/21 7:46:00 EDT, [facility]/pharmacy #1230, 162, cm, 01/23/21 14:21:00 [...] 30 sprays, 5 Refills, Acute, [facility], 30, SPRAY 2 SPRAYS INTO EACH NOSTRIL [...] Start Date: 01/01/12 Status: Ordered nystatin topical 581979 u/gm cream See Instructions, APPLY TO AFFECTED [...] Refills, Maintenance, 12/29/20 13:31:00 EDT, [facility], 90, INHALE 1 PUFF BY MOUTH EVERY [...]
--- OUTSIDE RECORDS SUMMARY | 2023-05-28 12:26 | XMS_ITS | Continuity of Care Document ---
Author Name Unknown Organization [facility] Address [address] [place] [address]- Care Team Providers Care Lease Analyst Name Role Phone Soheila SORTO, Francisco Lim Primary Care Physician [facility] Date(s): 02/23/23 - 03/25/23 [facility] [address] [place] [address] [place] [address]- Allergies, Adverse Reactions, Alerts Substance Reaction Severity [...] virus vaccine, inactivated 3 03/14/14 Re corded [id number] 12y+ bivalent booster vax 03/09/22 Recorded SARS-CoV-2 mRNA (jlrmwqq-dtgd-mkalh) vax 09/24/21 Recorded pneumococcal 13-valent vaccine 06/08/21 [...] pneumococcal 23-valent vaccine 05/27/01 Recorded 1Location History: [facility] 2Location History: [facility] 3Location History: [facility] [place] 4Admin Note: [facility] 5[facility] 6Location History: [facility] Medications Albuterol (Eqv-ProAir HFA) 90 mcg/inh inhalation aerosol 2 puffs, Inhalation, 4 times a day, PRN NEEDED FOR WHEEZING, # 8.5 each, 5 Refills, Maintenance,11/22/22 10:28:00 EDT, [facility]/pharmacy #1230, 25, 2 puffs Inhalation 4 times a day,PRN: NEEDED FOR WHEEZING, 162, cm, 11/18/22 15:00:00 EDT, Height, 76,... Start Date: 11/22/22 Status: Ordered amitriptyline 10 mg oral tablet 2, tablet, By Mouth, Daily at bedtime, INSTR:PATIENT IS ALLERGIC TO RED AND BLUE DYE, # 180 tablet,Refills 3, Tot. Refills 3, 05/26/22 15:23:00 EST, Route to Pharmacy Electronically, [facility]/pharmacy #1230, 162, cm, 05/26/22 14:47:00 EST, [...] tablet, 0 Refills, Maintenance, 03/04/23 12:27:00 EDT, [facility]/pharmacy #7111, 162, cm, 12/30/22 15:36:00 EDT, Height, 76, kg, 11/10/22 16:02:00 EDT, Dry Weight Start Date: 03/04/23 Stop Date: 04/03/23 Status: Ordered clonazePAM 1 mg oral tablet 1 tablet, By Mouth, 2 times a day, # 60 tablet, 5 Refills, Maintenance, 12/30/22 16:09:00 EDT, [facility]/pharmacy #1230, 162, cm, 12/30/22 15:36:00 EDT, Height, 76, kg, 11/10/22 16:02:00 EDT, Dry Weight Start Date: 12/30/22 Stop Date: 06/28/23 Status: Ordered D-Mannose Maintenance, urinary frequency, 12/17/16 11:39:55, D-Mannose Start Date: 12/17/16 Status: Ordered Flonase 50 mcg/inh nasal spray 2 sprays, Nares, Both, Daily in AM, 0 Refills, Maintenance, 12/30/22 16:08:00 EDT, [place], Partial fill upon patient request if the [...] tablet, 1 Refills, Maintenance, 03/18/23 11:42:00 EDT, [facility]/pharmacy #1230, Partial fill upon patient request if the prescription is for a schedule II opioid drug., 162, cm, 12/30/22 15:36:00 EDT, Height... Start Date: 03/18/23 Status: Ordered nystatin topical 309027 u/gm cream See Instructions, APPLY TO AFFECTED AREA TWICE A DAY, # 30 Gm, 11 Refills, Maintenance, 12/30/22 16:08:00 EDT, [facility]/pharmacy #1230, 30, APPLY TO AFFECTED AREA [...] 3 Refills, Maintenance, 06/10/22 15:52:00 EST, Pow[place], [facility], Partial fill upon patient request if the prescription is for a schedule II opioid drug., 1 puffs Inhalatio... Start Date: 06/10/22 Status: Ordered tiZANidine 2 mg oral tablet 1, tablet, By Mouth, Every 8 hours, PRN, # 90 tablet, Refills 1, Maintenance, NEEDED, 02/03/23 16:10:00 EDT, Route to Pharmacy Electronically, [facility] STORE 09618, 162, cm, 12/30/22 15:36:00 EDT, Height, 76, [...] Tinea cruris Confirmed Active 1U/S done at [place] 2Colonoscopy 2011 normal, repeat 2021. 3colo 2011 [...] Team Personnel Name: Francisco Parnell MD Position: [facility] Physician - Primary Care Member Role: PCP Address: Address: [address] [place] [address]- Care Team Related Persons Name: DONAVON PETTIT Name: DONAVON REDDING Address: home [address] [place] [address] Name: MARY LOYD Address: [address] [address] Name: MARY PHILLIPS Address: [address] [address]
--- OUTSIDE RECORDS SUMMARY | 2023-05-28 12:26 | XMS_ITS | Continuity of Care Document ---
Author Name Unknown Organization [facility] Address [address] [place] [address]- Care Team Providers Care Manufacturing Recruiter Name Role Phone Francisco Parnell MD Primary Care Physician [facility] Date(s): 09/30/21 - 10/30/21 [facility] Adult [address] [place] [address]- Allergies, Adverse Reactions, Alerts Substance Reaction Severity [...] Note: [facility] 6Location History: [facility] Medications amitriptyline 10 mg oral tablet 2, tablet, By Mouth, Daily at bedtime, INSTR:PATIENT IS ALLERGIC TO RED AND BLUE DYE, # 180 tablet,Refills 3, Tot. Refills 3, 09/23/21 15:52:00 EDT, Route to Pharmacy Electronically, [facility]/pharmacy #1230, 162, cm, 09/23/21 15:24:00 EDT, Height Start Date: 09/23/21 Status: Ordered azelastine nasal 0.15% spray 2 sprays, Nares, Both, Daily, PRN for allergy symptoms, # 30 mL, 11 Refills, Maintenance, 07/17/21 12:30:00 EST, [place], [facility]/pharmacy #1230, Partial fill upon patient request [...] tablet, 5 Refills, Soft Stop, 06/11/21 13:09:00 EST,[facility]12[facility], 162, cm, 03/10/21 14:31:00 EDT, Height [...] Start Date: 09/27/15 Status: Ordered nystatin topical 893543 u/gm cream See Instructions, APPLY TO AFFECTED AREA TWICE A DAY, # 30 Gm, 11 Refills, Maintenance, 09/23/21 15:51:00 EDT, [facility]/pharmacy #1230, 30, APPLY TO AFFECTED AREA [...] Unknown, 5 Refills, Maintenance, 12/29/20 13:31:00 EDT, [facility] STORE 38972, 90, INHALE 1 PUFF BY MOUTH EVERY [...]
--- OUTSIDE RECORDS SUMMARY | 2023-05-28 12:26 | XMS_ITS | Continuity of Care Document ---
Author Name Unknown Organization [facility] Address [address] [place] [address]- Care Team Providers Care Sourcing Engineer Name Role Phone Soheila SORTO, Francisco Lim Primary Care Physician Encounter [facility] Date(s): 06/12/20 - 07/12/20 [facility] [address] [place] [address]- Attending Physician: Nabila Casarez Admitting Physician: AdmtrNabila [...] History: [facility] [place] 6Location History: [facility] Medications amitriptyline 10 mg oral tablet 20 mg, 2, tablet, By Mouth, Daily at bedtime, Patient is allergic to red and blue dye. Pt requires a tablet that is dye free., # 60 tablet, Refills 11, Tot. Refills 11, Maintenance, 07/26/19 16:18:00EST, Route to Pharmacy Electronically, [facility]/pharmacy... Start Date: 07/26/19 Status: Ordered Calcium And Vitamin D Combination See Instructions, 1 tab daily, 0 Refills, Maintenance, 10/25/15 10:45:23 Start Date: 10/25/15 Status: Ordered Choline 0 Refills, Maintenance, 09/03/14 14:38:35 Start Date: 09/03/14 Status: Ordered clonazePAM 1 mg oral tablet 1 tablet = 1 mg, By Mouth, 2 times a day, # 60 tablet, 5 Refills, Soft Stop, 02/12/20 15:30:00 EDT,[facility], 162, cm, 02/12/20 15:07:00 EDT, Height Start Date: 02/12/20 Stop Date: 08/10/20 Status: Ordered D-Mannose Maintenance, urinary frequency, 12/17/16 11:39:55, D-Mannose Start Date: 12/17/16 Status: Ordered hyluronic acid Maintenance, 12/17/16 11:49:49, hyluronic acid Start Date: 12/17/16 Status: Ordered ipratropium nasal 21 mcg/inh spray 2 sprays, Nares, Both, 2 times a day, # 30 mL, 5 Refills, Maintenance, 05/27/20 16:22:00 EST, [place], 2 sprays Nares, Both 2 [...] Start Date: 01/01/12 Status: Ordered nystatin topical 083226 u/gm cream 1 application, Topically, 2 times a day, # 30 Gm, 1 Refills, Maintenance, 03/29/20 15:20:00 EDT, Cream, [facility]/pharmacy #1230, 1 application Topically 2 times a day, 162, cm, 02/20/20 14:33:00 EDT, Height Start Date: 03/29/20 Status: Ordered ProAir HFA 90 mcg/inh inhalation aerosol with adapter 1, puffs, Inhalation, 4 times a day, PRN, BRAND NAME ONLY, # 8.5 Gm, Refills 6, Tot. Refills 6, Maintenance, 07/26/19 16:20:00 EST, Aerosol, Route to Pharmacy Electronically, [id number], [facility]/pharmacy #1230, 162, cm, 07/26/19... Start Date: 07/26/19 Status: Ordered Probiotic Formula 1 capsule, By Mouth, Daily, 0 Refills, Maintenance Start Date: 05/12/13 Status: Ordered Serevent Diskus 50 mcg inhalation powder 1 each = 50 mcg, Inhalation, Every 12 hours, # 180 each, 11 Refills, Maintenance, 12/22/19 13:33:00EDT, [place], [facility]/pharmacy #1230, 1 each Inhalation Every 12 [...]
--- OUTSIDE RECORDS SUMMARY | 2023-05-28 12:26 | XMS_ITS | Continuity of Care Document ---
Author Name Unknown Organization [facility] Address [address] [place] [address]- Care Team Providers Care Surgery Nurse Name Role Phone Francisco Parnell MD Primary Care Physician Encounter [facility] Date(s): 06/12/20 - 06/19/20 [facility] [address] [place] [address]- Attending Physician: Cherie Gong MD Referring Physician: Francisco Parnell MD Allergies, Adverse Reactions, [...] [facility] 3Location History: [facility] [place] 4[facility] 6Location History: [facility] Medications amitriptyline 10 mg oral tablet 20 mg, 2, tablet, By Mouth, Daily at bedtime, Patient is allergic to red and blue dye. Pt requires a tablet that is dye free., # 60 tablet, Refills 11, Tot. Refills 11, Maintenance, 07/26/19 16:18:00EST, Route to Pharmacy Electronically, [facility]/pharmacy... Start Date: 07/26/19 Status: Ordered Calcium And Vitamin D Combination See Instructions, 1 tab daily, 0 Refills, Maintenance, 10/25/15 10:45:23 Start Date: 10/25/15 Status: Ordered Choline 0 Refills, Maintenance, 09/03/14 14:38:35 Start Date: 09/03/14 Status: Ordered clonazePAM 1 mg oral tablet 1 tablet = 1 mg, By Mouth, 2 times a day, # 60 tablet, 5 Refills, Soft Stop, 02/12/20 15:30:00 EDT,[facility]/pharmacy #1230, 162, cm, 02/12/20 15:07:00 EDT, Height Start Date: 02/12/20 Stop Date: 08/10/20 Status: Ordered D-Mannose Maintenance, urinary frequency, 12/17/16 11:39:55, D-Mannose Start Date: 12/17/16 Status: Ordered hyluronic acid Maintenance, 12/17/16 11:49:49, hyluronic acid Start Date: 12/17/16 Status: Ordered ipratropium nasal 21 mcg/inh spray 2 sprays, Nares, Both, 2 times a day, # 30 mL, 5 Refills, Maintenance, 05/27/20 16:22:00 EST, [place], [facility]/pharmacy #1230, 2 sprays Nares, Both 2 times [...] Start Date: 01/01/12 Status: Ordered nystatin topical 692030 u/gm cream 1 application, Topically, 2 times a day, # 30 Gm, 1 Refills, Maintenance, 03/29/20 15:20:00 EDT, Cream, [facility]/pharmacy #1230, 1 application Topically 2 times a day, 162, cm, 02/20/20 14:33:00 EDT, Height Start Date: 03/29/20 Status: Ordered ProAir HFA 90 mcg/inh inhalation aerosol with adapter 1, puffs, Inhalation, 4 times a day, PRN, BRAND NAME ONLY, # 8.5 Gm, Refills 6, Tot. Refills 6, Maintenance, 07/26/19 16:20:00 EST, Aerosol, Route to Pharmacy Electronically, [id number], [facility]/pharmacy #1230, 162, cm, 07/26/19... Start Date: 07/26/19 Status: Ordered Probiotic Formula 1 capsule, By Mouth, Daily, 0 Refills, Maintenance Start Date: 05/12/13 Status: Ordered Serevent Diskus 50 mcg inhalation powder 1 each = 50 mcg, Inhalation, Every 12 hours, # 180 each, 11 Refills, Maintenance, 12/22/19 13:33:00EDT, Powder, [facility]/pharmacy #1230, 1 each Inhalation Every 12 hours, [...]
--- OUTSIDE RECORDS SUMMARY | 2023-05-28 12:26 | XMS_ITS | Continuity of Care Document ---
Author Name Unknown Organization [facility] Idris lt Address [address] [place] [address]- Care Team Providers Care Bender Machine Name Role Phone Soheila SORTO, Francisco Lim Primary Care Physician [place] [facility] Date(s): 08/16/19 - 09/15/19 [facility] Adult [address] [place] [address]- [facility] Attending Physician: Miracle TECHNOLOGIST DEVELOPMENT, Jasmin Allergies, Adverse Reactions, Alerts Substance Reaction Severity [...] Maintenance, 07/26/19 16:18:00EST, Route to Pharmacy Electronically, [facility]/pharmacy... Start Date: 07/26/19 Status: Ordered Anoro Ellipta 62.5 mcg-25 mcg/inh inhalation powder 1 puffs, Inhalation, Daily, # 3 each, 3 Refills, Maintenance, 09/05/19 11:23:00 EDT, [place], [facility]/pharmacy #1230, 1 puffs Inhalation Daily, 162, cm, 08/21/19 15:55:00 EDT, Height Start Date: 09/05/19 Status: Ordered Calcium And Vitamin D Combination [...] Start Date: 01/01/12 Status: Ordered nystatin topical 479803 u/gm cream 1 application, Topically, 2 times [...] 16:20:00 EST, Aerosol, Route to Pharmacy Electronically, [id number], [facility]/pharmacy #1230, 162, cm, 07/26/19... Start [...]
--- OUTSIDE RECORDS SUMMARY | 2023-05-28 12:26 | XMS_ITS | Continuity of Care Document ---
Author Name Unknown Organization [facility] [place] [place] Address [address] [place] [address]- Care Team Providers Care Musical Instrument Maker Name Role Phone Soheila SORTO, Francisco Lim Primary Care Physician [phone] Encounter [facility] Date(s): 09/03/20 - 09/10/20 [facility] Adult [address] [place] [address]- Encounter Diagnosis Anxiety(Discharge Diagnosis) - 09/03/20 Asthma(Discharge Diagnosis) - 09/03/20 Insomnia(Discharge Diagnosis) - 09/03/20 Rhinitis, allergic(Discharge Diagnosis) - 09/03/20 Attending Physician: Francisco Parnell MD Allergies, Adverse [...] medical center 5Location History: [facility] 6Location History: [facility] Medications albuterol CFC free 90 mcg/inh inhalation aerosol 2, puffs, Inhalation, 4 times a day, PRN, for 30 days, # 1 each, Refills 11, Tot. Refills 11, Hard Stop 08/29/21 15:52:00 EDT, 09/03/20 15:52:00 EDT, Aerosol, Route to Pharmacy Electronically, [id number], [facility] Start Date: 09/03/20 Stop Date: 08/29/21 Status: Ordered albuterol CFC free 90 mcg/inh inhalation aerosol 2, puffs, Inhalation, 4 times a day, PRN, # 1 each, Refills 5, Tot. Refills 5, Maintenance, 08/29/21 15:52:00 EDT, Aerosol, Route to Pharmacy Electronically, [id number], [facility]/pharmacy #1230, 162, cm, 09/03/20 15:36:00 EDT, Height [...] 2 Refills, Maintenance, 09/03/20 15:53:00 EDT, Cream, [facility]/pharmacy #1230, Partial fill upon patient request if the prescription is for a schedule II opioid drug., 1 application Topically 2 times a day,... Start Date: 09/03/20 Status: Ordered hyluronic acid Maintenance, 12/17/16 11:49:49, hyluronic acid Start Date: 12/17/16 Status: Ordered ipratropium nasal 21 mcg/inh spray 2 sprays, Nares, Both, 2 times a day, # 30 mL, 5 Refills, Maintenance, 05/27/20 16:22:00 EST, [place], [facility], 2 sprays Nares, Both 2 [...] Start Date: 01/01/12 Status: Ordered nystatin topical 959550 u/gm cream 1 application, Topically, 2 times a day, # 30 Gm, 1 Refills, Maintenance, 07/30/20 7:20:00 EST, [place], [facility], 1 application Topically 2 times a day, 162, cm, 02/20/20 14:33:00 EDT, Height Start Date: 07/30/20 Status: Ordered nystatin topical 799839 u/gm powder 1 application, Topically, 2 times a day, # 60 Gm, 2 Refills, Maintenance, 09/03/20 15:54:00 EDT, Powder, [facility]/pharmacy #1230, Partial fill upon patient request [...] each, 11 Refills, Maintenance, 12/22/19 13:33:00EDT, Powder, [facility]/pharmacy #1230, 1 each Inhalation Every 12 [...] Diagnosis Diagnosis Type Effective Dates Health Status [facility] Service Informant Anxiety Discharge Diagnosis 09/03/20 Asthma Discharge Diagnosis 09/03/20 Insomnia Discharge Diagnosis 09/03/20 Rhinitis, allergic Discharge Diagnosis 09/03/20 Vital Signs Most recent to oldest [Reference Range]: 1 Height 162 cm (09/03/20 3:36 PM) Weight 71.0 kg (09/03/20 3:36 PM) Oxygen Saturation [94-100 %] 96 % (09/03/20 3:36 PM) Pulse Rate [55-90 bpm] 95 bpm *H* (09/03/20 3:36 PM) Body Mass Index [18.5-24.99] 27.05 *H* (09/03/20 3:36 PM) Blood Pressure [90-138/55-84 mm Hg] 122/ 74mm Hg (09/03/20 3:36 PM) Blood pressure sites Arm, left (09/03/20 3:36 PM) Social History Social History Type Response Smoking Status Former smoker; Other : Quit smoking 2011.; entered on: 11/08/15 Sex
--- OUTSIDE RECORDS SUMMARY | 2023-05-28 12:27 | XMS_ITS | Continuity of Care Document ---
Author Name Unknown Organization [facility] Address [address] [place] [address]- Care Team Providers Care Supervisor Pipe Manufacture Name Role Phone Soheila SORTO, Francisco Lim Primary Care Physician [phone] [facility] Date(s): 07/25/20 - 08/24/20 [facility] [address] [place] [address]- Allergies, Adverse Reactions, Alerts Substance Reaction Severity [...] 20:56:00 EST, Aerosol, Route to Pharmacy Electronically, [id number], [facility], 162, cm, 02/20/20 14:33:00 EDT, [...] 5 Refills, Soft Stop, 07/30/20 7:21:00 EST, [facility]/pharmacy #1230, 08/05/20, 162, cm, 02/20/20 14:33:00 EDT, Height Start Date: 07/30/20 Stop Date: 01/26/21 Status: Ordered D-Mannose Maintenance, urinary frequency, 12/17/16 11:39:55, D-Mannose Start Date: 12/17/16 Status: Ordered hyluronic acid Maintenance, 12/17/16 11:49:49, hyluronic acid Start Date: 12/17/16 Status: Ordered ipratropium nasal 21 mcg/inh spray 2 sprays, Nares, Both, 2 times a day, # 30 mL, 5 Refills, Maintenance, 05/27/20 16:22:00 EST, [place], [facility], 2 sprays Nares, Both 2 [...] Start Date: 01/01/12 Status: Ordered nystatin topical 096255 u/gm cream 1 application, Topically, 2 times a day, # 30 Gm, 1 Refills, Maintenance, 07/30/20 7:20:00 EST, Cream, [facility]/pharmacy #1230, 1 application Topically 2 times a day, 162, cm, 02/20/20 14:33:00 EDT, Height Start Date: 07/30/20 Status: Ordered ProAir HFA 90 mcg/inh inhalation aerosol with adapter 1, puffs, Inhalation, 4 times a day, PRN, BRAND NAME ONLY, # 8.5 Gm, Refills 5, Tot. Refills 5, Maintenance, 07/29/20 11:02:00 EST, Aerosol, Route to Pharmacy Electronically, [id number], [facility]/pharmacy #1230, 162, cm, 02/20/20... Start Date: [...]
--- OUTSIDE RECORDS SUMMARY | 2023-05-28 12:27 | XMS_ITS | Continuity of Care Document ---
Author Name Unknown Organization [facility] [place] Address [address] [place] [address]- Care Team Providers Care Cross Cut Sawyer Name Role Phone Francisco Parnell MD Primary Care Physician [phone] Encounter [facility] Date(s): 10/03/21 - 11/02/21 [facility] [address] [place] [address]- Allergies, Adverse Reactions, Alerts Substance Reaction Severity [...] Note[facility] [place] 6Location History: [facility] Medications amitriptyline 10 mg oral tablet 2, tablet, By Mouth, Daily at bedtime, INSTR:PATIENT IS ALLERGIC TO RED AND BLUE DYE, # 180 tablet,Refills 3, Tot. Refills 3, 09/23/21 15:52:00 EDT, Route to Pharmacy Electronically, [facility]/pharmacy #1230, 162, cm, 09/23/21 15:24:00 EDT, Height Start Date: 09/23/21 Status: Ordered azelastine nasal 0.15% spray 2 sprays, Nares, Both, Daily, PRN for allergy symptoms, # 30 mL, 11 Refills, Maintenance, 07/17/21 12:30:00 EST, [place], [facility]/pharmacy #1230, Partial fill upon patient [...] tablet, 5 Refills, Soft Stop, 06/11/21 13:09:00 EST,[facility]/pharmacy #1230, 162, cm, 03/10/21 14:31:00 EDT, Height [...] Start Date: 09/27/15 Status: Ordered nystatin topical 529567 u/gm cream See Instructions, APPLY TO AFFECTED AREA TWICE A DAY, # 30 Gm, 11 Refills, Maintenance, 09/23/21 15:51:00 EDT, [facility]/pharmacy #1230, 30, APPLY TO AFFECTED AREA TWICE [...] Unknown, 5 Refills, Maintenance, 12/29/20 13:31:00 EDT, [facility] STORE 85072, 90, INHALE 1 PUFF BY MOUTH EVERY [...]
--- OUTSIDE RECORDS SUMMARY | 2023-05-28 12:27 | XMS_ITS | Continuity of Care Document ---
Author Name Unknown Organization [facility] Address [address] [place] [address]- Care Team Providers Care Pairer Odds Name Role Phone Francisco Parnell MD Primary Care Physician Encounter [facility] Date(s): 03/04/21 - 04/03/21 [facility] [address] [place] [address] Attending Physician: Nabila Casarez Admitting Physician: AdmtrNabila [...] 5[facility] History[facility] 6Location History: [facility] Medications albuterol CFC free 90 mcg/inh inhalation aerosol 2, puffs, Inhalation, 4 times a day, PRN, for 30 days, # 1 each, Refills 11, Tot. Refills 11, Hard Stop 08/29/21 15:52:00 EDT, 09/03/20 15:52:00 EDT, Aerosol, Route to Pharmacy Electronically, [id number], [facility]/pharmacy #1230,... Start Date: 09/03/20 Stop Date: 08/29/21 Status: Ordered amitriptyline 10 mg oral tablet 2, tablet, By Mouth, Daily at bedtime, INSTR:PATIENT IS ALLERGIC TO RED AND BLUE DYE, # 180 tablet,Refills 1, Tot. Refills 0, Maintenance, 12/29/20 13:31:00 EDT, Route to Pharmacy Electronically, [facility] STORE 48732, 162, cm, 09/03/20 15:36:00 EDT, Height Start [...] 5 Refills, Soft Stop, 02/24/21 7:46:00 EDT, [facility]/pharmacy #1230, 162, cm, 01/23/21 14:21:00 EDT, Height Start Date: 02/24/21 Stop Date: 08/23/21 Status: Ordered D-Mannose Maintenance, urinary frequency, 12/17/16 11:39:55, D-Mannose Start Date: 12/17/16 Status: Ordered FiberCon 625 mg oral tablet 1 tablet = 625 mg, By Mouth, Daily, # 30 tablet, 11 Refills, Maintenance, 03/13/21 10:44:00 EDT, [facility]/pharmacy #1230, Partial fill upon patient request if the prescription is for a schedule II opioid drug., 162, cm, 03/10/21 14:31:00 EDT, Height Start Date: 03/13/21 Status: Ordered fluocinonide 0.05% topical cream 1 application, Topically, 2 times a day, # 60 Gm, 2 Refills, Maintenance, 09/03/20 15:53:00 EDT, Cream, [facility]/pharmacy #1230, Partial fill upon [...] 30 sprays, 5 Refills, Acute, [facility], 30, SPRAY 2 SPRAYS INTO EACH NOSTRIL [...] Start Date: 01/01/12 Status: Ordered nystatin topical 359405 u/gm cream See Instructions, APPLY TO AFFECTED AREA TWICE A DAY, # 30 Gm, 11 Refills, Maintenance, 03/10/21 15:03:00 EDT, [facility]/pharmacy #1230, 30, APPLY TO AFFECTED AREA TWICE A DAY, 162, cm, 03/10/21 14:31:00 EDT, Height Start Date: 03/10/21 Status: Ordered Probiotic Formula 1 capsule, By Mouth, Daily, 0 Refills, Maintenance Start Date: 05/12/13 Status: Ordered Serevent Diskus 50 mcg inhalation powder 1 puffs, Inhalation, Every 12 hours, # 180 Unknown, 5 Refills, Maintenance, 12/29/20 13:31:00 EDT, [facility] STORE 87862, 90, INHALE 1 PUFF BY MOUTH EVERY [...]
--- OUTSIDE RECORDS SUMMARY | 2023-05-28 12:27 | XMS_ITS | Continuity of Care Document ---
Author Name Unknown Organization [facility] Address [address] [place] [address]- Care Team Providers Care Forestry Aid Technician Name Role Phone Soheila SORTO, Francisco Lim Primary Care Physician Encounter [facility] Date(s): 03/04/20 - 04/03/20 [facility] Adult [address] [place] [address]- [facility] Allergies, Adverse Reactions, Alerts Substance Reaction Severity [...] History: [facility] 6Location History: [facility] Medications amitriptyline 10 mg oral tablet 20 mg, 2, tablet, By Mouth, Daily at bedtime, Patient is allergic to red and blue dye. Pt requires a tablet that is dye free., # 60 tablet, Refills 11, Tot. Refills 11, Maintenance, 07/26/19 16:18:00EST, Route to Pharmacy Electronically, [facility]/pharmacy... Start Date: 07/26/19 Status: Ordered Calcium And Vitamin D Combination See Instructions, 1 tab daily, 0 Refills, Maintenance, 10/25/15 10:45:23 Start Date: 10/25/15 Status: Ordered Choline 0 Refills, Maintenance, 09/03/14 14:38:35 Start Date: 09/03/14 Status: Ordered clonazePAM 1 mg oral tablet 1 tablet = 1 mg, By Mouth, 2 times a day, # 60 tablet, 5 Refills, Soft Stop, 02/12/20 15:30:00 EDT,[facility]/pharmacy #1230, 162, cm, 02/12/20 15:07:00 EDT, Height [...] Start Date: 01/01/12 Status: Ordered nystatin topical 486781 u/gm cream 1 application, Topically, 2 times a day, # 30 Gm, 1 Refills, Maintenance, 03/29/20 15:20:00 EDT, Cream, [facility]/pharmacy #1230, 1 application Topically 2 times a day, 162, cm, 02/20/20 14:33:00 EDT, Height Start Date: 03/29/20 Status: Ordered ProAir HFA 90 mcg/inh inhalation aerosol with adapter 1, puffs, Inhalation, 4 times a day, PRN, BRAND NAME ONLY, # 8.5 Gm, Refills 6, Tot. Refills 6, Maintenance, 07/26/19 16:20:00 EST, Aerosol, Route to Pharmacy Electronically, [id number], [facility]/pharmacy #1230, 162, cm, 07/26/19... Start Date: 07/26/19 Status: Ordered Probiotic Formula 1 capsule, By Mouth, Daily, 0 Refills, Maintenance Start Date: 05/12/13 Status: Ordered Serevent Diskus 50 mcg inhalation powder 1 each = 50 mcg, Inhalation, Every 12 hours, # 180 each, 11 Refills, Maintenance, 12/22/19 13:33:00EDT, Powder, [facility]/pharmacy #1230, 1 each Inhalation Every 12 hours, [...]
--- OUTSIDE RECORDS SUMMARY | 2023-05-28 12:27 | XMS_ITS | Continuity of Care Document ---
Author Name Unknown Organization [facility] [place] [facility] Address [address] [place] [address]- Care Team Providers Care Pilot Fuel Engineer Name Role Phone Soheila SORTO, Francisco Lim Primary Care Physician Encounter [facility] Date(s): 12/22/19 - 01/21/20 [facility] [facility] [address] [place] [address]- [facility] Allergies, Adverse Reactions, Alerts Substance Reaction [...] History: [facility] [place] 6Location History: [facility] Medications amitriptyline 10 mg oral tablet 20 mg, 2, tablet, By Mouth, Daily at bedtime, Patient is allergic to red and blue dye. Pt requires a tablet that is dye free., # 60 tablet, Refills 11, Tot. Refills 11, Maintenance, 07/26/19 16:18:00EST, Route to Pharmacy Electronically, [facility]/pharmacy... Start Date: 07/26/19 Status: Ordered Calcium And Vitamin D Combination See Instructions, 1 tab daily, 0 Refills, Maintenance, 10/25/15 10:45:23 Start Date: 10/25/15 Status: Ordered Choline 0 Refills, Maintenance, 09/03/14 14:38:35 Start Date: 09/03/14 Status: Ordered clonazePAM 1 mg oral tablet 1 tablet = 1 mg, By Mouth, 2 times a day, # 60 tablet, 5 Refills, Soft Stop, 07/26/19 16:19:00 EST,[facility]/pharmacy #1230, 162, cm, 07/26/19 15:53:00 [...] Start Date: 01/01/12 Status: Ordered nystatin topical 078876 u/gm cream 1 application, Topically, 2 times a day, # 30 Gm, 5 Refills, Maintenance, 07/26/19 16:20:00 EST, Cream, [facility]/pharmacy #1230, 1 application Topically 2 times a day, 162, cm, 07/26/19 15:53:00 EST, Height Start Date: 07/26/19 Status: Ordered ProAir HFA 90 mcg/inh inhalation aerosol with adapter 1, puffs, Inhalation, 4 times a day, PRN, BRAND NAME ONLY, # 8.5 Gm, Refills 6, Tot. Refills 6, Maintenance, 07/26/19 16:20:00 EST, Aerosol, Route to Pharmacy Electronically, [id number], [facility], 162, cm, 07/26/19... Start Date: 07/26/19 Status: Ordered Probiotic Formula 1 capsule, By Mouth, Daily, 0 Refills, Maintenance Start Date: 05/12/13 Status: Ordered Serevent Diskus 50 mcg inhalation powder 1 each = 50 mcg, Inhalation, Every 12 hours, # 180 each, 11 Refills, Maintenance, 12/22/19 13:33:00EDT, Powder, [facility]/pharmacy #1230, 1 each Inhalation Every [...]
--- OUTSIDE RECORDS SUMMARY | 2023-05-28 12:27 | XMS_ITS | Continuity of Care Document ---
Author Name Unknown Organization [facility] [place] Address [address] [place] [address]- Care Team Providers Care Investigator Utility Bill Complaints Name Role Phone Soheila SORTO, Francisco Lim Primary Care Physician [phone] Encounter [facility] Date(s): 07/14/19 - 11/11/19 [facility] [place] [address] [place] [address]- [facility] Attending Physician: Bishop Miller MD Allergies, Adverse Reactions, [...] History: [facility] [place] 6Location History: [facility] Medications amitriptyline 10 mg oral tablet 20 mg, 2, tablet, By Mouth, Daily at bedtime, Patient is allergic to red and blue dye. Pt requires a tablet that is dye free., # 60 tablet, Refills 11, Tot. Refills 11, Maintenance, 07/26/19 16:18:00EST, Route to Pharmacy Electronically, [facility]/pharmacy... Start Date: 07/26/19 Status: Ordered Calcium And Vitamin D Combination See Instructions, 1 tab daily, 0 Refills, Maintenance, 10/25/15 10:45:23 Start Date: 10/25/15 Status: Ordered Choline 0 Refills, Maintenance, 09/03/14 14:38:35 Start Date: 09/03/14 Status: Ordered clonazePAM 1 mg oral tablet 1 tablet = 1 mg, By Mouth, 2 times a day, # 60 tablet, 5 Refills, Soft Stop, 07/26/19 16:19:00 EST,[facility]/pharmacy #1230, 162, cm, 07/26/19 15:53:00 EST, Height Start Date: 07/26/19 Stop Date: 01/22/20 Status: Ordered D-Mannose Maintenance, urinary frequency, 12/17/16 11:39:55, D-Mannose Start Date: 12/17/16 Status: Ordered fluticasone-salmeterol 500 mcg-50 mcg inhalation powder 1, puffs, Inhalation, 2 times a day, # 60 each, Refills 11, Tot. Refills 11, Maintenance, 10/16/19 11:57:00 EDT, Powder, Route to Pharmacy Electronically, [id number], [facility]/pharmacy #1230, 162, cm, 08/21/19 15:55:00 EDT, Height [...] Start Date: 01/01/12 Status: Ordered nystatin topical 872885 u/gm cream 1 application, Topically, 2 times a day, # 30 Gm, 5 Refills, Maintenance, 07/26/19 16:20:00 EST, Cream, [facility]/pharmacy #1230, 1 application Topically 2 times a day, 162, cm, 07/26/19 15:53:00 EST, Height Start Date: 07/26/19 Status: Ordered ProAir HFA 90 mcg/inh inhalation aerosol with adapter 1, puffs, Inhalation, 4 times a day, PRN, BRAND NAME ONLY, # 8.5 Gm, Refills 6, Tot. Refills 6, Maintenance, 07/26/19 16:20:00 EST, Aerosol, Route to Pharmacy Electronically, [id number], [facility]/pharmacy #1230, 162, cm, 07/26/19... Start Date: 07/26/19 [...]
--- OUTSIDE RECORDS SUMMARY | 2023-05-28 12:27 | XMS_ITS | Continuity of Care Document ---
Author Name Unknown Organization [facility] Address [address] [place] [address]- Care Team Providers Care Charging Car Operator Name Role Phone Soheila SORTO, Francisco Lim Primary Care Physician Encounter [facility] Date(s): 12/30/22 - 01/06/23 [facility] Adult [address] [place] [address]- Encounter Diagnosis Anxiety(Discharge Diagnosis) - 12/30/22 Asthma(Discharge Diagnosis) - 12/30/22 IBS (irritable bowel syndrome)(Discharge Diagnosis) - 12/30/22 Rhinitis, allergic(Discharge Diagnosis) - 12/30/22 Insomnia(Discharge Diagnosis) - 12/30/22 Disorder of back(Discharge Diagnosis) - 12/30/22 Hypercholesterolemia(Discharge Diagnosis) - 12/30/22 Attending Physician: Francisco Parnell MD Allergies, Adverse [...] virus vaccine, inactivated 3 03/14/14 Re corded [id number] 12y+ bivalent booster vax 03/09/22 Recorded SARS-CoV-2 mRNA ([id number]) vax 09/24/21 Recorded pneumococcal 13-valent vaccine 06/08/21 [...] pneumococcal 23-valent vaccine 05/27/01 Recorded 1Location History: [facility] 2Location History: [facility] 3Location History: [facility] 4Admin Note: [facility] 5Location History: [facility] 6Location History: [facility] Medications Albuterol (Eqv-ProAir HFA) 90 mcg/inh inhalation aerosol 2 puffs, Inhalation, 4 times a day, PRN NEEDED FOR WHEEZING, # 8.5 each, 5 Refills, Maintenance,11/22/22 10:28:00 EDT, [facility]/pharmacy #1230, 25, 2 puffs Inhalation 4 times a day,PRN: NEEDED FOR WHEEZING, 162, cm, 11/18/22 15:00:00 EDT, Height, 76,... Start Date: 11/22/22 Status: Ordered amitriptyline 10 mg oral tablet 2, tablet, By Mouth, Daily at bedtime, INSTR:PATIENT IS ALLERGIC TO RED AND BLUE DYE, # 180 tablet,Refills 3, Tot. Refills 3, 05/26/22 15:23:00 EST, Route to Pharmacy Electronically, [facility]/pharmacy #1230, 162, cm, 05/26/22 14:47:00 EST, [...] tablet, 5 Refills, Maintenance, 12/30/22 16:09:00 EDT, [facility]/pharmacy #1230, 162, cm, 12/30/22 15:36:00 EDT, Height, 76, kg, 11/10/22 16:02:00 EDT, Dry Weight Start Date: 12/30/22 Stop Date: 06/28/23 Status: Ordered D-Mannose Maintenance, urinary frequency, 12/17/16 11:39:55, D-Mannose Start Date: 12/17/16 Status: Ordered Flonase 50 mcg/inh nasal spray 2 sprays, Nares, Both, Daily in AM, 0 Refills, Maintenance, 12/30/22 16:08:00 EDT, [facility], Partial fill upon patient request if the [...] 1 Refills, Maintenance, 11/19/22 15:29:00 EDT, [facility]/pharmacy #1230, Partial fill upon patient request if the prescription is for a schedule II opioid drug., 162, cm, 11/18/22 15:00:00 EDT, Height... Start Date: 11/19/22 Status: Ordered nystatin topical 242570 u/gm cream See Instructions, APPLY TO AFFECTED AREA TWICE A DAY, # 30 Gm, 11 Refills, Maintenance, 12/30/22 16:08:00 EDT, [facility]/pharmacy #1230, [...] 3 Refills, Maintenance, 06/10/22 15:52:00 EST, Powder, [facility], Partial fill upon patient request if the prescription is for a schedule II opioid drug., 1 puffs Inhalatio... Start Date: 06/10/22 Status: Ordered tiZANidine 2 mg oral tablet 1, tablet, By Mouth, Every 8 hours, PRN, # 90 tablet, Refills 0, Maintenance, NEEDED FOR, 12/16/22 10:38:00 EDT, Route to Pharmacy Electronically, [facility] STORE [facility], 162, cm, 11/18/22 15:00:00 EDT, Height, 76, [...] Tinea cruris Confirmed Active 1U/S done at [place] 2Colonoscopy 2011 normal, repeat 2021. 3colo 2011 4Bone density 2016 positive for osteopenia. 5Patient intolerant to bisphosphonates. Patient treating with calcium and vitamin D and weightbearing exercise. 6Osteoporosis on one view on bone density 2013. 7ultrasound Diagnosis Diagnosis Type Effective Dates Health Status Clinical Service Informant Anxiety Discharge Diagnosis 12/30/22 Asthma Discharge Diagnosis 12/30/22 IBS (irritable bowel syndrome) Discharge Diagnosis 12/30/22 Rhinitis, allergic Discharge Diagnosis 12/30/22 Insomnia Discharge Diagnosis 12/30/22 Disorder of back Discharge Diagnosis 12/30/22 Hypercholesterolemia Discharge Diagnosis 12/30/22 Vital Signs Most recent to oldest [Reference Range]: 1 Height 162 cm (12/30/22 3:36 PM) Weight 75.2 kg (12/30/22 3:36 PM) Oxygen Saturation [94-100 %] 98 % (12/30/22 3:36 PM) Pulse Rate [55-90 bpm] 107 bpm *H* (12/30/22 3:36 PM) Body Mass Index [18.5-24.99 kg/m2] 28.65 kg/m2 *H* (12/30/22 3:36 PM) Blood Pressure [90-138/55-84 mm Hg] 98/7 0mm Hg (12/30/22 3:36 PM) Mode of Delivery (Oxygen) Room air (12/30/22 3:36 PM) Blood pressure sites Arm, left (12/30/22 3:36 PM) Weight Obtained Via Standing scale (12/30/22 3:36 PM) Social History Social History Type Response Smoking Status Former smoker; Other : Quit smoking 2011.; entered on: 11/08/15 Sex Patient Care team information Care Team Personnel Name: Soheila SORTO, Francisco Lim Position: S Physician - Primary Care Member Role: PCP Address: Address: [address] [place] [address]- Care Team Related Persons Name: DONAVON PETTIT Name: DONAVON REDDING Address: home [address] [place] [address] Name: MARY LOYD Address: home [address] [place] [address] Name: MARY PHILLIPS Address: home [address] [place] [address]
--- OUTSIDE RECORDS SUMMARY | 2023-05-28 12:27 | XMS_ITS | Continuity of Care Document ---
Author Name Unknown Organization [facility] Idris lt Address [address] [place] [address]- Care Team Providers Care Social Welfare Clerk Name Role Phone Francisco Parnell MD Primary Care Physician [phone] Encounter [facility] Date(s): 08/21/19 - 08/28/19 [facility] Adult [address] [place] [address]- [facility] Encounter Diagnosis Asthma(Discharge Diagnosis) - 08/21/19 Attending Physician: Francisco Parnell MD Allergies, Adverse [...] & [facility] 3Location History: [facility] [place] 4[facility] 5Location History: [facility] [place] 6Location History: [facility] Medications [...] Mouth, Daily, 0 Refills, Maintenance Start Date: 7/20/12 Status: Ordered nystatin topical 093097 u/gm cream 1 application, Topically, 2 times [...] 16:20:00 EST, Aerosol, Route to Pharmacy Electronically, [id number], [facility]/pharmacy #1230, 162, cm, 07/26/19... Start [...] Clini gladys Service Informant Asthma Discharge Diagnosis 08/21/19 Vital Signs Most recent to oldest [Reference Range]: 1 Height 162 cm (08/21/19 3:55 PM) Weight 73.3 kg (08/21/19 3:55 PM) Oxygen Saturation [94-100 %] 96 % (08/21/19 3:55 PM) Pulse Rate [55-90 bpm] 104 bpm *H* (08/21/19 3:55 PM) Body Mass Index [18.5-24.99] 27.93 *H* (08/21/19 3:55 PM) Blood Pressure [90-138/55-84 mm Hg] 118/ 70mm Hg (08/21/19 3:55 PM) Respiratory Rate [16-30 br/min] 16 br/mi n (08/21/19 3:55 PM) Temperature [96.8-100.4 DegF] 98.2 DegF (08/21/19 3:55 PM) Mode of Delivery (Oxygen) Room air (08/21/19 3:55 PM) Blood pressure sites Arm, left (08/21/19 3:55 PM) Temperature Route Oral (08/21/19 3:55 PM) Weight Obtained Via Standing scale (08/21/19 3:55 PM) Social History Social History Type Response Smoking Status Former smoker; Other : Quit smoking 2011.; entered on: 11/08/15 Sex
--- OUTSIDE RECORDS SUMMARY | 2023-05-28 12:27 | XMS_ITS | Continuity of Care Document ---
Author Name Unknown Organization [facility] Idris lt Address [address] [place] [address]- Care Team Providers Care Shearing Machine Tender Name Role Phone Francisco Parnell MD Primary Care Physician [facility] Date(s): 11/10/22 - 12/10/22 [facility] Adult [address] [place] [address]- Allergies, Adverse Reactions, Alerts Substance Reaction Severity Status hydrOXYzine Unknown Active Paxil makes her manic Active traZODone [...] virus vaccine, inactivated 3 03/14/14 Re corded [id number] 12y+ bivalent booster vax 03/09/22 Recorded SARS-CoV-2 mRNA (dhkhlna-yans-fhfqu) vax 09/24/21 Recorded pneumococcal 13-valent vaccine 06/08/21 [...] pneumococcal 23-valent vaccine 05/27/01 Recorded 1Location History: [facility] 2Location History: [facility] 3Location History: [facility] [place] 4Admin Note: [facility] 5Location History: [facility] [place] 6Location History: [facility] Medications Albuterol (Eqv-ProAir HFA) [...] mL, 5 Refills, Maintenance, 01/16/22 13:15:00 EDT, [place], [facility], Partial fill [...] Refills, Maintenance, 05/26/22 15:23:00 EST, [facility]/pharmacy #1230, 162, cm, 05/26/22 14:47:00 [...] tablet, 1 Refills, Maintenance, 11/19/22 15:29:00 EDT, [facility]/pharmacy #1230, Partial fill upon patient request if the prescription is for a schedule II opioid drug., 162, cm, 11/18/22 15:00:00 EDT, Height... Start Date: 11/19/22 Status: Ordered nystatin topical 475794 u/gm cream See Instructions, APPLY TO AFFECTED AREA TWICE A DAY, # 30 Gm, 1 Refills, Maintenance, 11/22/22 13:10:00 EDT, [facility], 30, APPLY TO AFFECTED AREA TWICE A [...] 3 Refills, Maintenance, 06/10/22 15:52:00 EST, [place], [facility], Partial fill upon patient request if the prescription is for a schedule II opioid drug., 1 puffs Inhalatio... Start Date: 06/10/22 Status: Ordered tiZANidine 2 mg oral tablet 2 mg, 1, tablet, By Mouth, Every 8 hours, Take as needed, # 90 tablet, Refills 0, Tot. Refills 0, Maintenance, 11/19/22 13:59:00 EDT, [facility] Partial fill upon patient request if the prescription is for a... Start Date: 11/19/22 Stop Date: 12/19/22 Status: Ordered tiZANidine 2 mg oral tablet 2 mg, 1, tablet, By Mouth, Every 8 hours, Take as needed, # 90 tablet, Refills 1, Tot. Refills 1, Maintenance, 11/19/22 15:30:00 EDT, [facility] Partial fill upon patient request [...] Tinea cruris Confirmed Active 1U/S done at [place] 2Colonoscopy 2011 normal, repeat 2021. 3colo 2011 [...] Team Personnel Name: Francisco Parnell MD Position: [facility] Physician - Primary Care Member Role: PCP Address: Address: [address] [place] [address]- [place] Care Team Related Persons Name: DONAVON PETTIT Name: DONAVON REDDING Address: home [address] [place] [id number] Name: MARY LOYD Address: [address] [address] Name: MARY PHILLIPS Address: [address] [address]
--- OUTSIDE RECORDS SUMMARY | 2023-05-28 12:27 | XMS_ITS | Continuity of Care Document ---
Author Name Unknown Organization [facility] Idris lt Address [address] [place] [address]- Care Team Providers Care Segment Assembler Name Role Phone Soheila SORTO, Francisco Lim Primary Care Physician [phone] [facility]counter [facility] Date(s): 09/17/22 - 10/17/22 [facility] Adult [address] [place] [address]- Allergies, Adverse Reactions, Alerts Substance Reaction Severity [...] virus vaccine, inactivated 3 03/14/14 Re corded [id number] 12y+ bivalent booster vax 03/09/22 Recorded SARS-CoV-2 mRNA (hkfyixo-dhdh-symov) vax 09/24/21 Recorded pneumococcal 13-valent vaccine 06/08/21 [...] pneumococcal 23-valent vaccine 05/27/01 Recorded 1Location History: [facility] 2Location History: [facility] 3[facility] 4Admin Note: [facility] 5Location History: [facility] [place] 6Location History: [facility] Medications Albuterol (Eqv-ProAir HFA) 90 mcg/inh inhalation aerosol 2 puffs, Inhalation, 4 times a day, PRN NEEDED FOR WHEEZING, # 8.5 each, 11 Refills, Maintenance, 02/09/22 8:40:00 EDT, [facility] STORE 52579, 25, INHALE 2 PUFFS BY MOUTH 4 TIMES A DAY NEEDED FOR WHEEZING, 162, cm, 09/23/21 15:24:00 EDT, Height Start Date: 02/09/22 Status: Ordered amitriptyline 10 mg oral tablet 2, tablet, By Mouth, Daily at bedtime, INSTR:PATIENT IS ALLERGIC TO RED AND BLUE DYE, # 180 tablet,Refills 3, Tot. Refills 3, 05/26/22 15:23:00 EST, Route to Pharmacy Electronically, [facility]/pharmacy #1230, 162, cm, 05/26/22 14:47:00 EST, Height Start Date: 05/26/22 Status: Ordered azelastine nasal 0.15% spray 2 sprays, Nares, Both, Daily, PRN for allergy symptoms, # 30 mL, 5 Refills, Maintenance, 01/16/22 13:15:00 EDT, [place], [facility], Partial fill [...] tablet, 5 Refills, Maintenance, 05/26/22 15:23:00 EST, [facility]/pharmacy #1230, 162, cm, 05/26/22 14:47:00 [...] Start Date: 09/27/15 Status: Ordered nystatin topical 526366 u/gm cream See Instructions, APPLY TO AFFECTED AREA TWICE A DAY, # 30 Gm, 1 Refills, Maintenance, 09/29/22 16:11:00 EDT, [facility] STORE 26709, 30, APPLY TO AFFECTED AREA TWICE A DAY, 162, cm, 05/26/22 14:47:00 EST, Height Start Date: 09/29/22 Status: Ordered Probiotic Formula 1 capsule, By Mouth, Daily, 0 Refills, Maintenance Start Date: 05/12/13 Status: Ordered Serevent Diskus 50 mcg inhalation powder 1 puffs = 50 mcg, Inhalation, 2 times a day, # 3 each, 3 Refills, Maintenance, 06/10/22 15:52:00 EST, [place], [facility], Partial fill upon patient request [...] Tinea cruris Confirmed Active 1U/S done at [place] 2Colonoscopy 2011 normal, repeat 2021. 3colo 2011 [...] Name: Francisco Parnell MD Position: [facility] Primary Care Physician Member Role: PCP Address: Address: [address] [place] [address]- Care Team Related Persons Name: DONAVON PETTIT Name: DONAVON REDDING Address: home [address] [place] [address] Name: MARY LOYD Address: home [address] [address] Name: MARY PHILLIPS Address: [address] [address]
--- OUTSIDE RECORDS SUMMARY | 2023-05-28 12:27 | XMS_ITS | Continuity of Care Document ---
Author Name Unknown Organization [facility] Idris lt Address [address] [place] [address]- Care Team Providers Care Restaurant Worker Name Role Phone Soheila SORTO, Francisco Lim Primary Care Physician [facility] Date(s): 06/05/22 - 06/12/22 [facility] [address] [place] [address]- Attending Physician: Francisco Parnell MD Allergies, Adverse [...] virus vaccine, inactivated 3 03/14/14 Re corded [id number] 12y+ bivalent booster vax 03/09/22 Recorded SARS-CoV-2 mRNA (mzgnwft-peyq-dtltj) vax 09/24/21 Recorded pneumococcal 13-valent vaccine 06/08/21 [...] pneumococcal 23-valent vaccine 05/27/01 Recorded 1Location History: [facility] 2Location History: [facility] 3Location History[facility] 4Admin Note: [facility] 5Location History: [facility] [place] 6Location History: [facility] Medications Albuterol (Eqv-ProAir HFA) 90 mcg/inh inhalation aerosol 2 puffs, Inhalation, 4 times a day, PRN NEEDED FOR WHEEZING, # 8.5 each, 11 Refills, Maintenance, 02/09/22 8:40:00 EDT, [facility] STORE 71024, 25, INHALE 2 PUFFS BY MOUTH 4 TIMES A DAY NEEDED FOR WHEEZING, 162, cm, 09/23/21 15:24:00 EDT, Height Start Date: 02/09/22 Status: Ordered amitriptyline 10 mg oral tablet 2, tablet, By Mouth, Daily at bedtime, INSTR:PATIENT IS ALLERGIC TO RED AND BLUE DYE, # 180 tablet,Refills 3, Tot. Refills 3, 05/26/22 15:23:00 EST, Route to Pharmacy Electronically, [facility]/pharmacy #1230, 162, cm, 05/26/22 14:47:00 EST, Height Start Date: 05/26/22 Status: Ordered azelastine nasal 0.15% spray 2 sprays, Nares, Both, Daily, PRN for allergy symptoms, # 30 mL, 5 Refills, Maintenance, 01/16/22 13:15:00 EDT, [place], [facility], Partial fill [...] tablet, 5 Refills, Maintenance, 05/26/22 15:23:00 EST, [facility]/pharmacy #1230, 162, cm, 05/26/22 [...] Start Date: 09/27/15 Status: Ordered nystatin topical 549662 u/gm cream See Instructions, APPLY TO AFFECTED AREA TWICE A DAY, # 30 Gm, 11 Refills, Maintenance, 09/23/21 15:51:00 EDT, [facility]/pharmacy #1230, 30, APPLY TO [...] 3 Refills, Maintenance, 06/10/22 15:52:00 EST, [place], [facility], Partial fill upon patient request if [...] Tinea cruris Confirmed Active 1U/S done at [place] 2Colonoscopy 2011 normal, repeat 2021. 3colo 2011 [...] Name: Francisco Parnell MD Position: [facility] Primary Care Physician Member Role: PCP Address: Address: [address] [place] [address]- Care Team Related Persons Name: DONAVON PETTIT Name: DONAVON REDDING Address: home [address] [place] [address] Name: MARY LOYD Address: home [address] [address] Name: MARY PHILLIPS Address: [address] [address]
--- OUTSIDE RECORDS SUMMARY | 2023-05-28 12:27 | XMS_ITS | Continuity of Care Document ---
Author Name Unknown Organization [facility] Address [address] [place] [address]- Care Team Providers Care Heel Seat Trimmer Name Role Phone Francisco Parnell MD Primary Care Physician Encounter [facility] Date(s): 03/09/22 - 04/08/22 [facility] [address] [place] [address] Attending Physician: Nabila Casarez Admitting Physician: AdmtrNabila [...] History: [facility] [place] 4Admin Note: [facility] 5Location History[facility] 6Location History: [facility] Medications Albuterol (Eqv-ProAir HFA) 90 mcg/inh inhalation aerosol 2 puffs, Inhalation, 4 times a day, PRN NEEDED FOR WHEEZING, # 8.5 each, 11 Refills, Maintenance, 02/09/22 8:40:00 EDT, [facility] STORE 85050, 25, INHALE 2 PUFFS BY MOUTH 4 TIMES A DAY NEEDED FOR WHEEZING, 162, cm, 09/23/21 15:24:00 EDT, Height Start Date: 02/09/22 Status: Ordered amitriptyline 10 mg oral tablet 2, tablet, By Mouth, Daily at bedtime, INSTR:PATIENT IS ALLERGIC TO RED AND BLUE DYE, # 180 tablet,Refills 3, Tot. Refills 3, 09/23/21 15:52:00 EDT, Route to Pharmacy Electronically, [facility]/pharmacy #1230, 162, cm, 09/23/21 15:24:00 EDT, Height Start Date: 09/23/21 Status: Ordered azelastine nasal 0.15% spray 2 sprays, Nares, Both, Daily, PRN for allergy symptoms, # 30 mL, 5 Refills, Maintenance, 01/16/22 13:15:00 EDT, [place], [facility], Partial fill [...] tablet, 5 Refills, Maintenance, 12/12/21 9:06:00 EDT, [facility]/pharmacy #1230, 162, cm, 09/23/21 15:24:00 EDT, Height [...] Start Date: 09/27/15 Status: Ordered nystatin topical 823960 u/gm cream See Instructions, APPLY TO AFFECTED AREA TWICE A DAY, # 30 Gm, 11 Refills, Maintenance, 09/23/21 15:51:00 EDT, [facility]/pharmacy #1230, 30, APPLY TO AFFECTED AREA TWICE [...] Refills, Maintenance, 12/29/20 13:31:00 EDT, [facility], 90, INHALE 1 PUFF BY MOUTH EVERY [...] Tinea cruris Confirmed Active 1U/S done at [place] 2Colonoscopy 2011 normal, repeat 2021. 3colo 2011 4Bone density 2016 positive for osteopenia. 5Patient intolerant to bisphosphonates. Patient treating with calcium and vitamin D and weightbearing exercise. 6Osteoporosis on one view on bone density 2013. 7ultrasound Social History Social History Type Response Smoking Status Former smoker; Other : Quit smoking 2011.; entered on: 11/08/15 Sex Patient Care team information Personnel Name: Soheila OSRTO, Francisco Lim Address: Address: [address] [place] [address]
--- OUTSIDE RECORDS SUMMARY | 2023-05-28 12:27 | XMS_ITS | Continuity of Care Document ---
Author Name Unknown Organization [facility] Idris lt Address [address] [place] [address]- Care Team Providers Care Lawn Care Worker Name Role Phone Francisco Parnell MD Primary Care Physician Encounter [facility] Date(s): 11/22/19 - 11/29/19 [facility] Adult [address] [place] [address]- [facility] Encounter Diagnosis Asthma(Discharge Diagnosis) - 11/22/19 Attending Physician: Francisco Parnell MD Allergies, Adverse [...] [facility] [place] 6Location History: [facility] Medications amitriptyline 10 mg oral tablet 20 [...] D-Mannose Start Date: 12/17/16 Status: Ordered fluticasone-salmeterol 250 mcg-50 mcg inhalation powder 1, puffs, Inhalation, 2 times a day, # 60 each, Refills 11, Tot. Refills 11, Maintenance, 11/22/19 15:19:00 EDT, [place], Route to Pharmacy Electronically, [id number], [facility], 162, cm, 11/22/19 14:34:00 EDT, Height Start Date: 11/22/19 Status: Ordered hyluronic acid Maintenance, 12/17/16 11:49:49, [...] Start Date: 01/01/12 Status: Ordered nystatin topical 320505 u/gm cream 1 application, Topically, 2 times a day, # 30 Gm, 5 Refills, Maintenance, 07/26/19 16:20:00 EST, Cream, [facility]/pharmacy #1230, 1 application Topically 2 times a day, 162, cm, 07/26/19 15:53:00 EST, Height Start Date: 07/26/19 Status: Ordered ProAir HFA 90 mcg/inh inhalation aerosol with adapter 1, puffs, Inhalation, 4 times a day, PRN, BRAND NAME ONLY, # 8.5 Gm, Refills 6, Tot. Refills 6, Maintenance, 07/26/19 16:20:00 EST, Aerosol, Route to Pharmacy Electronically, [id number], [facility]/pharmacy #1230, 162, cm, 07/26/19... Start Date: 07/26/19 [...] Clini gladys Service Informant Asthma Discharge Diagnosis 11/22/19 Vital Signs Most recent to oldest [Reference Range]: 1 Height 162 cm (11/22/19 2:34 PM) Mode of Delivery (Oxygen) Room air (11/22/19 2:34 PM) Social History Social History Type Response Smoking Status Former smoker; Other : Quit smoking 2011.; entered on: 11/08/15 Sex
--- OUTSIDE RECORDS SUMMARY | 2023-05-28 12:27 | XMS_ITS | Continuity of Care Document ---
Author Name Unknown Organization [facility] Idris lt Address [address] [place] [address]- Care Team Providers Care Care Team Coordinator Scheduler Name Role Phone Soheila SORTO, Francisco Lim Primary Care Physician [phone] [facility] Date(s): 10/16/19 - 11/15/19 [facility] Adult [address] [place] [address]- [facility] Attending Physician: Eliana SORTO, Roosevelt Olmedo Allergies, Adverse Reactions, Alerts Substance Reaction Severity [...] History: [facility] [place] 6Location History: [facility] Medications amitriptyline 10 mg oral [...] tablet, 5 Refills, Soft Stop, 07/26/19 16:19:00 EST,[facility]1230, 162, cm, 07/26/19 15:53:00 EST, Height Start Date: 07/26/19 Stop Date: 01/22/20 Status: Ordered D-Mannose Maintenance, urinary frequency, 12/17/16 11:39:55, D-Mannose Start Date: 12/17/16 Status: Ordered fluticasone-salmeterol 500 mcg-50 mcg inhalation powder 1, puffs, Inhalation, 2 times a day, # 60 each, Refills 11, Tot. Refills 11, Maintenance, 10/16/19 11:57:00 EDT, Powder, Route to Pharmacy Electronically, [id number], [facility]/pharmacy #1230, 162, cm, 08/21/19 15:55:00 [...] Start Date: 01/01/12 Status: Ordered nystatin topical 902447 u/gm cream 1 application, Topically, 2 times [...] 16:20:00 EST, Aerosol, Route to Pharmacy Electronically, [id number], [facility]/pharmacy #1230, 162, cm, 07/26/19... Start [...]
--- OUTSIDE RECORDS SUMMARY | 2023-05-28 12:27 | XMS_ITS | Continuity of Care Document ---
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 Refills 3, 09/23/21 15:52:00 EDT, Route to Pharmacy Electronically, [facility]/pharmacy #1230, 162, cm, 09/23/21 15:24:00 EDT, Height Start Date: 09/23/21 Status: Ordered azelastine nasal 0.15% spray 2 sprays, Nares, Both, Daily, PRN for allergy symptoms, # 30 mL, 5 Refills, Maintenance, 01/16/22 13:15:00 EDT, [place], [facility], Partial fill [...] tablet, 5 Refills, Maintenance, 12/12/21 9:06:00 EDT, [facility], 162, cm, 09/23/21 15:24:00 EDT, Height [...] Start Date: 09/27/15 Status: Ordered nystatin topical [id number] u/gm cream See Instructions, APPLY TO AFFECTED AREA TWICE A DAY, # 30 Gm, 11 Refills, Maintenance, 09/23/21 15:51:00 EDT, [facility]/pharmacy #1230, 30, APPLY TO AFFECTED [...] Unknown, 5 Refills, Maintenance, 12/29/20 13:31:00 EDT, [facility] STORE 87476, 90, INHALE 1 PUFF BY MOUTH EVERY [...]
--- OUTSIDE RECORDS SUMMARY | 2023-05-28 12:27 | XMS_ITS | Continuity of Care Document ---
Author Name Unknown Organization [facility] Idris lt Address [address] [place] [address]- Care Team Providers Care Adult Care Provider Name Role Phone Soheila SORTO, Francisco Lim Primary Care Physician Encounter [facility] Date(s): 12/06/19 - 01/05/20 [facility] Adult [address] [place] [address]- [facility] Attending Physician: Admtr, Ar8 Admitting Physician: Admtr, [...] & [facility] 3Location History: [facility] [place] 4Admin Note: [facility] 5Location History: [facility] [place] 6Location History: [facility] Medications amitriptyline 10 mg oral tablet 20 mg, 2, tablet, By Mouth, Daily at bedtime, Patient is allergic to red and blue dye. Pt requires a tablet that is dye free., # 60 tablet, Refills 11, Tot. Refills 11, Maintenance, 07/26/19 16:18:00EST, Route to Pharmacy Electronically, [facility]/pharmacy... Start Date: 07/26/19 Status: Ordered Calcium And Vitamin D Combination See Instructions, 1 tab daily, 0 Refills, Maintenance, 10/25/15 10:45:23 Start Date: 10/25/15 Status: Ordered Choline 0 Refills, Maintenance, 09/03/14 14:38:35 Start Date: 09/03/14 Status: Ordered clonazePAM 1 mg oral tablet 1 tablet = 1 mg, By Mouth, 2 times a day, # 60 tablet, 5 Refills, Soft Stop, 07/26/19 16:19:00 EST,[facility]/pharmacy #1230, 162, cm, 07/26/19 15:53:00 EST, [...] Start Date: 01/01/12 Status: Ordered nystatin topical 872932 u/gm cream 1 application, Topically, 2 times a day, # 30 Gm, 5 Refills, Maintenance, 07/26/19 16:20:00 EST, Cream, [facility]/pharmacy #1230, 1 application Topically 2 times a day, 162, cm, 07/26/19 15:53:00 EST, Height Start Date: 07/26/19 Status: Ordered ProAir HFA 90 mcg/inh inhalation aerosol with adapter 1, puffs, Inhalation, 4 times a day, PRN, BRAND NAME ONLY, # 8.5 Gm, Refills 6, Tot. Refills 6, Maintenance, 07/26/19 16:20:00 EST, Aerosol, Route to Pharmacy Electronically, [id number][facility], cm, 07/26/19... Start Date: 07/26/19 Status: Ordered Probiotic Formula 1 capsule, By Mouth, Daily, 0 Refills, Maintenance Start Date: 05/12/13 Status: Ordered Serevent Diskus 50 mcg inhalation powder 1 each = 50 mcg, Inhalation, Every 12 hours, # 180 each, 11 Refills, Maintenance, 12/22/19 13:33:00EDT, [place], [facility]/pharmacy #1230, 1 each Inhalation Every 12 [...]
--- OUTSIDE RECORDS SUMMARY | 2023-05-28 12:27 | XMS_ITS | Continuity of Care Document ---
Author Name Unknown Organization [facility] Address [address] [place] [address]- Care Team Providers Care Food Demonstrator Name Role Phone Francisco Parnell MD Primary Care Physician Encounter [facility] Date(s): 03/31/21 - 04/30/21 [facility] [address] [place] [address]- Allergies, Adverse Reactions, Alerts Substance Reaction Severity [...] Note: [facility] [place] 6Location History: [facility] Medications albuterol CFC free 90 mcg/inh inhalation aerosol 2, puffs, Inhalation, 4 times a day, PRN, for 30 days, # 1 each, Refills 11, Tot. Refills 11, Hard Stop 08/29/21 15:52:00 EDT, 09/03/20 15:52:00 EDT, Aerosol, Route to Pharmacy Electronically, [id number], [facility]/pharmacy #1230,... Start Date: 09/03/20 Stop Date: 08/29/21 Status: Ordered amitriptyline 10 mg oral tablet 2, tablet, By Mouth, Daily at bedtime, INSTR:PATIENT IS ALLERGIC TO RED AND BLUE DYE, # 180 tablet,Refills 1, Tot. Refills 0, Maintenance, 12/29/20 13:31:00 EDT, Route to Pharmacy Electronically, [facility] STORE 45966, 162, cm, 09/03/20 15:36:00 EDT, Height Start [...] 5 Refills, Soft Stop, 02/24/21 7:46:00 EDT, [facility]/pharmacy #1230, 162, cm, 01/23/21 14:21:00 EDT, [...] 2 Refills, Maintenance, 09/03/20 15:53:00 EDT, Cream, [facility] [...] 30 sprays, 5 Refills, Acute, [facility], 30, SPRAY 2 SPRAYS INTO EACH NOSTRIL [...] Start Date: 01/01/12 Status: Ordered nystatin topical [id number] u/gm cream See Instructions, APPLY TO AFFECTED [...] Refills, Maintenance, 12/29/20 13:31:00 EDT, [facility], 90, INHALE 1 PUFF BY MOUTH EVERY [...]
--- OUTSIDE RECORDS SUMMARY | 2023-05-28 12:27 | XMS_ITS | Continuity of Care Document ---
Author Name Unknown Organization [facility]ris [facility] Address [address] [place] [address]- Care Team Providers Care Terminal Make Up Operator Name Role Phone Francisco Parnell MD Primary Care Physician Encounter [facility] Date(s): 07/21/22 - 08/20/22 [facility] Adult [address] [place] [address]- Allergies, Adverse Reactions, Alerts Substance Reaction Severity Status meclizine Active Paxil makes her manic Active Bactrim Active traZODone BRAIN FOG SEVERE [...] virus vaccine, inactivated 3 03/14/14 Re corded [id number] 12y+ bivalent booster vax 03/09/22 Recorded SARS-CoV-2 mRNA ([id number]) vax 09/24/21 Recorded pneumococcal 13-valent vaccine 06/08/21 [...] pneumococcal 23-valent vaccine 05/27/01 Recorded 1Location History: [facility] 2[facility] 3Location [facility]: [facility] [place] 4Admin Note: [facility] 5Location History: [facility] [place] 6Location History: [facility] Medications Albuterol (Eqv-ProAir HFA) 90 mcg/inh inhalation aerosol 2 puffs, Inhalation, 4 times a day, PRN NEEDED FOR WHEEZING, # 8.5 each, 11 Refills, Maintenance, 02/09/22 8:40:00 EDT, [facility] STORE 17846, 25, INHALE 2 PUFFS BY MOUTH 4 TIMES A DAY NEEDED FOR WHEEZING, 162, cm, 09/23/21 15:24:00 EDT, Height Start Date: 02/09/22 Status: Ordered amitriptyline 10 mg oral tablet 2, tablet, By Mouth, Daily at bedtime, INSTR:PATIENT IS ALLERGIC TO RED AND BLUE DYE, # 180 tablet,Refills 3, Tot. Refills 3, 05/26/22 15:23:00 EST, Route to Pharmacy Electronically, [facility]/pharmacy #1230, 162, cm, 05/26/22 14:47:00 EST, Height Start Date: 05/26/22 Status: Ordered azelastine nasal 0.15% spray 2 sprays, Nares, Both, Daily, PRN for allergy symptoms, # 30 mL, 5 Refills, Maintenance, 01/16/22 13:15:00 EDT, [place], [facility], Partial fill [...] tablet, 5 Refills, Maintenance, 05/26/22 15:23:00 EST, [facility]/pharmacy #1230, 162, cm, 05/26/22 14:47:00 EST, [...] Start Date: 09/27/15 Status: Ordered nystatin topical [id number] u/gm cream See Instructions, APPLY TO AFFECTED AREA TWICE A DAY, # 30 Gm, 11 Refills, Maintenance, 09/23/21 15:51:00 EDT, [facility]/pharmacy #1230, 30, APPLY TO AFFECTED AREA TWICE A DAY, 162, cm, 09/23/21 15:24:00 EDT, Height Start Date: 09/23/21 Status: Ordered Probiotic Formula 1 capsule, By Mouth, Daily, 0 Refills, Maintenance Start Date: 05/12/13 Status: Ordered Serevent Diskus 50 mcg inhalation powder 1 puffs = 50 mcg, Inhalation, 2 times a day, # 3 each, 3 Refills, Maintenance, 06/10/22 15:52:00 EST, Powder, [facility], Partial fill upon patient request [...] Tinea cruris Confirmed Active 1U/S done at [place] 2Colonoscopy 2011 normal, repeat 2021. 3colo [...] Team Personnel Name: Francisco Parnell MD Position: [facility] Primary Care Physician Member Role: PCP Address: Address: [address] [place] [id number]- Care Team Related Persons Name: DONAVON PETTIT Name: DONAVON REDDING Address: home [address] [place], [place] Name: MARY LOYD Address: home [address] Name: MARY PHILLIPS Address: home [address] [address]
--- OUTSIDE RECORDS SUMMARY | 2023-05-28 12:27 | XMS_ITS | Continuity of Care Document ---
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 Name Role Phone Francisco Guerrier MD Primary Care Physician Encounter [facility] Date(s): 04/02/22 - 05/02/22 [facility] [place] Adult [address] [place] [address]- Attending Physician: Admtr, Nabila Admitting Physician: Admtr, Nabila Referring Physician: Admtr, Ar8 Allergies, Adverse Reactions, Alerts Substance Reaction Severity Status hydrOXYzine Unknown Active traZODone BRAIN FOG SEVERE Active meclizine [...] History: [facility] [place] 4Admin Note: [facility] 5[facility]Location History: [facility] Medications Albuterol (Eqv-ProAir HFA) 90 mcg/inh inhalation aerosol 2 puffs, Inhalation, 4 times a day, PRN NEEDED FOR WHEEZING, # 8.5 each, 11 Refills, Maintenance, 02/09/22 8:40:00 EDT, [facility] STORE 29108, 25, INHALE 2 PUFFS BY MOUTH 4 TIMES A DAY NEEDED FOR WHEEZING, 162, cm, 09/23/21 15:24:00 EDT, Height Start Date: 02/09/22 Status: Ordered amitriptyline 10 mg oral tablet 2, tablet, By Mouth, Daily at bedtime, INSTR:PATIENT IS ALLERGIC TO RED AND BLUE DYE, # 180 tablet,Refills 3, Tot. Refills 3, 09/23/21 15:52:00 EDT, Route to Pharmacy Electronically, [facility]/pharmacy #1230, 162, cm, 09/23/21 15:24:00 EDT, Height Start Date: 09/23/21 Status: Ordered azelastine nasal 0.15% spray 2 sprays, Nares, Both, Daily, PRN for allergy symptoms, # 30 mL, 5 Refills, Maintenance, 01/16/22 13:15:00 EDT, [place], [facility], Partial fill [...] tablet, 5 Refills, Maintenance, 12/12/21 9:06:00 EDT, [facility]/pharmacy #1230, 162, cm, 09/23/21 15:24:00 [...] Start Date: 09/27/15 Status: Ordered nystatin topical [id number] u/gm cream See Instructions, APPLY TO AFFECTED AREA TWICE A DAY, # 30 Gm, 11 Refills, Maintenance, 09/23/21 15:51:00 EDT, [facility]/pharmacy #1230, 30, APPLY TO AFFECTED [...] Refills, Maintenance, 12/29/20 13:31:00 EDT, [facility], 90, INHALE 1 PUFF BY MOUTH EVERY [...] Tinea cruris Confirmed Active 1U/S done at [place] 2Colonoscopy 2011 normal, repeat 2021. 3colo 2011 [...] VERIFY Event Display: Patient Education/Instruction Authored Date: [facility] KURT Frost Jonny Victorino Clinical Summary Person Information Visit Date 03/09/2016 1:20 PM Name JANET SUTHERLAND Age 59 Years 1955 12:00 AM PCP Francisco Guerrier MD PCP Sex Female Race White Ethnicity Non-/Non- Language Citizen Of [place] You can now view a summary of your hospital visit from the comfort of your home through a free online portal called Xola. Xola is a website that allows you to securely view your medical information including discharge summary, medications and follow-up visits. You can also send a secure electronic message to your doctor???s office to request appointments, renew medicationsor just ask a question. You can enroll at [email or web address] or register during your next office visit. Smoking can increase your chances of developing chronic health problems and can cause harmful effects to other family members in your house. If you smoke, you are strongly encouraged to quit. Please call the [place] Smokers??? Helpline at 1-830-EGHJNOW (or ) or log on to [email or web address] for more information. Reason for Visit: Allergy [...] Mouth 2 times a day PRN fax [phone] GUERRIER REPLACES LORAZEPAM, Refills: 5 Magnesium Citrate (magnesium citrate - oral tablet) , Refills: 0 Multivitamin , Oral, Daily, Refills: 0 Niacin , Oral [place]-3 Polyunsaturated Fatty Acids (omega-3 polyunsaturated fatty acids [...] primary care provider, you may find a [facility] provider by calling [facility] [employer] [facility] at [phone]. For information about the plan of care including goals and instructions for your diagnosis, please see the patient education orders section of this document. Patient Visit Summary: Future Appointments: Type Location Start [facility] New Patient Visit [facility] 09/27/2015 2:40 PM 09/27/2015 3:00 PM Pending Follow-Up Instructions With: Address: When: Consult - Orders Snorkelling Instructor : Oleg Nunez MD Appointment Date and Time : 09/24/2015 14:40 ACPOE - Location : [facility], [address] Consult note sent or requested : No Consult - Comments : dx: thyromegaly, mailed appt in Comments: Patient Education Materials Additional Instructions: * Event Display: CT Scan Neck, Non- BH Authored Date: * Event Display: Bone Density, Non-BH Authored Date: Patient Care team information Care Team Personnel Name: Francisco Guerrier MD Position: S Primary Care Physician Member Role: PCP Address: Address: [address] [place] [id number]- Care Team Related Persons Name: DONAVON PETTIT Name: DONAVON REDDING Address: home [address] [place] [address] Name: MARY LOYD Address: [address] Name: MARY PHILLIPS Address: [address]
--- OUTSIDE RECORDS SUMMARY | 2023-05-28 12:27 | XMS_ITS | Continuity of Care Document ---
Author Name Unknown Organization [facility] Address [address] [place] [address]- Care Team Providers Care Brickmason Name Role Phone Soheila SORTO, Francisco Lim Primary Care Physician [phone] Encounter [facility] Date(s): 12/17/20 - 01/16/21 [facility] Adult [address] [place] [address]- Allergies, Adverse Reactions, Alerts Substance Reaction Severity [...] 15:52:00 EDT, Aerosol, Route to Pharmacy Electronically, [id number], [facility]/pharmacy #1230,... Start Date: 09/03/20 Stop Date: 08/29/21 Status: Ordered albuterol CFC free 90 mcg/inh inhalation aerosol 2, puffs, Inhalation, 4 times a day, PRN, # 1 each, Refills 5, Tot. Refills 5, Maintenance, 08/29/21 15:52:00 EDT, Aerosol, Route to Pharmacy Electronically, [id number], [facility]/pharmacy #1230, 162, cm, 09/03/20 15:36:00 EDT, Height Start Date: 08/29/21 Stop Date: 02/25/22 Status: Ordered amitriptyline 10 mg oral tablet 2, tablet, By Mouth, Daily at bedtime, INSTR:PATIENT IS ALLERGIC TO RED AND BLUE DYE, # 180 tablet,Refills 1, Tot. Refills 0, Maintenance, 12/29/20 13:31:00 EDT, Route to Pharmacy Electronically, [facility] [address], 162, cm, 09/03/20 15:36:00 EDT, Height Start [...] 5 Refills, Soft Stop, 07/30/20 7:21:00 EST, [facility]/pharmacy #1230, 08/05/20, 162, cm, 02/20/20 14:33:00 EDT, Height Start Date: 07/30/20 Stop Date: 01/26/21 Status: Ordered D-Mannose Maintenance, urinary frequency, 12/17/16 11:39:55, D-Mannose Start Date: 12/17/16 Status: Ordered fluocinonide 0.05% topical cream 1 application, Topically, 2 times a day, # 60 Gm, 2 Refills, Maintenance, 09/03/20 15:53:00 EDT, Cream, [facility]/pharmacy #1230, Partial fill upon patient request [...] DAY, # 30 sprays, 5 Refills, Acute, [facility] 97[facility], 30, SPRAY 2 SPRAYS INTO EACH NOSTRIL [...] Start Date: 01/01/12 Status: Ordered nystatin topical 993084 u/gm cream See Instructions, APPLY TO AFFECTED AREA TWICE A DAY, # 30 Gm, 1 Refills, Acute, [facility] STORE 09877, 30, APPLY TO AFFECTED AREA TWICE A DAY, 162, cm, 09/03/20 15:36:00 EDT, Height Start Date: 12/17/20 Status: Ordered nystatin topical 559691 u/gm cream 1 application, Topically, 2 times a day, # 30 Gm, 1 Refills, Maintenance, 07/30/20 7:20:00 EST, [facility], [facility], 1 application Topically 2 times a day, 162, cm, 02/20/20 14:33:00 EDT, Height Start Date: 07/30/20 Status: Ordered nystatin topical 996165 u/gm powder 1 application, Topically, 2 times a day, # 60 Gm, 2 Refills, Maintenance, 09/03/20 15:54:00 EDT, Powder, [facility]/pharmacy #1230, Partial fill upon patient request [...] 5 Refills, Maintenance, 12/29/20 13:31:00 EDT, [facility] STORE [address]3080, 90, INHALE 1 PUFF BY MOUTH EVERY [...]
--- OUTSIDE RECORDS SUMMARY | 2023-05-28 12:27 | XMS_ITS | Continuity of Care Document ---
Author Name Unknown Organization [facility] Jonny Idris lt Address [address] [place] [address]- Care Team Providers Care Museum Registrar Name Role Phone Francisco Parnell MD Primary Care Physician [facility] Date(s): 03/31/21 - 04/30/21 [facility] Adult [address] [place] [address]- Allergies, Adverse Reactions, Alerts Substance Reaction Severity [...] [facility]: [facility]: [facility] Medications albuterol CFC free 90 mcg/inh inhalation aerosol 2, puffs, Inhalation, 4 times a day, PRN, for 30 days, # 1 each, Refills 11, Tot. Refills 11, Hard Stop 08/29/21 15:52:00 EDT, 09/03/20 15:52:00 EDT, Aerosol, Route to Pharmacy Electronically, [id number], [facility]/pharmacy #1230,... Start Date: 09/03/20 Stop Date: 08/29/21 Status: Ordered amitriptyline 10 mg oral tablet 2, tablet, By Mouth, Daily at bedtime, INSTR:PATIENT IS ALLERGIC TO RED AND BLUE DYE, # 180 tablet,Refills 1, Tot. Refills 0, Maintenance, 12/29/20 13:31:00 EDT, Route to Pharmacy Electronically, [facility] STORE 35829, 162, cm, 09/03/20 15:36:00 EDT, Height Start [...] 30 sprays, 5 Refills, Acute, [facility], 30, SPRAY 2 SPRAYS INTO EACH NOSTRIL [...] Start Date: 01/01/12 Status: Ordered nystatin topical 709742 u/gm cream See Instructions, APPLY TO AFFECTED [...] Refills, Maintenance, 12/29/20 13:31:00 EDT, [facility], 90, INHALE 1 PUFF BY MOUTH EVERY [...]
[2023-05-28 12:33] LABS: Influenza A PCR NEGATIVE (Negative); Influenza B PCR NEGATIVE (Negative); Resp Syncy Virus RNA Qual PCR NEGATIVE (Negative); SARS COV2 PCR INHOUSE NEGATIVE (Negative)
[2023-05-28 12:34] LABS: B Type Natriuretic Peptide 26 pg/mL (<100)
[2023-05-28] MEDS: 0.9 % Sodium Chloride 2,041.17 ML 2041.17 ML IV (12:45)
[2023-05-28 12:59] LABS: Lactic Acid 1.3 mmol/L (0.5-2.0)
[2023-05-28] MEDS: cefTRIAXone sodium 1 GM in 0.9 % Sodium Chloride 50 ML IV (13:13)
[2023-05-28] MEDS: iohexoL 350 MG/ML 100 ML INFUS..BTL 65 ML IV (13:28)
--- OUTSIDE RECORDS SUMMARY | 2023-05-28 15:51 | XMS_ITS | Continuity of Care Document ---
Author Name Unknown Organization [facility] Idris [facility] Address [address] [place] [address]- Care Team Providers Care Manager Product Management Name Role Phone Francisco Parnell MD Primary Care Physician [facility] Date(s): 10/17/21 - 11/16/21 [facility] Adult [address] [place] [address]- Allergies, Adverse Reactions, Alerts Substance Reaction Severity [...] Note: [facility] 6Location History: [facility] Medications amitriptyline 10 mg oral tablet 2, tablet, By Mouth, Daily at bedtime, INSTR:PATIENT IS ALLERGIC TO RED AND BLUE DYE, # 180 tablet,Refills 3, Tot. Refills 3, 09/23/21 15:52:00 EDT, Route to Pharmacy Electronically, [facility]/pharmacy #1230, 162, cm, 09/23/21 15:24:00 EDT, Height Start Date: 09/23/21 Status: Ordered azelastine nasal 0.15% spray 2 sprays, Nares, Both, Daily, PRN for allergy symptoms, # 30 mL, 11 Refills, Maintenance, 07/17/21 12:30:00 EST, [place], [facility]/pharmacy #1230, Partial fill upon patient request [...] tablet, 5 Refills, Soft Stop, 06/11/21 13:09:00 EST,[facility]/pharmacy #1230, 162, cm, 03/10/21 14:31:00 EDT, [...] Start Date: 09/27/15 Status: Ordered nystatin topical 360162 u/gm cream See Instructions, APPLY TO AFFECTED AREA TWICE A DAY, # 30 Gm, 11 Refills, Maintenance, 09/23/21 15:51:00 EDT, [facility]/pharmacy #1230, 30, APPLY TO AFFECTED AREA [...] Unknown, 5 Refills, Maintenance, 12/29/20 13:31:00 EDT, [facility] STORE 04283, 90, INHALE 1 PUFF BY MOUTH EVERY [...]
--- NOTE | 2023-05-28 16:18 | PHA.MEDREC ---
Pharmacy Consult ? Medication Reconciliation Pharmacy has completed the medication reconciliation. Spoke to patient and confirmed medication list. Patient said she was taking 1 tablet of Eliquis 5mg daily until the day before yesterday (05/26/23) and decided to stop it because of side effects, it made me feel sick, nauseous, headache . Patient said she has an appointment with doctor next week to go over all of her medications.
--- NOTE | 2023-05-28 16:56 | PM.IMHP ---
History of Present Illness Date of Service: 05/28/23 Attending physician on admission: Renetta Hernández Chief Complaint: uri like symptoms ,also lower abd pressure. 59-year-old female history of PE on Eliquis, IBS, osteoporosis, GERD presenting to Ed c/o fatigue, malaise, myalgias, shortness of breath since this morning. Patient is a vague historian: But telling that she was not feeling well from few days, and today she had above symptoms, subsequently decided to come to the hospital in addition she also complained to the ED physician for Lower abdominal pressure recently had a katz placed. Patient was recently discharged from [facility] on 05/10/23 : treated for close comminuted inter trochanteric fracture of the right femur s/p orif , postop she was having shortness of breath and tachycardia-CTA was done due to that region and found to have Small segmental pulmonary emboli in the right lung base. Subsequently was started on Eliquis.She reports not taking Eliquis properly taking once a day instead of b.i.d. CTA was repeated today-did not show any pulmonary embolism, venous duplex study also done which is negative. Denies any sick contact or travel. Denies chest pain, nausea, vomiting, fevers, chills. Lab imaging EKG reviewed: Has mild leukocytosis, hb/hct: 8.8/28.3 , as mild tachycardia. Review of Systems Review of Systems: As above. [facility] Medical History Pulmonary embolism Intertrochanteric fracture of right hip Closed comminuted intertrochanteric fracture of femur GERD (gastroesophageal reflux disease) Osteoporosis Hyperlipidemia Irritable bowel syndrome with diarrhea Fatty liver Asthma Anxiety and depression Surgical History Hx of tonsillectomy H/O esophagogastroduodenoscopy H/O colonoscopy Social History Household Members: Spouse Housing: Condominium Do you presently have visiting nurse or other home services: No Alcohol intake: current Alcohol intake frequency: 3 or more drinks per day Alcohol type: hard liquor Patient Tobacco Use Status: Former Tobacco user Quit Date: 2011 Second Hand Smoke Exposure: No Advance Directives: No Advance Directives Information Provided: No service: No Meds Allergies Allergy/AdvReac Type Severity Reaction Status Date / Time ciprofloxacin [From Cipro] Allergy Unknown Verified 05/25/23 13:54 escitalopram [From Lexapro] Allergy Unknown Verified 05/25/23 13:54 paroxetine [From Paxil] Allergy Unknown Verified 05/25/23 13:54 sulfamethoxazole Allergy Unknown Verified 05/25/23 13:54 [From Bactrim] trimethoprim [From Bactrim] Allergy Unknown Verified 05/25/23 13:54 Active Medications: Current Medications Acetaminophen (Acetaminophen 325 Mg Tablet) 650 mg PO Q6H PRN PRN Reason: Pain, Mild (Pain Scale 1-3) Albuterol Sulfate (Albuterol Sulfate 90 Mcg 8 Gm Inhaler) 2 puff INHALE QID PRN PRN Reason: wheezing Amitriptyline HCl (Amitriptyline Hcl 10 Mg Tablet) 20 mg PO BEDTIME JOHN Clonazepam (Clonazepam 1 Mg Tablet) 1 mg PO BID JOHN Dicyclomine HCl (Dicyclomine Hcl 10 Mg Capsule) 10 mg PO BID-QID PRN PRN Reason: Abdominal Pain Famotidine (Famotidine 20 Mg Tablet) 20 mg PO BID JOHN Ceftriaxone Sodium 1 gm/ (Sodium Chloride) 50 mls @ 100 mls/hr IV Q24H JOHN Non-Formulary Medication (Ketoconazole) 1 appl TOPICAL BID PRN PRN Reason: Rash Non-Formulary Medication (Nabumetone) 500 mg PO BID PRN PRN Reason: Pain Nystatin (Nystatin Cream 15 Gm Tube) 1 appl TOPICAL BID PRN; Protocol PRN Reason: Rash Salmeterol Xinafoate (Salmeterol Xinafoate 50 Mcg Blst.W.Dev) 1 puff INHALE BID JOHN Sodium Chloride (0.9 % Sodium Chloride Flush 3 Ml Syringe) 3 ml IVFLUSH QSHIFT JOHN Last Admin: 05/28/23 16:15 Dose: Not Given Triamcinolone Acetonide (Triamcinolone Acet 0.1 % Cream 15 Gm Tube) 1 appl TOPICAL BID PRN; Protocol PRN Reason: Rash Home Medications Medication Instructions Recorded Confirmed Last Taken Type albuterol sulfate 90 mcg/actuation 2 puff inhalation QID PRN wheezing 12/28/22 05/28/23 05/05/23 History aerosol inhaler amitriptyline 10 mg tablet 20 mg PO BEDTIME 12/28/22 05/28/23 05/27/23 History famotidine 20 mg tablet 20 mg PO BID 12/28/22 05/28/23 05/27/23 History nabumetone 500 mg tablet 500 mg PO BID PRN Pain 12/28/22 05/28/23 05/05/23 History salmeterol 50 mcg/dose blister 1 inh inhalation BID 12/28/22 05/28/23 05/27/23 History powder for inhalation (Serevent Diskus) clonazepam 1 mg tablet 1 mg PO BID 05/07/23 05/28/23 05/27/23 History ketoconazole 2 % topical cream 1 appl topical BID PRN Rash 05/07/23 05/28/23 Unknown History nystatin 100,000 unit/gram topical 1 appl topical BID PRN Rash 05/07/23 05/28/23 Unknown History cream apixaban 5 mg tablet (Eliquis) 5 mg PO BID 05/28/23 05/28/23 05/26/23 History dicyclomine 10 mg capsule 10 mg PO BID-QID PRN Abdominal Pain 05/28/23 05/28/23 Unknown History tizanidine 2 mg tablet 2 mg PO Q8H PRN Pain 05/28/23 05/28/23 Unknown History triamcinolone acetonide 0.1 % 1 appl topical BID PRN Rash 05/28/23 05/28/23 Unknown History topical cream Physical Exam Vital Signs and Narrative: Vital Signs: Last Vital Signs Temp 98.4 F 05/28/23 15:01 Pulse 111 H 05/28/23 15:01 Resp 20 05/28/23 15:01 BP 134/69 05/28/23 15:01 Pulse Ox 96 05/28/23 15:01 O2 Del Method Room Air 05/28/23 15:01 BMI result Body Mass Index 25.7 Appearance: Alert.? Oriented X3.? not in distress.? Eyes: Pupils equal, round and reactive to light.? Sclera nonicteric.? ENT: Pharynx normal.? Moist mucous membranes. cvs: rrr, [id number] , no murmur res: clear to auscultation ,no rhonchii or wheezing abd: no rebound or guarding ,nt, bs present. no cva tenderness ext pulses present , no cyanosis . neuro: axo3 , nonfocal. Results Labs 05/28/23 11:47 05/28/23 11:47 Labs: Laboratory Results - last 24 hr 05/28/23 05/28/23 05/28/23 11:42 11:47 12:39 MCV 103.7 H MCH 32.2 MCHC 31.1 RDW 14.9 Plt Count 602 H D MPV 8.5 L Immature Gran % (Auto) 0.4 Neut % (Auto) 83.8 H Lymph % (Auto) 7.2 L [place] % (Auto) 7.5 Eos % (Auto) 0.7 Baso % (Auto) 0.4 Lymph # (Auto) 0.8 L [place] # (Auto) 0.8 Eos # (Auto) 0.1 Baso # (Auto) 0.0 Abs Immat Gran (auto) 0.05 H Absolute Neuts (auto) 9.4 H Absolute Nucleated RBC 0.000 Nucleated RBC % (auto) 0.0 PT 19.3 H D INR 1.6 H APTT 30.5 Anion Gap 12 Estim Creat Clear Calc 68.9 Estimated GFR > 60 Random Glucose 140 H Lactic Acid 1.3 Calcium 8.6 D Magnesium 1.9 Total Bilirubin 0.7 AST 26 ALT 15 Alkaline Phosphatase 150 H B-Natriuretic Peptide 26 Total Protein 6.9 Albumin 2.9 L Urine Color Dark Yellow Urine Appearance Turbid Urine pH 5.5 Ur Specific [place] 1.020 Urine Protein 300 (3+) H Urine Glucose (UA) Negative Urine Ketones Trace Urine Blood Large (3+) H Urine Nitrite Positive H Ur Leukocyte Esterase Moderate (2+) H Urine RBC >20 H Urine WBC >50 H Ur Squamous Epith Cells 3-5 Urine Bacteria 4+ Hyaline Casts 6-10 Influenza Type A (PCR) NEGATIVE Influenza Type B (PCR) NEGATIVE RSV RNA Qual (PCR) NEGATIVE SARS-CoV-2 RNA (RT-PCR) NEGATIVE Imaging Radiologist's Impressions: Impressions Chest X-Ray 05/28/23 11:26 IMPRESSION: * Small left pleural effusion is present. * No evidence of pulmonary edema, pneumothorax or other significant change. Chest CTA 05/28/23 12:40 IMPRESSION: No evidence of PE. No evidence of aortic aneurysm or dissection. Small bilateral pleural effusions slightly greater on the left. There is mild to moderate pericardial effusion. Small left thyroid nodule. VTE: negative Assessment and Plan (1) Sepsis: Status: Acute (2) Acute UTI: Status: Acute Plan 59-year-old female past medical history as mentioned above comes into the hospital-multiple URI symptoms. Sepsis sec to UTI: Patient has tachycardia, tachypnea initially Mild leukocytosis, lactic acid normal, blood culture and urine culture pending INÉS panel added Started on IV ceftriaxone. Recent small PE: Currently study with CTA and venous duplex negative d/w hematology:Continue Eliquis. Close comminuted intertrochanteric fracture of the femur on the rights/p ORIF pt eval history of anxiety and depression continue Klonopin and amitriptyline DVT prophylaxis: eliquis. needs ongoing inpatient : Sepsis secondary to UTI need IV antibiotics, workup with urine culture and blood culture -patient will benefit from 2 midnight stays Quality Stroke Does the patient have a stroke diagnosis?: No VTE Prior VTE?: No VTE Risk Level:: Medical - moderate - high VTE Device Contraindication: N/A - Device Ordered VTE Drug Contraindication: N/A - Med Ordered
[2023-05-28 17:57] LABS: Iron 17 mcg/dL (30-160); Percent Iron Saturation 10 % (15-50); Total Iron Binding Capacity 164 mcg/dL (228-428); Unsaturated Iron Binding 147 ug/dL
[2023-05-28 18:16] LABS: Ferritin 805 ng/mL (10-250)
[2023-05-28] MEDS: Salmeterol Xinafoate 50 MCG BLST.W.DEV 1 PUFF INHALE (19:54)
[2023-05-28] MEDS: Famotidine 20 MG TABLET PO (21:09)
[2023-05-28] MEDS: 0.9 % Sodium Chloride Flush 3 ML SYRINGE IVFLUSH (21:09)
[2023-05-28] MEDS: clonazePAM 1 MG TABLET PO (21:09)
[2023-05-28] MEDS: Amitriptyline HCl 10 MG TABLET 20 MG PO (21:09)
[2023-05-28] MEDS: Apixaban 5 MG TABLET PO (21:09)
[2023-05-29] VITALS (16 sets, daily range): BP systolic 113–157; BP diastolic 57–85; PULSE 96–124; RESP 14–20; TEMP 36.3–37; O2SAT 94–98; BMI 29.6
[2023-05-29] MEDS: Metoprolol Tartrate 5 MG/5 ML VIAL IVPUSH ×2 (01:29→01:52)
--- NOTE | 2023-05-29 02:05 | PC.NURSE ---
Patient on tele monitor for tachycardia in high 100's, now HR increased to 124 at rest and staying in that range. Dr Xiong made aware, metoprolol 5 mg IV times 2 doses given. See VS in computer, HR down to 97. Also patient came from ED with a FC, there is no order for it and no information why it was inserted. Dr Xiong aware, FC removed at 0200.Will continue with care.
[2023-05-29] MEDS: Albuterol Sulfate 90 MCG 8 GM INHALER 2 PUFF INHALE (02:53)
[2023-05-29] MEDS: Milk of Magnesia 30 ML ORAL.SUSP PO (02:55)
[2023-05-29] MEDS: Dicyclomine HCl 10 MG CAPSULE PO (02:55)
[2023-05-29] MEDS: guaiFENesin 200 MG/10 ML 10 ML LIQUID PO (02:55)
[2023-05-29] MEDS: Docusate Sodium 100 MG CAPSULE PO ×2 (02:55→07:54)
--- NOTE | 2023-05-29 02:58 | PC.NURSE ---
Patient states no BM in 4 days and cough, Dr Xiong notified, MOM and Robitussin given, patient started on Colace.
[2023-05-29 05:31] LABS: MANUAL DIFF FLAG NO
[2023-05-29 05:39] LABS: Basophils Absolute Auto 0.1 X10*3/uL (0.0-0.2); Basophils Percent Auto 0.5 % (0-2); Eosinophils Absolute Auto 0.1 X10*3/uL (0.0-0.4); Eosinophils Percent Auto 0.6 % (0-4); Hematocrit 23.7 % (37.0-47.0); Hemoglobin 7.6 g/dl (12.0-16.0); Imm Gran Abs Auto 0.04 X10*3/uL (0.00-0.03); Imm Gran Pct Auto 0.4 % (0.0-0.4); Lymphocytes Absolute Auto 0.7 X10*3/uL (1.2-4.9); Lymphocytes Percent Auto 7.6 % (20-40); Mean Corpuscular HGB Conc 32.1 g/dl (31.0-35.0); Mean Corpuscular Hemoglobin 32.9 pg (27.0-33.0); Mean Corpuscular Volume 102.6 fL (80.0-98.0); Mean Platelet Volume 8.8 fL (9.4-12.3); Monocytes Absolute Auto 0.7 X10*3/uL (0.1-1.2); Monocytes Percent Auto 7.9 % (2-11); Neutrophils Absolute Auto 7.7 x10*3/uL (2.0-8.3); Platelet Count 523 X10*3/uL (160-400); Red Blood Count 2.31 X10*6/uL (4.20-5.50); White Blood Count 9.3 X10*3/uL (4.8-10.8)
[2023-05-29 05:50] LABS: Anion Gap 15 (12-20); Blood Urea Nitrogen 7 mg/dL (9-16); Calcium 8.3 mg/dL (8.4-10.2); Carbon Dioxide 24 mmol/L (22-29); Chloride 104 mmol/L (96-108); Creatinine Clr Calc Pharmacy 89.8; Estimated Glomerular Filt Rate > 60; Glucose Random 118 mg/dL (60-115); Sodium 140 mmol/L (135-145)
[2023-05-29 06:39] LABS: OBS Int Ctl Valid YES; OBS1 NEGATIVE (NEGATIVE)
[2023-05-29] MEDS: clonazePAM 1 MG TABLET PO ×2 (07:54→22:12)
[2023-05-29] MEDS: Famotidine 20 MG TABLET PO ×2 (07:54→22:12)
[2023-05-29] MEDS: 0.9 % Sodium Chloride Flush 3 ML SYRINGE IVFLUSH ×3 (07:54→22:13)
[2023-05-29] MEDS: Ferrous Sulfate 300 MG/5 ML LIQUID PO ×2 (07:54→16:31)
[2023-05-29] MEDS: Potassium Chloride Packet 20 MEQ PACKET 40 MEQ PO (07:54)
[2023-05-29] MEDS: Albuterol/Iprat 2.5/0.5MG 3 ML AMPUL.NEB INHALE ×4 (07:59→19:40)
[2023-05-29 08:53] LABS: Hematocrit 30.6 % (37.0-47.0); Hemoglobin 9.5 g/dl (12.0-16.0)
--- NOTE | 2023-05-29 08:55 | MHC.CM.PN ---
PATIENT S IN FROM HOME WITH VNA SERVICES SHE IS UNABLE TO RECALL THE VNA NAME, BUT DOES REPORT THAT SHE HAS P.T., O.T., AND RN SERVICES AT THIS TIME. SHE WAS RECENTLY DC FROM [facility]. SHE HAS A CANE, WALKER, AND WC IN THE HOME FOR WHEN NEEDED. NO HCP ON FILE AND COPY REQUESTED. HER GOAL IS TO DC HOME BEFORE [facility] WITH RESUMPTION OF VNA SERVICES. WHILE ASSESSING FOR DC NEEDS, PATIENT WAS WITH PHLEBOTOMY; THEREFORE, IMM RIGHTS DISCUSSED, UNDERSTOOD, AND LEFT BEDSIDE WITH PATIENT PERMISSION. IMM 05/29 IN CHART
--- NOTE | 2023-05-29 09:08 | PC.NURSE ---
Repeat H&H 9.5/30.6 MD Hernández notified will hold off on transfusing PRBC's per MD verbal order
[2023-05-29 09:45] LABS: Folate 10.3 ng/mL (> or = 4.0); Vitamin B12 717 pg/mL (200-900)
[2023-05-29 10:21] LABS: Hematocrit 26.7 % (37.0-47.0); Hemoglobin 8.2 g/dl (12.0-16.0); Mean Corpuscular HGB Conc 30.7 g/dl (31.0-35.0); Mean Corpuscular Hemoglobin 31.9 pg (27.0-33.0); Mean Corpuscular Volume 103.9 fL (80.0-98.0); Mean Platelet Volume 9.8 fL (9.4-12.3); Platelet Count 458 X10*3/uL (160-400); Red Blood Count 2.57 X10*6/uL (4.20-5.50); Red Cell Distribution Width 14.8 % (11.0-16.0); White Blood Count 8.8 X10*3/uL (4.8-10.8)
[2023-05-29 10:25] LABS: INTERNATIONAL NORM RATIO 1.5 (0.9-1.1); Prothrombin Time 18.4 SEC (11.1-13.3)
[2023-05-29 10:28] LABS: PTT Heparin Drip 29.9 SEC (53-77.9)
[2023-05-29] MEDS: Acetaminophen 325 MG TABLET 650 MG PO (11:06)
[2023-05-29] MEDS: diphenhydrAMINE HCL 25 MG CAPSULE PO (11:07)
--- NOTE | 2023-05-29 11:09 | PC.NURSE ---
most current H&H is 8.2/26.7 will transfuse with 1unit of PRCS as per Dr Hernández . pt pre medicated with Tylenol and Benadryl as per orders see MAR
--- NOTE | 2023-05-29 12:14 | PC.NURSE ---
1 unit of PRBC started , unable to obtain a second line to begin heparin drip . MD Hernández notified that heparin drip will start after unit of blood is complete
--- NOTE | 2023-05-29 12:36 | PC.NURSE ---
Blood infusing no S&S of reaction
--- NOTE | 2023-05-29 13:29 | P.PNIM_ITS ---
Subjective Subjective Date of Service: 05/29/23 Interval History: sepsis ,uti Review of Systems denies any urinary c/o intermittent sob denies chest pain or cough Physical Exam 2 Vital Signs: Vital Signs: Last Vital Signs Temp 98.3 F 05/29/23 12:25 Pulse 116 H 05/29/23 12:25 Resp 16 05/29/23 12:25 BP 113/57 L 05/29/23 12:25 Pulse Ox 94 05/29/23 07:35 O2 Del Method Room Air 05/29/23 07:35 BMI result Body Mass Index 29.6 Appearance: Alert.? Oriented X3.? cvs: rrr, [id number] , no murmur res: air entry fair , no rales or wheezing abd: no rebound or guarding ,nt, bs present. no cva tenderness ext pulses present , no cyanosis . neuro: axo3 , nonfocal. Objective Data Active Medications Acetaminophen (Acetaminophen 325 Mg Tablet) 650 mg PO Q6H PRN PRN Reason: Pain, Mild (Pain Scale 1-3) Last Admin: 05/29/23 11:06 Dose: 650 mg Documented By: MARGARITA Albuterol/Ipratropium (Albuterol/Iprat 2.5/0.5mg 3 Ml Ampul.Neb) 3 ml INHALE RQ4H WHILE AWAKE [facility] Last Admin: 05/29/23 11:43 Dose: 3 ml Documented By: LUZ Amitriptyline HCl (Amitriptyline Hcl 10 Mg Tablet) 20 mg PO BEDTIME [facility] Last Admin: 05/28/23 21:09 Dose: 20 mg Documented By: KAREN Clonazepam (Clonazepam 1 Mg Tablet) 1 mg PO BID [facility] Last Admin: 05/29/23 07:54 Dose: 1 mg Documented By: MARGARITA Dicyclomine HCl (Dicyclomine Hcl 10 Mg Capsule) 10 mg PO QID PRN PRN Reason: Abdominal Pain Last Admin: 05/29/23 02:55 Dose: 10 mg Documented By: KAREN Docusate Sodium (Docusate Sodium 100 Mg Capsule) 100 mg PO BID [facility] Last Admin: 05/29/23 07:54 Dose: 100 mg Documented By: MARGARITA Famotidine (Famotidine 20 Mg Tablet) 20 mg PO BID [facility] Last Admin: 05/29/23 07:54 Dose: 20 mg Documented By: MARGARITA Ferrous Sulfate (Ferrous Sulfate 300 Mg/5 Ml Liquid) 300 mg PO BIDWM [facility] Last Admin: 05/29/23 07:54 Dose: 300 mg Documented By: MARGARITA Guaifenesin (Guaifenesin 200 Mg/10 Ml 10 Ml Liquid) 10 ml PO Q4H PRN PRN Reason: Cough Last Admin: 05/29/23 02:55 Dose: 10 ml Documented By: KAREN Heparin Sodium (Porcine) (Heparin Sodium,Porcine 5,000 Unit/Ml Vial) 3,100 unit 40 unit/kg (3100 unit) IVPUSH PROTOCOL BOLUS PRN; Protocol PRN Reason: 40 unit/kg - Heparin Protocol Heparin Sodium (Porcine) (Heparin Sodium,Porcine 5,000 Unit/Ml Vial) 6,200 unit 80 unit/kg (6200 unit) IVPUSH PROTOCOL BOLUS PRN; Protocol PRN Reason: 80 unit/kg - Heparin Protocol Ceftriaxone Sodium 1 gm/ (Sodium Chloride) 50 mls @ 100 mls/hr IV Q24H [facility] Heparin Sodium/Sodium Chloride (Heparin Sodium,Porcine/1/2ns) 25,000 unit in 250 mls @ 0 mls/hr IVCONT .Q0M [facility]; Protocol Non-Formulary Medication (Nabumetone) 500 mg PO BID PRN PRN Reason: Pain Nystatin (Nystatin Cream 15 Gm Tube) 1 appl TOPICAL BID PRN; Protocol PRN Reason: Rash Omeprazole (Omeprazole 20 Mg Capsule.Dr) 20 mg PO BID@0630,1630 [facility] Salmeterol Xinafoate (Salmeterol Xinafoate 50 Mcg Blst.W.Dev) 1 puff INHALE RBID [facility] Last Admin: 05/28/23 19:54 Dose: 1 puff Documented By: CORBIN Sodium Chloride (0.9 % Sodium Chloride Flush 3 Ml Syringe) 3 ml IVFLUSH QSHIFT [facility] Last Admin: 05/29/23 07:54 Dose: 3 ml Documented By: MARGARITA Triamcinolone Acetonide (Triamcinolone Acet 0.1 % Cream 15 Gm Tube) 1 appl TOPICAL BID PRN; Protocol PRN Reason: Rash Labs 05/29/23 09:50 05/29/23 05:06 Labs: Laboratory Results - last 24 hr 05/28/23 05/29/23 05/29/23 11:47 05:06 06:20 MCV 102.6 H MCH 32.9 MCHC 32.1 RDW 15.0 Plt Count 523 H MPV 8.8 L Immature Gran % (Auto) 0.4 Neut % (Auto) 83.0 H Lymph % (Auto) 7.6 L [place] % (Auto) 7.9 Eos % (Auto) 0.6 Baso % (Auto) 0.5 Lymph # (Auto) 0.7 L [place] # (Auto) 0.7 Eos # (Auto) 0.1 Baso # (Auto) 0.1 Abs Immat Gran (auto) 0.04 H Absolute Neuts (auto) 7.7 Absolute Nucleated RBC 0.000 Nucleated RBC % (auto) 0.0 PT INR aPTT Heparin Protocol Anion Gap 15 Estim Creat Clear Calc 89.8 Estimated GFR > 60 Random Glucose 118 H Calcium 8.3 L Iron 17 L TIBC 164 L % Saturation 10 L Unsat Iron Binding 147 Ferritin 805 H Vitamin B12 Folate Stool Occult Blood NEGATIVE Blood Type Antibody Screen Crossmatch 05/29/23 05/29/23 08:35 09:50 MCV 103.9 H MCH 31.9 MCHC 30.7 L RDW 14.8 Plt Count 458 H MPV 9.8 Immature Gran % (Auto) Neut % (Auto) Lymph % (Auto) [place] % (Auto) Eos % (Auto) Baso % (Auto) Lymph # (Auto) [place] # (Auto) Eos # (Auto) Baso # (Auto) Abs Immat Gran (auto) Absolute Neuts (auto) Absolute Nucleated RBC 0.000 Nucleated RBC % (auto) 0.0 PT 18.4 H INR 1.5 H aPTT Heparin Protocol 29.9 L Anion Gap Estim Creat Clear Calc Estimated GFR Random Glucose Calcium Iron TIBC % Saturation Unsat Iron Binding Ferritin Vitamin B12 717 Folate 10.3 Stool Occult Blood Blood Type A Positive Antibody Screen NEGATIVE Crossmatch See Detail Assessment and Plan (1) Sepsis: Status: Acute (2) Acute UTI: Status: Acute (3) Pulmonary embolism: Status: Acute Plan 59-year-old female past medical history as mentioned above comes into the hospital-multiple URI symptoms. Sepsis sec to UTI: Patient has tachycardia, tachypnea initially Mild leukocytosis, lactic acid normal, blood culture and urine culture pending INÉS panel added Started on IV ceftriaxone. Recent small PE: intial cta in : showed Small segmental pulmonary emboli in the right lung base. Currently study with CTA and venous duplex negative d/w hematology:switched to heprin drip low dose ,moniter pt/ptt monitering anemia macrocytic : Postop,dilutinal compnent,sepsis fobt neg anemia workup, b12 and folate levels pending h/h between 8.2 to 9.5 type and cross ,transfuse 1 prbc moniter h/h closely. hypokalemia : repleted. Close comminuted intertrochanteric fracture of the femur on the rights/p ORIF pt eval history of anxiety and depression continue Klonopin and amitriptyline DVT prophylaxis: eliquis. needs ongoing inpatient : Sepsis secondary to UTI need IV antibiotics, workup with urine culture and blood culture , anemia workup and blood transfusion as well as heparin drip and pt/ptt monitering Quality Stroke Does the patient have a stroke diagnosis?: No VTE Prior VTE?: No VTE Risk Level:: Medical - moderate - high VTE Device Contraindication: N/A - Device Ordered VTE Drug Contraindication: N/A - Med Ordered
[2023-05-29] MEDS: Heparin Sodium,Porcine/1/2NS 25,000 UNIT/250 ML IV.SOLN 10 UNIT IVCONT (14:19)
--- NOTE | 2023-05-29 14:19 | PC.NURSE ---
Heparin drip started as per orders at 12.8 units/kg/hr = 10ml see MAR . Repeat PTT scheduled to be drawn at 2023
--- NOTE | 2023-05-29 15:30 | PC.NURSE ---
1 unit of PRBC complete pt tolerated well repeat H&H to be drawn at 2023
[2023-05-29] MEDS: Omeprazole 20 MG CAPSULE.DR PO (15:42)
[2023-05-29] MEDS: Furosemide 20 MG/2 ML VIAL IVPUSH (15:42)
[2023-05-29] MEDS: cefTRIAXone sodium 1 GM in 0.9 % Sodium Chloride 50 ML IV (15:48)
[2023-05-29 20:39] LABS: Hematocrit 26.9 % (37.0-47.0); Hemoglobin 8.9 g/dl (12.0-16.0)
[2023-05-29 20:47] LABS: PTT Heparin Drip 44.7 SEC (53-77.9)
[2023-05-29] MEDS: Heparin Sodium,Porcine 5,000 UNIT/ML VIAL 3100 UNIT IVPUSH (21:11)
[2023-05-29] MEDS: Amitriptyline HCl 10 MG TABLET 20 MG PO (22:12)
--- NOTE | 2023-05-30 00:44 | PC.NURSE ---
Post-transfusion 20:00 H&H 05/29 was 8.9 and 26.9. Hold transfusion of second unit for now, repeat labs in AM per Dr Xiong.
[2023-05-30 04:00] VITALS: BP 140/89; PULSE 111; RESP 16; TEMP 36.8; O2SAT 94
[2023-05-30 05:37] LABS: Hematocrit 27.6 % (37.0-47.0); Hemoglobin 8.9 g/dl (12.0-16.0)
[2023-05-30] MEDS: Omeprazole 20 MG CAPSULE.DR PO ×2 (06:02→16:00)
[2023-05-30] MEDS: guaiFENesin 200 MG/10 ML 10 ML LIQUID PO (06:10)
[2023-05-30 07:07] LABS: Adenovirus PCR Not Detected (Not Detect.); Bordetella parapertussis PCR Not Detected (Not Detect.); Bordetella pertussis PCR Not Detected (Not Detect.); Chlamydia pneumoniae PCR Not Detected (Not Detect.); Coronavirus 229E PCR Not Detected (Not Detect.); Coronavirus HKU1 PCR Not Detected (Not Detect.); Coronavirus NL63 PCR Not Detected (Not Detect.); Coronavirus OC43 PCR Not Detected (Not Detect.); Human metapneumovirus PCR Not Detected (Not Detect.); Influenza A PCR Not Detected (Not Detect.); Influenza B PCR Not Detected (Not Detect.); Mycoplasma pneumoniae PCR Not Detected (Not Detect.); Parainfluenza 1 PCR Not Detected (Not Detect.); Parainfluenza 2 PCR Not Detected (Not Detect.); Parainfluenza 3 PCR Not Detected (Not Detect.); Parainfluenza 4 PCR Not Detected (Not Detect.); RSV PCR Not Detected (Not Detect.); Rhino/Enterovirus PCR Not Detected (Not Detect.); SARS-CoV-2 PCR Not Detected (Not Detect.)
[2023-05-30 07:33] VITALS: BP 152/76; PULSE 109; RESP 16; TEMP 36.4; O2SAT 95
[2023-05-30] MEDS: Heparin Sodium,Porcine/1/2NS 25,000 UNIT/250 ML IV.SOLN 11.56 UNIT IVCONT (08:33)
[2023-05-30] MEDS: clonazePAM 1 MG TABLET PO ×3 (08:50→21:37)
[2023-05-30] MEDS: Famotidine 20 MG TABLET PO ×2 (08:51→21:37)
[2023-05-30] MEDS: Ferrous Sulfate 300 MG/5 ML LIQUID PO ×2 (08:51→16:00)
[2023-05-30] MEDS: cefuroxime axetiL 500 MG TABLET PO ×2 (08:56→21:37)
[2023-05-30] MEDS: 0.9 % Sodium Chloride Flush 3 ML SYRINGE IVFLUSH (08:56)
[2023-05-30 09:29] LABS: PTT Heparin Drip 64.7 SEC (53-77.9)
[2023-05-30 09:37] LABS: Potassium 3.1 mmol/L (3.3-5.1)
--- NOTE | 2023-05-30 09:43 | P.PNIM_ITS ---
Subjective Subjective Date of Service: 05/30/23 Interval History: sepsis ,uti Review of Systems denies any urinary c/o intermittent sob denies chest pain or cough Physical Exam 2 Vital Signs: Vital Signs: Last Vital Signs Temp 97.5 F 05/30/23 07:33 Pulse 109 H 05/30/23 07:33 Resp 16 05/30/23 07:33 BP 152/76 H 05/30/23 07:33 Pulse Ox 95 05/30/23 07:33 O2 Del Method Room Air 05/30/23 04:00 BMI result Body Mass Index 29.6 Appearance: Alert.? Oriented X3.? cvs: rrr, [id number] , no murmur res: air entry fair , no rales or wheezing abd: no rebound or guarding ,nt, bs present. no cva tenderness ext pulses present , no cyanosis . neuro: axo3 , nonfocal. Objective Data Active Medications Acetaminophen (Acetaminophen 325 Mg Tablet) 650 mg PO Q6H PRN PRN Reason: Pain, Mild (Pain Scale 1-3) Last Admin: 05/29/23 11:06 Dose: 650 mg Documented By: MARGARITA Albuterol Sulfate (Albuterol Sulfate 90 Mcg 8 Gm Inhaler) 2 puff INHALE RQ4H PRN PRN Reason: Sob Amitriptyline HCl (Amitriptyline Hcl 10 Mg Tablet) 20 mg PO BEDTIME [facility] Last Admin: 05/29/23 22:12 Dose: 20 mg Documented By: KAREN Cefuroxime Axetil (Cefuroxime Axetil 500 Mg Tablet) 500 mg PO Q12H [facility] Last Admin: 05/30/23 08:56 Dose: 500 mg Documented By: ARIAN Clonazepam (Clonazepam 1 Mg Tablet) 1 mg PO BID [facility] Last Admin: 05/30/23 08:50 Dose: 1 mg Documented By: ARIAN Dicyclomine HCl (Dicyclomine Hcl 10 Mg Capsule) 10 mg PO QID PRN PRN Reason: Abdominal Pain Last Admin: 05/29/23 02:55 Dose: 10 mg Documented By: KAREN Docusate Sodium (Docusate Sodium 100 Mg Capsule) 100 mg PO BID [facility] Last Admin: 05/30/23 09:00 Dose: Not Given Documented By: ARIAN Non-Admin Reason: Patient Refused Famotidine (Famotidine 20 Mg Tablet) 20 mg PO BID [facility] Last Admin: 05/30/23 08:51 Dose: 20 mg Documented By: ARIAN Ferrous Sulfate (Ferrous Sulfate 300 Mg/5 Ml Liquid) 300 mg PO BIDWM [facility] Last Admin: 05/30/23 08:51 Dose: 300 mg Documented By: ARIAN Guaifenesin (Guaifenesin 200 Mg/10 Ml 10 Ml Liquid) 10 ml PO Q4H PRN PRN Reason: Cough Last Admin: 05/30/23 06:10 Dose: 10 ml Documented By: KAREN Heparin Sodium (Porcine) (Heparin Sodium,Porcine 5,000 Unit/Ml Vial) 3,100 unit 40 unit/kg (3100 unit) IVPUSH PROTOCOL BOLUS PRN; Protocol PRN Reason: 40 unit/kg - Heparin Protocol Last Admin: 05/29/23 21:11 Dose: 3,100 unit Documented By: KAREN Heparin Sodium (Porcine) (Heparin Sodium,Porcine 5,000 Unit/Ml Vial) 6,200 unit 80 unit/kg (6200 unit) IVPUSH PROTOCOL BOLUS PRN; Protocol PRN Reason: 80 unit/kg - Heparin Protocol Heparin Sodium/Sodium Chloride (Heparin Sodium,Porcine/1/2ns) 25,000 unit in 250 mls @ 0 mls/hr IVCONT .Q0M [facility]; Protocol Last Admin: 05/30/23 08:33 Dose: 14.8 units/kg/hr, 11.56 mls/hr Documented By: ARIAN Co-signed By: LINDA Non-Formulary Medication (Nabumetone) 500 mg PO BID PRN PRN Reason: Pain Nystatin (Nystatin Cream 15 Gm Tube) 1 appl TOPICAL BID PRN; Protocol PRN Reason: Rash Omeprazole (Omeprazole 20 Mg Capsule.Dr) 20 mg PO BID@0630,1630 [facility] Last Admin: 05/30/23 06:02 Dose: 20 mg Documented By: KAREN Salmeterol Xinafoate (Salmeterol Xinafoate 50 Mcg Blst.W.Dev) 1 puff INHALE RBID [facility] Last Admin: 05/28/23 19:54 Dose: 1 puff Documented By: CORBIN Sodium Chloride (0.9 % Sodium Chloride Flush 3 Ml Syringe) 3 ml IVFLUSH QSHIFT JOHN Last Admin: 05/30/23 08:56 Dose: 3 ml Documented By: ARIAN Triamcinolone Acetonide (Triamcinolone Acet 0.1 % Cream 15 Gm Tube) 1 appl TOPICAL BID PRN; Protocol PRN Reason: Rash Labs 05/30/23 05:21 05/30/23 09:04 Labs: Laboratory Results - last 24 hr 05/28/23 05/29/23 05/29/23 18:38 08:35 09:50 MCV 103.9 H MCH 31.9 MCHC 30.7 L RDW 14.8 Plt Count 458 H MPV 9.8 Absolute Nucleated RBC 0.000 Nucleated RBC % (auto) 0.0 PT 18.4 H INR 1.5 H aPTT Heparin Protocol 29.9 L Vitamin B12 717 Folate 10.3 Respiratory Panel Maurice See Note Adenovirus (Rapid PCR) Not Detected B.pert (TEM-PCR) Not Detected B.parapertussis DNA PCR Not Detected C. pneumoniae DNA (PCR) Not Detected Coronavirus OC43 (PCR) Not Detected Coronavirus HKU1 (PCR) Not Detected Coronavirus 229E (PCR) Not Detected Coronavirus NL63 (PCR) Not Detected Human Metapneumovir PCR Not Detected Influenza A (RT-PCR) Not Detected Influenza B (RT-PCR) Not Detected M. pneumoniae (PCR) Not Detected Parainfluenza 1 (PCR) Not Detected Parainfluenza 2 (PCR) Not Detected Parainfluenza 3 (PCR) Not Detected Parainfluenza 4 (PCR) Not Detected RSV (PCR) Not Detected Entero/Rhino (PCR) Not Detected SARS-CoV-2 RNA (RT-PCR) Not Detected Blood Type A Positive Antibody Screen NEGATIVE Crossmatch See Detail 05/29/23 05/30/23 05/30/23 20:32 03:10 09:07 MCV MCH MCHC RDW Plt Count MPV Absolute Nucleated RBC Nucleated RBC % (auto) PT INR aPTT Heparin Protocol 44.7 L D 68.0 D 64.7 Vitamin B12 Folate Respiratory Panel Maurice Adenovirus (Rapid PCR) B.pert (TEM-PCR) B.parapertussis DNA PCR C. pneumoniae DNA (PCR) Coronavirus OC43 (PCR) Coronavirus HKU1 (PCR) Coronavirus 229E (PCR) Coronavirus NL63 (PCR) Human Metapneumovir PCR Influenza A (RT-PCR) Influenza B (RT-PCR) M. pneumoniae (PCR) Parainfluenza 1 (PCR) Parainfluenza 2 (PCR) Parainfluenza 3 (PCR) Parainfluenza 4 (PCR) RSV (PCR) Entero/Rhino (PCR) SARS-CoV-2 RNA (RT-PCR) Blood Type Antibody Screen Crossmatch Microbiology Microbiology Results: Microbiology 05/28/23 Unknown Urine Culture - Final Urine Catheterized - Massey Catheter Escherichia coli 05/28/23 13:11 Blood Culture - Preliminary Blood - Venous No growth after 24 hours. 05/28/23 12:39 Blood Culture - Preliminary Blood - Venous No growth after 24 hours. Assessment and Plan (1) Sepsis: Status: Acute (2) Acute UTI: Status: Acute (3) Pulmonary embolism: Status: Acute Plan 59-year-old female past medical history as mentioned above comes into the hospital-multiple URI symptoms. Sepsis sec to UTI: has tachycardia, tachypnea improved Mild leukocytosis, lactic acid normal, blood culture neg@24hrs and urine culture -ecoli-senstive to ceftriaxone. INÉS panel negative switched to po ceftin Recent small PE: intial cta in : showed Small segmental pulmonary emboli in the right lung base. Currently study with CTA and venous duplex negative d/w hematology:switched to heprin drip low dose ,moniter pt/ptt monitering anemia macrocytic : Postop,dilutinal compnent,sepsis fobt neg anemia workup, b12 and folate levels pending s/p 1 prbc,h/h between 8.9 moniter h/h closely. hypokalemia : repleted. Close comminuted intertrochanteric fracture of the femur on the rights/p ORIF pt eval history of anxiety and depression continue Klonopin and amitriptyline DVT prophylaxis: eliquis. needs ongoing inpatient : Sepsis secondary to UTI need IV antibiotics, workup with urine culture and blood culture , anemia workup and blood transfusion as well as heparin drip and pt/ptt monitering Quality Stroke Does the patient have a stroke diagnosis?: No VTE Prior VTE?: No VTE Risk Level:: Medical - moderate - high VTE Device Contraindication: N/A - Device Ordered VTE Drug Contraindication: N/A - Med Ordered
--- NOTE | 2023-05-30 09:49 | PC.NURSE ---
PTT results for 0900: 64.7, per heparin gtt protocol aPTT to be drawn daily. Order entered for 05/31 0800.
[2023-05-30] MEDS: Albuterol Sulfate 90 MCG 8 GM INHALER 2 PUFF INHALE ×2 (11:07→21:56)
[2023-05-30 15:07] VITALS: BP 152/78; PULSE 119; RESP 18; TEMP 37.1; O2SAT 95
[2023-05-30] MEDS: Potassium Chloride Packet 20 MEQ PACKET 40 MEQ PO (16:00)
--- NOTE | 2023-05-30 16:28 | PC.NURSE ---
MD Hernández made aware pt BP and HR continue to be elevated, 152/78 and 119 HR, pt denies any S&S. Pt refuses to take Ativan, but agrees to take 1x dose Clonazepam. Dose given as ordered. also added metoprolol to scheduled medication, first dose due 2099.
[2023-05-30 19:37] VITALS: BP 157/73; PULSE 117; RESP 18; TEMP 36.7; O2SAT 97
[2023-05-30] MEDS: Amitriptyline HCl 10 MG TABLET 20 MG PO (21:34)
[2023-05-30] MEDS: Docusate Sodium 100 MG CAPSULE PO (21:37)
[2023-05-30] MEDS: Metoprolol Tartrate 25 MG TABLET PO (21:37)
[2023-05-31 04:00] VITALS: BP 140/71; PULSE 117; RESP 18; TEMP 36.9; O2SAT 95
[2023-05-31] MEDS: Heparin Sodium,Porcine/1/2NS 25,000 UNIT/250 ML IV.SOLN 11.56 UNIT IVCONT (06:00)
[2023-05-31] MEDS: Omeprazole 20 MG CAPSULE.DR PO (06:00)
[2023-05-31] MEDS: Albuterol Sulfate 90 MCG 8 GM INHALER 2 PUFF INHALE (06:28)
[2023-05-31 06:30] VITALS: PULSE 118; RESP 18; O2SAT 97
[2023-05-31 07:39] VITALS: BP 172/83; PULSE 123; RESP 18; TEMP 36.7; O2SAT 93
[2023-05-31] MEDS: clonazePAM 1 MG TABLET PO ×2 (09:06→13:10)
[2023-05-31] MEDS: Ferrous Sulfate 300 MG/5 ML LIQUID PO (09:06)
[2023-05-31] MEDS: cefuroxime axetiL 500 MG TABLET PO (09:06)
[2023-05-31] MEDS: Famotidine 20 MG TABLET PO (09:07)
[2023-05-31] MEDS: Metoprolol Tartrate 25 MG TABLET PO (09:07)
[2023-05-31 09:18] LABS: Hemoglobin 9.5 g/dl (12.0-16.0)
[2023-05-31 09:28] LABS: PTT Heparin Drip 50.8 SEC (53-77.9)
[2023-05-31 09:32] LABS: Anion Gap 14 (12-20); Blood Urea Nitrogen 4 mg/dL (9-16); Calcium 8.8 mg/dL (8.4-10.2); Carbon Dioxide 25 mmol/L (22-29); Chloride 105 mmol/L (96-108); Creatinine Clr Calc Pharmacy 87.8; Estimated Glomerular Filt Rate > 60; Glucose Random 114 mg/dL (60-115); Potassium 3.3 mmol/L (3.3-5.1); Sodium 141 mmol/L (135-145)
[2023-05-31 10:15] VITALS: BP 172/83
[2023-05-31] MEDS: Rivaroxaban 20 MG TABLET PO (11:18)
--- NOTE | 2023-05-31 11:42 | MHC.CM.PN ---
per rounds awaitng pt eval to determine dispositon
--- NOTE | 2023-05-31 11:43 | MHC.CM.PN ---
-per rounds pt not ready for dc ,pt needs an angiogram dc plan remains home ?vna
[2023-05-31] MEDS: amLODIPine Besylate 2.5 MG TABLET PO (12:26)
--- NOTE | 2023-05-31 12:37 | P.DS_ITS ---
DS: Providers Provider Date of Service: 05/31/23 Date of admission: 05/28/23 15:33 Date of discharge: 05/31/23 Primary care physician: Francisco Parnell MD Attending physician on discharge: Renetta Hernández Discharging clinician: Renetta Hernández DS: Diagnosis Discharge Diagnosis (1) Sepsis: Status: Acute (2) Acute UTI: Status: Acute (3) Pulmonary embolism: Status: Acute DS: Summary Hospital Course Hospital Course: 59-year-old female history of PE on Eliquis, IBS, osteoporosis, GERD presenting to Ed c/o fatigue, malaise, myalgias, shortness of breath since this morning. Patient is a vague historian: But telling that she was not feeling well from few days, and today she had above symptoms, subsequently decided to come to the hospital in addition she also complained to the ED physician for Lower abdominal pressure recently had a katz placed. Patient was recently discharged from [facility] on 05/10/23 : treated for close comminuted inter trochanteric fracture of the right femur s/p orif , postop she was having shortness of breath and tachycardia-CTA was done due to that region and found to have Small segmental pulmonary emboli in the right lung base. Subsequently was started on Eliquis.She reports not taking Eliquis properly taking once a day instead of b.i.d. CTA was repeated today-did not show any pulmonary embolism, venous duplex study also done which is negative. Denies any sick contact or travel. Denies chest pain, nausea, vomiting, fevers, chills. Lab imaging EKG reviewed: Has mild leukocytosis, hb/hct: 8.8/28.3 , as mild tachycardia. Hospital course: Patient was admitted to the hospital because of sepsis secondary to UTI: Started on IV antibiotics, blood cultures sent, patient's symptoms improved significantly going home with p.o. cefuroxime 500 mg p.o. b.i.d. for 5 more days. Blood culture came out negative at 48 hours. Patient has anemia-possibly had acute blood loss component due to recent hip surgery and due to IV fluids.fobt neg ,iron studies iron and iron sats slow: Added p.o. iron. In addition patient received 1 PRBC. Her H&H is stable 9.5 range. Patient had recent PE: Patient had segmental PE on CTA last admission 2-3 weeks back, repeat CTA negative and DVT study is negative(done by ED during this admission). Discussed with the Hematology -recommended to continue anticoagulation considering initial study was positive for PE, initially used IV heparin patient H&H is stable no bleeding: Patient does not want to take Eliquis so started on Xarelto. Hypokalemia repleted and resolved. Will add limited potassium supply, monitor BMP outpatient. possible Htn -lifestyle modification advised including weight loss, low-salt diet, metoprolol adjusted. Further management out patiently consider adding another hypertensive if needed outpatient PCP. Some component of elevated blood pressures also due to anxiety. plan: Monitor CBC and BMP out patiently. Patient is to follow-up with PCP and Orthopedics outpatient. Follow-up with pcp out patiently for further management of PE,consider outpatient hematology evaluation. Above management discussed with the patient in detail length she understand and in agreement with the above plan, time spent 50 minute . Time Attestation Discharge coordination time: Greater than 30 minutes Quality: Safe Use of Opioids Does Pt have an Active Cancer Diagnosis on the Problem List?: No Quality: Stroke Does the patient have a stroke diagnosis?: No Physical Exam Vital Signs: Vital Signs: Last Vital Signs Temp 98.0 F 05/31/23 07:39 Pulse 123 H 05/31/23 07:39 Resp 18 05/31/23 07:39 BP 172/83 H 05/31/23 10:15 Pulse Ox 93 05/31/23 07:39 O2 Del Method Room Air 05/31/23 07:39 BMI result Body Mass Index 29.6 Appearance: Alert.? Oriented X3.? not in distress.? Eyes: Pupils equal, round and reactive to light.? Sclera nonicteric.? ENT: Pharynx normal.? Moist mucous membranes. cvs: rrr, [id number]. res: clear to auscultation ,no rhonchii or wheezing abd: no rebound or guarding ,nt, bs present. ext pulses present , no cyanosis . neuro: axo3 , nonfocal. DS: Data Data Completed and Pending Completed studies during hospitalization [Text1]: Procedures Reposition Right Upper Femur with Internal Fixation Device, Open Approach (05/06/23) Labs on day of discharge: Laboratory Results - last 24 hr 05/31/23 08:39 Hgb 9.5 L Hct 31.0 L aPTT Heparin Protocol 50.8 L D Sodium 141 Potassium 3.3 Chloride 105 Carbon Dioxide 25 Anion Gap 14 BUN 4 L Creatinine 0.62 Estim Creat Clear Calc 87.8 Estimated GFR > 60 Random Glucose 114 Calcium 8.8 D Preliminary micro results at discharge 05/28/23 13:11 Blood Culture - Preliminary Blood - Venous No growth after 48 hours. 05/28/23 12:39 Blood Culture - Preliminary Blood - Venous No growth after 48 hours. Imaging Chest x-ray: Radiologist's impression: ITS Impressions Chest X-Ray 05/28/23 11:26 IMPRESSION: * Small left pleural effusion is present. * No evidence of pulmonary edema, pneumothorax or other significant change. Chest CTA 05/28/23 12:40 IMPRESSION: No evidence of PE. No evidence of aortic aneurysm or dissection. Small bilateral pleural effusions slightly greater on the left. There is mild to moderate pericardial effusion. Small left thyroid nodule. VTE: negative Venous Duplex 05/28/23 16:30 IMPRESSION: No DVT demonstrated in the bilateral lower extremity. Discharge Plan Discharge Anticipated Discharge Date/Time: 05/31/23 12:11 Patient Disposition: Home Health Service Discharge Diagnosis: uti ,anemia ,recent pulm embolism Referrals: Francisco Parnell MD [Primary Care Provider] - 1 Week Discharge Medications: New docusate sodium 100 mg Capsule 100 mg PO BID Qty: 30 0RF cefuroxime axetil 500 mg Tablet 500 mg PO Q12H Qty: 10 0RF metoprolol tartrate 25 mg Tablet 50 mg PO BID Qty: 60 0RF Protocol: Hold for SBP/HR < HOLD for SBP < : 90 HOLD for HR < : 60 Xarelto 20 mg Tablet 20 mg PO DAILY Qty: 30 0RF ferrous sulfate [Iron (ferrous sulfate)] 325 mg (65 mg iron) tablet 325 mg PO BID Qty: 60 0RF omeprazole 20 mg Capsule,Delayed Release(Dr/Ec) 20 mg PO DAILY Qty: 30 0RF Continued clonazepam 1 mg tablet 1 mg PO BID nystatin 100,000 unit/gram cream 1 appl TOPICAL BID PRN (Reason: Rash) ketoconazole 2 % cream 1 appl topical BID PRN (Reason: Rash) Rx Instructions: APPLY TO FEET tizanidine 2 mg tablet 2 mg PO Q8H PRN (Reason: Pain) triamcinolone acetonide 0.1 % cream 1 appl topical BID PRN (Reason: Rash) Rx Instructions: USE ON HANDS. DO NOT USE ON FACE dicyclomine 10 mg capsule 10 mg PO BID-QID PRN (Reason: Abdominal Pain) famotidine 20 mg tablet 20 mg PO BID amitriptyline 10 mg tablet 20 mg PO BEDTIME Serevent Diskus 50 mcg/dose blister with device 1 inh inhalation BID albuterol sulfate 90 mcg/actuation HFA aerosol inhaler 2 puff inhalation QID PRN (Reason: wheezing) nabumetone 500 mg tablet 500 mg PO BID PRN (Reason: Pain) Discontinued Eliquis 5 mg tablet 5 mg PO BID Discharge Orders: Discharge Order (Routine); Ordered 05/31/23 Ordered By: Renetta Hernández Diet: Advance to usual diet Activity on Discharge: As tolerated Stand Alone Forms: Patient Portal Discharge page Care Plan Goals: Patient was admitted to the hospital because of sepsis secondary to UTI: Started on IV antibiotics, blood cultures sent, patient's symptoms improved significantly going home with p.o. cefuroxime 500 mg p.o. b.i.d. for 5 more days. Blood culture came out negative at 48 hours. Patient has anemia-possibly had acute blood loss component due to recent hip surgery and due to IV fluids.fobt neg ,iron studies iron and iron sats slow: Added p.o. iron. In addition patient received 1 PRBC. Her H&H is stable 9.5 range. Patient had recent PE: Discussed with the Hematology initially used IV heparin patient H&H is stable no bleeding: Patient does not want to take Eliquis so started on Xarelto. Above management discussed with the patient in detail length she understand and in agreement with the above plan, time spent 50 minute . Monitor CBC out patiently. Patient is to follow-up with PCP and Orthopedics outpatient. Health Concerns: As above. Plan of Treatment: As above. Assessment: As above.
--- NOTE | 2023-05-31 13:00 | W.MHC.F2F ---
Service Date Service Date: 05/31/23 Encounter Date of encounter: 05/31/23 Encounter: sepsis sec to uti,pulm embolism ,recent hip fracture Reasons for Services Signs and symptoms assessed: New shortness of breath or chest pain or fever or any urinary complaints Reason for nursing home: medication management, medication treatment and teach disease management Reason for physical therapy: home safety and mobility, therapeutic exercises, restore joint function, gait/transfer training, assess need for DME, ADL training, energy conservation and other Homebound: Leaving the home is medically contraindicated at this time without the asist of a device and/or another person due th the listed conditions above and below. Reason homebound: weakness related to hospital stay Homebound supporting statement: Patient has multiple comorbidities including recent hip fracture, PE, also UTI, also weak post hospitalization stay: Need help with the appointments, lab draws, PT. Certification: Based on the above findings, I certify that this patient is confined to the home and needs intermittent nursing home care, physical therapy and/or speech therapy, or continues to need occupational therapy. The patient is under my care, and I have initiated the establishment of the plan of care. The patient will be followed by a physician who will periodically review the plan of care. Time Spent With Patient Time: Total time managing care of this patient today ____ minutes.
[2023-05-31 14:51] VITALS: BP 142/82
== END 2023-05-31 14:53 | disposition home health service (06) | DRG 872 ==
LOC: HO.ED 15:31 → HO.EDOVER 15:47 → HO.S3 16:15
PROVIDERS: Internal Medicine; Physician Assistant; Physician Assistant Medical; Admitting Provider Internal Medicine; Emergency Provider Emergency Medicine Emergency Medical Services; PCP Internal Medicine; Visit Provider Internal Medicine
DX: A41.9 Sepsis, unspecified organism (principal); N39.0 Urinary tract infection, site not specified; D62 Acute posthemorrhagic anemia; I10 Essential (primary) hypertension; B96.20 Unspecified Escherichia coli [E. coli] as the cause of diseases classified elsewhere; F41.9 Anxiety disorder, unspecified; F32.A Depression, unspecified; E87.6 Hypokalemia; Z20.822 Contact with and (suspected) exposure to COVID-19; Z86.711 Personal history of pulmonary embolism; Z79.01 Long term (current) use of anticoagulants; Z79.899 Other long term (current) drug therapy
CPT/HCPCS: 0241U; 36415; 71046; 71275; 80048; 80053; 81001; 82272; 82607; 82728; 82746; 83540; 83605; 83735; 83880; 84132; 84484; 85014; 85018; 85025; 85027; 85610; 85730; 86850; 86900; 86901; 86923; 87040; 87086; 87088; 87186; 87633; 93005; 93970; 94640; 97161; 99285; J0696; J1644; J1940; P9016; Q9967

== ENCOUNTER → 2023-05-28 11:16 | Outpatient (BNV) | payer MEDICARE, SELFPAY | PROVIDERS: Admitting Provider Internal Medicine; Emergency Provider Emergency Medicine Emergency Medical Services; PCP Internal Medicine; Visit Provider Internal Medicine Cardiovascular Disease | DX: R00.0 Tachycardia, unspecified (principal) | CPT/HCPCS: 93010 ==

== ENCOUNTER → 2023-05-28 15:33 | Outpatient (BNV) | payer MEDICARE, SELFPAY | PROVIDERS: Admitting Provider Internal Medicine; Emergency Provider Emergency Medicine Emergency Medical Services; PCP Internal Medicine; Visit Provider Internal Medicine | DX: A41.9 Sepsis, unspecified organism (principal); N39.0 Urinary tract infection, site not specified; I26.99 Other pulmonary embolism without acute cor pulmonale | CPT/HCPCS: 99222; 99232; 99239; G0180 ==

== ENCOUNTER 2023-07-06 10:28 | Outpatient (REF) | payer MEDICARE, SELFPAY ==
--- NOTE | ~2023-07-06 | XR_ITS ---
EXAMINATION: XR HIP, RIGHT WITH AP PELVIS CLINICAL INFORMATION: Pain. COMPARISON: Prior radiographs, most recently 05/25/2023. TECHNIQUE: AP and frog-leg lateral views of the right hip are submitted, together with a frontal view of the pelvis. FINDINGS: There is bony demineralization. There is stable alignment of a comminuted fracture of the right intertrochanteric region. An intact intact intramedullary tami, compression screw, cerclage wire and distal fixator screw are applied to the proximal right femur. No hardware failure or loosening seen. There is no new callus formation. Some heterotopic ossification is again seen adjacent to the right hip. There is mild degenerative change of the right hip, and moderately severe degenerative change is seen of the left hip. The femoral heads are smooth. The bilateral sacroiliac joints are symmetric and well-maintained. The pubic symphysis is intact. There is incompletely characterized degenerative change of the lumbar spine. XR/XR hip RT min 2V IMPRESSION: There is stable alignment status-post ORIF of a proximal right femoral intertrochanteric fracture. No hardware failure or loosening is seen. There is no new callus formation noted.
== END 2023-07-06 10:29 | disposition home or self-care (01) ==
LOC: HO.HOSX 10:28
PROVIDERS: Visit Provider Orthopaedic Surgery
DX: M25.551 Pain in right hip (principal); Z96.641 Presence of right artificial hip joint; Z47.1 Aftercare following joint replacement surgery
CPT/HCPCS: 73502; 99212

== ENCOUNTER 2023-07-06 13:33 | Outpatient (AMB) | payer MEDICARE, SELFPAY ==
--- NOTE | 2023-07-06 13:57 | MHC.OFFVIS ---
Intake Intake Visit Reasons: PO - Right Hip ORIF 05/07/23 Intake Note: Manju is a 67 year old female who presents for a post operative follow up Right hip ORIF 05/07/2023. Patient reports that her hip feels good. She denies any fevers or chills. She continues to walk with a walker. She does get home physical therapy. Allergies ciprofloxacin [From Cipro] Allergy (Verified 07/06/23 14:03) Unknown escitalopram [From Lexapro] Allergy (Verified 07/06/23 14:03) Unknown paroxetine [From Paxil] Allergy (Verified 07/06/23 14:03) Unknown sulfamethoxazole [From Bactrim] Allergy (Verified 07/06/23 14:03) Unknown trimethoprim [From Bactrim] Allergy (Verified 07/06/23 14:03) Unknown Medication List - Last Reconciled 07/06/23 by Ephraim Shay MD albuterol sulfate 90 mcg/actuation 2 puffs inhalation QID PRN amitriptyline 20 mg PO BEDTIME cefuroxime axetil 500 mg PO Q12H clonazepam 1 mg PO BID dicyclomine 10 mg PO BID-QID PRN docusate sodium 100 mg PO BID famotidine 20 mg PO BID ferrous sulfate (Iron (ferrous sulfate)) 325 mg PO BID ketoconazole 2% 1 appl topical BID PRN metoprolol tartrate 50 mg See Protocol PO BID nabumetone 500 mg PO BID PRN nystatin 1 appl topical BID PRN omeprazole 20 mg PO DAILY potassium chloride ER 10 mEq PO DAILY rivaroxaban (Xarelto) 20 mg PO DAILY salmeterol (Serevent Diskus) 1 inh inhalation BID tizanidine 2 mg PO Q8H PRN triamcinolone acetonide 0.1% 1 appl topical BID PRN PFSH Medical History (Updated 06/02/23 @ 00:03 by Rancho Alvarez) Pulmonary embolism Intertrochanteric fracture of right hip Closed comminuted intertrochanteric fracture of femur GERD (gastroesophageal reflux disease) Osteoporosis Hyperlipidemia Irritable bowel syndrome with diarrhea Fatty liver Asthma Anxiety and depression Surgical History (Updated 07/06/23 @ 14:06 by Shruti Hilliard CMA) History of hip surgery (05/07/23) Hx of tonsillectomy H/O esophagogastroduodenoscopy H/O colonoscopy Social History Household Members: Family Housing: Condominium Do you presently have visiting nurse or other home services: No Alcohol intake: current Alcohol intake frequency: 3 or more drinks per day Alcohol type: hard liquor Patient Tobacco Use Status: Former Tobacco user Quit Date: 2011 Second Hand Smoke Exposure: No service: No Physical Exam Extrem Other: Physical examination of the patient's right hip shows that the surgical incisions are well healed, no erythema, minimal discomfort with range of motion, no crepitus with range of motion Results Reviewed Results Reviewed: X-rays of the patient's right hip taken today show callus formation at the subtrochanteric fracture site, hardware in good position with no signs of loosening Assessment & Plan Assessment & Plan (1) Right hip pain: Code(s): M25.551 - Pain in right hip Plan: Ms. Ashley continues to do well after undergoing open reduction and internal fixation of her right hip subtrochanteric fracture on 05/07/2023. She will continue with her physical therapy exercises. She will continue ambulating with her walker to prevent future falls. She will contact me prior to her follow-up appointment is 6-8 weeks should any questions or concerns arise. Feel free to call me at any time should questions regarding her orthopedic management arise. Orders: Orders XR hip RT min 2V Today M25.551 - Pain in right hip Coding Level of Care Code Global (69940) Diagnoses Right hip pain M25.551
== END 2023-07-06 14:23 | disposition home or self-care (01) ==
PROVIDERS: PCP Internal Medicine; Visit Provider Orthopaedic Surgery
DX: M25.551 Pain in right hip (principal)
CPT/HCPCS: 99024

== ENCOUNTER 2023-09-02 07:15 | Outpatient (REF) | payer MEDICARE, SELFPAY ==
--- NOTE | ~2023-09-02 | XR_ITS ---
EXAMINATION: XR HIP, RIGHT CLINICAL INFORMATION: Pain in right hip. COMPARISON: AP view of the pelvis and bilateral hips of 07/06/2023. TECHNIQUE: 2 views of the right hip. FINDINGS: Degenerative changes in the imaged lower lumbar spine. Bones are diffusely demineralized. Degenerative changes in the bilateral sacroiliac joints. Redemonstration of an intramedullary tami with compression screw, cerclage wire and distal fixator screw transfixing the previously identified comminuted fracture of the right intertrochanteric region. Heterotopic ossification identified adjacent to the right. Hardware appears intact. Degenerative changes in the right hip. XR/XR hip RT min 2V IMPRESSION: 1. Redemonstration of an intramedullary tami with compression screw, cerclage wire and distal fixator screw transfixing the previously identified comminuted fracture of the right intertrochanteric region. Hardware appears intact. 2. Degenerative changes in the right hip.
== END 2023-09-02 07:16 | disposition home or self-care (01) ==
LOC: HO.HOSX 07:15
PROVIDERS: Visit Provider Orthopaedic Surgery
DX: M25.551 Pain in right hip (principal)
CPT/HCPCS: 73502; 99212

== ENCOUNTER 2023-09-02 13:21 | Outpatient (AMB) | payer MEDICARE, SELFPAY ==
--- NOTE | 2023-09-02 13:41 | MHC.OFFVIS ---
Intake Intake Visit Reasons: OV- Right Hip ORIF 05/07/23 Intake Note: Manju is a 67 year old female who presents for a follow up after her Right hip ORIF on 05/07/2023. Patient reports she is doing well, she is walking short distances without a walker or a cane. She is going to physcial therapy for chronic low back pain. She denies any fevers or chills. She does not take any medicines for her hip discomfort. Allergies ciprofloxacin [From Cipro] Allergy (Verified 09/02/23 13:46) Unknown escitalopram [From Lexapro] Allergy (Verified 09/02/23 13:46) Unknown paroxetine [From Paxil] Allergy (Verified 09/02/23 13:46) Unknown sulfamethoxazole [From Bactrim] Allergy (Verified 09/02/23 13:46) Unknown trimethoprim [From Bactrim] Allergy (Verified 09/02/23 13:46) Unknown Medication List - Last Reconciled 09/03/23 by Ephraim Shay MD albuterol sulfate 90 mcg/actuation 2 puffs inhalation QID PRN amitriptyline 20 mg PO BEDTIME cefuroxime axetil 500 mg PO Q12H clonazepam 1 mg PO BID dicyclomine 10 mg PO BID-QID PRN docusate sodium 100 mg PO BID famotidine 20 mg PO BID ferrous sulfate (Iron (ferrous sulfate)) 325 mg PO BID ketoconazole 2% 1 appl topical BID PRN metoprolol tartrate 50 mg See Protocol PO BID nabumetone 500 mg PO BID PRN nystatin 1 appl topical BID PRN omeprazole 20 mg PO DAILY potassium chloride ER 10 mEq PO DAILY rivaroxaban (Xarelto) 20 mg PO DAILY salmeterol (Serevent Diskus) 1 inh inhalation BID tizanidine 2 mg PO Q8H PRN triamcinolone acetonide 0.1% 1 appl topical BID PRN PFSH Medical History Pulmonary embolism Intertrochanteric fracture of right hip Closed comminuted intertrochanteric fracture of femur GERD (gastroesophageal reflux disease) Osteoporosis Hyperlipidemia Irritable bowel syndrome with diarrhea Fatty liver Asthma Anxiety and depression Surgical History History of hip surgery (05/07/23) Hx of tonsillectomy H/O esophagogastroduodenoscopy H/O colonoscopy Social History Household Members: Family Housing: Condominium Do you presently have visiting nurse or other home services: No Alcohol intake: current Alcohol intake frequency: 3 or more drinks per day Alcohol type: hard liquor Patient Tobacco Use Status: Former Tobacco user Quit Date: 2011 Second Hand Smoke Exposure: No service: No Physical Exam Const Other: Well-nourished well-developed very friendly female awake alert and oriented x3 in no acute distress Extrem Other: Bilateral lower extremity examination shows good capillary refill, no skin lesions noted, normal sensation light touch Right hip examination shows that the surgical incisions are well healed, no erythema, minimal discomfort with range of motion, mild tenderness over her bursa Results Reviewed Results Reviewed: X-rays of the patient's right hip show a short gamma nail in good position with no signs of loosening, no acute bony abnormalities, callus formation crossing the proximal femur fracture site Assessment & Plan Assessment & Plan (1) Right hip pain: Code(s): M25.551 - Pain in right hip Plan Ms. Ashley continues to do well after undergoing open reduction and internal fixation of her right proximal femur fracture with placement of a short gamma nail on 05/07/2023. She will continue with her back physical therapy. She can gradually progress to activities as tolerated. 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 She will contact me prior to her follow-up appointment in 2-3 months should any questions or concerns arise. Feel free to call me at any time should questions regarding her orthopedic management arise. Orders: Orders XR hip RT min 2V 09/02/23 M25.551 - Pain in right hip Coding Level of Care Code Est Pt Level 2 (98777) Diagnoses Right hip pain M25.551
== END 2023-09-02 14:07 | disposition home or self-care (01) ==
PROVIDERS: PCP Internal Medicine; Visit Provider Orthopaedic Surgery
DX: S72.141D Displaced intertrochanteric fracture of right femur, subsequent encounter for closed fracture with routine healing (principal); M25.551 Pain in right hip
CPT/HCPCS: 99213

== ENCOUNTER 2024-04-13 13:18 | Outpatient (AMB) | payer MEDICARE, SELFPAY ==
--- NOTE | 2024-04-13 13:20 | MHC.OFFVIS ---
Intake Visit Reasons: New Prob - Left Hip OA - ?IGOR Intake Note: Manju is a 68 year old female who presents today for a new problem visit with complaints of left hip pain. Patient reports that she haso been having ongoing left hip pain for about 2 months now. Pain is felt in the groin and the lateral aspect of the left hip. She was seen at [facility] but she was unhappy with her care. pain is felt with walking. She takes Tylenol for her pain as well as Tizanidine . Hx of Right hip ORIF on 05/07/[address] Olson Allergies ciprofloxacin [From Cipro] Allergy (Verified 09/02/23 13:46) Unknown escitalopram [From Lexapro] Allergy (Verified 09/02/23 13:46) Unknown paroxetine [From Paxil] Allergy (Verified 09/02/23 13:46) Unknown sulfamethoxazole [From Bactrim] Allergy (Verified 09/02/23 13:46) Unknown trimethoprim [From Bactrim] Allergy (Verified 09/02/23 13:46) Unknown HPI HPI New Prob - Left Hip OA - ?IGOR: Details: Manju is a 68 year old female who presents today for a new problem visit with complaints of left hip pain. Patient reports that she haso been having ongoing left hip pain for about 2 months now. Pain is felt in the groin and the lateral aspect of the left hip. She was seen at [facility] but she was unhappy with her care. pain is felt with walking. She takes Tylenol for her pain as well as Tizanidine . Hx of Right hip ORIF on 05/07/[address] Shay [facility] Medical History Pulmonary embolism Intertrochanteric fracture of right hip Closed comminuted intertrochanteric fracture of femur GERD (gastroesophageal reflux disease) Osteoporosis Hyperlipidemia Irritable bowel syndrome with diarrhea Fatty liver Asthma Anxiety and depression Surgical History History of hip surgery (05/07/23) Hx of tonsillectomy H/O esophagogastroduodenoscopy H/O colonoscopy Social History Household Members: Family Housing: Condominium Do you presently have visiting nurse or other home services: No Alcohol intake: current Alcohol intake frequency: 3 or more drinks per day Alcohol type: hard liquor Patient Tobacco Use Status: Former Tobacco user Second Hand Smoke Exposure: No service: No Physical Exam Extrem Other: Right hip with positive impingement and positive Stinchfield. She has a antalgic gait. Results Reviewed Results Reviewed: I personally reviewed relevant radiographs. Severe left hip osteoarthritis and status post right hip IM nail fixation for intertrochanteric fracture. Assessment & Plan Assessment & Plan (1) Osteoarthritis of right hip: Code(s): M16.11 - Unilateral primary osteoarthritis, right hip Category: Medical Plan: This is a very pleasant 68-year-old woman who has severe osteoarthritis of the left hip. This has been ongoing for about a year. This probably started to worsen after recovering from her contralateral hip fracture. She also has back pain and understands that this is related directly to the hip. I discussed treatment options including physical therapy, injections and surgery. I recommend left hip replacement. I discussed the risks, benefits and alternatives, including to, but are not limited to, the risk of infection, dislocation, fracture, need for surgery, continued pain as well as medical complications associated with surgery. She has had a history of pulmonary embolism and this will need to be watched closely we will need to get medical clearance. I discussed this with her as well. Will have our nurse navigator reach out and begin the preoperative clearance process. (2) Pulmonary embolism: Code(s): I26.99 - Other pulmonary embolism without acute cor pulmonale Category: Medical Plan: Was on anticoagulant for 3 months after this was diagnosed. She states there was no permanent sequela of this diagnosis Coding Level of Care Code Est Pt Level 4 (94295) Diagnoses Osteoarthritis of right hip M16.11 Pulmonary embolism I26.99
== END 2024-04-13 14:06 | disposition home or self-care (01) ==
LOC: HO.HOS 13:19
PROVIDERS: PCP Internal Medicine; Visit Provider Orthopaedic Surgery
DX: M16.11 Unilateral primary osteoarthritis, right hip (principal); I26.99 Other pulmonary embolism without acute cor pulmonale
CPT/HCPCS: 99214

== ENCOUNTER → 2024-04-13 13:18 | Outpatient (BNVA) | payer MEDICARE, SELFPAY | PROVIDERS: PCP Internal Medicine; Visit Provider Orthopaedic Surgery | DX: M16.11 Unilateral primary osteoarthritis, right hip (principal); I26.99 Other pulmonary embolism without acute cor pulmonale | CPT/HCPCS: 99212 ==

== ENCOUNTER → 2024-05-18 10:06 | Outpatient (BNVA) | payer MEDICARE, SELFPAY | PROVIDERS: PCP Internal Medicine; Visit Provider Surgery Vascular Surgery ==

== ENCOUNTER → 2024-06-26 10:42 | Outpatient (BNVA) | payer MEDICARE, SELFPAY | PROVIDERS: PCP Internal Medicine | DX: Z01.818 Encounter for other preprocedural examination (principal) ==

== ENCOUNTER 2024-07-13 10:24 | Outpatient (AMB) | payer MEDICARE, SELFPAY ==
[2024-07-13 10:40] VITALS: BMI 23.5
--- NOTE | 2024-07-13 10:40 | MHC.OFFVIS ---
Vital Signs 07/13/24 10:40 Height 5 ft 4 in Weight 137 lb BMI 23.5 Handedness Right Intake Visit Reasons: Pre-Op: L IGOR w/NE 07/19/24 Allergies red dye Allergy (Severe, Verified 07/13/24 14:33) Unknown ciprofloxacin [From Cipro] Allergy (Intermediate, Verified 07/13/24 10:41) lightheaded/dizzy/GI upset escitalopram [From Lexapro] Allergy (Intermediate, Verified 07/13/24 10:41) vision disturbance/confusion gluten Allergy (Intermediate, Verified 07/13/24 10:41) Gastrointestinal Upset paroxetine [From Paxil] Allergy (Intermediate, Verified 07/13/24 10:41) withdrawal symptoms-did not wean off sulfamethoxazole [From Bactrim] Allergy (Intermediate, Verified 07/13/24 10:41) lightheaded/dizzy/GI upset trimethoprim [From Bactrim] Allergy (Intermediate, Verified 07/13/24 10:41) lightheaded/dizzy/GI upset HPI HPI Pre-Op: L IGOR w/NE 07/19/24: Details: Ms. Ashley is a 68-year-old?female?who presents in the office today for?his/her?preoperative history and physical exam prior to a?left total hip arthroplasty?to be performed on?07/19/2024?by?Dr. Graf.? She has tried and failed all conservative treatment and continues to have left hip pain that is interfering with her activities of daily living and quality of life. Therefore, she has elected to move forward with left total hip arthroplasty. [facility] Medical History (Updated 07/13/24 @ 14:29 by Loraine Koehler PA-C) Arthritis Thyroid nodule Pulmonary embolism GERD (gastroesophageal reflux disease) Osteoporosis Hyperlipidemia Irritable bowel syndrome with diarrhea Fatty liver Asthma Anxiety and depression Surgical History (Updated 06/27/24 @ 09:50 by Loraine Koehler PA-C) History of hip surgery (05/07/23) Hx of tonsillectomy H/O esophagogastroduodenoscopy H/O colonoscopy Social History Household Members: Family Housing: Condominium Are you a primary daycare director to a significant other at home: No Do you presently have visiting nurse or other home services: No Alcohol intake: current Alcohol intake frequency: 3 or more drinks per day Alcohol type: hard liquor Patient Tobacco Use Status: Former Tobacco user Tobacco use type: Cigarette Years Smoked: 40 Second Hand Smoke Exposure: No service: No Review of Systems Const All systems reviewed & are unremarkable except as noted in HPI and below Physical Exam Vital Signs: BMI result Body Mass Index 23.5 Const General: cooperative, healthy appearing, comfortable, no acute distress, well developed, alert and awake Orientation/consciousness: patient oriented x3 HEENT Head: Yes normal to inspection, Yes normocephalic and Yes atraumatic Eyes General: appearance normal, both eyes and all related structures Neck Neck: Yes normal visual inspection and Yes no lymphadenopathy Resp Effort & Inspection: normal respiratory effort and able to speak in complete sentences Cardio Rate: regular rate Peripheral pulses: Peripheral pulses 2+ throughout Skin General skin exam: no rashes or lesions noted Neuro General: patient oriented x3 Extrem Other: Right hip with positive impingement and positive Stinchfield. She has a antalgic gait. Psych Mental Status: mental status grossly normal Assessment & Plan Assessment & Plan (1) Osteoarthritis of left hip: Code(s): M16.12 - Unilateral primary osteoarthritis, left hip Category: Medical (2) Current use of halfway anticoagulation: Code(s): Z79.01 - snf (current) use of anticoagulants Category: Medical Plan Ms. Ashley is a 68-year-old?female?who presents in the office today for?her?preoperative history and physical exam prior to a?left total hip arthroplasty?to be performed on?07/19/2024?by?Dr. Graf.? She has tried and failed all conservative treatment and continues to have left hip pain that is interfering with her activities of daily living and quality of life. Therefore, she has elected to move forward with left total hip arthroplasty. I discussed in detail the procedure and what to expect pre and post operatively. We discussed the risks, benefits and alternatives to the surgery as well as the rehabilitation course. The risks; which include, but are not limited to infection, bleeding, nerve injury, ongoing pain, swelling, and stiffness, perioperative risk of injury to bones and soft tissues, and blood clots. I?ve answered all questions and with their understanding they have consented to move forward with left total hip arthroplasty with Dr. Graf. Of note, the patient would like to see if on discharge she can be seen by the [facility] and is requesting a specific therapist by the name of Sunny Noguera. After home services are concluded she would like to transition to outpatient physical therapy at [facility]. She would like to work with physical therapist Amira Killian. X-rays of the left hip which were obtained while in the office today and were reviewed by me, Loraine Koehler PA-C. X-rays were obtained for preoperative planning. Orders: Orders XR hip LT min 2V Today M25.559 - Pain in unspecified hip Coding Level of Care Code Global (01699) Diagnoses Osteoarthritis of left hip M16.12 Current use of supervisor intermediates anticoagulation Z79.01
--- OUTSIDE RECORDS SUMMARY | 2024-07-13 13:54 | XMS_ITS | Encounter Summary ---
Author Organization [facility] Address [phone] [facility] [place] [address] Care Team Providers Care Health Benefits Specialist Name Role Phone Francisco Parnell MD Primary Care Provider [phone] Reason for Visit * Reason Onset Date Comments waiting on records 03/30/2024 Encounter Details Date Type Department Care Team ([facility] st Contact Info) Description 03/30/2024 Telephone [facility] Orthopedics & Sports Medicine [address] [place] [id number] Ed Jeronimo MD [address] [place] [address] Orthopedics & Sports Medicine, [facility] [place] [address] [email or web address] waiting on records Social History Tobacco Use Types Packs/Day Years Used Date Smoking Tobacco: Former Smokeless Tobacco: Never Alcohol Use Standard Drinks/Week Comments Yes 0 (1 standard drink = 0.6 oz pur e alcohol) Education Answer Date Recorded Are you interested in more education? Not on mirian e 10/09/2022 Are you concerned about learning? Not on file 10/09/2022 No 10/09/2022 No 10/09/2022 Digital Access Answer Date Recorded No 11/07/2022 No 11/07/2022 Reliable internet access at home? Not on file 11/07/2022 Device with a working camera? Not on file Sex and Gender Information Value Date Recorded Sex Assigned at Not on file Gender Identity Not on file Sexual Orientation Not on file documented as of this encounter Progress Notes * Suzy Alva - 05/05/2024 7:29 AM EST No records recd * Genevieve Lamb - 04/24/2024 9:28 AM EST Patient called in wanting an appt. Told her we are still waiting on records from [facility] and [facility]. * Suzy Alva - 04/07/2024 8:27 AM EDT No records recd * Roselia Graham - 03/30/2024 1:48 PM EDT Pt has had prev Left Hip care w/ [facility] and is not satisfied with their care at all. She is hoping to transfer her care here to Dr Jeronimo for possible IGOR. The patient is having her care records transferred here for review. Please alert Dr Jeronimo once records have arrived so he may review and advise. documented in this encounter Plan of Treatment Not on file documented as of this encounter Visit Diagnoses Not on filedocumented in this encounter Care Teams Health Benefits Specialist Relationship Specialty Start Date End Date Francisco Parnell MD [address] [place] [id number] PCP - General Internal Medicine 01/04/18 documented as of this encounter Additional Source Comments The information contained in this document represents components of the legal health record. It is not the complete legal health record.[facility]
--- OUTSIDE RECORDS SUMMARY | 2024-07-13 13:55 | XMS_ITS | Encounter Summary ---
Author Organization [facility] Address [phone] [place] [id number] Care Team Providers Care Brand Representative Name Role Phone Francisco Parnell MD Primary Care Provider [phone] Encounter Details Date Type Department Care Team (Latest Contact Info) Description 02/22/2024 Transcribe Orders Virtual Department [address] [place] [id number] Francisco Parnell MD [address] [place] [phone] Breast screening (Primary Dx) Social History Tobacco Use Types Packs/Day Years [...] on file documented as of this encounter Plan of Treatment Scheduled Orders Name Type Priority Associated Diagnoses Orde r Schedule Mammogram Screening (Bilateral) Imaging Routine Breast screening Expected: 03/23/2024, Expires: 02/21/2025 documented as of this encounter Visit Diagnoses Diagnosis Breast screening- Primary Breast screening, unspecified documented in this encounter Care Teams Brand Representative Relationship Specialty Start Date End Date Francisco Parnell MD [address] [place] [id number] PCP - General Internal Medicine 01/04/18 documented as of this encounter Additional Source Comments The information contained in this document represents components of the legal health record. It is not the complete legal health record.[facility]
--- OUTSIDE RECORDS SUMMARY | 2024-07-13 13:55 | XMS_ITS | Clinical Summary ---
Author Organization [facility] Address [phone] [facility] [place] [address] Care Team Providers Care Bindery Assistant Name Role Phone Francisco Parnell MD Primary Care Provider [phone] Allergies Active Allergy Reactions Criticality Noted Date Comments Sulfamethoxazole-Trimethoprim 2020 Ciprofloxacin 01/10/2021 Sulfa (Sulfonamide Antibiotics) 12/14 Medications Medication Sig Dispensed Refills Start Date End Date Status ascorbic acid, vitamin C, 500 mg Cap Orally Active calcium carbonate-vitamin D3 1,500 mg (600 mg elemental)-200 units Tab Take 1 tablet by mouth daily. with food Active amitriptyline (ELAVIL) 25 MG tablet Take 1 tablet by mouth nightly. Active clonazePAM (KLONOPIN) 0.5 MG tablet Take 1 tablet by mouth 2 (two) times a day. Active Lactobacillus acidophilus Cap as directed Orally A ctive Medication-Free Text Spacer/Aero Chamber Mouthpiece device device, Sig: as directed inhalation bid prn 09/16/2011 Active albuterol 2.5 mg /3 mL (0.083 %) nebulizer solution 3 ml as needed Inhalation every 4 hrs prn 08/14/2011 Active Medication-Free Text [employer] 750-375-30 MG Tablet, Si tablets with a meal Orally Once a day Active nystatin-triamcinolo ne ointment 1 application to affected area Externally prn Active nystatin (NYSTOP) powder as directed Externally Twice a day Active Medication-Free Text Magnesium 500 MG Tablet, Si tablet with a meal Orally Once a day Active Active Problems No known active problems Family History Medical History Relation Comments Breast cancer Maternal Aunt Cancer Maternal Aunt breast Hypertension Maternal Grandmother Diabetes mellitus Mother Hypertension Mother Relation Status Comments Maternal Aunt Maternal Grandmother Mother Social History Tobacco Use Types Packs/Day Years [...] on file Sexual Orientation Not on file Last Filed Vital Signs Vital Sign Reading Time Taken Comments Blood Pressure 130/90 01/10/2021 5:57 PM EDT Pulse 101 01/10/2021 5:57 PM EDT Temperature 36.8 ??C (98.3 ??F) 01/10/2021 5:57 PM ED T Respiratory Rate 16 01/10/2021 5:57 PM EDT Oxygen Saturation 98% 01/10/2021 5:57 PM EDT Inhaled Oxygen Concentration - - Weight 70.3 kg (155 lb) 01/10/2021 5:57 PM EDT Height 162.6 cm (5' 4 ) 01/10/2021 5:57 PM EDT Body Mass Index 26.61 01/10/2021 5:57 PM EDT Plan of Treatment Health Maintenance Due Date Last Done Comments LIPID PANEL 1954 DEPRESSION SCREENING 1966 SMOKING Hx and SMOKELESS TOBACCO SCREENING 09/21/1967 HEPATITIS B SCREENING 1972 HEPATITIS C SCREENING 1972 COLOGUARD 09/21/1999 FIT TEST 09/21/1999 FOBT 09/21/1999 SIGMOIDOSCOPY 09/21/1999 VIRTUAL COLONOSCOPY 09/21/1999 OSTEOPOROSIS SCREENING INITIAL (ONE-TIME) 09/21/2019 COLONOSCOPY 03/08/2022 03/08/2012 COLORECTAL CANCER SCREENING 03/08/2022 INFLUENZA VACCINE (#1) 2024 , 02/17/2020, 03/03/2018, Additional history exists COVID-19 VACCINE ( - season) 2024 03/09/2021, 08/12/2020, 07/22/2020 Adult Td,Tdap Booster 09/03/2024 09/03/2014 MAMMOGRAM 05/03/2025 05/03/2023, 04/14, 04/17/2021, Additional history exists PNEUMOCOCCAL VACCINES (50+ years) (3 of 3 - PCV20 or PCV21) 06/08/2026 06/08/2021, 12/07/2019, 11/25/2011, Additional history exists RSV VACCINE (1 - 1-dose 75+ series) 2029 ZOSTER VACCINES Completed 02/25/2021, 11/12, 11/26/2014 HEPATITIS A VACCINES Aged Out No long er eligible based on patient's age to complete this topic HEPATITIS B VACCINES Aged Out No long er eligible based on patient's age to complete this topic HIB VACCINES Aged Out No longer eligi ble based on patient's age to complete this topic MENINGOCOCCAL VACCINES (ACWY) Aged Out No longer eligible based on patient's age to complete this topic Medical Devices Not on file Procedures Procedure Name Priority Date/Time Associated Diagnosis Comments BI MAMMOGRAM SCREENING WITH TOMOSYNTHESIS WITH CAD (BILATERAL) Routine 05/03/2023 3:29 PM EST Breast screening from Last 3 Months or Most Recently Relevant to Health Maintenance Results * BI MAMMOGRAM SCREENING WITH TOMOSYNTHESIS WITH CAD (BILATERAL) (05/03/2023 3:29 PM EST) Anatomical Region Laterality Modality Breast Left, Breast Right, Breast Bilateral Bila teral Mammography 05/05/2023 12:4 6 PM EST Impressions 05/05/2023 12:49 PM EST No mammographic evidence of malignancy in either breast. Annual screening mammography is recommended. BI-RADS CATEGORY: ??2 - Benign finding. The patient will be notified of the results and recommendations. Narrative 05/05/2023 12:49 PM EST BI MAMMOGRAM SCREENING WITH TOMOSYNTHESIS WITH CAD (BILATERAL) Additional patient information: Screening. COMPARISON: Comparison is made with relevant prior imaging. Breast composition: There are scattered fibroglandular densities. FINDINGS: Previous needle biopsies in the right breast. No abnormal masses, suspicious calcifications, or other significant findings are identified mammographically in either breast. Procedure Note Brooks Hernandez MD - 05/05/2023 BI MAMMOGRAM SCREENING WITH TOMOSYNTHESIS WITH CAD (BILATERAL) Additional patient information: Screening. COMPARISON: Comparison is made with relevant prior imaging. Breast composition: There are scattered fibroglandular densities. FINDINGS: Previous needle biopsies in the right breast. No abnormal masses, suspicious calcifications, or other significantfindings are identified mammographically in either breast. IMPRESSION: No mammographic evidence of malignancy in either breast. Annual screening mammography is recommended. BI-RADS CATEGORY: 2 - Benign finding. The patient will be notified of the results and recommendations. Francisco Parnell MD IMG MG EXAMS from Last 3 Months or Most Recently Relevant to Health Maintenance Care Teams Bindery Assistant Relationship Specialty Start Date End Date Francisco Parnell MD [address] [place] [phone] PCP - General Internal Medicine 01/04/18 Additional Source Comments The information contained in this document represents components of the legal health record. It is not the complete legal health record.[facility]
--- OUTSIDE RECORDS SUMMARY | 2024-07-13 13:55 | XMS_ITS | Encounter Summary ---
Author Organization [facility] Address [phone] [facility] [place] [address] Care Team Providers Care Hide Washer Name Role Phone Francisco Parnell MD Primary Care Provider [phone] Encounter Details Date Type Department Care Team (Late st Contact Info) Description 02/05/2023 Procedure Pass [facility] - [address] [place] [address] Social History Tobacco Use Types Packs/Day Years [...] as of this encounter Plan of Treatment Not on file documented as of this encounter Visit Diagnoses Not on filedocumented in this encounter Care Teams Hide Washer Relationship Specialty Start Date End Date Francisco Parnell MD [address] [place] [id number] PCP - General Internal Medicine 01/04/18 documented as of this encounter Additional Source Comments The information contained in this document represents components of the legal health record. It is not the complete legal health record.[facility]
--- OUTSIDE RECORDS SUMMARY | 2024-07-13 13:55 | XMS_ITS | Encounter Summary ---
Author Organization [facility] Address [phone] [facility] [address] [place] [address] Care Team Providers Care Speed Winder Name Role Phone Francisco Parnell MD Primary Care Provider [phone] Encounter Details Date Type Department Care Team (Late st Contact Info) Description 01/07/2021 Procedure Pass [facility] - [address] [place] [address] Social History Tobacco Use Types Packs/Day Years Used Date Smoking Tobacco: Former Smokeless Tobacco: Never Alcohol Use Standard Drinks/Week Comments Yes 0 (1 standard drink = 0.6 oz pur e alcohol) Sex and Gender Information Value Date Recorded Sex Assigned at Not on file Gender Identity Not on file Sexual Orientation Not on file documented as of this encounter Plan of Treatment Not on file documented as of this encounter Visit Diagnoses Not on filedocumented in this encounter Care Teams Speed Winder Relationship Specialty Start Date End Date Francisco Parnell MD [address] [place] [address] PCP - General Internal Medicine 01/04/18 documented as of this encounter Additional Source Comments The information contained in this document represents components of the legal health record. It is not the complete legal health record.[facility]
--- OUTSIDE RECORDS SUMMARY | 2024-07-13 13:56 | XMS_ITS | Encounter Summary ---
Author Organization [facility] Address [phone] Critical access [place] [address] Care Team Providers Care Visual Merchandising Manager Name Role Phone Francisco Parnell MD Primary Care Provider [phone] Encounter Details Date Type Department Care Team (Late st Contact Info) Description 02/09/2022 Procedure Pass [address] [place] [address] Social History Tobacco Use Types Packs/Day Years [...] on filedocumented in this encounter Care Teams Visual Merchandising Manager Relationship Specialty Start Date End Date Francisco Parnell MD [address] [place] [phone] PCP - General Internal Medicine 01/04/18 documented as of this encounter Additional Source Comments The information contained in this document represents components of the legal health record. It is not the complete legal health record.[facility]
--- OUTSIDE RECORDS SUMMARY | 2024-07-13 13:56 | XMS_ITS | Patient Health Record ---
Author Organization [facility] Address [address] [place] [address] Care Team Providers Care Manager Msw Name Role Phone Soheila SORTO, Francisco Primary Care Provider Parish Azar Jr Unavailable ALLERGIES Allergen (clinical drug ingredient) Drug/Non Drug Allergy documented on EMR Reaction Allergy Type Onset Date Status paroxetine Paxil Unknown Drug Allergy Active escitalopram Lexapro Unknown Drug Allergy Acti ve ciprofloxacin Cipro Unknown Drug Allergy Act gui sulfamethoxazole / trimethoprim Bactrim Unknown Drug Allergy Active REASON FOR REFERRAL No Information MEDICATIONS Medication SIG (Take, Route, Frequency, Duration) Notes Start Date End Date Status Multivitamin Active Famotidine 20 MG TAKE 1 TABLET BY MOUTH TWICE A DAY for 90 Ask Manju to call the office and schedule an appointment Active Amitriptyline HCl 25 MG 1 tablet at bedtime Orally Once a day for 30 day(s) Active KlonoPIN Active Calcium Active Choline Active Vitamin D Active Magnesium Active Vitamin C Adult Gummies 125 MG as directed Orally Active Dicyclomine HCl 10 MG 1 tablet Orally 2-4 times a day 12/10/2022 Active Albuterol Sulfate (2.5 MG/3ML) 0.083% 3 mL as needed Inhalation every 6 hrs Active Probiotic Active Zinc 100 MG 1 tablet Orally Once a day for 30 day(s) Active ZyrTEC Active IMMUNIZATIONS Vaccine Route Administration Date Status Comme nts Influenza Unknown 04/15/2022 Administered SOCIAL HISTORY Sex Assigned At : Social History Observation Description Sex Assigned At Unknown PROBLEMS Problem Type ICD Code Onset Dates Problem Status W/U Status Risk SNOMED Code Notes Problem Epigastric pain (R10.13) Active confirmed 60314267 Problem Irritable bowel syndrome with diarrhea (K58.0) Active confirmed 740203795 Problem Generalized abdominal pain (R10.84) Active confirmed 567598508 Problem Duodenitis (K29.80) Active confirmed Duodenitis (81824486) Problem Gas (R14.3) Active confirmed 545169179 Problem Gallstones (K80.20) Active confirmed 076139399 Problem Abnormal UGI series (R93.3) Active confirmed 075338815 PLAN OF TREATMENT Pending Test Test Name Order Date CBC w/o DIFF 03/20/2015 CBC w/o DIFF 10/29/2020 CELIAC DISEASE ANTIBODY PANEL 03/20/2015 CELIAC DISEASE ANTIBODY PANEL 10/29/2020 OVA & PARASITES (O&P) 10/29/2020 XR GI SMALL BOWEL SERIES 04/20/2022 TSH REFLEX FREE T4 10/29/2020 STOOL WBC 10/29/2020 Stool Culture 10/29/2020 Future Test Test Name Order Date UPPER GI ENDOSCOPY 12/10/2022 Insurance Providers Payer Name Payer Address Payer Phone Subscriber Number Group Number Insured Name Patient Relationship to Insured Coverage Start Date Coverage End Date [facility] [address] [place] [address] [phone] [id number] MANJU LONG Self - patient is the insured MEDICAL (GENERAL) HISTORY Medical History History ICD Code Anxiety/depression Colonoscopy 08/05 hyperplasti c polyps x2, biopsies negative for colitis, ten-year recall Asthma Fatty liver Irritable bowel syndrome with diarrhea p redominance Hyperlipidemia Osteoporosis Gastroesophageal reflux dise ase, EGD 12/28 erosive gastritis, biopsies negative for H. pylori. No BE Gallstones Surgical History Surgery Date(Month/Year) Tonsillectomy
--- OUTSIDE RECORDS SUMMARY | 2024-07-13 13:56 | XMS_ITS | Encounter Summary ---
Author Organization [facility] Address [phone] Critical access hospital [place] [address] Care Team Providers Care Blood Bank Business Manager Name Role Phone Francisco Parnell MD Primary Care Provider [phone] Encounter Details Date Type Department Care Team (Latest Contact Info) Description 02/09/2022 Transcribe Orders Virtual Department [address] [place] [phone] Francisco Parnell MD [address] [place] [address] Breast screening (Primary Dx); Functional diarrhea; Irritable bowel syndrome with diarrhea; Abdominal pain, left lower quadrant Social History Tobacco Use Types Packs/Day Years [...] on file documented as of this encounter Results * BI MAMMOGRAM SCREENING WITH TOMOSYNTHESIS WITH CAD (BILATERAL) (04/28/2022 2:59 PM EST) Anatomical Region Laterality Modality Breast Left, Breast Right, Breast Bilateral Bila teral Mammography 04/30/2022 4:16 PM EST Impressions 04/30/2022 5:30 PM EST No mammographic signs of malignancy. ??Annual screening is recommended. BI-RADS CATEGORY: ??2 - Benign finding. DENSITY: ??There are scattered fibroglandular densities. Narrative 04/30/2022 5:30 PM EST Bilateral mammography is performed in conjunction with computed aided detection. 3-D tomography along with 2-D C view imaging was also performed. Comparison made to previous dated as far back as 01/23/2015 and as recent as 04/17/2021. No suspicious masses, areas of architectural distortion or suspicious microcalcifications. 3-4 mm mass in the mid-anterior slight outer right breast is stable. Stable diffuse bilateral microcalcifications, many of which are coarse. Stable bilateral vascular calcifications. Procedure Note Johnathan Stark MD - 04/30/2022 Bilateral mammography is performed in conjunction with computed aideddetection. 3-D tomography along with 2-D C view imaging was alsoperformed. Comparison made to previous dated as far back as 01/23/2015 andas recent as 04/17/2021. No suspicious masses, areas of architectural distortion or suspiciousmicrocalcifications. 3-4 mm mass in the mid-anterior slight outer rightbreast is stable. Stable diffuse bilateral microcalcifications, many ofwhich are coarse. Stable bilateral vascular calcifications. IMPRESSION: No mammographic signs of malignancy. Annual screening is recommended. BI-RADS CATEGORY: 2 - Benign finding. DENSITY: There are scattered fibroglandular densities. Francisco Parnell MD IMG MG EXAMS * Iron and iron binding capacity (02/17/2022 3:11 PM EDT) IRON 70 30 - 160 ug/dL [facility] IRON BINDING CAPACITY 325 228 - 428 ug/dL [facility] TRANSFERRIN SATURAT. 22 15 - 50 % [facility] Blood 02/17/2022 3:11 PM EDT 02/17/2022 3:12 PM EDT Francisco Parnell MD LAB BLOOD ORDERABLES [facility] [address] [place] [address] * GGT (Gamma glutamyl transferase) (02/17/2022 3:11 PM EDT) GGT 27 7 - 33 U/L [facility] Blood 02/17/2022 3:11 PM EDT 02/17/2022 3:12 PM EDT Francisco Parnell MD LAB BLOOD ORDERABLES Performing Organization Address City/[facility] Co de Phone Number [address] [address] * (ABNORMAL) Comprehensive metabolic panel (02/17/2022 3:11 PM EDT) SODIUM 140 133 - 146 mmol/L [facility] POTASSIUM 4.3 3.3 - 5.1 mmol/L [facility] CHLORIDE 102 96 - 108 mmol/L [facility] CO2 30 21 - 35 mmol/L [facility] BUN 26(H) 6 - 19 mg/dL [facility] CREATININE 0.80 0.5 - 1.5 mg/dL [facility] GLUCOSE 106(H) 70 - 99 mg/dL [facility] ALBUMIN 4.4 3.9 - 4.8 g/dL [facility] TOTAL PROTEIN 7.5 6.5 - 8.0 g/dL [facility] CALCIUM 9.5 8.4 - 10.3 mg/dL [facility] ALKALINE PHOSPHATASE 113 39 - 117 U/L [facility] TOTAL BILIRUBIN 0.2 0.0 - 1.2 mg/dL [facility] AST 28 0 - 37 U/L [facility] ALT 31 0 - 40 U/L [facility] GLOBULIN 3.1 1 - 4.8 g/dL [facility] EGFR 81 >59 mL/min/1.7 3m2 [facility] Comment:Estimated glomerular filtration rate calculated using the CKD-EPI refit equation. ANION GAP 12 10 - 20 mmol/L [facility] Blood 02/17/2022 3:11 PM EDT 02/17/2022 3:12 PM EDT Francisco Parnell MD LAB BLOOD ORDERABLES [facility] [address] [place] [address] documented in this encounter Visit Diagnoses Diagnosis Breast screening- Primary Breast screening, unspecified Functional diarrhea Irritable bowel syndrome with diarrhea Irritable bowel syndrome Abdominal pain, left lower quadrant Breast screening Breast screening, unspecified documented in this encounter Care Teams Blood Bank Business Manager Relationship Specialty Start Date End Date Francisco Parnell MD [address] [place] [address] PCP - General Internal Medicine 01/04/18 documented as of this encounter Additional Source Comments The information contained in this document represents components of the legal health record. It is not the complete legal health record.[facility]
--- OUTSIDE RECORDS SUMMARY | 2024-07-13 13:56 | XMS_ITS | Encounter Summary ---
Author Organization [facility] Address [phone] [facility] [employer] [place] [address] Care Team Providers Care Pediatric Oncology Nurse Name Role Phone Francisco Parnell MD Primary Care Provider [phone] Encounter Details Date Type Department Care Team (Late st Contact Info) Description 01/16/2020 Ancillary Orders Virtual Department [address] [place] [id number] Francisco Parnell MD [address] [place] [address] [phone] Breast screening Social History Tobacco Use Types Packs/Day Years Used Date Smoking Tobacco: Never Assessed Sex and Gender Information Value Date Recorded Sex Assigned at Not on file Gender Identity Not on file Sexual Orientation Not on file documented as of this encounter Plan of Treatment Not on file documented as of this encounter Results * BI MAMMOGRAM SCREENING WITH TOMOSYNTHESIS NO CAD (BILATERAL) (04/15/2020 3:56 PM EST) Anatomical Region Laterality Modality Breast Left, Breast Right, Breast Bilateral Bila teral Mammography 04/30/2020 2:1 0 PM EST Impressions 04/30/2020 2:13 PM EST No mammographic evidence of malignancy. ??Recommend routine annual surveillance. BI-RADS CATEGORY: ??2 - Benign finding. DENSITY: ??There are scattered fibroglandular densities. Narrative 04/30/2020 2:13 PM EST 64-year-old female with no current breast symptoms. ??Comparison made to previous on 03/01/2019 and 02/22/2018. ??Interpretation made in conjunction with wall tomosynthesis. There are scattered areas of fibroglandular density. Stable right breast biopsy marker, clip, bilateral vascular and scattered coarse calcifications. There are no suspicious masses, areas of architectural distortion, or suspicious clusters of microcalcifications. Procedure Note Francisco Black MD - 04/30/2020 64-year-old female with no current breast symptoms. Comparison made toprevious on 03/01/2019 and 02/22/2018. Interpretation made in conjunctionwith wall tomosynthesis. There are scattered areas of fibroglandular density. Stable right breastbiopsy marker, clip, bilateral vascular and scattered coarsecalcifications. There are no suspicious masses, areas of architectural distortion, orsuspicious clusters of microcalcifications. IMPRESSION: No mammographic evidence of malignancy. Recommend routine annualsurveillance. BI-RADS CATEGORY: 2 - Benign finding. DENSITY: There are scattered fibroglandular densities. Francisco Parnell MD IMG MG EXAMS documented in this encounter Visit Diagnoses Diagnosis Breast screening Breast screening, unspecified Breast screening Breast screening, unspecified documented in this encounter Care Teams Pediatric Oncology Nurse Relationship Specialty Start Date End Date Francisco Parnell MD [address] [place] [phone] PCP - General Internal Medicine 01/04/18 documented as of this encounter Additional Source Comments The information contained in this document represents components of the legal health record. It is not the complete legal health record.[facility]
--- OUTSIDE RECORDS SUMMARY | 2024-07-13 13:56 | XMS_ITS | Encounter Summary ---
Author Organization [facility] Address [phone] [facility] [place] [address] Care Team Providers Care Signal Technician Name Role Phone Francisco Parnell MD Primary Care Provider [phone] Encounter Details Date Type Department Care Team (Late st Contact Info) Description 01/18/2019 Ancillary Orders Virtual Department [address] [place] [phone] Francisco Parnell MD [address] [place] [address] [phone] Breast screening Social History Tobacco Use Types [...] MAMMOGRAM SCREENING WITH TOMOSYNTHESIS WITH CAD (BILATERAL) (03/01/2019 2:50 PM EDT) Anatomical Region Laterality Modality Breast Left, Breast Right, Breast Bilateral Bila teral Mammography 03/01/2019 3:22 PM EDT Impressions 03/01/2019 3:26 PM EDT No findings suspicious for malignancy. In the absence of a worrisome palpable abnormality, annual screening mammography is recommended. BI-RADS CATEGORY: 2 - Benign finding. DENSITY: ??There are scattered fibroglandular densities. ?? POS CDHMAMA Narrative 03/01/2019 3:26 PM EDT COMPARISON: ??01/23/2015 through 02/22/2018. Bilateral 3-D tomosynthesis with 2-D reconstructions in the CC and MLO projection of each breast was obtained. Computer-aided detection system also utilized. No new mass, asymmetry, architectural distortion or suspicious calcifications have become apparent on either side. Scattered bilateral calcifications unchanged. Procedure Note Triston Nunez MD - 03/01/2019 COMPARISON: 01/23/2015 through 02/22/2018. Bilateral 3-D tomosynthesis with 2-D reconstructions in the CC and MLOprojection of each breast was obtained. Computer-aided detection systemalso utilized. No new mass, asymmetry, architectural distortion or suspiciouscalcifications have become apparent on either side. Scattered bilateral calcifications unchanged. IMPRESSION: No findings suspicious for malignancy. In the absence of a worrisomepalpable abnormality, annual screening mammography is recommended. BI-RADS CATEGORY: 2 - Benign finding. DENSITY: There are scattered fibroglandular densities. POS CDHMAMA Francisco Parnell MD IMG MG EXAMS documented in this encounter Visit Diagnoses Diagnosis Breast screening Breast screening, unspecified Breast screening Breast screening, unspecified documented in this encounter Care Teams Signal Technician Relationship Specialty Start Date End Date Francisco Parnell MD [address] [place] [phone] PCP - General Internal Medicine 01/04/18 documented as of this encounter Additional Source Comments The information contained in this document represents components of the legal health record. It is not the complete legal health record.[facility]
--- OUTSIDE RECORDS SUMMARY | 2024-07-13 13:56 | XMS_ITS | Encounter Summary ---
Author Organization [facility] Address [phone] [facility] [place] [address] Care Team Providers Care Clerical Support Specialist Name Role Phone Francisco Parnell MD Primary Care Provider [phone] Encounter Details Date Type Department Care Team (Late st Contact Info) Description 01/04/2018 Ancillary Orders Virtual Department [address] [place] [address] Francisco Parnell MD [address] [place] [address] [phone] Breast screening Social History Tobacco Use Types [...] MAMMOGRAM SCREENING WITH TOMOSYNTHESIS WITH CAD (BILATERAL) (02/22/2018 3:18 PM EDT) Anatomical Region Laterality Modality Breast Left, Breast Right, Breast Bilateral Bila teral Mammography 02/22/2018 3:35 PM EDT Impressions 02/22/2018 3:37 PM EDT No mammographic evidence of malignancy. ??Recommend routine annual surveillance. BI-RADS CATEGORY: 2 - Benign finding. DENSITY: ??There are scattered fibroglandular densities. ?? POS - CDHMAMA Narrative 02/22/2018 3:37 PM EDT 62-year-old female with no current breast symptoms. ??Comparison made to previous on 02/09/2017 and as far back as 01/23/2015. ??Interpretation made in conjunction with computer-aided detection and tomosynthesis. There are scattered areas of fibroglandular density. Stable bilateral calcifications and right breast biopsy clip and marker. There are no suspicious masses, areas of architectural distortion, or suspicious clusters of microcalcifications. Procedure Note Francisco Church MD - 02/22/2018 62-year-old female with no current breast symptoms. Comparison made toprevious on 02/09/2017 and as far back as 01/23/2015. Interpretation madein conjunction with computer-aided detection and tomosynthesis. There are scattered areas of fibroglandular density. Stable bilateralcalcifications and right breast biopsy clip and marker. There are no suspicious masses, areas of architectural distortion, orsuspicious clusters of microcalcifications. IMPRESSION: No mammographic evidence of malignancy. Recommend routine annualsurveillance. BI-RADS CATEGORY: 2 - Benign finding. DENSITY: There are scattered fibroglandular densities. POS - CDHMAMA Francisco Parnell MD IMG MG EXAMS documented in this encounter Visit Diagnoses Diagnosis Breast screening Breast screening, unspecified Breast screening Breast screening, unspecified documented in this encounter Care Teams Clerical Support Specialist Relationship Specialty Start Date End Date Francisco Parnell MD [address] [place] [address] PCP - General Internal Medicine 01/04/18 documented as of this encounter Additional Source Comments The information contained in this document represents components of the legal health record. It is not the complete legal health record.[facility]
--- OUTSIDE RECORDS SUMMARY | 2024-07-13 13:56 | XMS_ITS ---
Author Organization [facility] Address [address] [place] [phone] Care Team Providers Care Senior Painter Name Role Phone Francisco Parnell MD Primary Care Provider Savanna Zuluaga Jr, Parish Unavailable [phone] REASON FOR VISIT needs a script for 1 month supply MEDICATIONS Medication SIG (Take, Route, Fr equency, Duration) Notes Start Date End Date Status Famotidine 20 MG TAKE 1 TABLET BY WALLY TH TWICE A DAY for 30 days Active Encounters Encounter Location Date Provider Diagnosis [facility] [address] [place] [phone] 03/29/2023 Parish Zuluaga Jr PLAN OF TREATMENT Medication Medication Name Sig Start Date Stop Date Notes Famotidine 20 MG TAKE 1 TABLET BY WALLY TH TWICE A DAY for 30 days
--- OUTSIDE RECORDS SUMMARY | 2024-07-13 13:56 | XMS_ITS | Encounter Summary ---
Author Organization [facility] Address [phone] [facility] [place] [address] Care Team Providers Care Pipe Washer Name Role Phone Francisco Parnell MD Primary Care Provider [phone] Encounter Details Date Type Department Care Team (Late st Contact Info) Description 02/13/2020 Procedure Pass [address] [place] [address] Social History Tobacco Use Types Packs/Day Years Used Date Smoking Tobacco: Never Assessed Sex and Gender Information Value Date Recorded Sex Assigned at Not on file Gender Identity Not on file Sexual Orientation Not on file documented as of this encounter Plan of Treatment Not on file documented as of this encounter Visit Diagnoses Not on filedocumented in this encounter Care Teams Pipe Washer Relationship Specialty Start Date End Date Francisco Parnell MD [address] [place] [address] PCP - General Internal Medicine 01/04/18 documented as of this encounter Additional Source Comments The information contained in this document represents components of the legal health record. It is not the complete legal health record.[facility]
== END 2024-07-13 11:05 | disposition home or self-care (01) ==
PROVIDERS: PCP Internal Medicine; Visit Provider Physician Assistant
DX: M16.12 Unilateral primary osteoarthritis, left hip (principal); Z79.01 Long term (current) use of anticoagulants
CPT/HCPCS: 99024

== ENCOUNTER → 2024-07-13 10:30 | Outpatient (BNV) | payer MEDICARE, SELFPAY | PROVIDERS: Visit Provider Radiology Diagnostic Radiology | DX: M16.12 Unilateral primary osteoarthritis, left hip (principal) | CPT/HCPCS: 73502 ==

== ENCOUNTER 2024-07-13 11:25 | Outpatient (REF) | payer MEDICARE, SELFPAY ==
--- OUTSIDE RECORDS SUMMARY | 2024-07-13 15:22 | XMS_ITS | Encounter Summary ---
Author Organization [facility] Address [phone] [facility] [place] [address] Care Team Providers Care Retail Administrative Assistant Name Role Phone Francisco Panrell MD Primary Care Provider [phone] Encounter Details Date Type Department Care Team (Late st Contact Info) Description 01/16/2020 Ancillary Orders Virtual Department [address] [place] [phone] Francisco Parnell MD [address] [place] [address] [phone] Breast screening Social History Tobacco Use Types [...] Right, Breast Bilateral Bila teral Mammography 04/30/2020 2:10 PM EST Impressions 04/30/2020 2:13 PM EST [...] unspecified documented in this encounter Care Teams Retail Administrative Assistant Relationship Specialty Start Date End Date Farncisco Parnell MD [address] [place] [address] PCP - General Internal Medicine 01/04/18 documented as of this encounter Additional Source Comments The information contained in this document represents components of the legal health record. It is not the complete legal health record.[facility]
--- OUTSIDE RECORDS SUMMARY | 2024-07-13 15:22 | XMS_ITS | Encounter Summary ---
Author Organization [facility] Address [phone] [facility] [place] [address] Care Team Providers Care Transcribing Operator Head Name Role Phone Francisco Parnell MD Primary Care Provider [phone] Encounter Details Date Type Department Care Team (Late st Contact Info) Description 02/05/2023 Procedure Pass [facility] [address] [place] [address] Social History Tobacco Use Types Packs/Day Years [...] on filedocumented in this encounter Care Teams Transcribing Operator Head Relationship Specialty Start Date End Date Francisco Parnell MD [address] [place] [address] PCP - General Internal Medicine 01/04/18 documented as of this encounter Additional Source Comments The information contained in this document represents components of the legal health record. It is not the complete legal health record.[facility]
--- OUTSIDE RECORDS SUMMARY | 2024-07-13 15:22 | XMS_ITS | Encounter Summary ---
Author Organization [facility] Address [phone] [facility] [employer] [place] [address] Care Team Providers Care Director Of Marketing Communications Name Role Phone Francisco Parnell MD Primary Care Provider [phone] Encounter Details Date Type Department Care Team (Late st Contact Info) Description 01/07/2021 Procedure Pass [facility] - [address] [place] [address] Social History Tobacco Use Types Packs/Day Years [...] on filedocumented in this encounter Care Teams Director Of Marketing Communications Relationship Specialty Start Date End Date Francisco Parnell MD [address] [place] [address] PCP - General Internal Medicine 01/04/18 documented as of this encounter Additional Source Comments The information contained in this document represents components of the legal health record. It is not the complete legal health record.[facility]
--- OUTSIDE RECORDS SUMMARY | 2024-07-13 15:22 | XMS_ITS | Clinical Summary ---
Author Organization [facility] Address [phone] [facility]ly [facility] [place] [address] Care Team Providers Care Occupational Ther Name Role Phone Francisco Parnell MD Primary Care Provider [phone] Allergies Active Allergy Reactions Criticality Noted Date [...] 4 hrs prn 08/14/2011 Active Medication-Free Text [facility] 750-375-30 MG Tablet, Si tablets with [...] Recently Relevant to Health Maintenance Care Teams Occupational Ther Relationship Specialty Start Date End Date Francisco Parnell MD [address] [place] [address] PCP - General Internal Medicine 01/04/18 Additional Source Comments The information contained in this document represents components of the legal health record. It is not the complete legal health record.[facility]
--- OUTSIDE RECORDS SUMMARY | 2024-07-13 15:22 | XMS_ITS | Encounter Summary ---
Author Organization [facility] Address [phone] [place] [address] Care Team Providers Care Negative Spotter Name Role Phone Francisco Parnell MD Primary Care Provider [phone] Encounter Details Date Type Department Care Team (Latest Contact Info) Description 02/22/2024 Transcribe Orders Virtual Department [address] [place] [address] Francisco Parnell MD [address] [place] [address] Breast screening (Primary Dx) Social History Tobacco [...] unspecified documented in this encounter Care Teams Negative Spotter Relationship Specialty Start Date End Date Francisco Parnell MD [address] [place] [address] PCP - General Internal Medicine 01/04/18 documented as of this encounter Additional Source Comments The information contained in this document represents components of the legal health record. It is not the complete legal health record.[facility]
--- OUTSIDE RECORDS SUMMARY | 2024-07-13 15:22 | XMS_ITS | Encounter Summary ---
Author Organization [facility] Address [phone] [facility] [place] [address] Care Team Providers Care Touch Up Painter Name Role Phone Francisco Parnell MD Primary Care Provider [phone] Encounter Details Date Type Department Care Team (Late st Contact Info) Description 02/13/2020 Procedure Pass [address] [place] [address] Social History Tobacco Use Types Packs/Day Years Used Date Smoking Tobacco: Never Assessed Sex and Gender Information Value Date Recorded Sex Assigned at Not on file Gender Identity Not on file Sexual Orientation Not on file documented as of this encounter Plan of Treatment Not on file documented as of this encounter Visit Diagnoses Not on filedocumented in this encounter Care Teams Touch Up Painter Relationship Specialty Start Date End Date Francisco Parnell MD [address] [place] [address] PCP - General Internal Medicine 01/04/18 documented as of this encounter Additional Source Comments The information contained in this document represents components of the legal health record. It is not the complete legal health record.[facility]
--- OUTSIDE RECORDS SUMMARY | 2024-07-13 15:22 | XMS_ITS | Encounter Summary ---
Author Organization [facility] Address [phone] [facility]ly [facility] [place] [address] Care Team Providers Care Invas Tech Name Role Phone Francisco Parnell MD Primary Care Provider [phone] Encounter Details Date Type Department Care Team (Late st Contact Info) Description 02/09/2022 Procedure Pass [address] [place] [address] Social History Tobacco Use Types Packs/Day Years [...] on filedocumented in this encounter Care Teams Invas Tech Relationship Specialty Start Date End Date Francisco Parnell MD [address] [place] [address] PCP - General Internal Medicine 01/04/18 documented as of this encounter Additional Source Comments The information contained in this document represents components of the legal health record. It is not the complete legal health record.[facility]
--- OUTSIDE RECORDS SUMMARY | 2024-07-13 15:22 | XMS_ITS | Encounter Summary ---
Author Organization [facility] Address [phone] [facility] [place] [address] Care Team Providers Care Film Replacement Orderer Name Role Phone Francisco Parnell MD Primary Care Provider [phone] Encounter Details Date Type Department Care Team (Late st Contact Info) Description 01/18/2019 Ancillary Orders Virtual Department [address] [place] [address] Francisco Parnell MD [address] [place] [address] [phone] Breast screening Social History Tobacco Use Types [...] unspecified documented in this encounter Care Teams Film Replacement Orderer Relationship Specialty Start Date End Date Francisco Parnell MD [address] [place] [address] PCP - General Internal Medicine 01/04/18 documented as of this encounter Additional Source Comments The information contained in this document represents components of the legal health record. It is not the complete legal health record.[facility]
--- OUTSIDE RECORDS SUMMARY | 2024-07-13 15:22 | XMS_ITS | Encounter Summary ---
Author Organization [facility] Address [phone] [facility] [place] [address] Care Team Providers Care Lawn Mower Sharpener Name Role Phone Francisco Parnell MD Primary Care Provider [phone] Encounter Details Date Type Department Care Team (Late st Contact Info) Description 01/04/2018 Ancillary Orders Virtual Department [address] [place] [address] Francisco Parnell MD [address] [place] [address] [phone] Breast screening Social History Tobacco Use Types [...] unspecified documented in this encounter Care Teams Lawn Mower Sharpener Relationship Specialty Start Date End Date Francisco Parnell MD [address] [place] [address] PCP - General Internal Medicine 01/04/18 documented as of this encounter Additional Source Comments The information contained in this document represents components of the legal health record. It is not the complete legal health record.[facility]
--- OUTSIDE RECORDS SUMMARY | 2024-07-13 15:22 | XMS_ITS | Encounter Summary ---
Author Organization [facility] Address [phone] [facility] [place] [address] Care Team Providers Care Ssis Etl Developer Name Role Phone Francisco Parnell MD Primary Care Provider [phone] Encounter Details Date Type Department Care Team (Latest Contact Info) Description 02/09/2022 Transcribe Orders Virtual Department [address] [place] [address] Francisco Parnell MD [address] [place] [address] Breast screening (Primary Dx); Functional diarrhea; Irritable [...] EDT) IRON 70 30 - 160 ug/dL [facility] IRON BINDING CAPACITY 325 228 - 428 ug/dL [facility] TRANSFERRIN SATURAT. 22 15 - 50 % [facility] Blood 02/17/2022 3:11 PM EDT 02/17/2022 3:12 PM EDT Francisco Parnell MD LAB BLOOD ORDERABLES [facility] [address] [place] [address] * GGT (Gamma glutamyl transferase) (02/17/2022 3:11 PM EDT) GGT 27 7 - 33 U/L [facility] Blood 02/17/2022 3:11 PM EDT 02/17/2022 3:12 PM EDT Francisco Parnell MD LAB BLOOD ORDERABLES Performing Organization Address City/[facility] Co de Phone Number [address] [address] * (ABNORMAL) Comprehensive metabolic panel (02/17/2022 3:11 PM EDT) SODIUM 140 133 - 146 mmol/L [facility] POTASSIUM 4.3 3.3 - 5.1 mmol/L [facility] CHLORIDE 102 96 - 108 mmol/L [facility] CO2 30 21 - 35 mmol/L [facility] BUN 26(H) 6 - 19 mg/dL [facility] CREATININE 0.80 0.5 - 1.5 mg/dL [facility] GLUCOSE 106(H) 70 - 99 mg/dL [facility] ALBUMIN 4.4 3.9 - 4.8 g/dL [facility] TOTAL PROTEIN 7.5 6.5 - 8.0 g/dL [facility] CALCIUM 9.5 8.4 - 10.3 mg/dL [facility] ALKALINE PHOSPHATASE 113 39 - 117 U/L [facility] TOTAL BILIRUBIN 0.2 0.0 - 1.2 mg/dL [facility] AST 28 0 - 37 U/L [facility] ALT 31 0 - 40 U/L [facility] GLOBULIN 3.1 1 - 4.8 g/dL [facility] EGFR 81 >59 mL/min/1.7 3m2 [facility] Comment:Estimated glomerular filtration rate calculated using the CKD-EPI refit equation. ANION GAP 12 10 - 20 mmol/L [facility] Blood 02/17/2022 3:11 PM EDT 02/17/2022 3:12 PM EDT Francisco Parnell MD LAB BLOOD ORDERABLES [facility] [address] [place] [address] documented in this encounter Visit Diagnoses Diagnosis Breast screening- Primary Breast screening, unspecified Functional diarrhea Irritable bowel syndrome with diarrhea Irritable bowel syndrome Abdominal pain, left lower quadrant Breast screening Breast screening, unspecified documented in this encounter Care Teams Ssis Etl Developer Relationship Specialty Start Date End Date Francisco Parnell MD [address] [place] [address] PCP - General Internal Medicine 01/04/18 documented as of this encounter Additional Source Comments The information contained in this document represents components of the legal health record. It is not the complete legal health record.[facility]
--- OUTSIDE RECORDS SUMMARY | 2024-07-13 15:22 | XMS_ITS | Encounter Summary ---
Author Organization [facility] Address [phone] [facility] [place] [address] Care Team Providers Care Promotions Producer Name Role Phone Francisco Parnell MD Primary Care Provider [phone] Reason for Visit * Reason Onset Date Comments waiting on records 03/30/2024 Encounter Details Date Type Department Care Team ([facility] st Contact Info) Description 03/30/2024 Telephone [facility] [address] [place] [address] Ed Jeronimo MD [address] [place] [address] Orthopedics & Sports Medicine, [facility] [place] [address] [email or web address] waiting on records Social History Tobacco Use [...] still waiting on records from [facility] and [place]. * Suzy Alva - 04/07/2024 8:27 AM [...] on filedocumented in this encounter Care Teams Promotions Producer Relationship Specialty Start Date End Date Francisco Parnell MD [address] [place] [address] PCP - General Internal Medicine 01/04/18 documented as of this encounter Additional Source Comments The information contained in this document represents components of the legal health record. It is not the complete legal health record.[facility]
== END 2024-07-13 11:26 | disposition home or self-care (01) ==
LOC: HO.LAB 11:25
PROVIDERS: PCP Internal Medicine; Visit Provider Physician Assistant
DX: Z13.89 Encounter for screening for other disorder (principal)

== ENCOUNTER 2024-07-14 09:53 | Outpatient (REF) | payer MEDICARE, SELFPAY ==
--- NOTE | ~2024-07-14 | XR_ITS ---
EXAMINATION: XR HIP 2 OR MORE VIEWS LEFT HISTORY: M25.559 - Pain in unspecified hip COMPARISON: Correlation is made with a plain film of the pelvis dated 05/06/2023. FINDINGS: Two AP views of the pelvis and two views of the left hip are submitted. Osseous mineralization is normal. There is no fracture or dislocation. There is severe osteoarthritis with joint space narrowing and osteophyte formation. Findings have progressed since the prior study. The patient is status post internal fixation of the right hip with a compression screw and intramedullary tami. The soft tissues are unremarkable. XR/XR hip LT min 2V IMPRESSION: Severe osteoarthritis of the left hip with progression since the prior study. Electronically signed by: Gamaliel Goodwin MD 07/13/2024 01:01 PM [facility]
== END 2024-07-14 09:54 | disposition home or self-care (01) ==
LOC: HO.HOSX 09:53
PROVIDERS: Visit Provider Physician Assistant
DX: M25.552 Pain in left hip (principal); M16.12 Unilateral primary osteoarthritis, left hip; Z79.01 Long term (current) use of anticoagulants
CPT/HCPCS: 73502; 99212

== ENCOUNTER 2024-07-19 05:55 | Day surgery (SDC) | payer MEDICARE, SELFPAY ==
[2024-06-26 12:19] VITALS: BP 119/64; PULSE 85; RESP 18; O2SAT 100; BMI 23.5
[2024-06-26 16:21] LABS: MRSA Nasal PCR NEGATIVE (Negative); SA Nasal PCR NEGATIVE (Negative)
[2024-07-19] VITALS (19 sets, daily range): BP systolic 115–148; BP diastolic 59–82; PULSE 81–106; RESP 12–20; TEMP 36.1–37; O2SAT 95–100; BMI 24.5; BMI 26.3
--- NOTE | ~2024-07-19 | XR_ITS ---
EXAMINATION: XR CHEST CLINICAL INFORMATION: Fever, cough COMPARISON: May 28, 2023 TECHNIQUE: Frontal view of the chest was obtained. FINDINGS: Pulmonary reticular pattern. No consolidation, pleural effusion or pneumothorax. Cardiomediastinal silhouette is normal in size. No free air beneath the diaphragm. Osteopenia versus osteoporosis. Multilevel thoracic spondylosis. Excluded supraclavicular notch. XR/XR chest 1V IMPRESSION: Concerning chronic interstitial lung disease without acute airspace disease. Electronically signed by: Betito Osborn MD 07/20/2024 03:07 PM [facility]
--- NOTE | ~2024-07-19 | CT_ITS ---
CLINICAL HISTORY: Tachycardia, fever, Hx of PE post Op CT angiography chest with contrast. 3D Postprocessing. Comparison: CT - CT ANGIO CHEST PE PROTOCOL - 07/20/24 18:05 EST Findings: The heart is normal size. RV/LV ratio is normal. The thoracic aorta is normal caliber. No acute pulmonary embolus. The visualized thyroid and mediastinum are unremarkable. Bibasilar atelectatic/dependent changes. The visualized upper abdomen is unremarkable. The bones are intact. IMPRESSION: 1. No pulmonary embolus. No acute aortic syndrome. 2. Bibasilar atelectatic/dependent changes, lungs are otherwise clear. This document has been electronically signed by: Rocael Mann MD on 07/20/2024 19:02:25
--- NOTE | ~2024-07-19 | XR_ITS ---
EXAMINATION: XR HIP, LEFT CLINICAL INFORMATION: LEFT HIP REPLACEMENT COMPARISON: July 13, 2024. TECHNIQUE: Two views of the left hip. FINDINGS: There is a metallic prosthesis with an acetabular and femoral component well-seated in the osseous structures that appear intact with normal alignment. Right hip is unchanged with an intramedullary tami in the proximal diaphysis and transfemoral neck head fixation screw. Heterotopic bone formation above the greater trochanter right femur. Osteopenia versus osteoporosis. Sclerosis and the sacroiliac joints. XR/XR hip LT 1V IMPRESSION: Status post total left hip arthroplasty prosthesis, intact with normal alignment. Electronically signed by: Betito Osborn MD 07/19/2024 11:50 AM [facility]
[2024-07-19] MEDS: oxyCODONE HCl ER 10 MG TAB.ER.12H PO ×2 (06:31→19:50)
--- NOTE | 2024-07-19 06:34 | MHC.SHP ---
Pre-Procedural Eval Section A - 24 Hr Update-Section A only Date of Service: 07/19/24 The patient is an INPATIENT: No Changes since office visit: No Cold of Flu in the past 2 weeks, No New Medical Problems, No Changes in Medication and No Patient answered all questions The patient has been examined within 24 hours of the surgical procedure. The History & Physical has been completed within 30 days and I have reviewed it.: Yes Section B - Complete if H&P > 30 days Chief Complaint: Unilateral primary osteoarthritis, left hip Allergies: Allergies Allergy/AdvReac Type Severity Reaction Status Date / Time red dye Allergy Severe Unknown Verified 07/19/24 06:09 ciprofloxacin [From Cipro] Allergy Intermediate lightheaded/dizzy/GI Verified 07/19/24 06:09 upset escitalopram [From Lexapro] Allergy Intermediate vision Verified 07/19/24 06:09 disturbance/confusion gluten Allergy Intermediate Gastrointestinal Verified 07/19/24 06:09 Upset paroxetine [From Paxil] Allergy Intermediate withdrawal Verified 07/19/24 06:09 symptoms-did not wean off sulfamethoxazole Allergy Intermediate lightheaded/dizzy/GI Verified 07/19/24 06:09 [From Bactrim] upset trimethoprim [From Bactrim] Allergy Intermediate lightheaded/dizzy/GI Verified 07/19/24 06:09 upset Plan I have reviewed the history and physical and performed a pertinent physical examination on my patient. No changes have occurred unless specified. Time Spent With Patient Time: Total time managing care of this patient today ____ minutes.
[2024-07-19] MEDS: Lactated Ringers 1,000 ML 100 ML IVCONT ×3 (06:53→22:11)
--- NOTE | 2024-07-19 07:14 | HO.ANESPROP2 ---
Documented by User: Beth Pacheco NP 07/18/24 09:57 HPI - Anesthesia Eval Consult details Narrative: 68yo F for Left Hip Total Replacement, 07/19/24 Medically optimized per [facility] No recent illness No CP/SOB within limits of pain s/p Right IM nailing 2022 with GA-ETT 7.5, uneventful anesthesia. Developed PE post op (anticoag 3 months) Asthma: Scheduled inhaler BID, rare albuterol PMFSH Active Problems Active Problems: All Active Problems Osteoarthritis of right hip (Acute) Anemia (Acute) Hypokalemia (Acute) Sepsis (Acute) Acute UTI (Acute) Retention of urine, unspecified (Acute) Right hip pain (Acute) Pulmonary embolism (Acute) Past Medical History Medical History Arthritis Thyroid nodule Pulmonary embolism GERD (gastroesophageal reflux disease) Osteoporosis Hyperlipidemia Irritable bowel syndrome with diarrhea Fatty liver Asthma Anxiety and depression Family History Family history of problems with anesthesia: No (Doesn't know paternal hx) Surgical History Surgical History History of hip surgery (05/07/23) Hx of tonsillectomy H/O esophagogastroduodenoscopy H/O colonoscopy History of Problems with Anesthesia: No Social History Social History Household Members: [facility] Are you a primary skin care instructor to a significant other at home: No Do you presently have visiting nurse or other home services: No Alcohol intake: current Alcohol intake frequency: 3 or more drinks per day Alcohol type: hard liquor Patient Tobacco Use Status: Former Tobacco user Tobacco use type: Cigarette Years Smoked: 40 Second Hand Smoke Exposure: No Use of substances other than those prescribed or required for medical reasons: No Have you been hit, kicked, punched, or otherwise hurt by someone within the past year? If so, by whom?: No Spiritual Healthcare Practices: none Sikhism Healthcare Practices: Zoroastrian Cultural Healthcare Practices: none Are you DNR?: No Advance Directives: No Advance Directives Information Provided: Yes (advised to bring copy DOS) Advance Directives on File: No Recently lost weight without trying: No Eating poorly because of decreased appetite: No Nutrition Risks: No Nutritional Risk FDLMP: n/a Poor oral hygiene: No (some extracted teeth) service: No Meds Allergies Allergy/AdvReac Type Severity Reaction Status Date / Time red dye Allergy Severe Unknown Verified 07/19/24 06:09 ciprofloxacin [From Cipro] Allergy Intermediate lightheaded/dizzy/GI Verified 07/19/24 06:09 upset escitalopram [From Lexapro] Allergy Intermediate vision Verified 07/19/24 06:09 disturbance/confusion gluten Allergy Intermediate Gastrointestinal Verified 07/19/24 06:09 Upset paroxetine [From Paxil] Allergy Intermediate withdrawal Verified 07/19/24 06:09 symptoms-did not wean off sulfamethoxazole Allergy Intermediate lightheaded/dizzy/GI Verified 07/19/24 06:09 [From Bactrim] upset trimethoprim [From Bactrim] Allergy Intermediate lightheaded/dizzy/GI Verified 07/19/24 06:09 upset Home Medications ?Medication ?Instructions ?Recorded ?Confirmed ?Last Taken ?Type albuterol sulfate 90 mcg/actuation 2 puff inhalation QID PRN wheezing 12/28/22 06/26/24 05/05/23 History aerosol inhaler amitriptyline 10 mg tablet 20 mg PO BEDTIME 12/28/22 06/26/24 07/18/24 History famotidine 20 mg tablet 20 mg PO BID PRN gi upset 12/28/22 06/26/24 05/27/23 History salmeterol 50 mcg/dose blister 1 inh inhalation BID 12/28/22 06/26/24 07/19/24 05:30 History powder for inhalation (Serevent Diskus) clonazepam 1 mg tablet 1 mg PO BID 05/07/23 06/26/24 07/19/24 05:30 History nystatin 100,000 unit/gram topical 1 appl topical BID PRN Rash 05/07/23 06/26/24 Unknown History cream celecoxib 200 mg capsule 200 mg PO QAM 06/23/24 06/26/24 07/19/24 05:30 History fluticasone propionate 50 2 spray intranasal DAILY allergy 06/23/24 06/26/24 Unknown History mcg/actuation nasal symptoms spray,suspension loratadine 10 mg tablet (Claritin) 10 mg PO QAM 06/23/24 06/26/24 07/19/24 05:30 History acetaminophen 500 mg tablet 1,000 mg PO TID PRN Pain 06/26/24 06/26/24 07/18/24 History ascorbic acid (vitamin C) 500 mg 500 mg PO BID 06/26/24 06/26/24 07/12/24 History tablet (Vitamin C) calcium 600 mg (as 1 tab PO QAM 06/26/24 06/26/24 07/12/24 History carbonate)-vitamin D3 5 mcg (200 unit) tablet cetirizine 10 mg tablet (Zyrtec) 10 mg PO BEDTIME 06/26/24 06/26/24 07/18/24 History magnesium oxide 200 mg PO BID 06/26/24 06/26/24 07/12/24 History multivitamin with minerals-folic 1 tab PO DAILY 06/26/24 06/26/24 07/12/24 History acid 200 mcg chewable tablet (Multivitamin Gummies) Exam Height,Weight and Vital Signs: Height 5 ft 3.78 in Weight 61.689 kg Last Vital Signs Pulse 85 06/26/24 12:19 Resp 18 06/26/24 12:19 BP 119/64 06/26/24 12:19 Pulse Ox 100 06/26/24 12:19 O2 Del Method Room Air 06/26/24 12:19 Pertinent Lab Results Pertinent Lab Results: CBC and BMP 05/2024 from [facility] Narrative Narrative: EKG 05/2024 NSR @ 93 Airway Mallampati Class: III TM Dist: >3cm Neck ROM: Full Loose/Missing/Broken Teeth: Yes (Multiple extractions) Heart: RRR Lungs: CTAB Assessment and Plan Assessment Anesthesia Assessment: Anesthesia Plan Discussed and PAT Visit Final Anesthetic Review Family History of Problems with Anesthesia: No (Doesn't know paternal hx) History of Problems with Anesthesia: No Documented by User: Sari Traore DO 07/19/24 07:16 [facility] Past Medical History Medical History Arthritis Thyroid nodule Pulmonary embolism GERD (gastroesophageal reflux disease) Osteoporosis Hyperlipidemia Irritable bowel syndrome with diarrhea Fatty liver Asthma Anxiety and depression Family History Family history of problems with anesthesia: No Surgical History Surgical History History of hip surgery (05/07/23) Hx of tonsillectomy H/O esophagogastroduodenoscopy H/O colonoscopy History of Problems with Anesthesia: No Social History Social History Household Members: [facility] Are you a primary skin care instructor to a significant other at home: No Do you presently have visiting nurse or other home services: No Alcohol intake: current Alcohol intake frequency: 3 or more drinks per day Alcohol type: hard liquor Patient Tobacco Use Status: Former Tobacco user Tobacco use type: Cigarette Years Smoked: 40 Second Hand Smoke Exposure: No Use of substances other than those prescribed or required for medical reasons: No Have you been hit, kicked, punched, or otherwise hurt by someone within the past year? If so, by whom?: No Spiritual Healthcare Practices: none Sikhism Healthcare Practices: Zoroastrian Cultural Healthcare Practices: none Are you DNR?: No Advance Directives: No Advance Directives Information Provided: Yes (advised to bring copy DOS) Advance Directives on File: No Recently lost weight without trying: No Eating poorly because of decreased appetite: No Nutrition Risks: No Nutritional Risk FDLMP: n/a Poor oral hygiene: No (some extracted teeth) service: No Meds Allergies Allergy/AdvReac Type Severity Reaction Status Date / Time red dye Allergy Severe Unknown Verified 07/19/24 06:09 ciprofloxacin [From Cipro] Allergy Intermediate lightheaded/dizzy/GI Verified 07/19/24 06:09 upset escitalopram [From Lexapro] Allergy Intermediate vision Verified 07/19/24 06:09 disturbance/confusion gluten Allergy Intermediate Gastrointestinal Verified 07/19/24 06:09 Upset paroxetine [From Paxil] Allergy Intermediate withdrawal Verified 07/19/24 06:09 symptoms-did not wean off sulfamethoxazole Allergy Intermediate lightheaded/dizzy/GI Verified 07/19/24 06:09 [From Bactrim] upset trimethoprim [From Bactrim] Allergy Intermediate lightheaded/dizzy/GI Verified 07/19/24 06:09 upset Home Medications ?Medication ?Instructions ?Recorded ?Confirmed ?Last Taken ?Type albuterol sulfate 90 mcg/actuation 2 puff inhalation QID PRN wheezing 12/28/22 06/26/24 05/05/23 History aerosol inhaler amitriptyline 10 mg tablet 20 mg PO BEDTIME 12/28/22 06/26/24 07/18/24 History famotidine 20 mg tablet 20 mg PO BID PRN gi upset 12/28/22 06/26/24 05/27/23 History salmeterol 50 mcg/dose blister 1 inh inhalation BID 12/28/22 06/26/24 07/19/24 05:30 History powder for inhalation (Serevent Diskus) clonazepam 1 mg tablet 1 mg PO BID 05/07/23 06/26/24 07/19/24 05:30 History nystatin 100,000 unit/gram topical 1 appl topical BID PRN Rash 05/07/23 06/26/24 Unknown History cream celecoxib 200 mg capsule 200 mg PO QAM 06/23/24 06/26/24 07/19/24 05:30 History fluticasone propionate 50 2 spray intranasal DAILY allergy 06/23/24 06/26/24 Unknown History mcg/actuation nasal symptoms spray,suspension loratadine 10 mg tablet (Claritin) 10 mg PO QAM 06/23/24 06/26/24 07/19/24 05:30 History acetaminophen 500 mg tablet 1,000 mg PO TID PRN Pain 06/26/24 06/26/24 07/18/24 History ascorbic acid (vitamin C) 500 mg 500 mg PO BID 06/26/24 06/26/24 07/12/24 History tablet (Vitamin C) calcium 600 mg (as 1 tab PO QAM 06/26/24 06/26/24 07/12/24 History carbonate)-vitamin D3 5 mcg (200 unit) tablet cetirizine 10 mg tablet (Zyrtec) 10 mg PO BEDTIME 06/26/24 06/26/24 07/18/24 History magnesium oxide 200 mg PO BID 06/26/24 06/26/24 07/12/24 History multivitamin with minerals-folic 1 tab PO DAILY 06/26/24 06/26/24 07/12/24 History acid 200 mcg chewable tablet (Multivitamin Gummies) Exam Exam Date and Time: 07/19/24 0714 Height,Weight and Vital Signs: Height 5 ft 3.78 in Weight 61.689 kg Last Vital Signs Pulse 85 06/26/24 12:19 Resp 18 06/26/24 12:19 BP 119/64 06/26/24 12:19 Pulse Ox 100 06/26/24 12:19 O2 Del Method Room Air 06/26/24 12:19 Height 5 ft 3.78 in Weight 61.689 kg Vital Signs Pulse Rate 85 06/26/24 12:19 Respiratory Rate 18 06/26/24 12:19 Blood Pressure 119/64 06/26/24 12:19 Pulse Oximetry 100 06/26/24 12:19 Oxygen Delivery Method Room Air 06/26/24 12:19 Temperature 98.0 F 07/19/24 06:57 Pulse Rate 87 07/19/24 06:57 Respiratory Rate 15 07/19/24 06:57 Blood Pressure 143/82 H 07/19/24 06:57 Pulse Oximetry 99 07/19/24 06:57 Oxygen Delivery Method Room Air 07/19/24 06:57 Airway Mallampati Class: II TM Dist: >3cm Neck ROM: Full Loose/Missing/Broken Teeth: Yes (Multiple extractions) Heart: S1S2 Assessment and Plan Assessment Anesthesia Assessment: Anesthesia Plan Discussed and Chart Reviewed Final Anesthetic Review Family History of Problems with Anesthesia: No History of Problems with Anesthesia: No NPO: Yes ASA Class: II Final Preanesthetic Review: No Changes in Pt Med Stat, Meds/Allgs Chart Reviewed, Consent Obtained/Reviewed and Anes Risks/Benef Reviewed Patient Risk: Low Procedure Risk: Intermediate Anesthetic Plan Anesthetic Plan: GA and Agree w/ Assess. and Plan Disposition: Standard PACU
[2024-07-19] MEDS: ceFAZolin Sodium/Dextrose,Iso 2 GM/50 ML PIGGYBACK IV ×2 (07:50→13:48)
--- NOTE | 2024-07-19 09:04 | PM.OP ---
Brief Operative Note Date of Service: 07/19/24 Pre-op diagnosis: Left hip OA Post-op diagnosis: same Procedure: Left IGOR Implants: [place] Trident 54, 2 6.5 acetabular screws with 20 deg lip liner; Accolade 2 #5 132/-2.5 36 ceramic Surgeon: Young Graf MD Anesthesia: GETA and local Was an Staff Respiratory Therapist used for this Procedure?: Yes Staff Respiratory Therapist: Loraine Koheler Estimated blood loss (mL): 200 IV fluids (mL): 750 Pathology: other Condition: stable Disposition: PACU
--- NOTE | 2024-07-19 09:07 | P.OP_ITS ---
Operative Note Operative Note Date of Service: 07/19/24 Narrative: Date of Service: 07/19/24 Pre-op diagnosis: Left hip OA Post-op diagnosis: same Procedure: Left IGOR Implants: [place] Trident 54, 2 6.5 acetabular screws with 20 deg lip liner; Accolade 2 #5 132/-2.5 36 ceramic Surgeon: Young Graf MD Anesthesia: GETA and local Was an Tactical Debriefer used for this Procedure?: Yes Tactical Debriefer: Loraine Koehler Estimated blood loss (mL): 200 IV fluids (mL): 750 Pathology: other Condition: stable Disposition: PACU Procedure in detail: Patient was brought into the operating room and placed in the right lateral decubitus position. All bony prominences were well padded and the limb was prepped and draped in standard sterile fashion. A time-out was called to identify proper site procedure proper surgeon IV antibiotics and 1 g of tranexamic NOT administered. I began by making a curvilinear incision over the posterolateral aspect of the greater trochanter. Dissection was taken down to the tensor fascia which was incised in line with the incision and a Charnley retractor was placed. Cautery was used to maintain hemostasis. The hip was internally rotated and the external rotators were identified. The vessels were cauterized and a full-thickness capsular/external rotator layer was developed starting just proximal to the piriformis. This layer was tagged and a dull Hohmann retractor was placed underneath the neck in the hip was dislocated. A neck cut was made 1 cm proximal to the lesser trochanter and the head and neck were removed and measured 48mm on the back table. The head was deformed and eburnated. I then removed the labrum and cauterized the fovea. I started with a 44 reamer and medialized to the inner table. I sequentially reamed up to a size 52 but 80% of the cup was still only minimally bleeding with thick sclerotic bone. Therefore I reamed up to a 54 and impacted a 54mm cup at 45 degrees of inclination and 25 degrees of version. I then placed 2 acetabular screws in the superior safe zone using standard AO technique. I then placed a 20 deg posterio r lipped liner and turned my attention to the femur. I identified the piriformis insertion and used this as a starting point for my beth cutter. The medius tendon was protected with a Hibs retractor. A Charnley awl was inserted in the canal and a curved curette used to remove the lateral bone. I irrigated copiously. I then sequentially broached in the patient's natural version to a size 5 and placed my trial implants. I used a #5/132/+0 based on my pre-operative template. I removed all instrumentation and copiously irrigated. I placed my final femoral implant and again took the hip through range of motion and was satisfied with the stability and length using a -2.5. Her contralateral limb was short given her prior intertrochanteric fracture and so I placed the shortest condtruct possible while still permitting stability up to 70 deg in FADIR at 30 and 90 deg. The final -2.5 implant was impacted in place and the hip reduced. I then irrigated copiously. I performed a capsular closure and repaired the piriformis with 2.0 fiberwire, Vane's fascia with 0 Vicryl, subcuticular with 2-0 Vicryl and the skin with andrew. Patient was placed into a sterile dressing. Patient was extubated brought to the recovery room in stable condition. There were no known complications.
[2024-07-19] MEDS: HYDROmorphone HCl 0.5 MG/0.5 ML SYRINGE IVPUSH ×2 (09:40→09:45)
[2024-07-19] MEDS: fentaNYL citrate/PF 100 MCG/2 ML VIAL 50 MCG IVPUSH (09:55)
[2024-07-19] MEDS: Enoxaparin Sodium 40 MG/0.4 ML SYRINGE SUBCUT (11:18)
--- NOTE | 2024-07-19 11:25 | PHA.MEDREC ---
Pharmacy Consult ? Medication Reconciliation Pharmacy has completed the medication reconciliation. PHARMACY HAS REVIEWED MED REC DONE BY NURSING
[2024-07-19] MEDS: Famotidine 20 MG TABLET PO ×2 (13:31→17:11)
[2024-07-19] MEDS: ondansetron HCL 4 MG/2 ML VIAL IVPUSH (13:48)
--- NOTE | 2024-07-19 15:21 | P.CONIM_ITS ---
History of Present Illness Data of Consult Service Date: 07/19/24 Primary Care Provider: Francisco Parnell MD [facility] Reason for consult: MEdical care A 68 years old lady with PMH of Osteoporosis , IBS, GERD, COPD Osteoarthritis who is admitted for elective hip replacement surgery. The patient reports having chronic back pain and difficulties walking because of hip pain as well. She is using her inhalers as prescribed and has no breathing concerns. Anxiety fairly cotntrolled with Clonazepam. bedtime Amitriptyline helps her sleeping. No other overnight events. Review of Systems 2 Review of Systems: No fever, chills or weakness No chest pain, palpitation No shortness of breath or coughing No abdominal pain, nausea or vomiting No urinary symptoms No any rash or wounds [facility] Medical History Arthritis Thyroid nodule Pulmonary embolism GERD (gastroesophageal reflux disease) Osteoporosis Hyperlipidemia Irritable bowel syndrome with diarrhea Fatty liver Asthma Anxiety and depression Surgical History History of hip surgery (05/07/23) Hx of tonsillectomy H/O esophagogastroduodenoscopy H/O colonoscopy Social History Household Members: Significant Other Housing: Condominium Are you a primary hospice home care coordinator to a significant other at home: No Do you presently have visiting nurse or other home services: Yes Alcohol intake: current Alcohol intake frequency: 3 or more drinks per day Alcohol type: hard liquor Comment: tolerable Patient Tobacco Use Status: Former Tobacco user Tobacco use type: Cigarette Years Smoked: 40 Second Hand Smoke Exposure: No Use of substances other than those prescribed or required for medical reasons: No Currently Displaying Signs/Symptoms of Drug Intoxication Withdrawal: No Have you been hit, kicked, punched, or otherwise hurt by someone within the past year? If so, by whom?: No Do you feel safe in your current relationship?: Yes Is there a partner from a previous relationship who is making you feel unsafe now?: No Are you made to feel afraid or neglected: No Spiritual Healthcare Practices: none Restorationist Healthcare Practices: Tenriism Cultural Healthcare Practices: none Are you DNR?: No Advance Directives: No Advance Directives Information Provided: Yes (advised to bring copy DOS) Advance Directives on File: No Do you have a plan to hurt others: No Plan Recently lost weight without trying: No Eating poorly because of decreased appetite: No Nutrition Risks: No Nutritional Risk Patient : No FDLMP: n/a : No Poor oral hygiene: No service: No Meds Allergies Allergy/AdvReac Type Severity Reaction Status Date / Time red dye Allergy Severe Unknown Verified 07/19/24 06:09 ciprofloxacin [From Cipro] Allergy Intermediate lightheaded/dizzy/GI Verified 07/19/24 06:09 upset escitalopram [From Lexapro] Allergy Intermediate vision Verified 07/19/24 06:09 disturbance/confusion gluten Allergy Intermediate Gastrointestinal Verified 07/19/24 06:09 Upset paroxetine [From Paxil] Allergy Intermediate withdrawal Verified 07/19/24 06:09 symptoms-did not wean off sulfamethoxazole Allergy Intermediate lightheaded/dizzy/GI Verified 07/19/24 06:09 [From Bactrim] upset trimethoprim [From Bactrim] Allergy Intermediate lightheaded/dizzy/GI Verified 07/19/24 06:09 upset Active Medications: Current Medications Acetaminophen (Acetaminophen 325 Mg Tablet) 650 mg PO Q6H PRN PRN Reason: Pain, Mild 1-3,fever,headache Albuterol Sulfate (Albuterol Sulfate 90 Mcg 8 Gm Inhaler) 2 puff INHALE QID PRN PRN Reason: wheezing Amitriptyline HCl (Amitriptyline Hcl 10 Mg Tablet) 20 mg PO BEDTIME [facility] Ascorbic Acid (Ascorbic Acid 500 Mg Tablet) 500 mg PO BID [facility] Calcium Carbonate/Cholecalciferol (Calcium + Vitamin D 250 Mg Tablet) 1 mg PO DAILY [facility] Celecoxib (Celecoxib 200 Mg Capsule) 200 mg PO BID [facility] Clonazepam (Clonazepam 1 Mg Tablet) 1 mg PO BID [facility] Docusate Sodium (Docusate Sodium 100 Mg Capsule) 100 mg PO BID [facility] Enoxaparin Sodium (Enoxaparin Sodium 40 Mg/0.4 Ml Syringe) 40 mg SUBCUT Q24H [facility] Last Admin: 07/19/24 11:18 Dose: 40 mg Famotidine (Famotidine 20 Mg Tablet) 20 mg PO BID@0630,1630 [facility] Last Admin: 07/19/24 13:31 Dose: 20 mg Fentanyl (Fentanyl Citrate/Pf 100 Mcg/2 Ml Vial) 50 mcg IVPUSH Q5M PRN PRN Reason: Pain, Moderate to Severe (Pain Scale 4-10) Stop: 07/19/24 15:53 Last Admin: 07/19/24 09:55 Dose: 50 mcg Fluticasone Propionate (Fluticasone Propionate Nasal 16 Gm Ha[place]ler) 2 spray NOSTRIL-B DAILY [facility] Hydromorphone HCl (Hydromorphone Hcl 0.5 Mg/0.5 Ml Syringe) 0.25 mg IVPUSH Q4H PRN; Protocol PRN Reason: Pain, Severe (Pain Scale 7-10) Lactated Ringer's (Lr) 1,000 mls @ 100 mls/hr IVCONT .Q10H [facility] Last Admin: 07/19/24 11:18 Dose: 100 mls/hr Loratadine (Loratadine 10 Mg Tablet) 10 mg PO DAILY [facility] Magnesium Oxide (Magnesium Oxide 400 Mg Tablet) 200 mg PO BID [facility] Naloxone HCl (Naloxone Hcl 0.4 Mg/Ml Vial) 0.04 mg IVPUSH Q5M PRN PRN Reason: Excessive sedation or RR < 8 Nystatin (Nystatin Cream 15 Gm Tube) 1 appl TOPICAL BID PRN; Protocol PRN Reason: Rash Ondansetron HCl (Ondansetron Hcl 4 Mg/2 Ml Vial) 4 mg IVPUSH Q8H PRN PRN Reason: Nausea and Vomiting Last Admin: 07/19/24 13:48 Dose: 4 mg Oxycodone HCl (Oxycodone Hcl Immed Release 5 Mg Tablet) 5 mg PO Q4H PRN PRN Reason: Pain, Moderate(Pain Scale 4-6) Oxycodone HCl (Oxycodone Hcl Er 10 Mg Tab.Er.12h) 10 mg PO BID [facility] Salmeterol Xinafoate (Salmeterol Xinafoate 50 Mcg Blst.W.Dev) 1 puff INHALE BID [facility] Sodium Chloride (0.9 % Sodium Chloride Flush 3 Ml Syringe) 3 ml IVFLUSH QSHIFT [facility] Home Medications ?Medication ?Instructions ?Recorded ?Confirmed ?Last Taken ?Type albuterol sulfate 90 mcg/actuation 2 puff inhalation QID PRN wheezing 12/28/22 06/26/24 05/05/23 History aerosol inhaler amitriptyline 10 mg tablet 20 mg PO BEDTIME 12/28/22 06/26/24 07/18/24 History famotidine 20 mg tablet 20 mg PO BID PRN gi upset 12/28/22 06/26/24 05/27/23 History salmeterol 50 mcg/dose blister 1 inh inhalation BID 12/28/22 06/26/24 07/19/24 05:30 History powder for inhalation (Serevent Diskus) clonazepam 1 mg tablet 1 mg PO BID 05/07/23 06/26/24 07/19/24 05:30 History nystatin 100,000 unit/gram topical 1 appl topical BID PRN Rash 05/07/23 06/26/24 Unknown History cream celecoxib 200 mg capsule 200 mg PO QAM 06/23/24 06/26/24 07/19/24 05:30 History fluticasone propionate 50 2 spray intranasal DAILY allergy 06/23/24 06/26/24 Unknown History mcg/actuation nasal symptoms spray,suspension loratadine 10 mg tablet (Claritin) 10 mg PO QAM 06/23/24 06/26/24 07/19/24 05:30 History acetaminophen 500 mg tablet 1,000 mg PO TID PRN Pain 06/26/24 06/26/24 07/18/24 History ascorbic acid (vitamin C) 500 mg 500 mg PO BID 06/26/24 06/26/24 07/12/24 History tablet (Vitamin C) calcium 600 mg (as 1 tab PO QAM 06/26/24 06/26/24 07/12/24 History carbonate)-vitamin D3 5 mcg (200 unit) tablet cetirizine 10 mg tablet (Zyrtec) 10 mg PO BEDTIME 06/26/24 06/26/24 07/18/24 History magnesium oxide 200 mg PO BID 06/26/24 06/26/24 07/12/24 History multivitamin with minerals-folic 1 tab PO DAILY 06/26/24 06/26/24 07/12/24 History acid 200 mcg chewable tablet (Multivitamin Gummies) Physical Exam 2 Vital Signs and Narrative: Vital Signs: Last Vital Signs Temp 98.6 F 07/19/24 10:48 Pulse 86 07/19/24 13:09 Resp 16 07/19/24 10:48 BP 124/64 07/19/24 13:09 Pulse Ox 97 07/19/24 13:09 O2 Del Method Room Air 07/19/24 10:48 O2 Flow Rate 2 07/19/24 10:20 BMI result Body Mass Index 26.3 Const: Other: Constitutional : interactive, not in distress Cardiovascular : no JVP, no lower extremity edema Respiratory : bilateral chest movement, not in resp distress Gastrointestinal: soft, lax, Non tender Skin : Warm, Dry Extremities: Left leg in dressing, no bleeding Neurological : Alert & oriented , No focal deficit Results Labs 07/20/24 05:48 07/20/24 05:48 Imaging Radiologist's Impressions: Impressions Hip X-Ray 07/19/24 10:15 IMPRESSION: Status post total left hip arthroplasty prosthesis, intact with normal alignment. Electronically signed by: Betito Osborn MD 07/19/2024 11:50 AM EST Assessment and Plan (1) Osteoarthritis of left hip: Status: Acute Plan A 68 years old lady with PMH of Osteoporosis , IBS, GERD, COPD Osteoarthritis who is admitted for elective hip replacement surgery. LEft hip osteoarthritis S\P arthroplasty surgery team following Hx of PE not on blood thinners anymore COPD not in exacerbation Continue home inhalers Anxiety Clonazepam, Amitryptiline DVT PPx SCDs post op Thank you for the consult will continue to follow with you
[2024-07-19] MEDS: oxyCODONE HCl Immed Release 5 MG TABLET PO ×2 (17:15→23:53)
[2024-07-19] MEDS: Docusate Sodium 100 MG CAPSULE PO (19:48)
[2024-07-19] MEDS: Ascorbic Acid 500 MG TABLET PO (19:48)
[2024-07-19] MEDS: Amitriptyline HCl 10 MG TABLET 20 MG PO (19:48)
[2024-07-19] MEDS: Magnesium Oxide 400 MG TABLET 200 MG PO (19:49)
[2024-07-19] MEDS: clonazePAM 1 MG TABLET PO (19:50)
[2024-07-19] MEDS: 0.9 % Sodium Chloride Flush 3 ML SYRINGE IVFLUSH (19:56)
[2024-07-20] VITALS (11 sets, daily range): BP systolic 102–132; BP diastolic 55–64; PULSE 94–126; RESP 16–18; TEMP 36.1–37.4; O2SAT 93–98
[2024-07-20] MEDS: oxyCODONE HCl Immed Release 5 MG TABLET PO (03:30)
[2024-07-20] MEDS: HYDROmorphone HCl 0.5 MG/0.5 ML SYRINGE 0.25 MG IVPUSH (04:30)
[2024-07-20] MEDS: Famotidine 20 MG TABLET PO ×2 (05:54→17:56)
[2024-07-20 06:33] LABS: MANUAL DIFF FLAG NO
[2024-07-20 06:44] LABS: Basophils Percent Auto 0.4 % (0-2); Eosinophils Percent Auto 0.2 % (0-4); Hematocrit 27.5 % (37.0-47.0); Hemoglobin 9.1 g/dl (12.0-16.0); Imm Gran Abs Auto 0.01 X10*3/uL (0.00-0.03); Imm Gran Pct Auto 0.2 % (0.0-0.4); Lymphocytes Absolute Auto 0.7 X10*3/uL (1.2-4.9); Lymphocytes Percent Auto 14.3 % (20-40); Mean Corpuscular HGB Conc 33.1 g/dl (31.0-35.0); Mean Corpuscular Hemoglobin 33.7 pg (27.0-33.0); Mean Corpuscular Volume 101.9 fL (80.0-98.0); Mean Platelet Volume 9.3 fL (9.4-12.3); Monocytes Absolute Auto 0.4 X10*3/uL (0.1-1.2); Monocytes Percent Auto 9.1 % (2-11); Neutrophils Absolute Auto 3.5 x10*3/uL (2.0-8.3); Neutrophils Percent Auto 75.8 % (45-73); Platelet Count 223 X10*3/uL (160-400); Red Cell Distribution Width 12.8 % (11.0-16.0); White Blood Count 4.6 X10*3/uL (4.8-10.8)
[2024-07-20 06:55] LABS: Anion Gap 10 (12-20); Blood Urea Nitrogen 9 mg/dL (9-16); Calcium 8.5 mg/dL (8.4-10.2); Carbon Dioxide 25 mmol/L (22-29); Chloride 106 mmol/L (96-108); Creatinine Clr Calc Pharmacy 72.8; Estimated Glomerular Filt Rate > 60; Glucose Fasting 110 mg/dL (60-99); Potassium 3.8 mmol/L (3.3-5.1); Sodium 137 mmol/L (135-145)
--- NOTE | 2024-07-20 08:46 | HO.POSTANES ---
Post Anesthesia Evaluation Post Anesthesia Evaluation Date of Service: 07/20/24 Vital Signs: Vital Signs Temp Pulse Resp BP Pulse Ox O2 Del Method 07/20/24 07:33 113 H 113/59 L 97 07/20/24 07:29 99.3 F 113 H 16 113/59 L 97 Room Air 07/20/24 04:00 97.7 F 113 H 17 130/58 L 97 Room Air 07/19/24 22:00 97.6 F 104 H 16 118/59 L 99 Room Air Anesthesia: General Endotracheal-GETA Mental Status: Awake Pain Control: Satisfactory Nausea/Vomiting: None Hydration: Adequate Anesthesia-Related Issues: No Anes. Related Issues
--- NOTE | 2024-07-20 08:58 | PM.PNORT ---
Subjective Subjective Date of Service: 07/20/24 Interval history: POD1 s/p LTHA Patient is resting in bed comfortably No overnight events Pain is managed No additional complaints Physical Exam Vital Signs: Vital Signs: Last Vital Signs Temp 99.3 F 07/20/24 07:29 Pulse 113 H 07/20/24 07:33 Resp 16 07/20/24 07:29 BP 113/59 L 07/20/24 07:33 Pulse Ox 97 07/20/24 07:33 O2 Del Method Room Air 07/20/24 07:29 O2 Flow Rate 2 07/19/24 10:20 BMI result Body Mass Index 26.3 Const: General: cooperative, healthy appearing and no acute distress Resp: Effort & Inspection: normal respiratory effort and able to speak in complete sentences Cardio: Rate: regular rate Peripheral pulses: Peripheral pulses 2+ throughout GI: Palpation (GI): Soft to palpation Skin: Lesions: no lesions Rashes: no rashes Extrem: Other: left hip dressing is c/d/i. Able to dorsi/plantar flex. Calf is supple and nontender. Sensation intact. Pedal pulse intact. Procedures Date of Service Date of Service: 07/20/24 Progress Note: A&P Assessment and plan (1) Osteoarthritis of left hip: Status: Acute Plan Continue pain mgmnt Begin Loveox for dvt ppx - hx of PE begin PT/OT for LTHA - WBAT posterior precautions Dispo planning-Pending PT eval, pain mgmnt Time Spent With Patient Time: Total time managing care of this patient today ____ minutes. Quality Stroke Does the patient have a stroke diagnosis?: No VTE Prior VTE?: No VTE Risk Level:: Medical - moderate - high VTE Device Contraindication: N/A - Device Ordered VTE Drug Contraindication: N/A - Med Ordered
[2024-07-20] MEDS: clonazePAM 1 MG TABLET PO ×2 (09:54→21:46)
[2024-07-20] MEDS: oxyCODONE HCl ER 10 MG TAB.ER.12H PO ×2 (09:54→21:47)
[2024-07-20] MEDS: Celecoxib 200 MG CAPSULE PO ×2 (09:55→21:47)
[2024-07-20] MEDS: Docusate Sodium 100 MG CAPSULE PO ×2 (09:57→21:46)
[2024-07-20] MEDS: oxyCODONE HCl Immed Release 5 MG TABLET 10 MG PO ×2 (10:32→17:57)
[2024-07-20] MEDS: Ascorbic Acid 500 MG TABLET PO ×2 (10:37→21:46)
[2024-07-20] MEDS: Loratadine 10 MG TABLET PO (10:37)
[2024-07-20] MEDS: Magnesium Oxide 400 MG TABLET 200 MG PO ×2 (10:37→21:46)
[2024-07-20] MEDS: Enoxaparin Sodium 40 MG/0.4 ML SYRINGE SUBCUT (10:42)
[2024-07-20] MEDS: 0.9 % Sodium Chloride Flush 3 ML SYRINGE IVFLUSH ×2 (10:46→21:49)
[2024-07-20] MEDS: Lactated Ringers 1,000 ML 100 ML IVCONT (10:46)
--- NOTE | 2024-07-20 13:06 | MHC.CM.PN ---
PATIENT LIVES IN AN APARTMENT W/ S.O. MARY. FUNCTIONALLY INDEPENDENT. HAS A CANE/WALKER/TOILET RISER TO USE POST OP. PCP YVROSE GUERRIER MD NO HCP. CM PROVIDED EDUCATION AND OFFERED ASSISTANCE. PATIENT DECLINED. DP: PT REC HOME W/ SERVICES. PATIENT PREFERS [facility], SHE HAS PREVIOUSLY USED THEIR SERVICES. REFERRAL SENT [facility]IA [facility]. AWAITING RESPONSE. S.O. TO TRANSPORT. CM WILL CONTINUE TO FOLLOW.
--- NOTE | 2024-07-20 14:10 | P.PNIM_ITS ---
Subjective Subjective Date of Service: 07/20/24 Interval History: feels little warm Temp of 100.6 coughing with tachycardia no chest pain POD 1 Review of Systems Review of Systems: Yes all other systems are reviewed and are negative Physical Exam 2 Vital Signs: Vital Signs: Last Vital Signs Temp 98.8 F 07/20/24 10:00 Pulse 112 H 07/20/24 11:45 Resp 18 07/20/24 10:00 BP 132/58 L 07/20/24 11:45 Pulse Ox 98 07/20/24 11:45 O2 Del Method Room Air 07/20/24 10:00 O2 Flow Rate 2 07/19/24 10:20 BMI result Body Mass Index 26.3 Const: Other: Constitutional : interactive, not in distress Cardiovascular : no JVP, no lower extremity edema Respiratory : bilateral chest movement, not in resp distress , basal fine crackles bilaterally Gastrointestinal: soft, lax, Non tender Skin : Warm, Dry Extremities: Left leg in dressing, no bleeding Neurological : Alert & oriented , No focal deficit Objective Data Active Medications Acetaminophen (Acetaminophen 325 Mg Tablet) 650 mg PO Q6H PRN PRN Reason: Pain, Mild 1-3,fever,headache Albuterol Sulfate (Albuterol Sulfate 90 Mcg 8 Gm Inhaler) 2 puff INHALE QID PRN PRN Reason: wheezing Amitriptyline HCl (Amitriptyline Hcl 10 Mg Tablet) 20 mg PO BEDTIME [facility] Last Admin: 07/19/24 19:48 Dose: 20 mg Documented By: VI Ascorbic Acid (Ascorbic Acid 500 Mg Tablet) 500 mg PO BID [facility] Last Admin: 07/20/24 10:37 Dose: 500 mg Documented By: NICHELLE Calcium Carbonate/Cholecalciferol (Calcium + Vitamin D 250 Mg Tablet) 250 mg PO DAILY [facility] Celecoxib (Celecoxib 200 Mg Capsule) 200 mg PO BID [facility] Last Admin: 07/20/24 09:55 Dose: 200 mg Documented By: NICHELLE Clonazepam (Clonazepam 1 Mg Tablet) 1 mg PO BID [facility] Last Admin: 07/20/24 09:54 Dose: 1 mg Documented By: NICHELLE Docusate Sodium (Docusate Sodium 100 Mg Capsule) 100 mg PO BID [facility] Last Admin: 07/20/24 09:57 Dose: 100 mg Documented By: NICHELLE Enoxaparin Sodium (Enoxaparin Sodium 40 Mg/0.4 Ml Syringe) 40 mg SUBCUT Q24H [facility] Last Admin: 07/20/24 10:42 Dose: 40 mg Documented By: NICHELLE Famotidine (Famotidine 20 Mg Tablet) 20 mg PO BID@0630,1630 [facility] Last Admin: 07/20/24 05:54 Dose: 20 mg Documented By: VI Fluticasone Propionate (Fluticasone Propionate Nasal 16 Gm [place]) 2 spray NOSTRIL-B DAILY [facility] Hydromorphone HCl (Hydromorphone Hcl 0.5 Mg/0.5 Ml Syringe) 0.25 mg IVPUSH Q4H PRN; Protocol PRN Reason: Pain, Severe (Pain Scale 7-10) Last Admin: 07/20/24 04:30 Dose: 0.25 mg Documented By: VI Lactated Ringer's (Lr) 1,000 mls @ 100 mls/hr IVCONT .Q10H [facility] Last Admin: 07/20/24 10:46 Dose: 100 mls/hr Documented By: NICHELLE Loratadine (Loratadine 10 Mg Tablet) 10 mg PO DAILY [facility] Last Admin: 07/20/24 10:37 Dose: 10 mg Documented By: NICHELLE Magnesium Oxide (Magnesium Oxide 400 Mg Tablet) 200 mg PO BID [facility] Last Admin: 07/20/24 10:37 Dose: 200 mg Documented By: NICHELLE Naloxone HCl (Naloxone Hcl 0.4 Mg/Ml Vial) 0.04 mg IVPUSH Q5M PRN PRN Reason: Excessive sedation or RR < 8 Nystatin (Nystatin Cream 15 Gm Tube) 1 appl TOPICAL BID PRN; Protocol PRN Reason: Rash Ondansetron HCl (Ondansetron Hcl 4 Mg/2 Ml Vial) 4 mg IVPUSH Q8H PRN PRN Reason: Nausea and Vomiting Last Admin: 07/19/24 13:48 Dose: 4 mg Documented By: LUISANA Oxycodone HCl (Oxycodone Hcl Er 10 Mg Tab.Er.12h) 10 mg PO BID [facility] Last Admin: 07/20/24 09:54 Dose: 10 mg Documented By: NICHELLE Oxycodone HCl (Oxycodone Hcl Immed Release 5 Mg Tablet) 10 mg PO Q6H PRN PRN Reason: Pain, Moderate(Pain Scale 4-6) Last Admin: 07/20/24 10:32 Dose: 10 mg Documented By: NICHELLE Salmeterol Xinafoate (Salmeterol Xinafoate 50 Mcg Blst.W.Dev) 1 puff INHALE BID [facility] Last Admin: 07/20/24 08:09 Dose: Not Given Documented By: HAO Non-Admin Reason: Patient Refused Sodium Chloride (0.9 % Sodium Chloride Flush 3 Ml Syringe) 3 ml IVFLUSH QSHIFT [facility] Last Admin: 07/20/24 10:46 Dose: 3 ml Documented By: NICHELLE Labs 07/20/24 05:48 07/20/24 05:48 Labs: Laboratory Results - last 24 hr 07/20/24 05:48 MCV 101.9 H MCH 33.7 H MCHC 33.1 RDW 12.8 Plt Count 223 D MPV 9.3 L Immature Gran % (Auto) 0.2 Neut % (Auto) 75.8 H Lymph % (Auto) 14.3 L [place] % (Auto) 9.1 Eos % (Auto) 0.2 Baso % (Auto) 0.4 Lymph # (Auto) 0.7 L [place] # (Auto) 0.4 Eos # (Auto) 0.0 Baso # (Auto) 0.0 Abs Immat Gran (auto) 0.01 Absolute Neuts (auto) 3.5 Absolute Nucleated RBC 0.000 Nucleated RBC % (auto) 0.0 Anion Gap 10 L Estim Creat Clear Calc 72.8 Estimated GFR > 60 Fasting Glucose 110 H Calcium 8.5 Assessment and Plan (1) Fever: Status: Acute Plan A 68 years old lady with PMH of Osteoporosis , IBS, GERD, COPD Osteoarthritis who is admitted for elective hip replacement surgery. LEft hip osteoarthritis S\P arthroplasty POD 1 surgery team following Fever Low grade of 100.6 with cough and tachycardia check CXR check REsp panel incentive spirometry Likely post op Atelactasis Consider CTA given hx of PE prev. Hx of PE not on blood thinners anymore COPD not in exacerbation Continue home inhalers Anxiety Clonazepam, Amitryptiline DVT PPx SCDs post op Thank you for the consult will continue to follow with you Quality Stroke Does the patient have a stroke diagnosis?: No VTE Prior VTE?: No VTE Risk Level:: Medical - moderate - high VTE Device Contraindication: N/A - Device Ordered VTE Drug Contraindication: N/A - Med Ordered
[2024-07-20] MEDS: Acetaminophen 325 MG TABLET 650 MG PO (14:25)
[2024-07-20] MEDS: iohexoL 350 MG/ML 100 ML INFUS..BTL IV (18:12)
--- NOTE | 2024-07-20 20:05 | PC.NURSE ---
Pt started the morning resting eyes closed with the appearance of comfort. During med pass this RN was notified at 0931 of pt with c/o pain while in another patients room. Within a few moments 2 additional people came to door to also report pt pain and were made aware that she would be seen next but that I was actively medicating someone at that moment. At 0944 certified ophthalmic assistant informed this RN that pt was upset and in pain and was informed this RN in process of getting meds to medicate patient. This RN entered the room to find pt up in chair on phone and stated she wanted another nurse. During attempt to medicate pt message received from Christine BROUSSARD that pt needed pain meds and had called the surgeons office to complain. Much TLC given and pt aware that her meds were on cart and that I would prefer, if she was agreeable, to get her comfortable and we could address that once pain needs met. Pt agreed and scheduled pain and anxiety meds given. Once pain scale obtained IV dilaudid was procured. Pt stated she did not want IV meds. She wanted the pill that she had the previous night as it worked fabulously and within 15 minutes Pt educated on pain parameters and pain med/nonpharm methods of pain relief available. Pt preferred that the MD be called to change to the oxycodone and dilaudid was wasted and oxycodone obtained. After med obtained the order was changed to 10 mg and required additional trip to get more med. Pt medicated for pain above pain scale with oxycodone per verbal order by Christine BROUSSARD 2/2 patient request. Once meds given pt became apologetic. She was reassured that her pain was a high priority to all levels of staff but that it does take a few minutes at times to safely meet everyone's needs. Ice packs applied to Hip and several left at bedside so pt can have something immediately to start relieving pain while waiting for meds. Pt offered another nurse per her previous request and she declined stating I was just so anxious and in pain I didn't know what to do . Pt during the later part of the day stated her pain is much better with the new med plan. She c/o feeling slightly feverish and was found to have a temp 100.6. MD Rivera and BOBO Ibrahim both made aware and apap given with + effect.
[2024-07-20] MEDS: Amitriptyline HCl 10 MG TABLET 20 MG PO (21:46)
[2024-07-20] MEDS: Salmeterol Xinafoate 50 MCG BLST.W.DEV 1 PUFF INHALE (22:55)
[2024-07-21] VITALS (19 sets, daily range): BP systolic 106–150; BP diastolic 56–70; PULSE 92–120; RESP 16–20; TEMP 36.8–38.2; O2SAT 92–97
[2024-07-21] MEDS: oxyCODONE HCl Immed Release 5 MG TABLET 10 MG PO ×2 (02:43→23:08)
[2024-07-21] MEDS: Acetaminophen 325 MG TABLET 650 MG PO ×2 (05:38→17:34)
[2024-07-21] MEDS: Famotidine 20 MG TABLET PO ×2 (05:38→17:37)
[2024-07-21 05:52] LABS: MANUAL DIFF FLAG NO
[2024-07-21 05:58] LABS: Basophils Percent Auto 0.5 % (0-2); Eosinophils Percent Auto 0.5 % (0-4); Hematocrit 25.5 % (37.0-47.0); Hemoglobin 8.6 g/dl (12.0-16.0); Imm Gran Abs Auto 0.01 X10*3/uL (0.00-0.03); Imm Gran Pct Auto 0.2 % (0.0-0.4); Lymphocytes Absolute Auto 0.4 X10*3/uL (1.2-4.9); Lymphocytes Percent Auto 8.5 % (20-40); Mean Corpuscular HGB Conc 33.7 g/dl (31.0-35.0); Mean Corpuscular Hemoglobin 34.1 pg (27.0-33.0); Mean Corpuscular Volume 101.2 fL (80.0-98.0); Mean Platelet Volume 8.8 fL (9.4-12.3); Monocytes Absolute Auto 0.4 X10*3/uL (0.1-1.2); Monocytes Percent Auto 10.1 % (2-11); Neutrophils Absolute Auto 3.4 x10*3/uL (2.0-8.3); Neutrophils Percent Auto 80.2 % (45-73); Platelet Count 184 X10*3/uL (160-400); Red Blood Count 2.52 X10*6/uL (4.20-5.50); White Blood Count 4.2 X10*3/uL (4.8-10.8)
[2024-07-21 06:10] LABS: Anion Gap 12 (12-20); Blood Urea Nitrogen 13 mg/dL (9-16); Calcium 8.3 mg/dL (8.4-10.2); Carbon Dioxide 24 mmol/L (22-29); Chloride 104 mmol/L (96-108); Estimated Glomerular Filt Rate > 60; Glucose Fasting 116 mg/dL (60-99); Potassium 3.7 mmol/L (3.3-5.1); Sodium 136 mmol/L (135-145)
[2024-07-21] MEDS: Ascorbic Acid 500 MG TABLET PO ×2 (08:23→21:09)
[2024-07-21] MEDS: Calcium + Vitamin D 250 MG TABLET PO (08:23)
[2024-07-21] MEDS: Celecoxib 200 MG CAPSULE PO ×2 (08:23→21:09)
[2024-07-21] MEDS: Docusate Sodium 100 MG CAPSULE PO ×2 (08:24→21:09)
[2024-07-21] MEDS: oxyCODONE HCl ER 10 MG TAB.ER.12H PO ×2 (08:26→21:10)
[2024-07-21] MEDS: Loratadine 10 MG TABLET PO (08:26)
[2024-07-21] MEDS: clonazePAM 1 MG TABLET PO ×2 (08:26→21:09)
[2024-07-21] MEDS: Acetylcysteine 10 % 400 MG/4 ML VIAL INHALE (08:36)
[2024-07-21 08:50] LABS: Adenovirus PCR Not Detected (Not Detect.); Bordetella parapertussis PCR Not Detected (Not Detect.); Bordetella pertussis PCR Not Detected (Not Detect.); Chlamydia pneumoniae PCR Not Detected (Not Detect.); Coronavirus 229E PCR Not Detected (Not Detect.); Coronavirus HKU1 PCR Not Detected (Not Detect.); Coronavirus NL63 PCR Not Detected (Not Detect.); Coronavirus OC43 PCR Not Detected (Not Detect.); Human metapneumovirus PCR Not Detected (Not Detect.); Influenza B PCR Not Detected (Not Detect.); Mycoplasma pneumoniae PCR Not Detected (Not Detect.); Parainfluenza 1 PCR Not Detected (Not Detect.); Parainfluenza 2 PCR Not Detected (Not Detect.); Parainfluenza 3 PCR Not Detected (Not Detect.); Parainfluenza 4 PCR Not Detected (Not Detect.); RSV PCR Not Detected (Not Detect.); Rhino/Enterovirus PCR Not Detected (Not Detect.); SARS-CoV-2 PCR Not Detected (Not Detect.)
--- NOTE | 2024-07-21 08:56 | P.PNOP_ITS ---
Subjective Subjective Date of Service: 07/21/24 Interval history: POD2 s/p LTHA Patient is resting in bed comfortably No overnight events Pain is managed HR continues to be elevated - Medicine consult placed No additional complaints Physical Exam Vital Signs: Vital Signs: Last Vital Signs Temp 99.6 F 07/21/24 07:23 Pulse 110 H 07/21/24 08:36 Resp 16 07/21/24 08:36 BP 115/56 L 07/21/24 07:23 Pulse Ox 93 07/21/24 07:23 O2 Del Method Room Air 07/21/24 07:23 O2 Flow Rate 2 07/19/24 10:20 BMI result Body Mass Index 26.3 Const: General: cooperative, healthy appearing and no acute distress Resp: Effort & Inspection: normal respiratory effort and able to speak in complete sentences Cardio: Rate: regular rate Peripheral pulses: Peripheral pulses 2+ throu ghout GI: Palpation (GI): Soft to palpation Skin: Lesions: no lesions Rashes: no rashes Extrem: Other: left hip dressing is c/d/i. Able to dorsi/plantar flex. Calf is supple and nontender. Sensation intact. Pedal pulse intact. Procedures Date of Service Date of Service: 07/21/24 Progress Note: A&P Assessment and plan (1) S/P total left hip arthroplasty: Status: Acute Plan Continue pain mgmnt Continue Lovenox for dvt ppx begin PT/OT for LTHA - Posterior precuations WBAT Medicine to monitor HR H&H 8.6/25.5 - 2 units of pRBC's ordered Dispo planning-Pending PT eval, pain mgmnt Time Spent With Patient Time: Total time managing care of this patient today ____ minutes. Quality Stroke Does the patient have a stroke diagnosis?: No VTE Prior VTE?: No VTE Risk Level:: Medical - moderate - high VTE Device Contraindication: N/A - Device Ordered VTE Drug Contraindication: N/A - Med Ordered
[2024-07-21 09:48] LABS: Influenza A PCR Detected (Not Detect.)
--- NOTE | 2024-07-21 11:42 | HO.PM.IMPN ---
Subjective Subjective Date of Service: 07/21/24 Interval History: Seen and evaluated feels little warm coughing with tachycardia tested positive for Flu A POD 2 Review of Systems Review of Systems: Yes all other systems are reviewed and are negative Physical Exam Vital Signs: Vital Signs: Last Vital Signs Temp 99.6 F 07/21/24 07:23 Pulse 110 H 07/21/24 09:27 Resp 16 07/21/24 08:36 BP 115/56 L 07/21/24 07:23 Pulse Ox 93 07/21/24 07:23 O2 Del Method Room Air 07/21/24 07:23 O2 Flow Rate 2 07/19/24 10:20 BMI result Body Mass Index 26.3 Const: Other: Constitutional : interactive, not in distress Cardiovascular : no JVP, no lower extremity edema Respiratory : bilateral chest movement, not in resp distress , basal fine crackles bilaterally Gastrointestinal: soft, lax, Non tender Skin : Warm, Dry Extremities: Left leg in dressing, no bleeding Neurological : Alert & oriented , No focal deficit Objective Data Active Medications Acetaminophen (Acetaminophen 325 Mg Tablet) 650 mg PO Q6H PRN PRN Reason: Pain, Mild 1-3,fever,headache Last Admin: 07/21/24 05:38 Dose: 650 mg Documented By: ANJEL Albuterol Sulfate (Albuterol Sulfate 90 Mcg 8 Gm Inhaler) 2 puff INHALE QID PRN PRN Reason: wheezing Amitriptyline HCl (Amitriptyline Hcl 10 Mg Tablet) 20 mg PO BEDTIME [facility] Last Admin: 07/20/24 21:46 Dose: 20 mg Documented By: ANJEL Ascorbic Acid (Ascorbic Acid 500 Mg Tablet) 500 mg PO BID [facility] Last Admin: 07/21/24 08:23 Dose: 500 mg Documented By: NICHELLE Benzonatate (Benzonatate 100 Mg Capsule) 100 mg PO TID PRN PRN Reason: Cough Calcium Carbonate/Cholecalciferol (Calcium + Vitamin D 250 Mg Tablet) 250 mg PO DAILY [facility] Last Admin: 07/21/24 08:23 Dose: 250 mg Documented By: NICHELLE Celecoxib (Celecoxib 200 Mg Capsule) 200 mg PO BID [facility] Last Admin: 07/21/24 08:23 Dose: 200 mg Documented By: NICHELLE Clonazepam (Clonazepam 1 Mg Tablet) 1 mg PO BID [facility] Last Admin: 07/21/24 08:26 Dose: 1 mg Documented By: NICHELLE Docusate Sodium (Docusate Sodium 100 Mg Capsule) 100 mg PO BID [facility] Last Admin: 07/21/24 08:24 Dose: 100 mg Documented By: NICHELLE Enoxaparin Sodium (Enoxaparin Sodium 40 Mg/0.4 Ml Syringe) 40 mg SUBCUT Q24H [facility] Last Admin: 07/20/24 10:42 Dose: 40 mg Documented By: NICHELLE Famotidine (Famotidine 20 Mg Tablet) 20 mg PO BID@0630,1630 [facility] Last Admin: 07/21/24 05:38 Dose: 20 mg Documented By: ANJEL Fluticasone Propionate (Fluticasone Propionate Nasal 16 Gm [place]) 2 spray NOSTRIL-B DAILY [facility] Last Admin: 07/20/24 14:35 Dose: Not Given Documented By: NICHELLE Non-Admin Reason: Med Not Available Guaifenesin (Guaifenesin [place] 600 Mg Tab.Er.12h) 600 mg PO BID [facility] Hydromorphone HCl (Hydromorphone Hcl 0.5 Mg/0.5 Ml Syringe) 0.25 mg IVPUSH Q4H PRN; Protocol PRN Reason: Pain, Severe (Pain Scale 7-10) Last Admin: 07/20/24 04:30 Dose: 0.25 mg Documented By: VI Loratadine (Loratadine 10 Mg Tablet) 10 mg PO DAILY [facility] Last Admin: 07/21/24 08:26 Dose: 10 mg Documented By: NICHELLE Magnesium Oxide (Magnesium Oxide 400 Mg Tablet) 200 mg PO BID [facility] Last Admin: 07/20/24 21:46 Dose: 200 mg Documented By: ANJEL Naloxone HCl (Naloxone Hcl 0.4 Mg/Ml Vial) 0.04 mg IVPUSH Q5M PRN PRN Reason: Excessive sedation or RR < 8 Nystatin (Nystatin Cream 15 Gm Tube) 1 appl TOPICAL BID PRN; Protocol PRN Reason: Rash Ondansetron HCl (Ondansetron Hcl 4 Mg/2 Ml Vial) 4 mg IVPUSH Q8H PRN PRN Reason: Nausea and Vomiting Last Admin: 07/19/24 13:48 Dose: 4 mg Documented By: LUISANA Oseltamivir Phosphate (Oseltamivir Phosphate 75 Mg Capsule) 75 mg PO Q12H [facility] Stop: 07/25/24 23:01 Oxycodone HCl (Oxycodone Hcl Er 10 Mg Tab.Er.12h) 10 mg PO BID [facility] Last Admin: 07/21/24 08:26 Dose: 10 mg Documented By: NICHELLE Oxycodone HCl (Oxycodone Hcl Immed Release 5 Mg Tablet) 10 mg PO Q6H PRN PRN Reason: Pain, Moderate(Pain Scale 4-6) Last Admin: 07/21/24 02:43 Dose: 10 mg Documented By: ANJEL Salmeterol Xinafoate (Salmeterol Xinafoate 50 Mcg Blst.W.Dev) 1 puff INHALE BID [facility] Last Admin: 07/21/24 08:29 Dose: Not Given Documented By: HAO Non-Admin Reason: Patient Refused Sodium Chloride (0.9 % Sodium Chloride Flush 3 Ml Syringe) 3 ml IVFLUSH QSHIFT [facility] Last Admin: 07/20/24 21:49 Dose: 3 ml Documented By: ANJEL Labs 07/21/24 05:46 07/21/24 05:46 Labs: Laboratory Results - last 24 hr 07/20/24 07/21/24 07/21/24 21:12 05:46 09:24 MCV 101.2 H MCH 34.1 H MCHC 33.7 RDW 13.0 Plt Count 184 MPV 8.8 L Immature Gran % (Auto) 0.2 Neut % (Auto) 80.2 H Lymph % (Auto) 8.5 L [place] % (Auto) 10.1 Eos % (Auto) 0.5 Baso % (Auto) 0.5 Lymph # (Auto) 0.4 L [place] # (Auto) 0.4 Eos # (Auto) 0.0 Baso # (Auto) 0.0 Abs Immat Gran (auto) 0.01 Absolute Neuts (auto) 3.4 Absolute Nucleated RBC 0.000 Nucleated RBC % (auto) 0.0 Anion Gap 12 Estim Creat Clear Calc 66.0 Estimated GFR > 60 Fasting Glucose 116 H Calcium 8.3 L Respiratory Panel [place] See Note Adenovirus (Rapid PCR) Not Detected B.pert (TEM-PCR) Not Detected B.parapertussis DNA PCR Not Detected C. pneumoniae DNA (PCR) Not Detected Coronavirus OC43 (PCR) Not Detected Coronavirus HKU1 (PCR) Not Detected Coronavirus 229E (PCR) Not Detected Coronavirus NL63 (PCR) Not Detected Human Metapneumovir PCR Not Detected Influenza A (RT-PCR) Detected A Influenza B (RT-PCR) Not Detected M. pneumoniae (PCR) Not Detected Parainfluenza 1 (PCR) Not Detected Parainfluenza 2 (PCR) Not Detected Parainfluenza 3 (PCR) Not Detected Parainfluenza 4 (PCR) Not Detected RSV (PCR) Not Detected Entero/Rhino (PCR) Not Detected SARS-CoV-2 RNA (RT-PCR) Not Detected Blood Type A Positive Antibody Screen NEGATIVE Crossmatch See Detail Assessment and Plan (1) Fever: Status: Acute (2) Influenza A: Status: Acute Plan A 68 years old lady with PMH of Osteoporosis , IBS, GERD, COPD Osteoarthritis who is admitted for elective hip replacement surgery. LEft hip osteoarthritis S\P arthroplasty POD 2 surgery team following Fever 2/2 Flu A with sinus tachycardia CXR and CTA showing atelactasis but no PE incentive spirometry Consider CTA given hx of PE prev. Start Tamiflu supportive therapy Hx of PE not on blood thinners anymore COPD not in exacerbation Continue home inhalers Anxiety Clonazepam, Amitryptiline DVT PPx SCDs post op Thank you for the consult will continue to follow with you Quality Stroke Does the patient have a stroke diagnosis?: No VTE Prior VTE?: No VTE Risk Level:: Medical - moderate - high VTE Device Contraindication: N/A - Device Ordered VTE Drug Contraindication: N/A - Med Ordered
--- NOTE | 2024-07-21 12:07 | P.DS_ITS ---
DS: Providers Provider Date of Service: 07/21/24 Date of discharge: 07/21/24 Primary care physician: Francisco Parnell MD Consults: 07/19/24 10:39 Consult to Hospitalist Routine Comment: Consulting Provider: [facility] [place] Hospitalists Reason For Exam: routine medical management DS: Diagnosis Discharge Diagnosis (1) Fever: Status: Acute (2) Influenza A: Status: Acute DS: Summary Hospital Course Hospital Course: The patient underwent a successful left total hip arthroplasty, they were transferred to PACU and then to the floor to recover. During their stay, their vitals were stable. Her temperature was 99.6 and HR 104, medicine was consulted and a viral panel was run. She was found to have influenza A. She was started on Tamaflu and Mucinex. Labs were unremarkable, H/H 8.6/25.5. POD 1 they were started on Lovenox for DVT ppx, they also received Physical Therapy services twice a day. Prior to discharge, their dressing was clean dry and intact, and the plan was to be discharged home with VNA services. Time Attestation Discharge Coordination Time (in mins): 30 Quality: Safe Use of Opioids Does Pt have an Active Cancer Diagnosis on the Problem List?: No Quality: Stroke Does the patient have a stroke diagnosis?: No Physical Exam Vital Signs: Vital Signs: Last Vital Signs Temp 99.6 F 07/21/24 07:23 Pulse 110 H 07/21/24 09:27 Resp 16 07/21/24 08:36 BP 115/56 L 07/21/24 07:23 Pulse Ox 93 07/21/24 07:23 O2 Del Method Room Air 07/21/24 07:23 O2 Flow Rate 2 07/19/24 10:20 BMI result Body Mass Index 26.3 Const: General: cooperative, healthy appearing and no acute distress Resp: Effort & Inspection: normal respiratory effort and able to speak in complete sentences Cardio: Rate: regular rate Peripheral pulses: Peripheral pulses 2+ throughout GI: Palpation (GI): Soft to palpation Skin: Lesions: no lesions Rashes: no rashes Extrem: Other: left hip dressing is c/d/i. Able to dorsi/plantar flex. Calf is supple and nontender. Sensation intact. Pedal pulse intact. DS: Data Data Completed and Pending Completed studies during hospitalization [Text1]: Pending at discharge 07/19/24 08:19 Surgical [PTH] Routine Procedures Reposition Right Upper Femur with Internal Fixation Device, Open Approach (05/06/23) Transfusion of Nonautologous Red Blood Cells into Peripheral Vein, Percutaneous Approach (05/28/23) Labs on day of discharge: Laboratory Results - last 24 hr 07/20/24 07/21/24 07/21/24 21:12 05:46 09:24 WBC 4.2 L RBC 2.52 L Hgb 8.6 L Hct 25.5 L MCV 101.2 H MCH 34.1 H MCHC 33.7 RDW 13.0 Plt Count 184 MPV 8.8 L Immature Gran % (Auto) 0.2 Neut % (Auto) 80.2 H Lymph % (Auto) 8.5 L Mcculloch % (Auto) 10.1 Eos % (Auto) 0.5 Baso % (Auto) 0.5 Lymph # (Auto) 0.4 L [place]och # (Auto) 0.4 Eos # (Auto) 0.0 Baso # (Auto) 0.0 Abs Immat Gran (auto) 0.01 Absolute Neuts (auto) 3.4 Absolute Nucleated RBC 0.000 Nucleated RBC % (auto) 0.0 Sodium 136 Potassium 3.7 Chloride 104 Carbon Dioxide 24 Anion Gap 12 BUN 13 Creatinine 0.75 Estim Creat Clear Calc 66.0 Estimated GFR > 60 Fasting Glucose 116 H Calcium 8.3 L Respiratory Panel Maurice See Note Adenovirus (Rapid PCR) Not Detected B.pert (TEM-PCR) Not Detected B.parapertussis DNA PCR Not Detected C. pneumoniae DNA (PCR) Not Detected Coronavirus OC43 (PCR) Not Detected Coronavirus HKU1 (PCR) Not Detected Coronavirus 229E (PCR) Not Detected Coronavirus NL63 (PCR) Not Detected Human Metapneumovir PCR Not Detected Influenza A (RT-PCR) Detected A Influenza B (RT-PCR) Not Detected M. pneumoniae (PCR) Not Detected Parainfluenza 1 (PCR) Not Detected Parainfluenza 2 (PCR) Not Detected Parainfluenza 3 (PCR) Not Detected Parainfluenza 4 (PCR) Not Detected RSV (PCR) Not Detected Entero/Rhino (PCR) Not Detected SARS-CoV-2 RNA (RT-PCR) Not Detected Blood Type A Positive Antibody Screen NEGATIVE Crossmatch See Detail Discharge Plan Discharge Patient Disposition: Home, Self-Care Referrals: Loraine Koehler PA-C [Physician Sliding Joint Maker] - 2 Weeks (08/03/24 13:15 [facility] [place] [facility] Loraine Koehler PA-C) Discharge Medications: New celecoxib 200 mg Capsule 200 mg PO BID 30 Days Qty: 60 0RF acetaminophen 325 mg Tablet 650 mg PO Q6H PRN (Reason: Pain, Mild 1-3,Fever,Headache) 30 Days Qty: 240 0RF oseltamivir [Tamiflu] 75 mg Capsule 75 mg PO Q12H 7 Days Qty: 14 0RF enoxaparin 40 mg/0.4 mL Syringe 40 mg subcut Q24H 42 Days Qty: 16.8 0RF oxycodone 10 mg tablet 10 mg PO Q6H PRN (Reason: Pain, Moderate(Pain Scale 4-6)) 7 Days Qty: 42 0RF Rx Instructions: Partial Fill upon patient request. benzonatate 100 mg Capsule 100 mg PO TID PRN (Reason: Cough) 30 Days Qty: 90 0RF docusate sodium 100 mg Capsule 100 mg PO BID 30 Days Qty: 60 0RF guaifenesin [Mucinex] 600 mg Tablet Extended Release 12hr 600 mg PO BID 14 Days Qty: 28 0RF Continued (DME) indira [facility] See Rx Instructions .MEDSUPPLY Qty: 1 0RF Rx Instructions: Folding Front wheeled walker duration 99 days clonazepam 1 mg tablet 1 mg PO BID nystatin 100,000 unit/gram cream 1 appl TOPICAL BID PRN (Reason: Rash) fluticasone propionate 50 mcg/actuation [place],Suspension 2 spray INTRANASAL DAILY Rx Instructions: administer into each nostril loratadine [Claritin] 10 mg Tablet 10 mg PO QAM calcium carbonate-vitamin D3 600 mg-5 mcg (200 unit) Tablet 1 tab PO QAM ascorbic acid (vitamin C) [Vitamin C] 500 mg Tablet 500 mg PO BID multivit with min-folic acid [Multivitamin Gummies] 200 mcg Tablet,Chewable 1 tab PO DAILY magnesium oxide 400 mg magnesium Capsule 200 mg PO BID Rx Instructions: cuts a 400 mg in half & takes bid famotidine 20 mg tablet 20 mg PO BID PRN (Reason: gi upset) amitriptyline 10 mg tablet 20 mg PO BEDTIME Serevent Diskus 50 mcg/dose blister with device 1 inh inhalation BID albuterol sulfate 90 mcg/actuation HFA aerosol inhaler 2 puff inhalation QID PRN (Reason: wheezing) cetirizine [Zyrtec] 10 mg tablet 10 mg PO BEDTIME Discontinued celecoxib 200 mg capsule 200 mg PO QAM acetaminophen 500 mg Tablet 1,000 mg PO TID PRN (Reason: Pain) Diet: Regular diet Activity on Discharge: Use cane or walker Activity Restrictions/Additional Instructions: * Physical Therapy for Total hip arthroplasty: wbat, posterior precautions, gait training, ROM, strength * Limit stair climbing * No showering, no tub bath-keep dressing clean, dry and intact * No driving x6 weeks * Continue Lovenox x 6 weeks * Follow up with [facility] [place] [facility]ics in 2 weeks: Print Language: Mohawk
[2024-07-21] MEDS: Oseltamivir Phosphate 75 MG CAPSULE PO ×2 (12:42→23:03)
[2024-07-21] MEDS: guaiFENesin LA 600 MG TAB.ER.12H PO ×2 (12:42→21:09)
[2024-07-21] MEDS: Enoxaparin Sodium 40 MG/0.4 ML SYRINGE SUBCUT (12:43)
[2024-07-21] MEDS: 0.9 % Sodium Chloride Flush 3 ML SYRINGE IVFLUSH ×2 (12:43→23:09)
--- NOTE | 2024-07-21 13:36 | W.MHC.F2F ---
Service Date Service Date: 07/21/24 Encounter Date of encounter: 07/21/24 Reasons for Services Signs and symptoms assessed: s/p LTHA Pt. is considered homebound due to recent surgery. Unable to drive, poor balance, poor gait mechanics. Reason for physical therapy: home safety and mobility, therapeutic exercises, restore joint function, gait/transfer training and ADL training Reason for occupational therapy: home safety and mobility, therapeutic exercises, restore joint function, gait/transfer training and ADL training Homebound: Leaving the home is medically contraindicated at this time without the asist of a device and/or another person due th the listed conditions above and below. Reason homebound: unsteady gait / fall risk, leg weakness, pain with ambulation, poor balance / fall risk and unable to drive Certification: Based on the above findings, I certify that this patient is confined to the home and needs intermittent intermediate care, physical therapy and/or speech therapy, or continues to need occupational therapy. The patient is under my care, and I have initiated the establishment of the plan of care. The patient will be followed by a physician who will periodically review the plan of care. Time Spent With Patient Time: Total time managing care of this patient today ____ minutes.
--- NOTE | 2024-07-21 13:37 | MHC.CM.PN ---
PT WILL DC HOME TODAY WITH [facility] SERVICES VIA PRIVATE TRANSPORT
--- NOTE | 2024-07-21 16:35 | PC.NURSE ---
d/c reviewed with patient, no questions at this time. Primary rn will assess patient after second unit of blood is given. Patient states understanding for discharge. Will follow up out patient.
--- NOTE | 2024-07-21 18:11 | PC.NURSE ---
Blood bank called to see if the patient will continue with her second unit of blood. Blood bank will call back
--- NOTE | 2024-07-21 18:38 | PC.NURSE ---
Blood bank is now calling it not a transfusion reaction.
[2024-07-21] MEDS: Amitriptyline HCl 10 MG TABLET 20 MG PO (21:08)
[2024-07-21] MEDS: Magnesium Oxide 400 MG TABLET 200 MG PO (21:09)
--- NOTE | 2024-07-21 21:32 | PC.NURSE ---
Pt in process of 2nd unit of blood when she developed chills and a temp of 100.8. This is consistant with the low grade fevers/chills she has had over the last 2 days and pt tested + flu A today. Dr. Rivera and Loraine Koehler PA aware. Per Dr. Rivera no blood transfusion workup needed due to flu and previous fevers. Blood stopped pending MD notification and per Dr. Rivera no need to restart. pt medicated with tylenol with + effect and fever down as noted. Pt very resistant to staying overnight but was encouraged to stay due to fever and she did agree. plan of care progressing.
[2024-07-22] VITALS: BP 125/58; PULSE 113; RESP 18; TEMP 37.1; O2SAT 93
[2024-07-22 04:00] VITALS: BP 121/55; PULSE 113; RESP 18; TEMP 37; O2SAT 93
[2024-07-22 04:06] VITALS: RESP 18
[2024-07-22] MEDS: HYDROmorphone HCl 0.5 MG/0.5 ML SYRINGE 0.25 MG IVPUSH (04:06)
[2024-07-22 04:53] VITALS: BP 125/59; PULSE 105; RESP 16
--- NOTE | 2024-07-22 05:02 | PC.NURSE ---
Patient reporting left hip pain, s/p left hip surgery. Medicated per mar, remains tachy hr 100-113, no elevated temperature overnight. Per vitals history and physician report, patient has been with elevated heart rate.
[2024-07-22] MEDS: oxyCODONE HCl Immed Release 5 MG TABLET 10 MG PO (05:32)
[2024-07-22] MEDS: Famotidine 20 MG TABLET PO (05:32)
--- NOTE | 2024-07-22 07:27 | P.F2F_ITS ---
Service Date Service Date: 07/22/24 Encounter Date of encounter: 07/22/24 Reasons for Services Signs and symptoms assessed: s/p LTHA Pt. is considered homebound due to recent surgery. Unable to drive, poor balance, poor gait mechanics. Reason for physical therapy: home safety and mobility, therapeutic exercises, restore joint function, gait/transfer training and ADL training Reason for occupational therapy: home safety and mobility, therapeutic exercises, restore joint function, gait/transfer training and ADL training Homebound: Leaving the home is medically contraindicated at this time without the asist of a device and/or another person due th the listed conditions above and below. Reason homebound: unsteady gait / fall risk, leg weakness, pain with ambulation, pain with transfers, poor balance / fall risk and unable to drive Certification: Based on the above findings, I certify that this patient is confined to the home and needs intermittent senior care care, physical therapy and/or speech therapy, or continues to need occupational therapy. The patient is under my care, and I have initiated the establishment of the plan of care. The patient will be followed by a physician who will periodically review the plan of care. Time Spent With Patient Time: Total time managing care of this patient today ____ minutes.
[2024-07-22 07:33] LABS: MANUAL DIFF FLAG NO
[2024-07-22 07:37] VITALS: BP 123/64; PULSE 109; RESP 18; TEMP 36.6; O2SAT 93
[2024-07-22] MEDS: oxyCODONE HCl ER 10 MG TAB.ER.12H PO (07:37)
[2024-07-22] MEDS: Calcium + Vitamin D 250 MG TABLET PO (07:37)
[2024-07-22] MEDS: Magnesium Oxide 400 MG TABLET 200 MG PO (07:37)
[2024-07-22] MEDS: Loratadine 10 MG TABLET PO (07:38)
[2024-07-22] MEDS: clonazePAM 1 MG TABLET PO (07:38)
[2024-07-22] MEDS: Docusate Sodium 100 MG CAPSULE PO (07:38)
[2024-07-22] MEDS: Celecoxib 200 MG CAPSULE PO (07:38)
[2024-07-22] MEDS: Ascorbic Acid 500 MG TABLET PO (07:38)
[2024-07-22 07:41] LABS: Basophils Percent Auto 0.5 % (0-2); Eosinophils Percent Auto 0.7 % (0-4); Hematocrit 30.4 % (37.0-47.0); Hemoglobin 10.4 g/dl (12.0-16.0); Imm Gran Abs Auto 0.02 X10*3/uL (0.00-0.03); Imm Gran Pct Auto 0.5 % (0.0-0.4); Lymphocytes Absolute Auto 0.5 X10*3/uL (1.2-4.9); Lymphocytes Percent Auto 11.2 % (20-40); Mean Corpuscular HGB Conc 34.2 g/dl (31.0-35.0); Mean Corpuscular Hemoglobin 33.8 pg (27.0-33.0); Mean Corpuscular Volume 98.7 fL (80.0-98.0); Mean Platelet Volume 9.3 fL (9.4-12.3); Monocytes Absolute Auto 0.4 X10*3/uL (0.1-1.2); Monocytes Percent Auto 8.9 % (2-11); Neutrophils Absolute Auto 3.4 x10*3/uL (2.0-8.3); Neutrophils Percent Auto 78.2 % (45-73); Platelet Count 184 X10*3/uL (160-400); Red Blood Count 3.08 X10*6/uL (4.20-5.50); Red Cell Distribution Width 14.1 % (11.0-16.0); White Blood Count 4.4 X10*3/uL (4.8-10.8)
[2024-07-22 08:06] LABS: Anion Gap 14 (12-20); Blood Urea Nitrogen 13 mg/dL (9-16); Carbon Dioxide 22 mmol/L (22-29); Chloride 106 mmol/L (96-108); Creatinine Clr Calc Pharmacy 81.1; Estimated Glomerular Filt Rate > 60; Glucose Fasting 88 mg/dL (60-99); Potassium 3.7 mmol/L (3.3-5.1); Sodium 138 mmol/L (135-145)
--- NOTE | 2024-07-22 09:13 | MHC.CM.PN ---
Patient dc'd home w/ [facility] services via private transport.
== END 2024-07-22 09:26 | disposition home health service (06) ==
LOC: HO.SSS 05:56 → HO.S3 10:09
PROVIDERS: Physician Assistant; Student in an Organized Health Care Education/Training Program; PCP Internal Medicine; Visit Provider Orthopaedic Surgery
PROC: (CPT 27130; principal; 2024-07-19 07:30)
DX: M16.12 Unilateral primary osteoarthritis, left hip (principal); R26.2 Difficulty in walking, not elsewhere classified; G89.29 Other chronic pain; M54.9 Dorsalgia, unspecified; J10.1 Influenza due to other identified influenza virus with other respiratory manifestations; R00.0 Tachycardia, unspecified; R50.9 Fever, unspecified; R05.9 Cough, unspecified; M81.0 Age-related osteoporosis without current pathological fracture; J44.9 Chronic obstructive pulmonary disease, unspecified; K58.0 Irritable bowel syndrome with diarrhea; K21.9 Gastro-esophageal reflux disease without esophagitis; F41.9 Anxiety disorder, unspecified; M47.814 Spondylosis without myelopathy or radiculopathy, thoracic region; Z86.711 Personal history of pulmonary embolism; Z79.899 Other long term (current) drug therapy; Z98.890 Other specified postprocedural states; Z87.891 Personal history of nicotine dependence; Z88.1 Allergy status to other antibiotic agents; Z88.2 Allergy status to sulfonamides; Z88.8 Allergy status to other drugs, medicaments and biological substances
CPT/HCPCS: 27130; 36415; 71045; 71275; 73501; 80048; 85025; 86850; 86900; 86901; 86923; 87633; 87640; 87641; 88304; 88311; 94640; 97110; 97116; 97162; 97166; 97535; C1713; C1776; J0131; J0690; J1100; J1171; J1650; J2003; J2250; J2371; J2405; J2704; J2795; J3010; J7120; P9016; Q9967

== ENCOUNTER → 2024-07-19 05:55 | Outpatient (BNV) | payer MEDICARE, SELFPAY | PROVIDERS: PCP Internal Medicine; Visit Provider Orthopaedic Surgery | DX: R50.9 Fever, unspecified (principal); J10.1 Influenza due to other identified influenza virus with other respiratory manifestations; Z47.1 Aftercare following joint replacement surgery; Z96.642 Presence of left artificial hip joint | CPT/HCPCS: 27130; 99024; G0180 ==

== ENCOUNTER → 2024-07-19 05:55 | Outpatient (BNV) | payer MEDICARE, SELFPAY | PROVIDERS: PCP Internal Medicine; Visit Provider Student in an Organized Health Care Education/Training Program | DX: M16.12 Unilateral primary osteoarthritis, left hip (principal); R50.9 Fever, unspecified | CPT/HCPCS: 99221; 99231; 99232 ==

== ENCOUNTER → 2024-07-19 08:27 | Outpatient (BNV) | payer MEDICARE, SELFPAY | PROVIDERS: PCP Internal Medicine; Visit Provider Radiology Diagnostic Radiology | DX: M85.89 Other specified disorders of bone density and structure, multiple sites (principal); Z96.642 Presence of left artificial hip joint | CPT/HCPCS: 73501 ==

== ENCOUNTER → 2024-07-20 14:55 | Outpatient (BNV) | payer MEDICARE, SELFPAY | PROVIDERS: PCP Internal Medicine; Visit Provider Radiology Diagnostic Radiology | DX: J84.9 Interstitial pulmonary disease, unspecified (principal) | CPT/HCPCS: 71045 ==

== ENCOUNTER 2024-08-03 12:55 | Outpatient (AMB) | payer MEDICARE, SELFPAY ==
--- NOTE | 2024-08-03 12:59 | MHC.OFFVIS ---
Intake Visit Reasons: 2WK PO: L IGOR w/NE 07/19/24 Intake Note: Manju is a 68 year old female who presents today for a post op appointment s/p Left IGOR 07/19/24 NE. Patient reports she is doing P.T at home and wants to know when she will start out patient therapy. She would like to return to her old therapist at [facility] with Amira Killian. Next appt w/ NE 08/28 @ 12:15PM Allergies red dye Allergy (Severe, Verified 08/03/24 13:07) Unknown ciprofloxacin [From Cipro] Allergy (Intermediate, Verified 08/03/24 13:07) lightheaded/dizzy/GI upset escitalopram [From Lexapro] Allergy (Intermediate, Verified 08/03/24 13:07) vision disturbance/confusion gluten Allergy (Intermediate, Verified 08/03/24 13:07) Gastrointestinal Upset paroxetine [From Paxil] Allergy (Intermediate, Verified 08/03/24 13:07) withdrawal symptoms-did not wean off sulfamethoxazole [From Bactrim] Allergy (Intermediate, Verified 08/03/24 13:07) lightheaded/dizzy/GI upset trimethoprim [From Bactrim] Allergy (Intermediate, Verified 08/03/24 13:07) lightheaded/dizzy/GI upset HPI HPI 2WK PO: L IGOR w/NE 07/19/24: Details: Dion Hooker is a 68-year-old female who presents to the office today status post left total hip arthroplasty performed on 07/19/[address] Graf. Overall the patient is doing very well and using a walker to assist with ambulation. She has stopped taking the oxycodone because it made her very drowsy. She is using fbhi-jid-alrapin pain relievers but occasionally has difficulty with pain management. She has VNA that is coming to her home but would like to switch to outpatient physical therapy at [facility] in [place]. [facility] Medical History (Updated 07/30/24 @ 00:01 by Rancho Alvarez) Fever Osteoarthritis of left hip Arthritis Thyroid nodule Pulmonary embolism GERD (gastroesophageal reflux disease) Osteoporosis Hyperlipidemia Irritable bowel syndrome with diarrhea Fatty liver Asthma Anxiety and depression Surgical History History of hip surgery (05/07/23) Hx of tonsillectomy H/O esophagogastroduodenoscopy H/O colonoscopy Social History Household Members: Significant Other [facility] Are you a primary pet caretaker to a significant other at home: No Do you presently have visiting nurse or other home services: Yes Alcohol intake: current Alcohol intake frequency: 3 or more drinks per day Alcohol type: hard liquor Comment: tolerable Patient Tobacco Use Status: Former Tobacco user Tobacco use type: Cigarette Years Smoked: 40 Second Hand Smoke Exposure: No service: No Review of Systems Const All systems reviewed & are unremarkable except as noted in HPI and below Physical Exam Const General: cooperative, healthy appearing and no acute distress Resp Effort & Inspection: normal respiratory effort and able to speak in complete sentences Cardio Rate: regular rate Peripheral pulses: Peripheral pulses 2+ throughout Skin Lesions: no lesions Rashes: no rashes Extrem Other: Left hip incision site is clean dry and intact. [place] intact. No surrounding erythema drainage. No signs of infection. Able to perform straight leg raise. Able to dorsiflex and plantar flex. NVI. Assessment & Plan Assessment & Plan (1) S/P total left hip arthroplasty: Code(s): Z96.642 - Presence of left artificial hip joint Category: Surgical Plan Dion Hooker is a 68-year-old female who presents to the office today status post left total hip arthroplasty performed on 07/19/[address] Graf. Overall the patient is doing very well and using a walker to assist with ambulation. She has stopped taking the oxycodone because it made her very drowsy. She is using [id number]-vxq-kpaxyxj pain relievers but occasionally has difficulty with pain management. She has VNA that is coming to her home but would like to switch to outpatient physical therapy at [facility] in [place]. While in the office today a 2nd physical therapy order was faxed over to [facility] in [place]. Additionally, the patient stated that the oxycodone was too strong for her but she is having difficulty occasionally with pain control with [id number]-sww-vqrotzf medications. Therefore, I have sent her a prescription for hydrocodone acetaminophen 2.5-325 mg. She may take this by mouth every 4-6 hours 1-2 tabs as needed for pain. She will continue to take the Lovenox for a total of 6 weeks postoperatively. Her andrew were removed in the office today. Steri-Strips were applied and she will follow up in [address] Graf, sooner if needed. Medications: New hydrocodone-acetaminophen 2.5-325 mg Partial Fill upon patient request. 1 - 2 tabs PO Q4-6H 7 days PRN 84 tabs 0RF pain (scale score 4-6) Coding Level of Care Code Global (46985) Diagnoses S/P total left hip arthroplasty Z96.642
--- OUTSIDE RECORDS SUMMARY | 2024-08-03 13:50 | XMS_ITS | Patient Health Record ---
Author Organization [facility] Address [address] [place] [address] Care Team Providers Care Insurance Examiner Name Role Phone Soheila SORTO, Francisco Primary [...] Notes Problem Epigastric pain (R10.13) Active confirmed 38158280 Problem Irritable bowel syndrome with diarrhea (K58.0) Active confirmed 795654291 Problem Generalized abdominal pain (R10.84) Active confirmed 736489370 Problem Duodenitis (K29.80) Active confirmed Duodenitis (49936350) Problem Gas (R14.3) Active confirmed 209060559 Problem Gallstones (K80.20) Active confirmed 459976762 Problem Abnormal UGI series (R93.3) Active confirmed 413443203 PLAN OF TREATMENT Pending Test Test Name [...] Insured Coverage Start Date Coverage End Date [facility] [address] [place] [address] [id number] MANJU LONG Self - patient is the [...]
--- OUTSIDE RECORDS SUMMARY | 2024-08-03 13:50 | XMS_ITS ---
Author Organization [facility] Address [address] [place] [id number] Care Team Providers Care Furniture Maker Name Role Phone Francisco Parnell MD Primary Care Provider Savanna Zuluaga Jr, Parish Unavailable [phone] REASON FOR VISIT needs a script for 1 month supply MEDICATIONS Medication SIG (Take, Route, Fr equency, Duration) Notes Start Date End Date Status Famotidine 20 MG TAKE 1 TABLET BY WALLY TH TWICE A DAY for 30 days Active Encounters Encounter Location Date Provider Diagnosis [facility] [address] [place] [phone] 03/29/2023 Parish Zuluaga Jr PLAN OF TREATMENT Medication Medication Name Sig Start Date Stop Date Notes Famotidine 20 MG TAKE 1 TABLET BY WALLY TH TWICE A DAY for 30 days
== END 2024-08-03 13:51 | disposition home or self-care (01) ==
PROVIDERS: PCP Internal Medicine; Visit Provider Physician Assistant
DX: Z96.642 Presence of left artificial hip joint (principal)
CPT/HCPCS: 99024

== ENCOUNTER → 2024-08-03 12:55 | Outpatient (BNVA) | payer MEDICARE, SELFPAY | PROVIDERS: PCP Internal Medicine; Visit Provider Physician Assistant | DX: Z47.1 Aftercare following joint replacement surgery (principal); Z96.642 Presence of left artificial hip joint | CPT/HCPCS: 99212 ==

== ENCOUNTER 2024-08-23 12:39 | Outpatient (REF) | payer MEDICARE, SELFPAY ==
--- NOTE | ~2024-08-23 | XR_ITS ---
EXAMINATION: XR KNEE, LEFT CLINICAL INFORMATION: M25.569 - Pain in unspecified knee COMPARISON: None available. TECHNIQUE: AP view bilateral knees standing, lateral and patellofemoral views left knee. FINDINGS: Right Knee: Solitary AP view demonstrates moderate lateral and mild medial compartment joint space narrowing with marginal osteophytic spurs. No fracture or malalignment. Mild spurring of the tibial spines. Normal soft tissues. Left Knee: No fracture, dislocation, or suspicious bone lesion. Small amount joint fluid in the suprapatellar bursa. There is moderate to severe lateral compartment joint space narrowing with marginal osteophytic spurs, and milder changes in the medial and patellofemoral compartments. There is mild valgus angulation of the knee. Normal soft tissues. XR/XR knee LT 3V IMPRESSION: 1. Moderate tricompartmental osteoarthrosis left knee, moderate to severe involving the lateral compartment. Mild valgus angulation of the knee joint. Small joint effusion. 2. Similar but less severe findings in of the right knee on the single AP view. Electronically signed by: Tremaine Goodman MD 08/24/2024 08:50 AM EDT
--- OUTSIDE RECORDS SUMMARY | 2024-08-24 15:56 | XMS_ITS | Encounter Summary ---
Author Organization [facility] Address [address] [place] [address] Phone Care Team Providers Care Enterprise Data Architect Name Role Phone Frnacisco Parnell MD Primary Care Provider [phone] Encounter Details Date Type Department Care Team (Late st Contact Info) Description 02/13/2020 Procedure Pass [address] [place] [address] Social History Tobacco Use Types Packs/Day Years Used Date Smoking Tobacco: Never Assessed Sex and Gender Information Value Date Recorded Sex Assigned at Not on file Gender Identity Not on file Sexual Orientation Not on file documented as of this encounter Plan of Treatment Not on file documented as of this encounter Visit Diagnoses Not on filedocumented in this encounter Care Teams Enterprise Data Architect Relationship Specialty Start Date End Date Francisco Parnell MD [address] [place] [address] PCP - General Internal Medicine 01/04/18 documented as of this encounter Additional Source Comments The information contained in this document represents components of the legal health record. It is not the complete legal health record.[facility]
--- OUTSIDE RECORDS SUMMARY | 2024-08-24 15:56 | XMS_ITS | Encounter Summary ---
Author Organization [facility] Address [address] [place] [address] Phone Care Team Providers Care Senior Systems Administrator Name Role Phone Francisco Parnell MD Primary Care Provider [phone] Encounter Details Date Type Department Care Team (Late st Contact Info) Description 02/09/2022 Procedure Pass [address] [place] [address] Social History Tobacco Use Types Packs/Day Years [...] on filedocumented in this encounter Care Teams Senior Systems Administrator Relationship Specialty Start Date End Date Francisco Parnell MD [address] [place] [address] PCP - General Internal Medicine 01/04/18 documented as of this encounter Additional Source Comments The information contained in this document represents components of the legal health record. It is not the complete legal health record.[facility]
--- OUTSIDE RECORDS SUMMARY | 2024-08-24 15:56 | XMS_ITS | Encounter Summary ---
Author Organization [facility] Address [address] [place] [address] Phone Care Team Providers Care Galley Boy Name Role Phone Francisco Parnell MD Primary Care Provider [phone] Encounter Details Date Type Department Care Team (Latest Contact Info) Description 02/22/2024 Transcribe Orders Virtual Department [address] [place] [address] Francisco Parnell MD [address] [place] [address] Breast screening (Primary Dx) Social History Tobacco [...] unspecified documented in this encounter Care Teams Galley Boy Relationship Specialty Start Date End Date Francisco Parnell MD [address] [place] [address] PCP - General Internal Medicine 01/04/18 documented as of this encounter Additional Source Comments The information contained in this document represents components of the legal health record. It is not the complete legal health record.[facility]
--- OUTSIDE RECORDS SUMMARY | 2024-08-24 15:56 | XMS_ITS | Encounter Summary ---
Author Organization [facility] Address [address] [place] [address] Phone Care Team Providers Care Information And Data Architect Analyst Name Role Phone Francisco Parnell MD Primary Care Provider [phone] Encounter Details Date Type Department Care Team (Late st Contact Info) Description 01/16/2020 Ancillary Orders Virtual Department [address] [place] [address] Francisco Parnell MD [address] [place] [address] Breast screening Social History Tobacco Use Types [...] unspecified documented in this encounter Care Teams Information And Data Architect Analyst Relationship Specialty Start Date End Date Francisco Parnell MD [address] [place] [address] PCP - General Internal Medicine 01/04/18 documented as of this encounter Additional Source Comments The information contained in this document represents components of the legal health record. It is not the complete legal health record.[facility]
--- OUTSIDE RECORDS SUMMARY | 2024-08-24 15:56 | XMS_ITS | Encounter Summary ---
Author Organization [facility] Address [address] [place] [address] Phone Care Team Providers Care Formula Mixer Name Role Phone Francisco Parnell MD Primary Care Provider [phone] Encounter Details Date Type Department Care Team (Late st Contact Info) Description 01/04/2018 Ancillary Orders Virtual Department [address] [place] [address] Francisco Parnell MD [address] [place] [address] Breast screening Social History Tobacco Use Types [...] unspecified documented in this encounter Care Teams Formula Mixer Relationship Specialty Start Date End Date Francisco Parnell MD [address] [place] [address] PCP - General Internal Medicine 01/04/18 documented as of this encounter Additional Source Comments The information contained in this document represents components of the legal health record. It is not the complete legal health record.[facility]
--- OUTSIDE RECORDS SUMMARY | 2024-08-24 15:56 | XMS_ITS | Encounter Summary ---
Author Organization [facility] Address [address] [place] [address] Phone Care Team Providers Care Pier Master Name Role Phone Francisco Parnell MD Primary Care Provider [phone] Encounter Details Date Type Department Care Team (Late st Contact Info) Description 02/05/2023 Procedure Pass [facility] - [address] [place] [address] Social History Tobacco Use Types Packs/Day Years [...] on filedocumented in this encounter Care Teams Pier Master Relationship Specialty Start Date End Date Francisco Parnell MD [address] [place] [address] [place] [address] PCP - General Internal Medicine 01/04/18 documented as of this encounter Additional Source Comments The information contained in this document represents components of the legal health record. It is not the complete legal health record.[facility]
--- OUTSIDE RECORDS SUMMARY | 2024-08-24 15:56 | XMS_ITS | Encounter Summary ---
Author Organization [facility] Address [address] [place] [address] Phone Care Team Providers Care Metal Annealer Name Role Phone Francisco Parnell MD Primary Care Provider [phone] Encounter Details Date Type Department Care Team (Late st Contact Info) Description 01/18/2019 Ancillary Orders Virtual Department [address] [place] [address] Francisco Parnell MD [address] [place] [address] Breast screening Social History Tobacco Use Types [...] unspecified documented in this encounter Care Teams Metal Annealer Relationship Specialty Start Date End Date Francisco Parnell MD [address] [place] [address] PCP - General Internal Medicine 01/04/18 documented as of this encounter Additional Source Comments The information contained in this document represents components of the legal health record. It is not the complete legal health record.[facility]
--- OUTSIDE RECORDS SUMMARY | 2024-08-24 15:56 | XMS_ITS | Patient Health Record ---
Author Organization [facility] Address [address] [place] [address] Care Team Providers Care Home Care Companion Name Role Phone Soheila SORTO, Francisco Primary Care Provider Parish Azar Jr Unavailable [phone] Allergies Allergen (clinical drug ingredient) Drug/Non [...] Problem Status W/U Status Risk Notes Problem 13667240 Epigastric pain (R10.13) Active confirmed Problem 206858862 Irritable bowel syndrome with diarrhea (K58.0) Active confirmed Problem 169756811 Generalized abdominal pain (R10.84) Active confirmed Problem Duodenitis (12530119) Duodenitis (K29.80) Active confirmed Problem 126127078 Gas (R14.3) Active confirmed Problem 398284545 Gallstones (K80.20) Active confirmed Problem 628545292 Abnormal UGI series (R93.3) Active confirmed Plan [...] Insured Coverage Start Date Coverage End Date [facility] [address] [place] [address] [id number] MANJU LONG Self - patient is the [...]
--- OUTSIDE RECORDS SUMMARY | 2024-08-24 15:56 | XMS_ITS | Encounter Summary ---
Author Organization [facility] Address [address] [place] [address] Phone Care Team Providers Care Zoo Caretaker Name Role Phone Francisco Parnell MD Primary Care Provider Encounter Details Date Type Department Care Team (Latest Contact Info) Description 02/09/2022 Transcribe Orders Virtual Department [address] [place] [address] Francisco Parnell MD [address] [place] [address] Breast screening (Primary Dx); Functional diarrhea; Irritable [...] EDT) IRON 70 30 - 160 ug/dL [facility] IRON BINDING CAPACITY 325 228 - 428 ug/dL [facility] TRANSFERRIN SATURAT. 22 15 - 50 % [facility] Blood 02/17/2022 3:11 PM EDT 02/17/2022 3:12 PM EDT Francisco Parnell MD LAB BLOOD ORDERABLES [facility] [address] [place] [address] * GGT (Gamma glutamyl transferase) (02/17/2022 3:11 PM EDT) GGT 27 7 - 33 U/L [facility] Blood 02/17/2022 3:11 PM EDT 02/17/2022 3:12 PM EDT Francisco Parnell MD LAB BLOOD ORDERABLES Performing Organization Address City/State/[facility] Co de Phone Number [address] [address] * (ABNORMAL) Comprehensive metabolic panel (02/17/2022 3:11 PM EDT) SODIUM 140 133 - 146 mmol/L [facility] POTASSIUM 4.3 3.3 - 5.1 mmol/L [facility] CHLORIDE 102 96 - 108 mmol/L [facility] CO2 30 21 - 35 mmol/L [facility] BUN 26(H) 6 - 19 mg/dL [facility] CREATININE 0.80 0.5 - 1.5 mg/dL [facility] GLUCOSE 106(H) 70 - 99 mg/dL [facility] ALBUMIN 4.4 3.9 - 4.8 g/dL [facility] TOTAL PROTEIN 7.5 6.5 - 8.0 g/dL [facility] CALCIUM 9.5 8.4 - 10.3 mg/dL [facility] ALKALINE PHOSPHATASE 113 39 - 117 U/L [facility] TOTAL BILIRUBIN 0.2 0.0 - 1.2 mg/dL [facility] AST 28 0 - 37 U/L [facility] ALT 31 0 - 40 U/L [facility] GLOBULIN 3.1 1 - 4.8 g/dL [facility] EGFR 81 >59 mL/min/1.7 3m2 [facility] Comment:Estimated glomerular filtration rate calculated using the CKD-EPI refit equation. ANION GAP 12 10 - 20 mmol/L [facility] Blood 02/17/2022 3:11 PM EDT 02/17/2022 3:12 PM EDT Francisco Parnell MD LAB BLOOD ORDERABLES [facility] [address] [place] [address] documented in this encounter Visit Diagnoses Diagnosis Breast screening- Primary Breast screening, unspecified Functional diarrhea Irritable bowel syndrome with diarrhea Irritable bowel syndrome Abdominal pain, left lower quadrant Breast screening Breast screening, unspecified documented in this encounter Care Teams Zoo Caretaker Relationship Specialty Start Date End Date Francisco Parnell MD [address] [place] [address] PCP - General Internal Medicine 01/04/18 documented as of this encounter Additional Source Comments The information contained in this document represents components of the legal health record. It is not the complete legal health record.[facility]
--- OUTSIDE RECORDS SUMMARY | 2024-08-24 15:56 | XMS_ITS | Encounter Summary ---
Author Organization [facility] Address [address] [place] [address] Phone Care Team Providers Care Technical Data Analyst Name Role Phone Francisco Parnell MD Primary Care Provider [phone] Encounter Details Date Type Department Care Team (Late st Contact Info) Description 01/07/2021 Procedure Pass [address] [place] [address] Social History Tobacco Use Types Packs/Day Years [...] on filedocumented in this encounter Care Teams Technical Data Analyst Relationship Specialty Start Date End Date Francisco Parnell MD [address] [place] [address] PCP - General Internal Medicine 01/04/18 documented as of this encounter Additional Source Comments The information contained in this document represents components of the legal health record. It is not the complete legal health record.[facility]
--- OUTSIDE RECORDS SUMMARY | 2024-08-24 15:56 | XMS_ITS ---
Author Organization [facility] Address [address] [place] [phone] Care Team Providers Care Customs Opener Verifier Packer Name Role Phone Francisco Parnell MD Primary Care Provider Savanna Zuluaga Jr, Parish Taylor [phone] REASON FOR VISIT needs a script for 1 month supply Medications Medication SIG (Take, Route, Fr equency, Duration) Notes Start Date End Date Status Famotidine 20 MG TAKE 1 TABLET BY WALLY TH TWICE A DAY for 30 days Active Encounters Encounter Location Date Provider Diagnosis [facility] [address] [place] [phone] 03/29/2023 Parish Zuluaga Jr Plan Of Treatment Medication Medication Name Sig Start Date Stop Date Notes Famotidine 20 MG TAKE 1 TABLET BY WALLY TH TWICE A DAY for 30 days Progress Notes * ETHANJANET HARTMAN TDOB:1955 (67 yo F)Acc No.[id number]:03/29/2023 Patient:?JANET LONG :1955???Age:67 Y???Sex:Female Address:[address] [place] [address], [place], [address] * Refills? Refill Famotidine Tablet, 20 MG, 60, TAKE 1 TABLET BY MOUTH TWICE A DAY, 30 days, Refills=6 * true * Date:? Generated for Printi ng/Famariiag/eTransmitting on:?08/24/2024 03:56 PM EDT
== END 2024-08-23 12:40 | disposition home or self-care (01) ==
LOC: HO.HOSX 12:39
PROVIDERS: Visit Provider Physician Assistant
DX: M17.12 Unilateral primary osteoarthritis, left knee (principal); M25.562 Pain in left knee
CPT/HCPCS: 20610; 73562; 99212; J1010; J2003

== ENCOUNTER 2024-08-23 13:40 | Outpatient (AMB) | payer MEDICARE, SELFPAY ==
--- NOTE | 2024-08-23 14:03 | MHC.OFFVIS ---
Intake Visit Reasons: Newprob-left knee pain-evaluate Intake Note: Manju is a 68 year old female who presents today for a evaluation of her left knee. Patient reports he knee gave out on 08/19/24 when she was going to use the restroom. Patient wants to make sure she didn't over do it with PT s/p L IGOR w/NE 07/19/24. She states that she is having more of a soreness sensation than pain at the moment. Patient mentions her soreness is a 03/10 on the pain scale. Patient was able to take what she had left of the pain medication which gave her mild relief. Allergies red dye Allergy (Severe, Verified 08/23/24 14:07) Unknown ciprofloxacin [From Cipro] Allergy (Intermediate, Verified 08/23/24 14:07) lightheaded/dizzy/GI upset escitalopram [From Lexapro] Allergy (Intermediate, Verified 08/23/24 14:07) vision disturbance/confusion gluten Allergy (Intermediate, Verified 08/23/24 14:07) Gastrointestinal Upset paroxetine [From Paxil] Allergy (Intermediate, Verified 08/23/24 14:07) withdrawal symptoms-did not wean off sulfamethoxazole [From Bactrim] Allergy (Intermediate, Verified 08/23/24 14:07) lightheaded/dizzy/GI upset trimethoprim [From Bactrim] Allergy (Intermediate, Verified 08/23/24 14:07) lightheaded/dizzy/GI upset HPI HPI Newprob-left knee pain-evaluate: Details: Ms. Dion quinonez is a 68-year-old female who presents to the office today for evaluation of left knee pain. She has had cortisone injections in the past for the left knee that resolved her pain. She does understand that she has arthritis in the left knee that was diagnosed roughly 12-14 years ago. She denies any new injury or trauma. Of note, the patient is s/p L IGOR with Dr. Graf on 07/19/24. [facility] Medical History (Updated 08/23/24 @ 14:25 by Loraine Koehler PA-C) Fever Osteoarthritis of left hip Arthritis Thyroid nodule Pulmonary embolism GERD (gastroesophageal reflux disease) Osteoporosis Hyperlipidemia Irritable bowel syndrome with diarrhea Fatty liver Asthma Anxiety and depression Surgical History History of hip surgery (05/07/23) Hx of tonsillectomy H/O esophagogastroduodenoscopy H/O colonoscopy Social History Household Members: Significant Other Housing: [facility] Are you a primary health care assistant to a significant other at home: No Do you presently have visiting nurse or other home services: Yes Alcohol intake: current Alcohol intake frequency: 3 or more drinks per day Alcohol type: hard liquor Comment: tolerable Patient Tobacco Use Status: Former Tobacco user Tobacco use type: Cigarette Years Smoked: 40 Second Hand Smoke Exposure: No service: No Review of Systems Const All systems reviewed & are unremarkable except as noted in HPI and below Physical Exam Const General: cooperative, healthy appearing and no acute distress Resp Effort & Inspection: normal respiratory effort and able to speak in complete sentences Cardio Rate: regular rate Peripheral pulses: Peripheral pulses 2+ throughout Skin Lesions: no lesions Rashes: no rashes Extrem Other: left knee valgus deformity. ROM 0-100. Crepitus with ROM. NVI. Office Procedures AMB Joint Injection/Aspiration Joint Injection/Aspiration Primary Site: left knee Prep: site was prepped using aseptic technique, ethochloride spray was applied and injection warnings given Injected: 80 mg of, DepoMedrol, with 8 mL of (2% plain lidocaine) and in the joint Approach Used: anterolateral Procedure: The patient tolerated the procedure well, but had some pain with the injection and there was some relief with the local anesthesia Coding 46891 - Large joint Procedure code (CPT) selection complete Assessment & Plan Assessment & Plan (1) Osteoarthritis of left knee: Code(s): M17.12 - Unilateral primary osteoarthritis, left knee Category: Medical Plan Ms. Ashley this is a 68-year-old female who presents to the office today for evaluation of left knee pain. She has had cortisone injections in the past for the left knee that resolved her pain. She does understand that she has arthritis in the left knee that was diagnosed roughly 12-14 years ago. She denies any new injury or trauma. Of note, the patient is s/p L IGOR with Dr. Graf on 07/19/24. The patient was offered a cortisone injection in the left knee with 80 mg of DepoMedrol. The patient was explained the risks, benefits, and alternatives to receiving this injection. After receiving consent for the injection, the patient had the procedure done while in the office today. The patient tolerated the procedure well with no complications. Follow-up will be p.r.n., or sooner if needed Orders: Orders XR knee LT 3V Today M25.569 - Pain in unspecified knee XR knee RT 1V Today M25.569 - Pain in unspecified knee Coding Level of Care Code Est Pt Level 3 (33923) Diagnoses Osteoarthritis of left knee M17.12 CPT Codes Coding - 71670 Large joint: 27839 - Large joint ([id number])
--- OUTSIDE RECORDS SUMMARY | 2024-08-23 16:07 | XMS_ITS | Encounter Summary ---
Author Organization [facility] Address [address] [place] [phone] Phone Care Team Providers Care Book Coverer Name Role Phone Francisco Parnell MD Primary Care Provider [phone] Encounter Details Date Type Department Care Team (Latest Contact Info) Description 02/22/2024 Transcribe Orders Virtual Department [address] [place] [phone] Francisco Parnell MD [address] [place] [phone] Breast screening (Primary Dx) Social History Tobacco [...] unspecified documented in this encounter Care Teams Book Coverer Relationship Specialty Start Date End Date Francisco Parnell MD [address] [place] [id number] PCP - General Internal Medicine 01/04/18 documented as of this encounter Additional Source Comments The information contained in this document represents components of the legal health record. It is not the complete legal health record.[facility]
--- OUTSIDE RECORDS SUMMARY | 2024-08-23 16:07 | XMS_ITS | Encounter Summary ---
Author Organization [facility] Address [address] [place] [address] Phone Care Team Providers Care Inside Sales Specialist Name Role Phone Francisco Parnell MD Primary Care Provider [phone] Encounter Details Date Type Department Care Team (Late st Contact Info) Description 01/07/2021 Procedure Pass [address] [place] [address] Social History Tobacco Use Types Packs/Day Years [...] on filedocumented in this encounter Care Teams Inside Sales Specialist Relationship Specialty Start Date End Date Francisco Parnell MD [address] [place] [address] PCP - General Internal Medicine 01/04/18 documented as of this encounter Additional Source Comments The information contained in this document represents components of the legal health record. It is not the complete legal health record.[facility]
--- OUTSIDE RECORDS SUMMARY | 2024-08-23 16:07 | XMS_ITS | Encounter Summary ---
Author Organization [facility] Address [address] [place] [address] Phone Care Team Providers Care Artillery Or Naval Gunfire Observer Name Role Phone Francisco Parnell MD Primary Care Provider [phone] Encounter Details Date Type Department Care Team (Late st Contact Info) Description 02/05/2023 Procedure Pass [facility] - [address] [place] [address] Social History Tobacco Use Types Packs/Day Years [...] on filedocumented in this encounter Care Teams Artillery Or Naval Gunfire Observer Relationship Specialty Start Date End Date Francisco Parnell MD [address] [place] [address] [place] [address] PCP - General Internal Medicine 01/04/18 documented as of this encounter Additional Source Comments The information contained in this document represents components of the legal health record. It is not the complete legal health record.[facility]
--- OUTSIDE RECORDS SUMMARY | 2024-08-23 16:08 | XMS_ITS | Encounter Summary ---
Author Organization [facility] Address [address] [place] [address] Phone Care Team Providers Care Adobe Cq Developer Name Role Phone Francisco Parnell MD Primary Care Provider Encounter Details Date Type Department Care Team (Late st Contact Info) Description 01/04/2018 Ancillary Orders Virtual Department [address] [place] [address] Francisco Parnell MD [address] [place] [address] Breast screening Social History Tobacco Use Types [...] unspecified documented in this encounter Care Teams Adobe Cq Developer Relationship Specialty Start Date End Date Francisco Parnell MD [address] [place] [address] PCP - General Internal Medicine 01/04/18 documented as of this encounter Additional Source Comments The information contained in this document represents components of the legal health record. It is not the complete legal health record.[facility]
--- OUTSIDE RECORDS SUMMARY | 2024-08-23 16:08 | XMS_ITS | Encounter Summary ---
Author Organization [facility] Address [address] [place] [address] Phone Care Team Providers Care Dobie Worker Name Role Phone Francisco Parnell MD Primary Care Provider [phone] Encounter Details Date Type Department Care Team (Late st Contact Info) Description 01/18/2019 Ancillary Orders Virtual Department [address] [place] [address] Francisco Parnell MD [address] [place] [address] Breast screening Social History Tobacco Use Types [...] unspecified documented in this encounter Care Teams Dobie Worker Relationship Specialty Start Date End Date Francisco Parnell MD [address] [place] [address] PCP - General Internal Medicine 01/04/18 documented as of this encounter Additional Source Comments The information contained in this document represents components of the legal health record. It is not the complete legal health record.[facility]
--- OUTSIDE RECORDS SUMMARY | 2024-08-23 16:08 | XMS_ITS | Encounter Summary ---
Author Organization [facility] Address [address] [place] [address] Phone Care Team Providers Care Side Show Entertainer Name Role Phone Francisco Parnell MD Primary Care Provider [phone] Encounter Details Date Type Department Care Team (Late st Contact Info) Description 01/16/2020 Ancillary Orders Virtual Department [address] [place] [address] Francisco Parnell MD [address] [place] [address] Breast screening Social History Tobacco Use Types [...] unspecified documented in this encounter Care Teams Side Show Entertainer Relationship Specialty Start Date End Date Francisco Parnell MD [address] [place] [address] PCP - General Internal Medicine 01/04/18 documented as of this encounter Additional Source Comments The information contained in this document represents components of the legal health record. It is not the complete legal health record.[facility]
--- OUTSIDE RECORDS SUMMARY | 2024-08-23 16:08 | XMS_ITS | Encounter Summary ---
Author Organization [facility] Address [address] [place] [address] Phone Care Team Providers Care Metal Riveting Machine Operator Name Role Phone Francisco Parnell MD Primary Care Provider [phone] Encounter Details Date Type Department Care Team (Late st Contact Info) Description 02/13/2020 Procedure Pass [address] [place] [address] Social History Tobacco Use Types Packs/Day Years Used Date Smoking Tobacco: Never Assessed Sex and Gender Information Value Date Recorded Sex Assigned at Not on file Gender Identity Not on file Sexual Orientation Not on file documented as of this encounter Plan of Treatment Not on file documented as of this encounter Visit Diagnoses Not on filedocumented in this encounter Care Teams Metal Riveting Machine Operator Relationship Specialty Start Date End Date Francisco Parnell MD [address] [place] [address] PCP - General Internal Medicine 01/04/18 documented as of this encounter Additional Source Comments The information contained in this document represents components of the legal health record. It is not the complete legal health record.[facility]
--- OUTSIDE RECORDS SUMMARY | 2024-08-23 16:08 | XMS_ITS ---
Author Organization [facility] Address [address] [place] [phone] Care Team Providers Care Field Hockey Coach Name Role Phone Francisco Parnell MD Primary Care Provider Savanna Zuluaga Jr, Parish Taylor [phone] REASON FOR VISIT needs a script for 1 month supply Medications Medication SIG (Take, Route, Fr equency, Duration) Notes Start Date End Date Status Famotidine 20 MG TAKE 1 TABLET BY WALLY TH TWICE A DAY for 30 days Active Encounters Encounter Location Date Provider Diagnosis [facility] [address] [place] [phone] 03/29/2023 Parish Zuluaga Jr Plan Of Treatment Medication Medication Name Sig Start Date Stop Date Notes Famotidine 20 MG TAKE 1 TABLET BY WALLY TH TWICE A DAY for 30 days Progress Notes * ETHANJANET HARTMAN TDOB:1955 (67 yo F)Acc No.[id number]:03/29/2023 Patient:?JANET LONG :1955???Age:67 Y???Sex:Female Address:[address] [place] [address], [place], [address] * Refills? Refill Famotidine Tablet, 20 MG, 60, TAKE 1 TABLET BY MOUTH TWICE A DAY, 30 days, Refills=6 * true * Date:? Generated for Printi ng/Famariiag/eTransmitting on:?08/23/2024 04:07 PM EDT
--- OUTSIDE RECORDS SUMMARY | 2024-08-23 16:08 | XMS_ITS | Encounter Summary ---
Author Organization [facility] Address [address] [place] [address] Phone Care Team Providers Care Director Of Social Media Marketing Name Role Phone Francisco Parnell MD Primary Care Provider [phone] Encounter Details Date Type Department Care Team (Latest Contact Info) Description 02/09/2022 Transcribe Orders Virtual Department [address] [place] [address] Francisco Parnell MD [address] [place] [address] Breast screening (Primary Dx); Functional diarrhea; Irritable [...] EDT) IRON 70 30 - 160 ug/dL [facility] IRON BINDING CAPACITY 325 228 - 428 ug/dL [facility] TRANSFERRIN SATURAT. 22 15 - 50 % [facility] Blood 02/17/2022 3:11 PM EDT 02/17/2022 3:12 PM EDT Francisco Parnell MD LAB BLOOD ORDERABLES [facility] [address] [place] [address] * GGT (Gamma glutamyl transferase) (02/17/2022 3:11 PM EDT) GGT 27 7 - 33 U/L [facility] Blood 02/17/2022 3:11 PM EDT 02/17/2022 3:12 PM EDT Francisco Parnell MD LAB BLOOD ORDERABLES Performing Organization Address City/State/[facility] Co de Phone Number [address] [address] * (ABNORMAL) Comprehensive metabolic panel (02/17/2022 3:11 PM EDT) SODIUM 140 133 - 146 mmol/L [facility] POTASSIUM 4.3 3.3 - 5.1 mmol/L [facility] CHLORIDE 102 96 - 108 mmol/L [facility] CO2 30 21 - 35 mmol/L [facility] BUN 26(H) 6 - 19 mg/dL [facility] CREATININE 0.80 0.5 - 1.5 mg/dL [facility] GLUCOSE 106(H) 70 - 99 mg/dL [facility] ALBUMIN 4.4 3.9 - 4.8 g/dL [facility] TOTAL PROTEIN 7.5 6.5 - 8.0 g/dL [facility] CALCIUM 9.5 8.4 - 10.3 mg/dL [facility] ALKALINE PHOSPHATASE 113 39 - 117 U/L [facility] TOTAL BILIRUBIN 0.2 0.0 - 1.2 mg/dL [facility] AST 28 0 - 37 U/L [facility] ALT 31 0 - 40 U/L [facility] GLOBULIN 3.1 1 - 4.8 g/dL [facility] EGFR 81 >59 mL/min/1.7 3m2 [facility] Comment:Estimated glomerular filtration rate calculated using the CKD-EPI refit equation. ANION GAP 12 10 - 20 mmol/L [facility] Blood 02/17/2022 3:11 PM EDT 02/17/2022 3:12 PM EDT Francisco Parnell MD LAB BLOOD ORDERABLES [facility] [address] [place] [address] documented in this encounter Visit Diagnoses Diagnosis Breast screening- Primary Breast screening, unspecified Functional diarrhea Irritable bowel syndrome with diarrhea Irritable bowel syndrome Abdominal pain, left lower quadrant Breast screening Breast screening, unspecified documented in this encounter Care Teams Director Of Social Media Marketing Relationship Specialty Start Date End Date Francisco Parnell MD [address] [place] [address] PCP - General Internal Medicine 01/04/18 documented as of this encounter Additional Source Comments The information contained in this document represents components of the legal health record. It is not the complete legal health record.[facility]
--- OUTSIDE RECORDS SUMMARY | 2024-08-23 16:08 | XMS_ITS | Encounter Summary ---
Author Organization [facility] Address [address] [place] [address] Phone Care Team Providers Care Check Services Clerk Name Role Phone Francisco Parnell MD Primary Care Provider [phone] Encounter Details Date Type Department Care Team (Late st Contact Info) Description 02/09/2022 Procedure Pass [address] [place] [address] Social History Tobacco Use Types Packs/Day Years [...] on filedocumented in this encounter Care Teams Check Services Clerk Relationship Specialty Start Date End Date Francisco Parnell MD [address] [place] [address] PCP - General Internal Medicine 01/04/18 documented as of this encounter Additional Source Comments The information contained in this document represents components of the legal health record. It is not the complete legal health record.[facility]
--- OUTSIDE RECORDS SUMMARY | 2024-08-23 16:08 | XMS_ITS | Patient Health Record ---
Author Organization [facility] Address [address] [place] [address] Care Team Providers Care Public School Teacher Name Role Phone Soheila SORTO, Francisco Primary Care Provider Parish Azar Jr Unavailable [phone] Allergies Allergen (clinical drug ingredient) Drug/Non Drug Allergy documented on EMR Reaction Allergy Type Onset Date Status paroxetine Paxil Unknown Drug Allergy Active escitalopram Lexapro Unknown Drug Allergy Acti ve ciprofloxacin Cipro Unknown Drug Allergy Act gui Bactrim Unknown Drug Allergy Active Reason For Referral No Information Medications Medication SIG (Take, Route, Frequency, Duration) Notes [...] day for 30 day(s) Active ZyrTEC Active Immunizations Vaccine Route Administration Date Status Comme nts Influenza Unknown 04/15/2022 Administered Problems Problem Type SNOMED Code ICD Code Onset Dates Problem Status W/U Status Risk Notes Problem 52230654 Epigastric pain (R10.13) Active confirmed Problem 678225346 Irritable bowel syndrome with diarrhea (K58.0) Active confirmed Problem 115524709 Generalized abdominal pain (R10.84) Active confirmed Problem Duodenitis (34911081) Duodenitis (K29.80) Active confirmed Problem 273738685 Gas (R14.3) Active confirmed Problem 171759419 Gallstones (K80.20) Active confirmed Problem 780543570 Abnormal UGI series (R93.3) Active confirmed Plan Of Treatment Pending Test Test Name Order Date CBC w/o DIFF 10/29/2020 CBC w/o DIFF 03/20/2015 CELIAC DISEASE ANTIBODY PANEL 10/29/2020 CELIAC DISEASE ANTIBODY PANEL 03/20/2015 OVA & PARASITES (O&P) 10/29/2020 XR GI SMALL BOWEL SERIES 04/20/2022 TSH REFLEX FREE T4 10/29/2020 STOOL WBC 10/29/2020 Stool Culture 10/29/2020 Future Test Test Name Order Date UPPER GI ENDOSCOPY 12/10/2022 Insurance Providers Payer Name Payer Address Payer Phone Subscriber Number Group Number Insured Name Patient Relationship to Insured Coverage Start Date Coverage End Date [facility] [address] [place] [address] [id number] MANJU LONG Self - patient is the insured Medical (General) History Medical History History ICD Code Anxiety/depression Colonoscopy 08/05 hyperplasti c polyps x2, biopsies negative for colitis, ten-year recall Asthma Fatty liver Irritable bowel syndrome with diarrhea p redominance Hyperlipidemia Osteoporosis Gastroesophageal reflux dise ase, EGD 12/28 erosive gastritis, biopsies negative for H. pylori. No BE Gallstones Surgical History Surgery Date(Month/Year) Tonsillectomy
== END 2024-08-23 14:42 | disposition home or self-care (01) ==
LOC: HO.HOS 13:41
PROVIDERS: PCP Internal Medicine; Visit Provider Physician Assistant
DX: M17.12 Unilateral primary osteoarthritis, left knee (principal)
CPT/HCPCS: 20610; 99213

== ENCOUNTER → 2024-08-23 13:46 | Outpatient (BNV) | payer MEDICARE, SELFPAY | PROVIDERS: Visit Provider Radiology Diagnostic Radiology | DX: M17.12 Unilateral primary osteoarthritis, left knee (principal); M25.462 Effusion, left knee | CPT/HCPCS: 73562 ==

== ENCOUNTER 2024-08-28 09:46 | Outpatient (REF) | payer MEDICARE, SELFPAY ==
--- NOTE | ~2024-08-28 | XR_ITS ---
CLINICAL HISTORY: M25.559 - Pain in unspecified hip 1 view pelvis Comparison: None available Findings: Severe osteoarthritis of the right hip including medial joint space narrowing. Sclerosis and remodeling of the right greater trochanter fragments superior to hardware. Marked osteophytosis of the right lesser trochanter. Diminutive and/or osteotomy change of the left greater trochanter. No defined fracture or hardware loosening of the right femur gamma nail or left hip arthroplasty hardware bifrontal radiographs. Proximal cerclage wire abuts the inferior margin of the right lesser trochanter. One distal locking screw noted in the femoral stem of the right gamma nail Portions of the pelvis including sacrum and SI joints are obscured. Low bone mineralization suggested. Moderate stool burden in the [id number]-umic. Phleboliths are noted in the pelvis. IMPRESSION: 1. Severe osteoarthritis of the right hip. 2. No hardware loosening of the right femur gamma type nasal or left hip arthroplasty by one view x-ray This document has been electronically signed by: Luis Angela MD on 08/29/2024 19:58:01
== END 2024-08-28 09:47 | disposition home or self-care (01) ==
LOC: HO.HOSX 09:46
PROVIDERS: Visit Provider Orthopaedic Surgery
DX: M17.12 Unilateral primary osteoarthritis, left knee (principal); Z96.642 Presence of left artificial hip joint
CPT/HCPCS: 72170; 99212

== ENCOUNTER 2024-08-28 12:02 | Outpatient (AMB) | payer MEDICARE, SELFPAY ==
--- NOTE | 2024-08-28 12:32 | A.OFFVIS_ITS ---
Intake Visit Reasons: 6WK PO: L IGOR w/NE 07/19/24 Intake Note: Manju is a 68 year old female who presents today for a post operative appointment 6 weeks s/p Left IGOR 07/19/24. She continues to work with physical therapy. Patient reports that she is doing well, the left knee gave out on wednesday. She was seen with Loraine who administered a cortisone injection which was helpful and continues to be helpful at this time. Allergies red dye Allergy (Severe, Verified 08/23/24 14:07) Unknown ciprofloxacin [From Cipro] Allergy (Intermediate, Verified 08/23/24 14:07) lightheaded/dizzy/GI upset escitalopram [From Lexapro] Allergy (Intermediate, Verified 08/23/24 14:07) vision disturbance/confusion gluten Allergy (Intermediate, Verified 08/23/24 14:07) Gastrointestinal Upset paroxetine [From Paxil] Allergy (Intermediate, Verified 08/23/24 14:07) withdrawal symptoms-did not wean off sulfamethoxazole [From Bactrim] Allergy (Intermediate, Verified 08/23/24 14:07) lightheaded/dizzy/GI upset trimethoprim [From Bactrim] Allergy (Intermediate, Verified 08/23/24 14:07) lightheaded/dizzy/GI upset HPI HPI 6WK PO: L IGOR w/NE 07/19/24: Details: Manju is 68-year-old woman who is 6 weeks status post left hip replacement. Her primary complaint today is actually left knee and giving way. She has known severe valgus pattern osteoarthritis of the left knee. She was seen recently in our office in her left knee was injected. She states this did help a little bit. [facility] Medical History (Updated 08/23/24 @ 14:25 by Loraine Koehler PA-C) Fever Osteoarthritis of left hip Arthritis Thyroid nodule Pulmonary embolism GERD (gastroesophageal reflux disease) Osteoporosis Hyperlipidemia Irritable bowel syndrome with diarrhea Fatty liver Asthma Anxiety and depression Surgical History History of hip surgery (05/07/23) Hx of tonsillectomy H/O esophagogastroduodenoscopy H/O colonoscopy Social History Household Members: Significant Other Housing: [facility] Are you a primary rn home care to a significant other at home: No Do you presently have visiting nurse or other home services: Yes Alcohol intake: current Alcohol intake frequency: 3 or more drinks per day Alcohol type: hard liquor Comment: tolerable Patient Tobacco Use Status: Former Tobacco user Tobacco use type: Cigarette Years Smoked: 40 Second Hand Smoke Exposure: No service: No Physical Exam Extrem Other: On exam she has valgus pattern OA with mild soreness over the lateral joint line and valgus pattern gait with no pain on hip range of motion on the left. Results Reviewed Results Reviewed: I personally reviewed relevant radiographs. Left IGOR in expected post operative position with no hardware complications or evidence of loosening Left knee valgus pattern severe OA Assessment & Plan Assessment & Plan (1) S/P total left hip arthroplasty: Code(s): Z96.642 - Presence of left artificial hip joint Category: Surgical Plan: Left hip is doing well. Continue PT for strengthening exercises and weight- bearing as tolerated. (2) Osteoarthritis of left knee: Code(s): M17.12 - Unilateral primary osteoarthritis, left knee Category: Medical Plan: She is doing okay with her left knee. She recently had a steroid injection. We will see how she fares over the next 6 weeks. Should her pain return we can consider viscosupplementation. I had a long discussion regarding the surgical treatment for knee arthritis. Orders: Orders XR pelvis 1-2V Today M25.559 - Pain in unspecified hip Coding Level of Care Code Est Pt Level 3 (19464) Global (22496) Diagnoses S/P total left hip arthroplasty Z96.642 Osteoarthritis of left knee M17.12
== END 2024-08-28 12:54 | disposition home or self-care (01) ==
LOC: HO.HOS 12:02
PROVIDERS: PCP Internal Medicine; Visit Provider Orthopaedic Surgery
DX: M17.12 Unilateral primary osteoarthritis, left knee (principal); Z47.1 Aftercare following joint replacement surgery; Z96.642 Presence of left artificial hip joint
CPT/HCPCS: 99024; 99213

== ENCOUNTER → 2024-08-28 12:09 | Outpatient (BNV) | payer MEDICARE, SELFPAY | PROVIDERS: Visit Provider Radiology Neuroradiology | DX: M16.11 Unilateral primary osteoarthritis, right hip (principal) | CPT/HCPCS: 72170 ==

== ENCOUNTER 2024-10-11 15:10 | Outpatient (AMB) | payer MEDICARE, SELFPAY ==
--- NOTE | 2024-10-11 15:12 | MHC.OFFVIS ---
Vital Signs 10/11/24 15:13 Height 5 ft 4 in Weight 135 lb BMI 23.2 BP 140/63 H Blood Pressure Location Rt brachial Position Sitting Respiration 16 Pulse 100 Pulse Source Pulse Oximeter Pulse Oximetry (%) 97 Oxygen Delivery Method Room Air Intake Visit Reasons: Low Back Pain Asp Web Developer Required: No Allergies red dye Allergy (Severe, Verified 10/11/24 15:14) Unknown ciprofloxacin [From Cipro] Allergy (Intermediate, Verified 10/11/24 15:14) lightheaded/dizzy/GI upset escitalopram [From Lexapro] Allergy (Intermediate, Verified 10/11/24 15:14) vision disturbance/confusion gluten Allergy (Intermediate, Verified 10/11/24 15:14) Gastrointestinal Upset paroxetine [From Paxil] Allergy (Intermediate, Verified 10/11/24 15:14) withdrawal symptoms-did not wean off sulfamethoxazole [From Bactrim] Allergy (Intermediate, Verified 10/11/24 15:14) lightheaded/dizzy/GI upset trimethoprim [From Bactrim] Allergy (Intermediate, Verified 10/11/24 15:14) lightheaded/dizzy/GI upset Medication List - Last Reconciled 10/11/24 by Aurora Louis LPN acetaminophen 650 mg (2 x 325 mg) PO Q6H PRN 30 days albuterol sulfate 90 mcg/actuation 2 puffs inhalation QID PRN amitriptyline 20 mg PO BEDTIME ascorbic acid (vitamin C) (Vitamin C) 500 mg PO BID calcium carbonate-vitamin D3 600 mg-5 mcg (200 unit) 1 tab PO QAM celecoxib 200 mg PO BID 30 days cetirizine (Zyrtec) 10 mg PO BEDTIME clonazepam 1 mg PO BID docusate sodium 100 mg PO BID 30 days famotidine 20 mg PO BID PRN fluticasone propionate 50 mcg/actuation 2 sprays intranasal DAILY loratadine (Claritin) 10 mg PO QAM magnesium oxide 200 mg PO BID multivit with min-folic acid 200 mcg (Multivitamin Gummies) 1 tab PO DAILY nystatin 1 appl topical BID PRN salmeterol (Serevent Diskus) 1 inh inhalation BID walker Folding Front wheeled walker duration 99 days HPI Comments Details: Manju is very pleasant 69 years old female who presents in my office with complains on pain in the lower back. She reports axial pain without radiation into bilateral lower extremities. She reports pain aggravation with standing and walking. She reports pain alleviation with sitting. She reports that the pain started 4 years ago it was waxing and waning and now the pain is aggravated. She believes that her pain is related to arthritis. She reports her pain level 8 out of 10. Because of her pain she can not do activities of daily living. She can sleep normally. She can take care of herself but she can not function normally. 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 Weather changes in movements aggravate her pain while heat applications topical medications and oral medications make pain slightly better. The pain is constant in nature and does not vary in intensity during the daytime. In terms of tissue damage he reports her pain as dull, sore, hurting, aching, heavy sensation. She received multiple images of her lumbar spine. In the past she went for [facility] and she received [facility]. She received multiple sessions of physical therapy related to her lower back as well as occupational therapy related to hip fractures. She had chiropractic manipulations for her back without any help. She had massage therapy and it did not help her pain. She was under care of chief cardiopulmonary technologist and she reported that she has an arthritis. She presume that it was osteoarthritis. Her past medical history significant for asthma irritable bowel syndrome fatigue and headaches. She fractured her right hip and had a surgery on 8 on 05/07/2023. She had hip replacement of the left hip on 07/19/2024. Her surgeon was Dr. Graf. Dr. Graf also diagnose her with left knee osteoarthritis and performed injection on the left knee. That was steroid injection. She denies smoking currently she stopped it 12 years ago. She drinks Tequila Ruby S 3 times a week. She denies coffee caffeinated beverages and she denies recreational drugs. [facility] Medical History (Updated 10/11/24 @ 15:56 by Corky Martinez MD) Fever Osteoarthritis of left hip Arthritis Thyroid nodule Pulmonary embolism GERD (gastroesophageal reflux disease) Osteoporosis Hyperlipidemia Irritable bowel syndrome with diarrhea Fatty liver Asthma Anxiety and depression Surgical History History of hip surgery (05/07/23) Hx of tonsillectomy H/O esophagogastroduodenoscopy H/O colonoscopy Social History Household Members: Significant Other [facility] Are you a primary nurse behavioral health care to a significant other at home: No Do you presently have visiting nurse or other home services: Yes Alcohol intake: current Alcohol intake frequency: 3 or more drinks per day Alcohol type: hard liquor Comment: tolerable Patient Tobacco Use Status: Former Tobacco user Tobacco use type: Cigarette Years Smoked: 40 Second Hand Smoke Exposure: No service: No Review of Systems Const All systems reviewed & are unremarkable except as noted in HPI and below ENT Reports Normal hearing present Neuro Reports Normal hearing present, Denies Abnormal speech present, Denies confusion and Denies Sensory deficit (Neuro) Psych Denies confusion Physical Exam Vital Signs: Last Vital Signs Pulse 100 10/11/24 15:13 Resp 16 10/11/24 15:13 BP 140/63 H 10/11/24 15:13 Pulse Ox 97 10/11/24 15:13 Oxygen Delivery Method Room Air 10/11/24 15:13 BMI result Body Mass Index 23.2 Const General: no acute distress; No confusion Orientation/consciousness: patient oriented x3 and No confusion Eyes General: appearance normal, both eyes and all related structures Pupils: Equal, round and reactive pupils present EOM: EOMs intact bilaterally Neck Neck: Yes full ROM Chest Chest palpation & inspection: normal inspection of the chest Resp Effort & Inspection: normal respiratory effort, able to speak in complete sentences, normal respiratory pattern, no audible wheezes and no cough Cardio Jugular venous distension: no JVD GI Inspection: Yes normal to inspection Back/Spine/Pelvis Other: There is tenderness on palpation in paraspinal spinal region lumbar spine. Flexing forward alleviate her pain while flexing backwards make her pain more severe. SLR is negative bilaterally. Loading test is positive bilaterally. Valsalva maneuver does not aggravate her pain. She is able to stand on bilateral tiptoes in bilateral heels demonstrating normal strength of bilateral lower extremities. She is able to lift the big toe in separation from the rest of the toes demonstrating normal function of L5. She denies numbness in lower extremities. Neuro General: patient oriented x3, gait normal and No confusion Cranial nerves: Yes CN's II-XII intact bilaterally, Yes Equal, round and reactive pupils present, Yes Normal hearing present and Yes Ability to bilaterally elevate shoulders present Speech: No Abnormal speech present Gait exam (Neuro): Normal gait present Motor exam (neuro): 5/5 motor strength present throughout Sensory Exam: No Sensory deficit (Neuro) Extrem General: No pedal edema Psych Speech and movement: Normal speech and movement present Affect: normal affect Attitude: cooperative Thought process: Normal thought process present Thought content: Normal thought content present Insight: Good insight present (Psych) Judgement: Good judgement present (Psych) Assessment & Plan Assessment & Plan (1) Spondylosis of lumbar region without myelopathy or radiculopathy: Code(s): M47.816 - Spondylosis without myelopathy or radiculopathy, lumbar region Category: Medical (2) Chronic pain syndrome: Code(s): G89.4 - Chronic pain syndrome Category: Medical Plan I will schedule this patient for diagnostic medial branch block L3, L4, dorsal ramus L5. Depending on the results of the injection I will look into possibility of helping this patient's pain with sprint PNS versus RFA. I also requested her to sign medical information release note and we will obtain the MRI from the [facility]. I also requested patient to bring me the disc from that MRI in case the medial branch block will not alleviate the patient's pain I will be looking into stenotic changes versus Modic type changes in her MRI. Coding Level of Care Code New Pt Level 3 (48487) Diagnoses Spondylosis of lumbar region without myelopathy or radiculopathy M47.816 Chronic pain syndrome G89.4
[2024-10-11 15:13] VITALS: BP 140/63; PULSE 100; RESP 16; O2SAT 97; BMI 23.2
--- OUTSIDE RECORDS SUMMARY | 2024-10-11 16:13 | XMS_ITS | Encounter Summary ---
Author Organization [facility] Address [address] [place] [address] Phone Care Team Providers Care Knot Tying Operator Name Role Phone Francisco Parnell MD Primary Care Provider [phone] Encounter Details Date Type Department Care Team (Latest Contact Info) Description 02/22/2024 Transcribe Orders Virtual Department [address] [place] [address] Francisco Parnell MD [address] [place] [phone] Breast screening (Primary Dx) Social History Tobacco [...] unspecified documented in this encounter Care Teams Knot Tying Operator Relationship Specialty Start Date End Date Francisco Parnell MD [address] [place] [address] PCP - General Internal Medicine 01/04/18 documented as of this encounter Additional Source Comments The information contained in this document represents components of the legal health record. It is not the complete legal health record.[facility]
--- OUTSIDE RECORDS SUMMARY | 2024-10-11 16:14 | XMS_ITS | Encounter Summary ---
Author Organization [facility] Address [address] [place] [address] Phone Care Team Providers Care Egg Caser Name Role Phone Francisco Parnell MD Primary Care Provider [phone] Encounter Details Date Type Department Care Team (Late st Contact Info) Description 01/16/2020 Ancillary Orders Virtual Department [address] [place] [phone] Francisco Parnell MD [address] [place] [address] Breast screening Social History Tobacco Use Types [...] unspecified documented in this encounter Care Teams Egg Caser Relationship Specialty Start Date End Date Francisco Parnell MD [address] [place] [address] PCP - General Internal Medicine 01/04/18 documented as of this encounter Additional Source Comments The information contained in this document represents components of the legal health record. It is not the complete legal health record.[facility]
--- OUTSIDE RECORDS SUMMARY | 2024-10-11 16:14 | XMS_ITS | Encounter Summary ---
Author Organization [facility] Address [address] [place] [address] Phone Care Team Providers Care Gas Regulator Repairer Helper Name Role Phone Francisco Parnell MD Primary Care Provider [phone] Encounter Details Date Type Department Care Team (Late st Contact Info) Description 02/13/2020 Procedure Pass [address] [place] [address] Social History Tobacco Use Types Packs/Day Years Used Date Smoking Tobacco: Never Assessed Sex and Gender Information Value Date Recorded Sex Assigned at Not on file Gender Identity Not on file Sexual Orientation Not on file documented as of this encounter Plan of Treatment Not on file documented as of this encounter Visit Diagnoses Not on filedocumented in this encounter Care Teams Gas Regulator Repairer Helper Relationship Specialty Start Date End Date Francisco Parnell MD [address] [place] [phone] PCP - General Internal Medicine 01/04/18 documented as of this encounter Additional Source Comments The information contained in this document represents components of the legal health record. It is not the complete legal health record.[facility]
--- OUTSIDE RECORDS SUMMARY | 2024-10-11 16:14 | XMS_ITS | Encounter Summary ---
Author Organization Formerly [facility] Address [address] [place] [address] Phone Care Team Providers Care Hims Coder Name Role Phone Francisco Parnell MD Primary Care Provider [phone] Encounter Details Date Type Department Care Team (Latest Contact Info) Description 02/09/2022 Transcribe Orders Virtual Department [address] [place] [phone] Francisco Parnell MD [address] [place] [phone] Breast screening (Primary Dx); Functional diarrhea; Irritable [...] EDT) IRON 70 30 - 160 ug/dL [facility] IRON BINDING CAPACITY 325 228 - 428 ug/dL [facility] TRANSFERRIN SATURAT. 22 15 - 50 % [facility] Blood 02/17/2022 3:11 PM EDT 02/17/2022 3:12 PM EDT Francisco Parnell MD LAB BLOOD ORDERABLES [facility] [address] [place] [address] * GGT (Gamma glutamyl transferase) (02/17/2022 3:11 PM EDT) GGT 27 7 - 33 U/L [facility] Blood 02/17/2022 3:11 PM EDT 02/17/2022 3:12 PM EDT Francisco Parnell MD LAB BLOOD ORDERABLES Performing Organization Address City/State/[facility] Co de Phone Number [address] [address] * (ABNORMAL) Comprehensive metabolic panel (02/17/2022 3:11 PM EDT) SODIUM 140 133 - 146 mmol/L [facility] POTASSIUM 4.3 3.3 - 5.1 mmol/L [facility] CHLORIDE 102 96 - 108 mmol/L [facility] CO2 30 21 - 35 mmol/L [facility] BUN 26(H) 6 - 19 mg/dL [facility] CREATININE 0.80 0.5 - 1.5 mg/dL [facility] GLUCOSE 106(H) 70 - 99 mg/dL [facility] ALBUMIN 4.4 3.9 - 4.8 g/dL [facility] TOTAL PROTEIN 7.5 6.5 - 8.0 g/dL [facility] CALCIUM 9.5 8.4 - 10.3 mg/dL [facility] ALKALINE PHOSPHATASE 113 39 - 117 U/L [facility] TOTAL BILIRUBIN 0.2 0.0 - 1.2 mg/dL [facility] AST 28 0 - 37 U/L [facility] ALT 31 0 - 40 U/L [facility] GLOBULIN 3.1 1 - 4.8 g/dL [facility] EGFR 81 >59 mL/min/1.7 3m2 [facility] Comment:Estimated glomerular filtration rate calculated using the CKD-EPI refit equation. ANION GAP 12 10 - 20 mmol/L [facility] Blood 02/17/2022 3:11 PM EDT 02/17/2022 3:12 PM EDT Francisco Parnell MD LAB BLOOD ORDERABLES [facility] [address] [place] [address] documented in this encounter Visit Diagnoses Diagnosis Breast screening- Primary Breast screening, unspecified Functional diarrhea Irritable bowel syndrome with diarrhea Irritable bowel syndrome Abdominal pain, left lower quadrant Breast screening Breast screening, unspecified documented in this encounter Care Teams Hims Coder Relationship Specialty Start Date End Date Francisco Parnell MD [address] [place] [id number] PCP - General Internal Medicine 01/04/18 documented as of this encounter Additional Source Comments The information contained in this document represents components of the legal health record. It is not the complete legal health record.[facility]
--- OUTSIDE RECORDS SUMMARY | 2024-10-11 16:14 | XMS_ITS | Encounter Summary ---
Author Organization [facility] Address [address] [place] [address] Phone Care Team Providers Care Belt Maker Name Role Phone Francisco Parnell MD Primary Care Provider [phone] Encounter Details Date Type Department Care Team (Late st Contact Info) Description 02/05/2023 Procedure Pass [facility] - [address] [place] [address] Social History Tobacco Use Types Packs/Day Years [...] on filedocumented in this encounter Care Teams Belt Maker Relationship Specialty Start Date End Date Francisco Parnell MD [address] [place] [address] [place] [address] PCP - General Internal Medicine 01/04/18 documented as of this encounter Additional Source Comments The information contained in this document represents components of the legal health record. It is not the complete legal health record.[facility]
--- OUTSIDE RECORDS SUMMARY | 2024-10-11 16:14 | XMS_ITS | Encounter Summary ---
Author Organization [facility] Address [address] [place] [phone] Phone Care Team Providers Care Diesel Dinkey Operator Name Role Phone Francisco Parnell MD Primary Care Provider [phone] Encounter Details Date Type Department Care Team (Late st Contact Info) Description 02/09/2022 Procedure Pass [address] [place] [address] Social History Tobacco Use Types Packs/Day Years [...] on filedocumented in this encounter Care Teams Diesel Dinkey Operator Relationship Specialty Start Date End Date Francisco Parnell MD [address] [place] [address] PCP - General Internal Medicine 01/04/18 documented as of this encounter Additional Source Comments The information contained in this document represents components of the legal health record. It is not the complete legal health record.[facility]
--- OUTSIDE RECORDS SUMMARY | 2024-10-11 16:14 | XMS_ITS | Encounter Summary ---
Author Organization [facility] Address [address] [place] [address] Phone Care Team Providers Care Blower Insulator Name Role Phone Francisco Parnell MD Primary Care Provider [phone] Encounter Details Date Type Department Care Team (Late st Contact Info) Description 01/04/2018 Ancillary Orders Virtual Department [address] [place] [address] Francisco Parnell MD [address] [place] [address] Breast screening Social History Tobacco Use Types [...] unspecified documented in this encounter Care Teams Blower Insulator Relationship Specialty Start Date End Date Francisco Parnell MD [address] [place] [address] PCP - General Internal Medicine 01/04/18 documented as of this encounter Additional Source Comments The information contained in this document represents components of the legal health record. It is not the complete legal health record.[facility]
--- OUTSIDE RECORDS SUMMARY | 2024-10-11 16:14 | XMS_ITS | Encounter Summary ---
Author Organization [facility] Address [address] [place] [address] Phone Care Team Providers Care Refrigerator Crater Name Role Phone Francisco Parnell MD Primary Care Provider [phone] Encounter Details Date Type Department Care Team (Late st Contact Info) Description 01/07/2021 Procedure Pass [address] [place] [address] Social History Tobacco Use Types Packs/Day Years [...] on filedocumented in this encounter Care Teams Refrigerator Crater Relationship Specialty Start Date End Date Francisco Parnell MD [address] [place] [address] PCP - General Internal Medicine 01/04/18 documented as of this encounter Additional Source Comments The information contained in this document represents components of the legal health record. It is not the complete legal health record.[facility]
--- OUTSIDE RECORDS SUMMARY | 2024-10-11 16:14 | XMS_ITS | Encounter Summary ---
Author Organization Formerly [facility] Address [address] [place] [address] Phone Care Team Providers Care Senior Electronics Engineer Name Role Phone Francisco Parnell MD Primary Care Provider [phone] Encounter Details Date Type Department Care Team (Late st Contact Info) Description 01/18/2019 Ancillary Orders Virtual Department [address] [place] [address] Francisco Parnell MD [address] [place] [address] Breast screening Social History Tobacco Use Types [...] unspecified documented in this encounter Care Teams Senior Electronics Engineer Relationship Specialty Start Date End Date Francisco Parnell MD [address] [place] [address] PCP - General Internal Medicine 01/04/18 documented as of this encounter Additional Source Comments The information contained in this document represents components of the legal health record. It is not the complete legal health record.[facility]
== END 2024-10-11 15:50 | disposition home or self-care (01) ==
LOC: HO.PMC 15:10
PROVIDERS: PCP Internal Medicine; Referring Provider Orthopaedic Surgery; Visit Provider Anesthesiology
DX: M47.816 Spondylosis without myelopathy or radiculopathy, lumbar region (principal); G89.4 Chronic pain syndrome
CPT/HCPCS: 99203

== ENCOUNTER → 2024-10-11 15:10 | Outpatient (BNVA) | payer MEDICARE, SELFPAY | PROVIDERS: PCP Internal Medicine; Referring Provider Orthopaedic Surgery; Visit Provider Anesthesiology | DX: M47.816 Spondylosis without myelopathy or radiculopathy, lumbar region (principal); G89.4 Chronic pain syndrome | CPT/HCPCS: 99202 ==

== ENCOUNTER 2024-11-28 06:06 | Outpatient (REF) | payer MEDICARE, SELFPAY ==
--- NOTE | ~2024-11-28 | FL_ITS ---
EXAMINATION: XR FLUOROSCOPY WITH IMAGES CLINICAL INFORMATION: Lumbar pain management. COMPARISON: None available. TECHNIQUE: Fluoroscopy provided to: Dr. Martinez Fluoroscopy time: 0.6 minutes DAP: 2.09 uGycm2 Images: 6 FINDINGS: 6 fluoroscopic spot images of the lumbar spine obtained during pain management injections. Please refer to the full operative report for details. FL/FL guidance in treatment room IMPRESSION: Fluoroscopic guidance. Electronically signed by: Tremaine Goodman MD 11/28/2024 03:29 PM EDT
--- OUTSIDE RECORDS SUMMARY | 2024-11-28 06:11 | XMS_ITS | Patient Health Record ---
Author Organization [facility] Address [address] [place] [address] Care Team Providers Care Mold Yard Supervisor Name Role Phone Soheila SORTO, Francisco Primary Care Provider Parish Azar Jr Unavailable Allergies Allergen (clinical drug ingredient) Drug/Non Drug Allergy documented on EMR Reaction Allergy Type Onset Date Status paroxetine Paxil Unknown Drug Allergy Active escitalopram Lexapro Unknown Drug Allergy Acti ve ciprofloxacin Cipro Unknown Drug Allergy Act gui sulfamethoxazole / trimethoprim Bactrim Unknown Drug Allergy Active Reason For Referral No Information Medications Medication SIG (Take, Route, Frequency, Duration) Notes Start Date End Date Status Multivitamin Active Famotidine 20 MG TAKE 1 TABLET BY WALLY TWICE A DAY for 90 Active Amitriptyline HCl 25 MG 1 tablet at bedt michelle Orally Once a day for 30 day(s) Active KlonoPIN Active Calcium Active Choline Active Vitamin D Active Magnesium Active Vitamin C Adult Gummies 125 MG as directed Orally Active Dicyclomine HCl 10 MG 1 tablet Orally 2- 4 times a day 12/10/2022 Active Albuterol Sulfate [...] Problem Status W/U Status Risk Notes Problem 87829187 Epigastric pain (R10.13) Active confirmed Problem 276881945 Irritable bowel syndrome with diarrhea (K58.0) Active confirmed Problem 702413740 Generalized abdominal pain (R10.84) Active confirmed Problem Duodenitis (90026986) Duodenitis (K29.80) Active confirmed Problem 565494673 Gas (R14.3) Active confirmed Problem 428115671 Gallstones (K80.20) Active confirmed Problem 950473635 Abnormal UGI series (R93.3) Active confirmed Plan Of Treatment Pending Test Test Name Order Date CBC w/o DIFF 03/20/2015 CBC w/o DIFF 10/29/2020 CELIAC DISEASE ANTIBODY PANEL 10/29/2020 CELIAC DISEASE [...] Insured Coverage Start Date Coverage End Date [facility] [address] [place] [address] [id number] JANET LONG Self - patient is the insured [...]
== END 2024-11-28 06:07 | disposition home or self-care (01) ==
LOC: CF 06:06
PROVIDERS: Visit Provider Anesthesiology
DX: M47.816 Spondylosis without myelopathy or radiculopathy, lumbar region (principal)
CPT/HCPCS: 64493; 64494; J2003; J2795; Q9967

== ENCOUNTER 2024-11-28 14:00 | Outpatient (AMB) | payer MEDICARE, SELFPAY ==
--- NOTE | 2024-11-28 14:06 | MHC.OFFVIS ---
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 Required: No Allergies red dye Allergy (Severe, Verified 11/28/24 14:08) Unknown ciprofloxacin [From Cipro] Allergy (Intermediate, Verified 11/28/24 14:08) lightheaded/dizzy/GI upset escitalopram [From Lexapro] Allergy (Intermediate, Verified 11/28/24 14:08) vision disturbance/confusion gluten Allergy (Intermediate, Verified 11/28/24 14:08) Gastrointestinal Upset paroxetine [From Paxil] Allergy (Intermediate, Verified 11/28/24 14:08) withdrawal symptoms-did not wean off sulfamethoxazole [From Bactrim] Allergy (Intermediate, Verified 11/28/24 14:08) lightheaded/dizzy/GI upset trimethoprim [From Bactrim] Allergy (Intermediate, Verified 11/28/24 14:08) lightheaded/dizzy/GI upset PFSH Medical History (Updated 10/11/24 @ 15:56 by Corky Martinez MD) Fever Osteoarthritis of left hip Arthritis Thyroid nodule Pulmonary embolism GERD (gastroesophageal reflux disease) Osteoporosis Hyperlipidemia Irritable bowel syndrome with diarrhea Fatty liver Asthma Anxiety and depression Surgical History History of hip surgery (05/07/23) Hx of tonsillectomy H/O esophagogastroduodenoscopy H/O colonoscopy Social History Household Members: Significant Other Housing: Condominium Are you a primary career education teacher to a significant other at home: No Do you presently have visiting nurse or other home services: Yes Alcohol intake: current Alcohol intake frequency: 3 or more drinks per day Alcohol type: hard liquor Comment: tolerable Patient Tobacco Use Status: Former Tobacco user Tobacco use type: Cigarette Years Smoked: 40 Second Hand Smoke Exposure: No service: No Physical Exam Vital Signs: Last Vital Signs Pulse 100 11/28/24 14:47 Resp 18 11/28/24 14:47 BP 118/69 11/28/24 14:47 Pulse Ox 100 11/28/24 14:47 Oxygen Delivery Method Room Air 11/28/24 14:47 Assessment & Plan Assessment & Plan (1) Spondylosis of lumbar region without myelopathy or radiculopathy: Code(s): M47.816 - Spondylosis without myelopathy or radiculopathy, lumbar region Category: Medical Plan: Diagnostic medial branch block L3,L4 dorsal ramus L5 bilateral.? ? ?Informed consent was explained to the patient. All questions were explained and? answered.? The patient was taken inside the operating room where she was positioned prone on the operating table. Time-out was performed delineating correct site, side, the nature of the procedure, patient's allergy, . All operating room staff was participating in OR time-out procedure. ? ? The lower back was prepped with ChloraPrep and draped with sterile towels.? C-arm was brought over the operating field and sq picture of L4-, L5 vertebra and S1 AREA were delineated on the screen.? Point of interest were delineated as confluence of superior articular process of L4 and L5 vertebra bilaterally with corresponding transverse processes as well as confluence of the sacral alae bilaterally with superior articular process of S1.? The projection of the point of interest to the skin were injected with the small amount of local anesthetic lidocaine 2% mixed with ropivacaine 0.5% 1-1 approcimately 1 cc.? After that 22 gauge 3.5 inch spinal needle was driven sequentially to the points of interest in tunnel vision fashion. After needles gently contacted the bone at the point of interests the needle was injected with small amount of the contrast.? The injection of the contrast did not demonstrate any intravascular or intrathecal spread of the contrast.? After that injection of the? ropivacaine 0.5%-1cc was performed at each needle location. ?after that the needles were removed and Bandaids were applied. ? (2) Chronic pain syndrome: Code(s): G89.4 - Chronic pain syndrome Category: Medical Plan I will schedule this patient for diagnostic medial branch block L3, L4, dorsal ramus L5. Depending on the results of the injection I will look into possibility of helping this patient's pain with sprint PNS versus RFA. I also requested her to sign medical information release note and we will obtain the MRI from the [facility]. I also requested patient to bring me the disc from that MRI in case the medial branch block will not alleviate the patient's pain I will be looking into stenotic changes versus Modic type changes in her MRI. Orders: Orders FL guidance in treatment room Today M47.816 - Spondylosis without myelopathy or radiculopathy, lumbar region Coding Level of Care Code Procedure Only Diagnoses Spondylosis of lumbar region without myelopathy or radiculopathy M47.816 Chronic pain syndrome G89.4
[2024-11-28 14:07] VITALS: BP 142/75; PULSE 104; RESP 18; O2SAT 99
[2024-11-28 14:47] VITALS: BP 118/69; PULSE 100; RESP 18; O2SAT 100
== END 2024-11-28 14:49 | disposition home or self-care (01) ==
LOC: HO.PMCPRC 14:00
PROVIDERS: PCP Internal Medicine; Visit Provider Anesthesiology
DX: M47.816 Spondylosis without myelopathy or radiculopathy, lumbar region (principal); G89.4 Chronic pain syndrome
CPT/HCPCS: 64493; 64494

== ENCOUNTER 2024-11-30 09:53 | Outpatient (AMB) | payer MEDICARE, SELFPAY ==
[2024-11-30 10:03] VITALS: BP 135/65; PULSE 101; O2SAT 99; BMI 22.7
--- NOTE | 2024-11-30 10:03 | MHC.OFFVIS ---
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 Allergies red dye Allergy (Severe, Verified 11/30/24 10:04) Unknown ciprofloxacin (From Cipro) Allergy (Intermediate, Verified 11/30/24 10:04) lightheaded/dizzy/GI upset escitalopram (From Lexapro) Allergy (Intermediate, Verified 11/30/24 10:04) vision disturbance/confusion gluten Allergy (Intermediate, Verified 11/30/24 10:04) Gastrointestinal Upset paroxetine (From Paxil) Allergy (Intermediate, Verified 11/30/24 10:04) withdrawal symptoms-did not wean off sulfamethoxazole (From Bactrim) Allergy (Intermediate, Verified 11/30/24 10:04) lightheaded/dizzy/GI upset trimethoprim (From Bactrim) Allergy (Intermediate, Verified 11/30/24 10:04) lightheaded/dizzy/GI upset Medication List - Last Reconciled 11/30/24 by Denice Ochoa, GOVERNMENT SALES MANAGER acetaminophen 650 mg (2 x 325 mg) PO Q6H PRN 30 days albuterol sulfate 90 mcg/actuation 2 puffs inhalation QID PRN amitriptyline 20 mg PO BEDTIME ascorbic acid (vitamin C) (Vitamin C) 500 mg PO BID calcium carbonate-vitamin D3 600 mg-5 mcg (200 unit) 1 tab PO QAM celecoxib 200 mg PO BID 30 days cetirizine (Zyrtec) 10 mg PO BEDTIME clonazepam 1 mg PO BID docusate sodium 100 mg PO BID 30 days famotidine 20 mg PO BID PRN fluticasone propionate 50 mcg/actuation 2 sprays intranasal DAILY loratadine (Claritin) 10 mg PO QAM magnesium oxide 200 mg PO BID multivit with min-folic acid 200 mcg (Multivitamin Gummies) 1 tab PO DAILY nystatin 1 appl topical BID PRN salmeterol (Serevent Diskus) 1 inh inhalation BID walker Folding Front wheeled walker duration 99 days HPI Comments Details: Manju is back in my office after diagnostic medial branch block L3, L4, dorsal ramus L5 bilateral. She reports pain before the procedure 7/10. She reports for the 1st 6 hours after the procedure her pain was 0/10. She reported that she performed multiple activities of daily living including washing dishes and cleaning and she reported pain 0/10. The only situation when her pain was elevated to 2/10 when she was trying to walk more than 15 minutes. I explained to the patient possibility to treat her pain with RFA of the medial branches versus sprint PNS. Patient decided to go for RFA. She wants minimal sedation. I explained to the patient importance of being awake during the procedure. Prior: complains on pain in the lower back. She reports axial pain without radiation into bilateral lower extremities. She reports pain aggravation with standing and walking. She reports pain alleviation with sitting. She reports that the pain started 4 years ago it was waxing and waning and now the pain is aggravated. She believes that her pain is related to arthritis. She reports her pain level 8 out of 10. She received multiple sessions of physical therapy related to her lower back as well as occupational therapy related to hip fractures. She had chiropractic manipulations for her back without any help. She had massage therapy and it did not help her pain. She was under care of associate professor of english and she reported that she has an arthritis. She presume that it was osteoarthritis. Her past medical history significant for asthma irritable bowel syndrome fatigue and headaches. She fractured her right hip and had a surgery on 8 on 05/07/2023. She had hip replacement of the left hip on 07/19/2024. Her surgeon was Dr. Graf. Dr. Graf also diagnose her with left knee osteoarthritis and performed steroid injection in the knee. [facility] Medical History (Updated 10/11/24 @ 15:56 by Corky Martinez MD) Fever Osteoarthritis of left hip Arthritis Thyroid nodule Pulmonary embolism GERD (gastroesophageal reflux disease) Osteoporosis Hyperlipidemia Irritable bowel syndrome with diarrhea Fatty liver Asthma Anxiety and depression Surgical History History of hip surgery (05/07/23) Hx of tonsillectomy H/O esophagogastroduodenoscopy H/O colonoscopy Social History Household Members: Significant Other Housing: Condominium Are you a primary career services representative to a significant other at home: No Do you presently have visiting nurse or other home services: Yes Alcohol intake: current Alcohol intake frequency: 3 or more drinks per day Alcohol type: hard liquor Comment: tolerable Patient Tobacco Use Status: Former Tobacco user Tobacco use type: Cigarette Years Smoked: 40 Second Hand Smoke Exposure: No service: No Review of Systems Const All systems reviewed & are unremarkable except as noted in HPI and below ENT Reports Normal hearing present Neuro Reports Normal hearing present, Denies Abnormal speech present, Denies confusion and Denies Sensory deficit (Neuro) Psych Denies confusion Physical Exam Vital Signs: Last Vital Signs Pulse 101 H 11/30/24 10:03 BP 135/65 11/30/24 10:03 Pulse Ox 99 11/30/24 10:03 Oxygen Delivery Method Room Air 11/30/24 10:03 BMI result Body Mass Index 22.7 Const General: no acute distress; No confusion Orientation/consciousness: patient oriented x3 and No confusion Eyes General: appearance normal, both eyes and all related structures Pupils: Equal, round and reactive pupils present EOM: EOMs intact bilaterally Neck Neck: Yes full ROM Chest Chest palpation & inspection: normal inspection of the chest Resp Effort & Inspection: normal respiratory effort, able to speak in complete sentences, normal respiratory pattern, no audible wheezes and no cough Cardio Jugular venous distension: no JVD GI Inspection: Yes normal to inspection Back/Spine/Pelvis Other: There is tenderness on palpation in paraspinal spinal region lumbar spine. Flexing forward alleviate her pain while flexing backwards make her pain more severe. SLR is negative bilaterally. Loading test is positive bilaterally. Valsalva maneuver does not aggravate her pain. She is able to stand on bilateral tiptoes in bilateral heels demonstrating normal strength of bilateral lower extremities. She is able to lift the big toe in separation from the rest of the toes demonstrating normal function of L5. She denies numbness in lower extremities. Neuro General: patient oriented x3, gait normal and No confusion Cranial nerves: Yes CN's II-XII intact bilaterally, Yes Equal, round and reactive pupils present, Yes Normal hearing present and Yes Ability to bilaterally elevate shoulders present Speech: No Abnormal speech present Gait exam (Neuro): Normal gait present Motor exam (neuro): 5/5 motor strength present throughout Sensory Exam: No Sensory deficit (Neuro) Extrem General: No pedal edema Psych Speech and movement: Normal speech and movement present Affect: normal affect Attitude: cooperative Thought process: Normal thought process present Thought content: Normal thought content present Insight: Good insight present (Psych) Judgement: Good judgement present (Psych) Assessment & Plan Assessment & Plan (1) Spondylosis of lumbar region without myelopathy or radiculopathy: Code(s): M47.816 - Spondylosis without myelopathy or radiculopathy, lumbar region Category: Medical Plan: ? (2) Chronic pain syndrome: Code(s): G89.4 - Chronic pain syndrome Category: Medical Plan Very prominent results of diagnostic medial branch block L3, L4, dorsal ramus L5. See as above. Between the offered RFA and sprint PNS patient chose to go for RFA. I will schedule this patient under minimal sedation. Risks and benefits were carefully explained to the patient. Patient was asking multiple questions. Those were explained to patient's satisfaction. I also requested her to sign medical information release note and we will obtain the MRI from the [facility]. I also requested patient to bring me the disc from that MRI in case the medial branch block will not alleviate the patient's pain I will be looking into stenotic changes versus Modic type changes in her MRI. Patient Instructions: I here by testify that I spent 35 minutes in conversation with this patient as well as planning her care and organizing this note. Coding Level of Care Code Est Pt Level 4 (82471) Diagnoses Spondylosis of lumbar region without myelopathy or radiculopathy M47.816 Chronic pain syndrome G89.4
--- OUTSIDE RECORDS SUMMARY | 2024-11-30 10:55 | XMS_ITS | Patient Health Record ---
Author Organization [facility] Address [address] [place] [address] Care Team Providers Care Analysis Specialist Name Role Phone Soheila SORTO, Francisco Primary Care Provider Parish Azar Jr Unavailable Allergies Allergen (clinical drug ingredient) Drug/Non Drug Allergy documented on EMR Reaction Allergy Type Onset Date Status Paxil Unknown Drug Allergy Active Lexapro Unknown Drug Allergy Active Cipro Unknown Drug Allergy Active Bactrim Unknown Drug Allergy Active Reason For Referral No Information Medications Medication SIG (Take, Route, Frequency, Duration) Notes Start Date End Date Status Multivitamin Active Famotidine 20 MG TAKE 1 TABLET BY WALLY TH TWICE A DAY for 90 Active Amitriptyline [...] Problem Status W/U Status Risk Notes Problem 26116252 Epigastric pain (R10.13) Active confirmed Problem 869173437 Irritable bowel syndrome with diarrhea (K58.0) Active confirmed Problem 343631575 Generalized abdominal pain (R10.84) Active confirmed Problem Duodenitis (K29.80) Active confirmed Problem 231403322 Gas (R14.3) Active confirmed Problem 921030774 Gallstones (K80.20) Active confirmed Problem 059527370 Abnormal UGI series (R93.3) Active confirmed Plan [...] Insured Coverage Start Date Coverage End Date [facility] [address] [place] [address] [phone] [id number] JANET LONG Self - patient is the [...]
== END 2024-11-30 10:31 | disposition home or self-care (01) ==
LOC: HO.PMC 09:53
PROVIDERS: PCP Internal Medicine; Visit Provider Anesthesiology
DX: G89.4 Chronic pain syndrome (principal); M47.816 Spondylosis without myelopathy or radiculopathy, lumbar region
CPT/HCPCS: 99214

== ENCOUNTER → 2024-11-30 09:53 | Outpatient (BNVA) | payer MEDICARE, SELFPAY | PROVIDERS: PCP Internal Medicine; Visit Provider Anesthesiology | DX: M47.816 Spondylosis without myelopathy or radiculopathy, lumbar region (principal); G89.4 Chronic pain syndrome | CPT/HCPCS: 99212 ==

== ENCOUNTER 2025-01-05 11:52 | Day surgery (SDC) | payer MEDICARE, SELFPAY ==
--- OUTSIDE RECORDS SUMMARY | 2024-12-27 14:05 | XMS_ITS | Patient Health Record ---
Author Organization [facility] Address [address] [place] [address] Care Team Providers Care Cook Chili Name Role Phone Francisco Parnell MD Primary Care Provider Parish Azar Jr Unavailable [...] Problem Status W/U Status Risk Notes Problem 10463248 Epigastric pain (R10.13) Active confirmed Problem 539894641 Irritable bowel syndrome with diarrhea (K58.0) Active confirmed Problem 654227189 Generalized abdominal pain (R10.84) Active confirmed Problem Duodenitis (07064080) Duodenitis (K29.80) Active confirmed Problem 417451232 Gas (R14.3) Active confirmed Problem 988352978 Gallstones (K80.20) Active confirmed Problem 641304500 Abnormal UGI series (R93.3) Active confirmed Plan [...] Insured Coverage Start Date Coverage End Date [facility] [address] [place] [address] [phone] [id number] JANET LONG Self - patient is the [...]
[2025-01-03 14:34] VITALS: BMI 22.7
--- NOTE | ~2025-01-05 | FL_ITS ---
EXAMINATION: FL GUIDANCE ONLY HISTORY: L3 L4 DR L5 MBB, BILATERAL COMPARISON: None available. TECHNIQUE: Fluoroscopy time: 32.2 seconds. Cumulative Dose: 6.6355 mGy. DAP: 2.8864 mGym2 Images: 12. FINDINGS: Fluoroscopic spot films of the lumbar spine the AP projection demonstrate needles and contrast material in the regions of the bilateral L3-4, L4-5, and L5-S1 facet joints. FL/FL guidance in OR IMPRESSION: Fluoroscopy during procedure. Please see procedure report for additional information. Electronically signed by: Gamaliel Goodwin MD 01/09/2025 10:37 AM EDT
[2025-01-05 12:21] VITALS: BP 127/68; PULSE 81; RESP 18; TEMP 36.9; O2SAT 97; BMI 22.2
--- NOTE | 2025-01-05 14:26 | MHC.SHP ---
Pre-Procedural Eval Section A - 24 Hr Update-Section A only Date of Service: 01/05/25 The patient is an INPATIENT: No Changes since office visit: Yes Patient answered all questions The patient has been examined within 24 hours of the surgical procedure. The History & Physical has been completed within 30 days and I have reviewed it.: No Section B - Complete if H&P > 30 days Chief Complaint: Spondylosis without myelopathy/radiculopathy,pain Details of Present Illness: As above Relevant Family History (Specify if Yes): No Relevant Social History: None Present Medications: see Short Stay Collaborative assessment Medical History: No relevant PMH History of Previous Operations: No relevant previous surgery Allergies: Allergies Allergy/AdvReac Type Severity Reaction Status Date / Time red dye Allergy Severe Unknown Verified 11/30/24 10:04 ciprofloxacin (From Cipro) Allergy Intermediate lightheaded/dizzy/GI Verified 11/30/24 10:04 upset escitalopram (From Lexapro) Allergy Intermediate vision Verified 11/30/24 10:04 disturbance/confusion gluten Allergy Intermediate Gastrointestinal Verified 11/30/24 10:04 Upset paroxetine (From Paxil) Allergy Intermediate withdrawal Verified 11/30/24 10:04 symptoms-did not wean off sulfamethoxazole (From Allergy Intermediate lightheaded/dizzy/GI Verified 11/30/24 10:04 Bactrim) upset trimethoprim (From Bactrim) Allergy Intermediate lightheaded/dizzy/GI Verified 11/30/24 10:04 upset Review of Systems Sugical H&P ROS: Negative: Constitution, Cardiovascular, Respiratory, Neurological, Psychiatric, Hem-Onc, Allergic/Immunologic, Gastrointestinal, Genitourinary, Musculoskeletal, Integumentary, Endocrine and Eyes/Ears/Nose/Throat Exam Surgical H&P Exam: Normal: HEENT, Normal: Heart, Normal: Lungs, Normal: Extremities, Normal: Abdomen, Normal: Skin and Normal: Neurological Plan Diagnosis/Plan: Unchanged I have reviewed the history and physical and performed a pertinent physical examination on my patient. No changes have occurred unless specified. Time Spent With Patient Time: Total time managing care of this patient today ____ minutes.
[2025-01-05 14:55] VITALS: BP 132/72; PULSE 87; RESP 20; TEMP 37.2; O2SAT 98
--- NOTE | 2025-01-05 14:59 | P.OP_ITS ---
Operative Note Operative Note Date of Service: 01/05/25 Narrative: Diagnostic medial branch block L3,L4 dorsal ramus L5 bilateral.? ? ?Informed consent was explained to the patient. All questions were explained and? answered.? The patient was taken inside the operating room where she was positioned prone on the operating table. Time-out was performed delineating correct site, side, the nature of the procedure, patient's allergy, . All operating room staff was participating in OR time-out procedure. ? ? The lower back was prepped with ChloraPrep and draped with sterile towels.? C- arm was brought over the operating field and sq picture of L4-, L5 vertebra and S1 AREA were delineated on the screen.? Point of interest were delineated as confluence of superior articular process of L4 and L5 vertebra bilaterally with corresponding transverse processes as well as confluence of the sacral alae bilaterally with superior articular process of S1.? The projection of the point of interest to the skin were injected with the small amount of local anesthetic lidocaine 2% mixed with ropivacaine 0.5% 1-1 approcimately 1 cc.? After that 22 gauge 3.5 inch spinal needle was driven sequentially to the points of interest in tunnel vision fashion. After needles gently contacted the bone at the point of interests the needle was injected with small amount of the contrast.? The injection of the contrast did not demonstrate any intravascular or intrathecal spread of the contrast.? After that injection of the? bupivacaine 0.5% with epinephrine 1 mL was performed at each needle location. ?after that the needles were removed and Bandaids were applied. The patient tolerated the procedure well. ?
--- NOTE | 2025-01-05 15:01 | P.BOP_ITS ---
Brief Operative Note Date of Service: 01/05/25 Pre-op diagnosis: Spondylosis lumbar without myelopathy or radiculopathy Post-op diagnosis: same Procedure: Diagnostic #2. Medial branch block L3, L4, dorsal ramus L5 Surgeon: Corky Martinez MD Was an Employee Development Specialist used for this Procedure?: No Estimated blood loss (mL): 0 Condition: stable Disposition: PACU
== END 2025-01-05 15:10 | disposition home or self-care (01) ==
PROVIDERS: PCP Internal Medicine; Visit Provider Anesthesiology
PROC: (CPT 64493; principal; 2025-01-05 13:40)
DX: M47.816 Spondylosis without myelopathy or radiculopathy, lumbar region (principal); G89.4 Chronic pain syndrome; M54.50 Low back pain, unspecified; R26.2 Difficulty in walking, not elsewhere classified; R53.83 Other fatigue; R51.9 Headache, unspecified; F41.8 Other specified anxiety disorders; M17.12 Unilateral primary osteoarthritis, left knee; M16.12 Unilateral primary osteoarthritis, left hip; J45.909 Unspecified asthma, uncomplicated; Z86.711 Personal history of pulmonary embolism; Z79.51 Long term (current) use of inhaled steroids; Z79.899 Other long term (current) drug therapy; Z91.041 Radiographic dye allergy status; Z88.2 Allergy status to sulfonamides; Z88.8 Allergy status to other drugs, medicaments and biological substances; Z98.890 Other specified postprocedural states
CPT/HCPCS: 64493; 64494; J2003; Q9967

== ENCOUNTER → 2025-01-05 11:52 | Outpatient (BNV) | payer MEDICARE, SELFPAY | PROVIDERS: PCP Internal Medicine; Visit Provider Anesthesiology | DX: M47.816 Spondylosis without myelopathy or radiculopathy, lumbar region (principal) | CPT/HCPCS: 64493; 64494 ==

== ENCOUNTER 2025-01-12 13:20 | Outpatient (AMB) | payer MEDICARE, SELFPAY ==
--- NOTE | 2025-01-12 13:23 | MHC.OFFVIS ---
Vital Signs 01/12/25 13:27 01/12/25 13:27 Height 5 ft 4 in Weight 123 lb BMI 21.1 BP 132/100 H 154/71 H Blood Pressure Location Rt brachial Lt brachial Position Sitting Sitting Pulse 101 H Pulse Source Pulse Oximeter Pulse Oximetry (%) 96 Oxygen Delivery Method Room Air Comment bp recheck Intake Visit Reasons: S/p B/l DX L3-L4-DR L5 MBB 01/05/25 Intake Note: Pain today 0/10 Health And Social Care Teacher Required: No Accompanied by: Self / Same As Patient Allergies red dye Allergy (Severe, Verified 01/12/25 13:28) Unknown ciprofloxacin (From Cipro) Allergy (Intermediate, Verified 01/12/25 13:28) lightheaded/dizzy/GI upset escitalopram (From Lexapro) Allergy (Intermediate, Verified 01/12/25 13:28) vision disturbance/confusion gluten Allergy (Intermediate, Verified 01/12/25 13:28) Gastrointestinal Upset paroxetine (From Paxil) Allergy (Intermediate, Verified 01/12/25 13:28) withdrawal symptoms-did not wean off sulfamethoxazole (From Bactrim) Allergy (Intermediate, Verified 01/12/25 13:28) lightheaded/dizzy/GI upset trimethoprim (From Bactrim) Allergy (Intermediate, Verified 01/12/25 13:28) lightheaded/dizzy/GI upset HPI Comments Details: The patient is a 69-year-old female presenting with chronic back pain. She underwent repeat diagnostic bilateral L3-L4-L5 medial branch blocks on 01/05/25 to evaluate for potential radiofrequency ablation (RFA). Post-procedure, her pain level is reported as 0/10, although she experienced mild pain for one or two days following the injections. The patient reports being able to walk for only 10 minutes without a cane before experiencing significant back pain, necessitating rest. She has history of hip OA and underwent bilateral hip replacements. She denies any numbness or tingling in the legs and has no history of spinal stenosis, as confirmed by a previous MRI. Denies any recent cough, cold, infection, fever or any significant changes in medical history since last office visit. PRIOR Dr. Martinez 11/30/24: Manju is back in my office after diagnostic medial branch block L3, L4, dorsal ramus L5 bilateral. She reports pain before the procedure 7/10. She reports for the 1st 6 hours after the procedure her pain was 0/10. She reported that she performed multiple activities of daily living including washing dishes and cleaning and she reported pain 0/10. The only situation when her pain was elevated to 2/10 when she was trying to walk more than 15 minutes. I explained to the patient possibility to treat her pain with RFA of the medial branches versus sprint PNS. Patient decided to go for RFA. She wants minimal sedation. I explained to the patient importance of being awake during the procedure. Prior: complains on pain in the lower back. She reports axial pain without radiation into bilateral lower extremities. She reports pain aggravation with standing and walking. She reports pain alleviation with sitting. She reports that the pain started 4 years ago it was waxing and waning and now the pain is aggravated. She believes that her pain is related to arthritis. She reports her pain level 8 out of 10. She received multiple sessions of physical therapy related to her lower back as well as occupational therapy related to hip fractures. She had chiropractic manipulations for her back without any help. She had massage therapy and it did not help her pain. She was under care of whiskey proof reader and she reported that she has an arthritis. She presume that it was osteoarthritis. Her past medical history significant for asthma irritable bowel syndrome fatigue and headaches. She fractured her right hip and had a surgery on 8 on 05/07/2023. She had hip replacement of the left hip on 07/19/2024. Her surgeon was Dr. Graf. Dr. Graf also diagnose her with left knee osteoarthritis and performed steroid injection in the knee. [facility] Medical History Cataract Hx of diagnostic tests Fever Osteoarthritis of left hip Arthritis Thyroid nodule Pulmonary embolism GERD (gastroesophageal reflux disease) Osteoporosis Hyperlipidemia Irritable bowel syndrome with diarrhea Fatty liver Asthma Anxiety and depression Surgical History History of hip surgery (05/07/23) Hx of tonsillectomy H/O esophagogastroduodenoscopy H/O colonoscopy Social History Household Members: Significant Other Housing: Condominium Are you a primary youth care worker to a significant other at home: No Do you presently have visiting nurse or other home services: Yes Alcohol intake: current Alcohol intake frequency: a few times a week Alcohol type: hard liquor Comment: tolerable Patient Tobacco Use Status: Former Tobacco user Tobacco use type: Cigarette Years Smoked: 40 Second Hand Smoke Exposure: No service: No Review of Systems Const Details: - Musculoskeletal: Reports mild back pain post-procedure, denies numbness or tingling in the legs - Neurological: Denies numbness or tingling in the legs, bladder or bowel dysfunction, or saddle anesthesia All systems reviewed & are unremarkable except as noted in HPI and below ENT Reports Normal hearing present Neuro Reports Normal hearing present, Denies Abnormal speech present, Denies confusion and Denies Sensory deficit (Neuro) Psych Denies confusion Physical Exam Vital Signs: Last Vital Signs Pulse 101 H 01/12/25 13:27 BP 154/71 H 01/12/25 13:27 Pulse Ox 96 01/12/25 13:27 Oxygen Delivery Method Room Air 01/12/25 13:27 BMI result Body Mass Index 21.1 Const General: cooperative, healthy appearing, comfortable, no acute distress and well groomed; No confusion Orientation/consciousness: patient oriented x3 and No confusion Limitations: no limitations Eyes General: appearance normal, both eyes and all related structures Pupils: Equal, round and reactive pupils present EOM: EOMs intact bilaterally Resp Effort & Inspection: normal respiratory effort, able to speak in complete sentences, normal respiratory pattern, no audible wheezes and no cough Cardio Jugular venous distension: no JVD Peripheral pulses: Peripheral pulses 2+ throughout GI Inspection: Yes normal to inspection Palpation (GI): Soft to palpation, nontender and no guarding General: Yes no CVA tenderness Back/Spine/Pelvis Other: Limited lumbar ROM; minimal pain s/p recent medial branch blocks. Mild TTP in paraspinal spinal region lumbar spine. Flexing forward alleviate her pain while flexing backwards make her pain more mild-moderate. SLR is negative bilaterally. Loading test is positive bilaterally. Valsalva maneuver does not aggravate her pain. She is able to stand on bilateral tiptoes in bilateral heels demonstrating normal strength of bilateral lower extremities. Back: no CVA tenderness Cervical Spine: cervical ROM normal, cervical muscular tenderness and No Cervical spine tenderness Thoracic/Lumbar Spine: thoracic and lumbar spine normal to inspection, No Thoracic/lumbar spine scar(s), Lasegue's sign negative, straight leg raise negative bilaterally, pain with thoraco-lumbar ROM, thoraco-lumbar ROM limited, No thoracic spinal tenderness and No lumbar spinal tenderness Sacroiliac joints: bilaterally nontender Neuro General: patient oriented x3, gait normal and No confusion Cranial nerves: Yes CN's II-XII intact bilaterally, Yes Equal, round and reactive pupils present, Yes Normal hearing present and Yes Ability to bilaterally elevate shoulders present Speech: No Abnormal speech present Gait exam (Neuro): Normal gait present Motor exam (neuro): 5/5 motor strength present throughout Sensory Exam: No Sensory deficit (Neuro) Extrem General: Yes capillary refill normal, Yes no clubbing, cyanosis or edema and Yes no calf tenderness Psych Speech and movement: Normal speech and movement present Affect: normal affect Attitude: cooperative Thought process: Normal thought process present Thought content: Normal thought content present Insight: Good insight present (Psych) Judgement: Good judgement present (Psych) Results Reviewed Results Reviewed: CT abdomen pelvis w IV con 05/06/23 OSSEOUS STRUCTURES: Previously documented comminuted fracture involving the intertrochanteric region of the right femur and associated soft tissue hematoma is reidentified. Marked diffuse osteopenia is noted. Multilevel moderate degenerative spondylosis related changes are present. Moderate to severe osteoarthrosis of the left hip. Assessment & Plan Assessment & Plan (1) Spondylosis of lumbar region without myelopathy or radiculopathy: Code(s): M47.816 - Spondylosis without myelopathy or radiculopathy, lumbar region Category: Medical (2) Chronic pain syndrome: Code(s): G89.4 - Chronic pain syndrome Category: Medical (3) Lumbar degenerative disc disease: Code(s): M51.369 - Other intervertebral disc degeneration, lumbar region without mention of lumbar back pain or lower extremity pain Category: Medical Plan Schedule Bilateral L3-L4-DR L5 Medical Branch RFA with sedation and fluoroscopy given successful initial and repeat diagnostic lumbar MBB. Expectations, risks and benefits were reviewed. Patient is aware she will be contacted to schedule this procedure. All questions and concerns have been answered and patient agreed with the plan. Follow up with Dr. Martinez after RFA and sooner as needed. Patient was informed and verbally consented to the use of an ambient scribe for clinic note documentation during this visit. Coding Level of Care Code Est Pt Level 3 (47167) Complex EM visit Add On G2211 Diagnoses Spondylosis of lumbar region without myelopathy or radiculopathy M47.816 Chronic pain syndrome G89.4 Lumbar degenerative disc disease M51.369
--- OUTSIDE RECORDS SUMMARY | 2025-01-12 13:25 | XMS_ITS | Clinical Summary ---
Author Organization [facility] Address [address] [place] [address] Phone Care Team Providers Care Staff Auditor Name Role Phone Francisco Parnell MD Primary Care Provider [phone] Allergies Active Allergy Reactions Criticality Noted Date Comments Sulfamethoxazole-Trimethoprim 2020 Ciprofloxacin 01/10/2021 Sulfa (Sulfonamide Antibiotics) 12/14 Medications ascorbic acid, vitamin C, 500 mg Cap Orally Active calcium carbonate-vitami n D3 1,500 mg (600 mg elemental)-200 units Tab Take 1 tablet by mouth daily. with food Active amitriptyline (ELAVIL) 25 MG tablet Take 1 tablet by mouth nightly. Active clonazePAM (KLONOPIN) 0.5 MG tablet Take 1 tablet by mouth 2 (two) times a day. Active Lactobacillus acidophilus Cap as directed Orally Active Medication-Free Text Spacer/Aero Chamber Mouthpiece device device, Sig: as directed inhalation bid prn 2 Active albuterol 2.5 mg /3 mL (0.083 %) nebulizer solution 3 ml as needed Inhalation every 4 hrs prn 2 Active Medication-Free Text Joint Health 750-375-30 MG Tablet, Si tablets with a meal Orally Once a day Active nystatin-triamci nolone ointment 1 application to affected area Externally [...] with a working camera? Not on file Comments No Sex and Gender Information Value Date Recorded Sex Assigned at Not on file Legal Sex Female 9:56 PM EDT Gender Identity Not on file Sexual Orientation Not on file Last Filed Vital Signs Vital Sign Reading Time Taken Comments Blood Pressure 130/90 01/10/2021 5:57 PM EDT Pulse 101 01/10/2021 5:57 PM EDT Temperature 36.8 C (98.3 F) 01/10/2021 5:57 PM EDT Respiratory Rate 16 01/10/2021 5:57 PM EDT [...] Hx and SMOKELESS TOBACCO SCREENING 09/21/1967 HEPATITIS C SCREENING 1972 COLOGUARD 09/21/1999 FIT TEST 09/21/1999 FOBT 09/21/1999 SIGMOIDOSCOPY 09/21/1999 VIRTUAL COLONOSCOPY 09/21/1999 OSTEOPOROSIS SCREENING INITIAL (ONE-TIME) 09/21/2019 COLONOSCOPY 03/08/2022 03/08/2012 COLORECTAL CANCER SCREENING 03/08/2022 COVID-19 VACCINE ( season) 2024 03/09/2021, 08/12/2020, 07/22/2020 Adult Td,Tdap [...] age to complete this topic MENINGOCOCCAL VACCINES (B) Aged Out N o longer eligible based on patient's age to [...] recommendations. Francisco Parnell MD IMG MG EXAMS Final Result from Last 3 Months or Most Recently Relevant to Health Maintenance Insurance MEDICARE PPO BLUE REPLACEMENT [facility] MEDICARE PPO BLUE REPLACEMENT MEDICARE PPO BLUE REPLACEMENT MEDICARE PPO BLUE REPLACEMENT MEDICARE PPO BLUE REPLACEMENT MEDICARE PPO BLUE REPLACEMENT MEDICARE PPO BLUE REPLACEMENT MEDICARE PPO BLUE REPLAC[place] [place] MED[place] P[place] BLUE REPLACEMENT Care Teams Staff Auditor Relationship Specialty Start Date End Date Francisco Parnell MD [address] [place] [id number] PCP - General Internal Medicine 01/04/18 Additional Source Comments The information contained in this document represents components of the legal health record. It is not the complete legal health record.[facility]
--- OUTSIDE RECORDS SUMMARY | 2025-01-12 13:25 | XMS_ITS | Patient Health Record ---
Author Organization [facility] Address [address] [place] [address] Care Team Providers Care Audit Associate Name Role Phone Soheila SORTO, Francisco Primary Care Provider Parish Azar Jr Unavailable [phone] Allergies Allergen (clinical drug ingredient) Drug/Non Drug [...] Problem Status W/U Status Risk Notes Problem 17270856 Epigastric pain (R10.13) Active confirmed Problem 031894009 Irritable bowel syndrome with diarrhea (K58.0) Active confirmed Problem 469723345 Generalized abdominal pain (R10.84) Active confirmed Problem Duodenitis (K29.80) Active confirmed Problem 319743068 Gas (R14.3) Active confirmed Problem 335845508 Gallstones (K80.20) Active confirmed Problem 561772582 Abnormal UGI series (R93.3) Active confirmed Plan [...] Insured Coverage Start Date Coverage End Date [facility] [address] [place] [address] [phone] [id number] JANET LONG Self - patient is the [...]
[2025-01-12 13:27] VITALS: BP 132/100; BP 154/71; PULSE 101; O2SAT 96; BMI 21.1
== END 2025-01-12 13:48 | disposition home or self-care (01) ==
LOC: HO.PMC 13:20
PROVIDERS: PCP Internal Medicine; Visit Provider Nurse Practitioner Family
DX: M47.816 Spondylosis without myelopathy or radiculopathy, lumbar region (principal); G89.4 Chronic pain syndrome; M51.369 Other intervertebral disc degeneration, lumbar region without mention of lumbar back pain or lower extremity pain
CPT/HCPCS: 99213; G2211

== ENCOUNTER → 2025-01-12 13:20 | Outpatient (BNVA) | payer MEDICARE, SELFPAY | PROVIDERS: PCP Internal Medicine; Visit Provider Nurse Practitioner Family | DX: M47.816 Spondylosis without myelopathy or radiculopathy, lumbar region (principal); G89.4 Chronic pain syndrome; M51.369 Other intervertebral disc degeneration, lumbar region without mention of lumbar back pain or lower extremity pain | CPT/HCPCS: 99212 ==

== ENCOUNTER 2025-02-09 09:29 | Day surgery (SDC) | payer MEDICARE, SELFPAY ==
--- OUTSIDE RECORDS SUMMARY | 2025-01-25 12:01 | XMS_ITS | Clinical Summary ---
Author Organization [facility] Address [address] [place] [address] Phone Care Team Providers Care Veneer Jointer Helper Name Role Phone Francisco Parnell MD Primary Care Provider [phone] Allergies Active Allergy Reactions Criticality Noted Date [...] Health Maintenance Insurance MEDICARE PPO BLUE REPLACEMENT [facility] MEDICARE PPO BLUE REPLACEMENT MEDICARE PPO BLUE REPLACEMENT MEDICARE PPO BLUE REPLACEMENT MEDICARE PPO BLUE REPLACEMENT MEDICARE PPO BLUE REPLACEMENT MEDICARE PPO BLUE REPLACEMENT MEDICARE PPO BLUE [place]PLAC[place]UE REPLACEMENT Care Teams Veneer Jointer Helper Relationship Specialty Start Date End Date Francisco Parnell MD [address] [place] [phone] PCP - General Internal Medicine 01/04/18 Additional Source Comments The information contained in this document represents components of the legal health record. It is not the complete legal health record.[facility]
--- OUTSIDE RECORDS SUMMARY | 2025-01-25 12:02 | XMS_ITS | Patient Health Record ---
Author Organization [facility] Address [address] [place] [address] Care Team Providers Care Retail Marketing Coordinator Name Role Phone Soheila SORTO, Francisco Primary [...] Problem Status W/U Status Risk Notes Problem 46938530 Epigastric pain (R10.13) Active confirmed Problem 014518669 Irritable bowel syndrome with diarrhea (K58.0) Active confirmed Problem 739337636 Generalized abdominal pain (R10.84) Active confirmed Problem Duodenitis (K29.80) Active confirmed Problem 084933996 Gas (R14.3) Active confirmed Problem 887201908 Gallstones (K80.20) Active confirmed Problem 798665579 Abnormal UGI series (R93.3) Active confirmed Plan [...] Insured Coverage Start Date Coverage End Date [facility] [address] [place] [address] [phone] [id number] JANET LONG Self - patient is the [...]
[2025-02-06 14:11] VITALS: BMI 21.1
--- NOTE | 2025-02-08 08:32 | HO.ANESPROP2 ---
Documented by User: Beth Pacheco NP 02/08/25 08:35 HPI - Anesthesia Eval Consult details Narrative: 69yo F for Bilateral L3,L4,DR L5 Medial Branch Radiofrequency AB PMFSH Active Problems Active Problems: All Active Problems Lumbar degenerative disc disease (Acute) Chronic pain syndrome (Acute) Spondylosis of lumbar region without myelopathy or radiculopathy (Acute) Low back pain potentially associated with radiculopathy (Acute) Osteoarthritis of left knee (Acute) Influenza A (Acute) S/P total left hip arthroplasty (Acute) Osteoarthritis of right hip (Acute) Anemia (Acute) Hypokalemia (Acute) Sepsis (Acute) Acute UTI (Acute) Retention of urine, unspecified (Acute) Right hip pain (Acute) Pulmonary embolism (Acute) Past Medical History Medical History Hx of diagnostic tests Osteoarthritis of left hip Arthritis Thyroid nodule Pulmonary embolism GERD (gastroesophageal reflux disease) Osteoporosis Hyperlipidemia Irritable bowel syndrome with diarrhea Fatty liver Asthma Anxiety and depression Family History Family history of problems with anesthesia: No Surgical History Surgical History History of total left hip arthroplasty Hx of right cataract extraction History of hip surgery (05/07/23) Hx of tonsillectomy H/O esophagogastroduodenoscopy H/O colonoscopy History of Problems with Anesthesia: No Social History Social History Household Members: Significant Other [facility]: [facility] Are you a primary intensive care unit registered nurse to a significant other at home: No Do you presently have visiting nurse or other home services: Yes Alcohol intake: current Alcohol intake frequency: a few times a week Alcohol type: hard liquor Comment: tolerable Patient Tobacco Use Status: Former Tobacco user Tobacco use type: Cigarette Years Smoked: 40 Second Hand Smoke Exposure: No Use of substances other than those prescribed or required for medical reasons: No Are you DNR?: No Advance Directives: No Advance Directives Information Provided: Yes service: No Meds Allergies Allergy/AdvReac Type Severity Reaction Status Date / Time red dye Allergy Severe Unknown Verified 02/09/25 10:38 ciprofloxacin (From Cipro) Allergy Intermediate lightheaded/dizzy/GI Verified 02/09/25 10:38 upset escitalopram (From Lexapro) Allergy Intermediate vision Verified 02/09/25 10:38 disturbance/confusion gluten Allergy Intermediate Gastrointestinal Verified 02/09/25 10:38 Upset paroxetine (From Paxil) Allergy Intermediate withdrawal Verified 02/09/25 10:38 symptoms-did not wean off sulfamethoxazole (From Allergy Intermediate lightheaded/dizzy/GI Verified 02/09/25 10:38 Bactrim) upset trimethoprim (From Bactrim) Allergy Intermediate lightheaded/dizzy/GI Verified 02/09/25 10:38 upset Home Medications ?Medication ?Instructions ?Recorded ?Confirmed ?Last Taken ?Type albuterol sulfate 90 mcg/actuation 2 puff inhalation QID PRN wheezing 12/28/22 02/06/25 05/05/23 History aerosol inhaler amitriptyline 10 mg tablet 20 mg PO BEDTIME 12/28/22 02/06/25 07/18/24 History famotidine 20 mg tablet 20 mg PO BID PRN gi upset 12/28/22 02/06/25 05/27/23 History salmeterol 50 mcg/dose blister 1 inh inhalation BID 12/28/22 02/06/25 07/19/24 05:30 History powder for inhalation (Serevent Diskus) clonazepam 1 mg tablet 1 mg PO BID 05/07/23 02/06/25 07/19/24 05:30 History nystatin 100,000 unit/gram topical 1 appl topical BID PRN Rash 05/07/23 02/06/25 Unknown History cream fluticasone propionate 50 2 spray intranasal DAILY allergy 06/23/24 02/06/25 Unknown History mcg/actuation nasal symptoms spray,suspension loratadine 10 mg tablet (Claritin) 10 mg PO QAM 06/23/24 02/06/25 07/19/24 05:30 History ascorbic acid (vitamin C) 500 mg 500 mg PO BID 06/26/24 02/06/25 07/12/24 History tablet (Vitamin C) calcium 600 mg (as 1 tab PO QAM 06/26/24 02/06/25 07/12/24 History carbonate)-vitamin D3 5 mcg (200 unit) tablet cetirizine 10 mg tablet (Zyrtec) 10 mg PO BEDTIME 06/26/24 02/06/25 07/18/24 History magnesium oxide 200 mg PO BID 06/26/24 02/06/25 07/12/24 History multivitamin with minerals-folic 1 tab PO DAILY 06/26/24 02/06/25 07/12/24 History acid 200 mcg chewable tablet (Multivitamin Gummies) Exam Height,Weight and Vital Signs: Height 5 ft 4 in Weight 55.792 kg Pertinent Lab Results Pertinent Lab Results: Laboratory Tests 07/22/24 05:52 WBC 4.4 L Hgb 10.4 L D Hct 30.4 L Plt Count 184 Sodium 138 Potassium 3.7 Chloride 106 Carbon Dioxide 22 BUN 13 Creatinine 0.61 Assessment and Plan Assessment Anesthesia Assessment: Chart Reviewed Final Anesthetic Review Family History of Problems with Anesthesia: No History of Problems with Anesthesia: No Documented by User: Celia Glez MD 02/09/25 12:00 [facility] Past Medical History Medical History Hx of diagnostic tests Osteoarthritis of left hip Arthritis Thyroid nodule Pulmonary embolism GERD (gastroesophageal reflux disease) Osteoporosis Hyperlipidemia Irritable bowel syndrome with diarrhea Fatty liver Asthma Anxiety and depression Surgical History Surgical History History of total left hip arthroplasty Hx of right cataract extraction History of hip surgery (05/07/23) Hx of tonsillectomy H/O esophagogastroduodenoscopy H/O colonoscopy Social History Social History Household Members: Significant Other Housing: Condominium Are you a primary intensive care unit registered nurse to a significant other at home: No Do you presently have visiting nurse or other home services: Yes Alcohol intake: current Alcohol intake frequency: a few times a week Alcohol type: hard liquor Comment: tolerable Patient Tobacco Use Status: Former Tobacco user Tobacco use type: Cigarette Years Smoked: 40 Second Hand Smoke Exposure: No Use of substances other than those prescribed or required for medical reasons: No Are you DNR?: No Advance Directives: No Advance Directives Information Provided: Yes service: No Meds Allergies Allergy/AdvReac Type Severity Reaction Status Date / Time red dye Allergy Severe Unknown Verified 02/09/25 10:38 ciprofloxacin (From Cipro) Allergy Intermediate lightheaded/dizzy/GI Verified 02/09/25 10:38 upset escitalopram (From Lexapro) Allergy Intermediate vision Verified 02/09/25 10:38 disturbance/confusion gluten Allergy Intermediate Gastrointestinal Verified 02/09/25 10:38 Upset paroxetine (From Paxil) Allergy Intermediate withdrawal Verified 02/09/25 10:38 symptoms-did not wean off sulfamethoxazole (From Allergy Intermediate lightheaded/dizzy/GI Verified 02/09/25 10:38 Bactrim) upset trimethoprim (From Bactrim) Allergy Intermediate lightheaded/dizzy/GI Verified 02/09/25 10:38 upset Home Medications ?Medication ?Instructions ?Recorded ?Confirmed ?Last Taken ?Type albuterol sulfate 90 mcg/actuation 2 puff inhalation QID PRN wheezing 12/28/22 02/06/25 05/05/23 History aerosol inhaler amitriptyline 10 mg tablet 20 mg PO BEDTIME 12/28/22 02/06/25 07/18/24 History famotidine 20 mg tablet 20 mg PO BID PRN gi upset 12/28/22 02/06/25 05/27/23 History salmeterol 50 mcg/dose blister 1 inh inhalation BID 12/28/22 02/06/25 07/19/24 05:30 History powder for inhalation (Serevent Diskus) clonazepam 1 mg tablet 1 mg PO BID 05/07/23 02/06/25 07/19/24 05:30 History nystatin 100,000 unit/gram topical 1 appl topical BID PRN Rash 05/07/23 02/06/25 Unknown History cream fluticasone propionate 50 2 spray intranasal DAILY allergy 06/23/24 02/06/25 Unknown History mcg/actuation nasal symptoms spray,suspension loratadine 10 mg tablet (Claritin) 10 mg PO QAM 06/23/24 02/06/25 07/19/24 05:30 History ascorbic acid (vitamin C) 500 mg 500 mg PO BID 06/26/24 02/06/25 07/12/24 History tablet (Vitamin C) calcium 600 mg (as 1 tab PO QAM 06/26/24 02/06/25 07/12/24 History carbonate)-vitamin D3 5 mcg (200 unit) tablet cetirizine 10 mg tablet (Zyrtec) 10 mg PO BEDTIME 06/26/24 02/06/25 07/18/24 History magnesium oxide 200 mg PO BID 06/26/24 02/06/25 07/12/24 History multivitamin with minerals-folic 1 tab PO DAILY 06/26/24 02/06/25 07/12/24 History acid 200 mcg chewable tablet (Multivitamin Gummies) Exam Airway Mallampati Class: III (missing multiple teeth, denies anything loose) TM Dist: >3cm Neck ROM: Full Heart: rrr Lungs: cta Assessment and Plan Assessment Anesthesia Assessment: Anesthesia Plan Discussed Final Anesthetic Review NPO: Yes ASA Class: III Final Preanesthetic Review: No Changes in Pt Med Stat, Meds/Allgs Chart Reviewed and Consent Obtained/Reviewed Patient Risk: Low Procedure Risk: Low Anesthetic Plan Anesthetic Plan: MAC: Disposition: Standard PACU
--- NOTE | ~2025-02-09 | FL_ITS ---
EXAMINATION: FL GUIDANCE ONLY HISTORY: L3 L4 AND L5 MEDIAL BRANCH RFA COMPARISON: None available. TECHNIQUE: Fluoroscopy time: 58.6 seconds. Cumulative Dose: 12.862 mGy. DAP: 3.684 mGym2 Images: 4. FINDINGS: Endoscopic spot films of the lumbar spine demonstrate needles in the region of the bilateral L3-4, L4-5, and L5-S1 facet joints. FL/FL guidance in OR IMPRESSION: Fluoroscopy during procedure. Please see procedure report for additional information. Electronically signed by: Gamaliel Goodwin MD 02/09/2025 01:16 PM EDT
[2025-02-09 11:00] VITALS: BP 139/69; PULSE 84; RESP 15; TEMP 36.1; O2SAT 100
[2025-02-09] MEDS: Lactated Ringers 1,000 ML 100 ML IVCONT (11:03)
[2025-02-09 11:04] VITALS: BMI 21.3
--- NOTE | 2025-02-09 11:59 | MHC.SHP ---
Pre-Procedural Eval Section A - 24 Hr Update-Section A only Date of Service: 02/09/25 The patient is an INPATIENT: No Changes since office visit: Yes Patient answered all questions The patient has been examined within 24 hours of the surgical procedure. The History & Physical has been completed within 30 days and I have reviewed it.: No Section B - Complete if H&P > 30 days Chief Complaint: Spondylosis without myelopathy or radiculopathy, Details of Present Illness: As above Relevant Family History (Specify if Yes): No Relevant Social History: None Present Medications: see Short Stay Collaborative assessment Medical History: No relevant PMH History of Previous Operations: No relevant previous surgery Allergies: Allergies Allergy/AdvReac Type Severity Reaction Status Date / Time red dye Allergy Severe Unknown Verified 02/09/25 10:38 ciprofloxacin (From Cipro) Allergy Intermediate lightheaded/dizzy/GI Verified 02/09/25 10:38 upset escitalopram (From Lexapro) Allergy Intermediate vision Verified 02/09/25 10:38 disturbance/confusion gluten Allergy Intermediate Gastrointestinal Verified 02/09/25 10:38 Upset paroxetine (From Paxil) Allergy Intermediate withdrawal Verified 02/09/25 10:38 symptoms-did not wean off sulfamethoxazole (From Allergy Intermediate lightheaded/dizzy/GI Verified 02/09/25 10:38 Bactrim) upset trimethoprim (From Bactrim) Allergy Intermediate lightheaded/dizzy/GI Verified 02/09/25 10:38 upset Review of Systems Sugical H&P ROS: Negative: Constitution, Cardiovascular, Respiratory, Neurological, Psychiatric, Hem-Onc, Allergic/Immunologic, Gastrointestinal, Genitourinary, Musculoskeletal, Integumentary, Endocrine and Eyes/Ears/Nose/Throat Exam Surgical H&P Exam: Normal: HEENT, Normal: Heart, Normal: Lungs, Normal: Extremities, Normal: Abdomen, Normal: Skin and Normal: Neurological Plan Diagnosis/Plan: Unchanged I have reviewed the history and physical and performed a pertinent physical examination on my patient. No changes have occurred unless specified. Time Spent With Patient Time: Total time managing care of this patient today ____ minutes.
[2025-02-09 13:00] VITALS: BP 135/77; PULSE 83; RESP 16; TEMP 36.6; O2SAT 97
--- NOTE | 2025-02-09 13:09 | P.BOP_ITS ---
Brief Operative Note Date of Service: 02/09/25 Pre-op diagnosis: Spondylosis lumbar without myelopathy or radiculopathy Procedure: L3, L4, dorsal ramus L5 medial branch radiofrequency ablation Surgeon: Corky Martinez MD Was an Recruiter Account Manager used for this Procedure?: No Estimated blood loss (mL): 2 Pathology: none sent Condition: stable Disposition: PACU
--- NOTE | 2025-02-09 13:11 | P.OP_ITS ---
Operative Note Operative Note Date of Service: 02/09/25 Narrative: Radiofrequency ablation bilateral L3- L4- DRL5 medial branches. Informed consent was explained to the patient. All questions were explained and answered.? The patient was taken inside of the operating room where she was positioned prone on the operating table.? Time-out was performed delineating patient's name and date of , correct site, side, the nature of the procedure, patient's allergy, preoperative antibiotic if needed.? All operating room staff was participating in OR time-out procedure.? [employer] monitors were applied.? Patient was minimally sedated and I was able to maintain the verbal contact with the patient throughout the procedure. Her lower back was prepped with ChloraPrep and draped with sterile towels.? C- arm was brought over the operating field and sq picture of L4-5 vertebra as and S1 vertebra were delineated on the screen.? Points of interest were delineated as connection of superior articular process of L4 and L5 vertebra bilaterally with corresponding transverse processes as well as connection of the sacral alae bilaterally with superior articular process of S1.? The projection of the point of interest to the skin were injected with the small amount of local anesthetic lidocaine 2% 1-1.5 cc.? And after that 18 gauge 100 mm radiofrequency cannulas were driven to the point of interest in tunnel vision fashion under oblique view After needles gently contacted the bone at the point of interests the stylets were removed from the needles and electrodes were inserted into the needles.? Electrodes were connected to the radiofrequency machine and testing was performed for the patient's motor function.? There were no pathological motor response indicating stimulation of somatic nerves.? After that electrodes were removed and each needle was injected with small amount of ropivacaine 0.5% 1- 1.5 cc mixed with trace amount of Kenalog.? Upon completion of the injections the electrodes were reinserted and energy of 89 degree centigrade for 90 seconds was applied to each needle 1st on the right side and then on the leftt.? Upon completion of the energy application the needles were rotated 180? and energy applied with the same temperature and with the same time.?Upon completion of the injections needles were removed and sterile dressings were applied patient was taken outside of the operating room to recovery room.
[2025-02-09 13:15] VITALS: BP 141/80; PULSE 79; RESP 16; O2SAT 97
[2025-02-09 13:30] VITALS: BP 131/75; PULSE 80; RESP 16; O2SAT 97
[2025-02-09 13:45] VITALS: BP 134/68; PULSE 81; RESP 18; TEMP 36.1; O2SAT 100
== END 2025-02-09 14:26 | disposition home or self-care (01) ==
PROVIDERS: PCP Internal Medicine; Visit Provider Anesthesiology
PROC: (CPT 64635; principal; 2025-02-09 11:20)
DX: M51.369 Other intervertebral disc degeneration, lumbar region without mention of lumbar back pain or lower extremity pain (principal); G89.4 Chronic pain syndrome; M47.816 Spondylosis without myelopathy or radiculopathy, lumbar region; R51.9 Headache, unspecified; R26.2 Difficulty in walking, not elsewhere classified; R53.83 Other fatigue; J45.909 Unspecified asthma, uncomplicated; E78.5 Hyperlipidemia, unspecified; Z96.642 Presence of left artificial hip joint; M17.12 Unilateral primary osteoarthritis, left knee; F41.8 Other specified anxiety disorders; Z87.81 Personal history of (healed) traumatic fracture; Z86.711 Personal history of pulmonary embolism; Z91.041 Radiographic dye allergy status; Z88.8 Allergy status to other drugs, medicaments and biological substances; Z88.1 Allergy status to other antibiotic agents; Z88.2 Allergy status to sulfonamides; Z98.890 Other specified postprocedural states; Z87.891 Personal history of nicotine dependence
CPT/HCPCS: 64635; 64636 ×2; J0665; J2003; J2250; J2405; J2704; J3010; J3301; Q9967

== ENCOUNTER → 2025-02-09 09:29 | Outpatient (BNV) | payer MEDICARE, SELFPAY | PROVIDERS: PCP Internal Medicine; Visit Provider Anesthesiology | DX: M47.816 Spondylosis without myelopathy or radiculopathy, lumbar region (principal) | CPT/HCPCS: 64635; 64636 ==

== ENCOUNTER 2025-03-15 14:25 | Outpatient (AMB) | payer MEDICARE, SELFPAY ==
--- OUTSIDE RECORDS SUMMARY | 2025-03-05 05:00 | XMS_ITS ---
Author Organization [facility] Address [address] [place] [id number] Care Team Providers Care Fiberglass Grinder Name Role Phone Francisco Parnell MD Primary Care Provider Parish Azar Jr Unavailable Allergies Allergen (clinical drug ingredient) Drug/Non Drug Allergy documented on EMR Reaction Allergy Type Onset Date Status paroxetine Paxil Unknown Drug Allergy Active escitalopram Lexapro Unknown Drug Allergy Acti ve ciprofloxacin Cipro Unknown Drug Allergy Act gui sulfamethoxazole / trimethoprim Bactrim Unknown Drug Allergy Active REASON FOR VISIT Patient presents today for having stool issues Medications Medication SIG (Take, Route, Frequency, Duration) Notes Start Date End Date Status Albuterol Sulfate (2.5 MG/3ML) 0.083% 3 mL as needed Inhalation every 6 hrs Active Famotidine 20 MG TAKE 1 TABLET BY WALLY TWICE A DAY for 90 Active Amitriptyline HCl 25 MG 1 tablet at bedt michelle Orally Once a day for 30 day(s) Active Zinc 100 MG 1 tablet Orally Once a day for 30 day(s) Active Vitamin C Adult Gummies 125 MG as directed Orally Active Calcium Active Choline Active ZyrTEC Active Dicyclomine HCl 10 MG 1 tablet Orally 2- 4 times a day 12/10/2022 Active Probiotic Active Vitamin D Active Magnesium Active KlonoPIN Active Multivitamin Active Vital Signs Temperature 96.9 degrees Fahrenheit 03/05/20 25 Blood pressure systolic 001 mm Hg 03/05/20 25 Blood pressure diastolic 01 mm Hg 025 Height 64.50 in 03/05/2025 Weight 125 lbs 03/05/2025 BMI 21.12 kg/m2 03/05/2025 Encounters Encounter Location Date Provider Diagnosis [facility] [address] [place] [address] 03/05/2025 Parish Zuluaga Jr Plan Of Treatment Next Appt Details Provider Name:Parish Elijah zhang Jr, 03/07/2026 01:15:00 PM, [address], [address], [place], [address], Progress Notes * JANET LONG TDOB:1955 (69 yo F)Acc No.[id number]:03/05/2025 Progress Notes Patient: JANET CHUNG Provider: Giuliana Zuluaga MD :1955 A ge:69 Y S ex:Female Date:03/05/2025 Address:[address] [place] [address] Pcp:Francisco Parnell MD Subjective: * Chief Complaints: * 1 . Patient presents today for having stool issues. * HPI: N ew symptom(s): The patient is a pleasant 69-year-old woman seen today in follow-up. She was last seen for upper endoscopy in 2022 in December. Biopsies at that time were negative for Crohn's disease, H. pylori but did show some evidence of reflux. We reviewed this today. She reports today that her IBS symptoms have been getting worse. She has alternating diarrhea and constipation. She takes Dulcolax and Colace. She tried fiber and MiraLAX. * Medical History: A nxiety/depression, Colonoscopy 08/05 hyperplastic polyps x2, biopsies negative for colitis, ten-year recall, Asthma, Fatty liver, Irritable bowel syndrome with diarrhea predominance, Hyperlipidemia, Osteoporosis, Gastroesophageal reflux disease, EGD 12/28 erosive gastritis, biopsies negative for H. pylori. No BE, Gallstones. * Surgical History: T onsillectomy , right hip fractured 2022, left hip replacement 2024, cataracts . * Family History: F ather: . M other: , TYPE 2 DIABETES /HTN, diagnosed with HTN (hypertension), Diabetes. Did not know father. unknown medical hx on fathers side. No family history of liver cancer on mother's side. * Social History: T obacco Use: T obacco Use/Smoking A re you a: former smoker. D rugs/Alcohol: A lcohol Screen P oints: 1, Interpretation: Negative. Dylon veras: Dylon arital status: . Occupation: works part-time. Q 2011 SMOKING. * Medications: T aking Zinc 100 MG Tablet 1 tablet Orally Once a day , Taking Vitamin C Adult Gummies 125 MG Tablet Chewable as directed Orally , Taking Albuterol Sulfate (2.5 MG/3ML) 0.083% Nebulization Solution 3 mL as needed Inhalation every 6 hrs , Taking Amitriptyline HCl 25 MG Tablet 1 tablet at bedtime Orally Once a day , Taking KlonoPIN , Taking Multivitamin , Taking Vitamin D , Taking Magnesium , Taking Calcium , Taking Choline , Taking Probiotic , Taking ZyrTEC , Taking Dicyclomine HCl 10 MG Capsule 1 tablet Orally 2-4 times a day , Taking Famotidine 20 MG Tablet TAKE 1 TABLET BY MOUTH TWICE A DAY , Medication List reviewed and reconciled with the patient * Allergies: C ipro, Lexapro, Paxil, Bactrim. Objective: * Vitals: W t:125lbs, Ht: 64.50 in, BMI: 21.12 Index, BP:001/01mm Hg, Temp:96.9, Wt-k.7. Assessment: Plan: * Treatment: * Preventive Medicine: Urinary Incontinence: U rinary Incontinence A ssessment: A bsent, P ac of care documented: N o, reason not specified. Screenings: F all Risk Screening F all Risk Assessment: N o falls in the past year, S creening: N o falls in the past year, A ssessment: N ot performed, no reason specified, P ac of Care: N ot documented, no reason specified. * * The named appointment provid er may or may not be the originator of this progress note, and it is not deemed complete until electronically signed by the appointment provider. Sign off status: Pending * Provider: Giuliana Zuluaga MD Date: 0 03/05/2025 Generated for Abigail root/Tawny/Reyna on: 04:01 PM EDT History and Physical Notes * HPI (History of Present Illness) Category Sub-Category Detail Notes Category Not es New symptom(s) The patient is a pleasant 69-year-old woman seen today in follow-up. She was last seen for upper endoscopy in 2022 in December. Biopsies at that time were negative for Crohn's disease, H. pylori but did show some evidence of reflux. We reviewed this today. She reports today that her IBS symptoms have been getting worse. She has alternating diarrhea and constipation. She takes Dulcolax and Colace. She tried fiber and MiraLAX
--- NOTE | 2025-03-15 14:29 | A.OFFVIS_ITS ---
Vital Signs 03/15/25 14:31 Height 5 ft 4 in Weight 125 lb BMI 21.5 BP 135/66 Blood Pressure Location Lt brachial Position Sitting Respiration 18 Pulse 99 Pulse Source Pulse Oximeter Pulse Oximetry (%) 99 Oxygen Delivery Method Room Air Intake Visit Reasons: S/p B/l L3-L4-DR L5 MB RFA 02/09/25 Hotel Operations Manager Required: No Allergies red dye Allergy (Severe, Verified 03/15/25 14:30) Unknown ciprofloxacin (From Cipro) Allergy (Intermediate, Verified 03/15/25 14:30) lightheaded/dizzy/GI upset escitalopram (From Lexapro) Allergy (Intermediate, Verified 03/15/25 14:30) vision disturbance/confusion gluten Allergy (Intermediate, Verified 03/15/25 14:30) Gastrointestinal Upset paroxetine (From Paxil) Allergy (Intermediate, Verified 03/15/25 14:30) withdrawal symptoms-did not wean off sulfamethoxazole (From Bactrim) Allergy (Intermediate, Verified 03/15/25 14:30) lightheaded/dizzy/GI upset trimethoprim (From Bactrim) Allergy (Intermediate, Verified 03/15/25 14:30) lightheaded/dizzy/GI upset HPI Comments Details: The patient is a 69-year-old female presenting with chronic back pain. She underwent radiofrequency ablation of the medial branches of L3, L4, dorsal ramus L5 with good results. She reports improved mobility, she reports improved ability to stand for long period of time, she reports that her pain is reduced 80%. She is interested in repeat of the medial branch block radiofrequency ablation if her pain will come back in 6 months. She will schedule appointment with me in 6 months. repeat diagnostic bilateral L3-L4-L5 medial branch blocks on 01/05/25 to evaluate for potential radiofrequency ablation (RFA). Post-procedure, her pain level is reported as 0/10, although she experienced mild pain for one or two days following the injections. The patient reports being able to walk for only 10 minutes without a cane before experiencing significant back pain, necessitating rest. She has history of hip OA and underwent bilateral hip replacements. She denies any numbness or tingling in the legs and has no history of spinal stenosis, as confirmed by a previous MRI. Denies any recent cough, cold, infection, fever or any significant changes in medical history since last office visit. PRIOR Dr. Martinez 11/30/24: Manju is back in my office after diagnostic medial branch block L3, L4, dorsal ramus L5 bilateral. She reports pain before the procedure 7/10. She reports for the 1st 6 hours after the procedure her pain was 0/10. She reported that she performed multiple activities of daily living including washing dishes and cleaning and she reported pain 0/10. The only situation when her pain was elevated to 2/10 when she was trying to walk more than 15 minutes. I explained to the patient possibility to treat her pain with RFA of the medial branches versus sprint PNS. Patient decided to go for RFA. She wants minimal sedation. I explained to the patient importance of being awake during the procedure. Prior: complains on pain in the lower back. She reports axial pain without radiation into bilateral lower extremities. She reports pain aggravation with standing and walking. She reports pain alleviation with sitting. She reports that the pain started 4 years ago it was waxing and waning and now the pain is aggravated. She believes that her pain is related to arthritis. She reports her pain level 8 out of 10. She received multiple sessions of physical therapy related to her lower back as well as occupational therapy related to hip fractures. She had chiropractic manipulations for her back without any help. She had massage therapy and it did not help her pain. She was under care of territory sales representative and she reported that she has an arthritis. She presume that it was osteoarthritis. Her past medical history significant for asthma irritable bowel syndrome fatigue and headaches. She fractured her right hip and had a surgery on 8 on 05/07/2023. She had hip replacement of the left hip on 07/19/2024. Her surgeon was Dr. Graf. Dr. Graf also diagnose her with left knee osteoarthritis and performed steroid injection in the knee. [facility] Medical History Hx of diagnostic tests Osteoarthritis of left hip Arthritis Thyroid nodule Pulmonary embolism GERD (gastroesophageal reflux disease) Osteoporosis Hyperlipidemia Irritable bowel syndrome with diarrhea Fatty liver Asthma Anxiety and depression Surgical History History of total left hip arthroplasty Hx of right cataract extraction History of hip surgery (05/07/23) Hx of tonsillectomy H/O esophagogastroduodenoscopy H/O colonoscopy Social History Household Members: Significant Other [facility]: [facility] Are you a primary care transitions nurse to a significant other at home: No Do you presently have visiting nurse or other home services: Yes Alcohol intake: current Alcohol intake frequency: a few times a week Alcohol type: hard liquor Comment: tolerable Patient Tobacco Use Status: Former Tobacco user Tobacco use type: Cigarette Years Smoked: 40 Second Hand Smoke Exposure: No service: No Review of Systems Const All systems reviewed & are unremarkable except as noted in HPI and below ENT Reports Normal hearing present Neuro Reports Normal hearing present, Denies Abnormal speech present, Denies confusion and Denies Sensory deficit (Neuro) Psych Denies confusion Physical Exam Vital Signs: Last Vital Signs Pulse 99 03/15/25 14:31 Resp 18 03/15/25 14:31 BP 135/66 03/15/25 14:31 Pulse Ox 99 03/15/25 14:31 Oxygen Delivery Method Room Air 03/15/25 14:31 BMI result Body Mass Index 21.5 Const General: cooperative, healthy appearing, comfortable, no acute distress and well groomed; No confusion Orientation/consciousness: patient oriented x3 and No confusion Limitations: no limitations Eyes General: appearance normal, both eyes and all related structures Pupils: Equal, round and reactive pupils present EOM: EOMs intact bilaterally Resp Effort & Inspection: normal respiratory effort, able to speak in complete sentences, normal respiratory pattern, no audible wheezes and no cough Cardio Jugular venous distension: no JVD Peripheral pulses: Peripheral pulses 2+ throughout GI Inspection: Yes normal to inspection Palpation (GI): Soft to palpation, nontender and no guarding General: Yes no CVA tenderness Back/Spine/Pelvis Other: Limited lumbar ROM; minimal pain s/p recent medial branch blocks. Mild TTP in paraspinal spinal region lumbar spine. Flexing forward alleviate her pain while flexing backwards make her pain more mild-moderate. SLR is negative bilaterally. Loading test is positive bilaterally. Valsalva maneuver does not aggravate her pain. She is able to stand on bilateral tiptoes in bilateral heels demonstrating normal strength of bilateral lower extremities. Back: no CVA tenderness Cervical Spine: cervical ROM normal, cervical muscular tenderness and No Cervical spine tenderness Thoracic/Lumbar Spine: thoracic and lumbar spine normal to inspection, No Thoracic/lumbar spine scar(s), Lasegue's sign negative, straight leg raise negative bilaterally, pain with thoraco-lumbar ROM, thoraco-lumbar ROM limited, No thoracic spinal tenderness and No lumbar spinal tenderness Sacroiliac joints: bilaterally nontender Neuro General: patient oriented x3, gait normal and No confusion Cranial nerves: Yes CN's II-XII intact bilaterally, Yes Equal, round and reactive pupils present, Yes Normal hearing present and Yes Ability to bilaterally elevate shoulders present Speech: No Abnormal speech present Gait exam (Neuro): Normal gait present Motor exam (neuro): 5/5 motor strength present throughout Sensory Exam: No Sensory deficit (Neuro) Extrem General: Yes capillary refill normal, Yes no clubbing, cyanosis or edema and Yes no calf tenderness Psych Speech and movement: Normal speech and movement present Affect: normal affect Attitude: cooperative Thought process: Normal thought process present Thought content: Normal thought content present Insight: Good insight present (Psych) Judgement: Good judgement present (Psych) Assessment & Plan Assessment & Plan (1) Spondylosis of lumbar region without myelopathy or radiculopathy: Code(s): M47.816 - Spondylosis without myelopathy or radiculopathy, lumbar region Category: Medical (2) Chronic pain syndrome: Code(s): G89.4 - Chronic pain syndrome Category: Medical (3) Lumbar degenerative disc disease: Code(s): M51.369 - Other intervertebral disc degeneration, lumbar region without mention of lumbar back pain or lower extremity pain Category: Medical Plan Very good results of Bilateral L3-L4-DR L5 Medical Branch RFA see as above. Patient is interested in repetition of the procedure when and if her pain will come back in 6 months. She will schedule appointment with me in 5 months. Sprint PNS was discussed today, steroid injections were discussed today again. Possibility of administering patient opioid medications also discussed. Coding Level of Care Code Est Pt Level 3 (47803) Diagnoses Spondylosis of lumbar region without myelopathy or radiculopathy M47.816 Chronic pain syndrome G89.4 Lumbar degenerative disc disease M51.369
[2025-03-15 14:31] VITALS: BP 135/66; PULSE 99; RESP 18; O2SAT 99; BMI 21.5
--- OUTSIDE RECORDS SUMMARY | 2025-03-15 16:01 | XMS_ITS | Clinical Summary ---
Author Organization [facility] Address [address] [place] [address] Phone Care Team Providers Care Clinical Research Physician Name Role Phone Francisco Parnell MD Primary Care Provider [phone] Allergies Active Allergy Reactions Criticality Noted Date [...] COLONOSCOPY 03/08/2022 03/08/2012 COLORECTAL CANCER SCREENING 03/08/2022 Adult Td,Tdap Booster 09/03/2024 09/03/2014 INFLUENZA VACCINE (#1) 2025 , 02/17/2020, 03/03/2018, Additional history exists COVID-19 VACCINE ( - season) 2025 03/09/2021, 08/12/2020, 07/22/2020 MAMMOGRAM 05/03/2025 05/03/2023, 04/14, 04/17/2021, Additional history [...] Health Maintenance Insurance MEDICARE PPO BLUE [place]PLACEMENT [place] [address] [place] [address] MEDICARE PPO BLUE REPLACEMENT MEDICARE PPO BLUE REPLACEMENT MEDICARE PPO BLUE REPLACEMENT MEDICARE PPO BLUE REPLACEMENT MEDICARE PPO [place]UE [place]AC[place] P[place] BLUE REPLACEMENT Care Teams Clinical Research Physician Relationship Specialty Start Date End Date Francisco Parnell MD [address] [place] [phone] PCP - General Internal Medicine 01/04/18 Additional Source Comments The information contained in this document represents components of the legal health record. It is not the complete legal health record.[facility]
--- OUTSIDE RECORDS SUMMARY | 2025-03-15 16:01 | XMS_ITS | Encounter Summary ---
Author Organization [facility] Address [address] [place] [address] Phone Care Team Providers Care Nurse Technician Name Role Phone Francisco Parnell MD Primary Care Provider [phone] Encounter Details Date Type Department Care Team (Latest Contact Info) Description 02/22/2024 Transcribe Orders Virtual Department [address] [place] [address] Francisco Parnell MD [address] [place] [address] Breast screening (Primary Dx) Social History Tobacco [...] unspecified documented in this encounter Care Teams Nurse Technician Relationship Specialty Start Date End Date Francisco Parnell MD [address] [place] [address] PCP - General Internal Medicine 01/04/18 documented as of this encounter Additional Source Comments The information contained in this document represents components of the legal health record. It is not the complete legal health record.[facility]
--- OUTSIDE RECORDS SUMMARY | 2025-03-15 16:02 | XMS_ITS | Encounter Summary ---
Author Organization [facility] Address [address] [place] [address] Phone Care Team Providers Care Event Mgr Name Role Phone Francisco Parnell MD Primary Care Provider [phone] Encounter Details Date Type Department Care Team (Late st Contact Info) Description 01/16/2020 Ancillary Orders Virtual Department [address] [place] [address] Francisco Parnell MD [address] [place] [address] Breast screening Social History Tobacco Use Types Packs/Day Years Used Date Smoking Tobacco: Never Assessed Comments No Sex and Gender Information Value [...] PM EST No mammographic evidence of malignancy. Recommend routine annual surveillance. BI-RADS CATEGORY: 2 - Benign finding. DENSITY: There are scattered fibroglandular densities. Narrative 04/30/2020 2:13 PM EST 64-year-old female with no current breast symptoms. Comparison made to previous on 03/01/2019 and 02/22/2018. Interpretation made in conjunction with wall tomosynthesis. There [...] densities. Francisco Parnell MD IMG MG EXAMS Final Result documented in this encounter Visit Diagnoses Diagnosis Breast screening Breast screening, unspecified Breast screening Breast screening, unspecified documented in this encounter Care Teams Event Mgr Relationship Specialty Start Date End Date Francisco Parnell MD [address] [place] [address] PCP - General Internal Medicine 01/04/18 documented as of this encounter Additional Source Comments The information contained in this document represents components of the legal health record. It is not the complete legal health record.[facility]
--- OUTSIDE RECORDS SUMMARY | 2025-03-15 16:02 | XMS_ITS | Encounter Summary ---
Author Organization [facility] Address [address] [place] [address] Phone Care Team Providers Care Golf Coach Name Role Phone Francisco Parnell MD Primary Care Provider [phone] Encounter Details Date Type Department Care Team (Late st Contact Info) Description 02/05/2023 Procedure Pass [facility] - [address] [place] [address] Social History Tobacco Use Types Packs/Day Years [...] on filedocumented in this encounter Care Teams Golf Coach Relationship Specialty Start Date End Date Francisco Parnell MD [address] [place] [address] [place] [address] PCP - General Internal Medicine 01/04/18 documented as of this encounter Additional Source Comments The information contained in this document represents components of the legal health record. It is not the complete legal health record.[facility]
--- OUTSIDE RECORDS SUMMARY | 2025-03-15 16:02 | XMS_ITS | Encounter Summary ---
Author Organization [facility] Address [address] [place] [address] Phone Care Team Providers Care Marine Firefighter Name Role Phone Francisco Parnell MD Primary Care Provider [phone] Encounter Details Date Type Department Care Team (Late st Contact Info) Description 01/04/2018 Ancillary Orders Virtual Department [address] [place] [address] Francisco Parnell MD [address] [place] [address] Breast screening Social History Tobacco Use Types Packs/Day Years Used Date Smoking Tobacco: Never Assessed Comments Unknown Sex and Gender Information Value Date Recorded [...] PM EDT No mammographic evidence of malignancy. Recommend routine annual surveillance. BI-RADS CATEGORY: 2 - Benign finding. DENSITY: There are scattered fibroglandular densities. POS - [facility] Narrative 02/22/2018 3:37 PM EDT 62-year-old female with no current breast symptoms. Comparison made to previous on 02/09/2017 and as far back as 01/23/2015. Interpretation made in conjunction with computer-aided detection and [...] [facility] Francisco Parnell MD IMG MG EXAMS Final Result documented in this encounter Visit Diagnoses Diagnosis Breast screening Breast screening, unspecified Breast screening Breast screening, unspecified documented in this encounter Care Teams Marine Firefighter Relationship Specialty Start Date End Date Francisco Parnell MD [address] [place] [address] PCP - General Internal Medicine 01/04/18 documented as of this encounter Additional Source Comments The information contained in this document represents components of the legal health record. It is not the complete legal health record.[facility]
--- OUTSIDE RECORDS SUMMARY | 2025-03-15 16:02 | XMS_ITS | Encounter Summary ---
Author Organization [facility] Address [address] [place] [address] Phone Care Team Providers Care Erisa Attorney Name Role Phone Francisco Parnell MD Primary Care Provider [phone] Encounter Details Date Type Department Care Team (Late st Contact Info) Description 02/09/2022 Procedure Pass [address] [place] [address] Social History Tobacco Use Types Packs/Day Years Used Date Smoking Tobacco: Former Smokeless Tobacco: Never Alcohol Use Standard Drinks/Week Comments Yes 0 (1 standard drink = 0.6 oz pur e alcohol) Comments No Sex and Gender Information Value Date Recorded Sex Assigned at Not on file Legal Sex Female 9:56 PM EDT Gender Identity Not on file Sexual Orientation Not on file documented as of this encounter Plan of Treatment Not on file documented as of this encounter Visit Diagnoses Not on filedocumented in this encounter Care Teams Erisa Attorney Relationship Specialty Start Date End Date Francisco Parnell MD [address] [place] [address] PCP - General Internal Medicine 01/04/18 documented as of this encounter Additional Source Comments The information contained in this document represents components of the legal health record. It is not the complete legal health record.[facility]
--- OUTSIDE RECORDS SUMMARY | 2025-03-15 16:02 | XMS_ITS | Encounter Summary ---
Author Organization [facility] Address [address] [place] [address] Phone Care Team Providers Care Vocational Ed Instructor Name Role Phone Francisco Parnell MD Primary Care Provider [phone] Encounter Details Date Type Department Care Team (Late st Contact Info) Description 01/18/2019 Ancillary Orders Virtual Department [address] [place] [address] Francisco Parnell MD [address] [place] [phone] Breast screening Social History Tobacco Use Types [...] There are scattered fibroglandular densities. POS [facility] Narrative 03/01/2019 3:26 PM EDT COMPARISON: 01/23/2015 through 02/22/2018. Bilateral 3-D tomosynthesis [...] unspecified documented in this encounter Care Teams Vocational Ed Instructor Relationship Specialty Start Date End Date Francisco Parnell MD [address] [place] [address] PCP - General Internal Medicine 01/04/18 documented as of this encounter Additional Source Comments The information contained in this document represents components of the legal health record. It is not the complete legal health record.[facility]
--- OUTSIDE RECORDS SUMMARY | 2025-03-15 16:02 | XMS_ITS | Encounter Summary ---
Author Organization [facility] Address [address] [place] [address] Phone Care Team Providers Care Software Designer Name Role Phone Francisco Parnell MD Primary Care Provider [phone] Encounter Details Date Type Department Care Team (Late st Contact Info) Description 01/07/2021 Procedure Pass [address] [place] [address] Social History Tobacco Use Types Packs/Day Years [...] on filedocumented in this encounter Care Teams Software Designer Relationship Specialty Start Date End Date Francisco Parnell MD [address] [place] [address] PCP - General Internal Medicine 01/04/18 documented as of this encounter Additional Source Comments The information contained in this document represents components of the legal health record. It is not the complete legal health record.[facility]
--- OUTSIDE RECORDS SUMMARY | 2025-03-15 16:02 | XMS_ITS | Encounter Summary ---
Author Organization [facility] Address [address] [place] [address] Phone Care Team Providers Care Delivery Agent Name Role Phone Francisco Parnell MD Primary Care Provider [phone] Encounter Details Date Type Department Care Team (Latest Contact Info) Description 02/09/2022 Transcribe Orders Virtual Department [address] [place] [address] Francisco Parnell MD [address] [place] [address] Breast screening (Primary Dx); Functional diarrhea; Irritable [...] PM EST No mammographic signs of malignancy. Annual screening is recommended. BI-RADS CATEGORY: 2 - Benign finding. DENSITY: There are scattered fibroglandular densities. Narrative 04/30/2022 5:30 [...] Parnell MD IMG MG EXAMS Final Result * Iron and iron binding capacity (02/17/2022 3:11 PM EDT) IRON 70 30 - 160 ug/dL [facility] IRON BINDING CAPACITY 325 228 - 428 ug/dL [facility] TRANSFERRIN SATURAT. 22 15 - 50 % [facility] Blood 02/17/2022 3:11 PM EDT 02/17/2022 3:12 PM EDT Francisco Parnell MD LAB BLOOD ORDERABLES Final Re sult [facility] [address] [place] [address] * GGT (Gamma glutamyl transferase) (02/17/2022 3:11 PM EDT) GGT 27 7 - 33 U/L [facility] Blood 02/17/2022 3:11 PM EDT 02/17/2022 3:12 PM EDT us Francisco Parnell MD LAB BLOOD ORDERABLES Final Re sult [facility] [address] [place] [address] * (ABNORMAL) Comprehensive metabolic panel (02/17/2022 3:11 PM EDT) SODIUM 140 133 - 146 mmol/L [facility] POTASSIUM 4.3 3.3 - 5.1 mmol/L [facility] CHLORIDE 102 96 - 108 mmol/L [facility] CO2 30 21 - 35 mmol/L [facility] BUN 26(H) 6 - 19 mg/dL [facility] CREATININE 0.80 0.5 - 1.5 mg/dL [facility] GLUCOSE 106(H) 70 - 99 mg/dL [facility] ALBUMIN 4.4 3.9 - 4.8 g/dL [facility] TOTAL PROTEIN 7.5 6.5 - 8.0 g/dL [facility] CALCIUM 9.5 8.4 - 10.3 mg/dL [facility] ALKALINE PHOSPHATASE 113 39 - 117 U/L [facility] TOTAL BILIRUBIN 0.2 0.0 - 1.2 mg/dL [facility] AST 28 0 - 37 U/L [facility] ALT 31 0 - 40 U/L [facility] GLOBULIN 3.1 1 - 4.8 g/dL [facility] EGFR 81 >59 mL/min/1.7 3m2 [facility] Comment:Estimated glomerular filtration rate calculated using the CKD-EPI refit equation. ANION GAP 12 10 - 20 mmol/L [facility] Blood 02/17/2022 3:11 PM EDT 02/17/2022 3:12 PM EDT us Francisco Parnell MD LAB BLOOD ORDERABLES Final Re sult [facility] [address] [place] [address] documented in this encounter Visit Diagnoses Diagnosis Breast screening- Primary Breast screening, unspecified Functional diarrhea Irritable bowel syndrome with diarrhea Irritable bowel syndrome Abdominal pain, left lower quadrant Breast screening Breast screening, unspecified documented in this encounter Care Teams Delivery Agent Relationship Specialty Start Date End Date Francisco Parnell MD [address] [place] [address] PCP - General Internal Medicine 01/04/18 documented as of this encounter Additional Source Comments The information contained in this document represents components of the legal health record. It is not the complete legal health record.[facility]
--- OUTSIDE RECORDS SUMMARY | 2025-03-15 16:02 | XMS_ITS | Patient Health Record ---
Author Organization [facility] Address [address] [place] [address] Care Team Providers Care Shell Worker Name Role Phone Soheila SORTO, Francisco Primary [...] Duration) Notes Start Date End Date Status Calcium Active Choline Active Vitamin D Active Magnesium Active KlonoPIN Active Multivitamin Active Albuterol Sulfate (2.5 MG/3ML) 0.083% 3 mL as needed Inhalation every 6 hrs Active Famotidine 20 MG TAKE 1 TABLET BY TWICE A DAY for 90 Active Amitriptyline HCl 25 MG 1 tablet at bedt michelle Orally Once a day for 30 day(s) Active Zinc 100 MG 1 tablet Orally Once a day for 30 day(s) Active ZyrTEC Active Vitamin C Adult Gummies 125 MG as directed Orally Active Dicyclomine HCl 10 MG 1 tablet Orally 2- 4 times a day 12/10/2022 Active Probiotic Active Immunizations Vaccine Route Administration Date Status Comme nts Influenza Unknown 04/15/2022 Administered Influenza Unknown 03/05/2025 Administered Influenza Unknown 03/05/2025 Administered Problems Problem Type SNOMED Code ICD Code Onset Dates Problem Status W/U Status Risk Notes Problem 85895313 Epigastric pain (R10.13) Active confirmed Problem 585544121 Irritable bowel syndrome with diarrhea (K58.0) Active confirmed Problem 403940653 Generalized abdominal pain (R10.84) Active confirmed Problem Duodenitis (21019372) Duodenitis (K29.80) Active confirmed Problem 544942040 Gas (R14.3) Active confirmed Problem 171555827 Gallstones (K80.20) Active confirmed Problem 785370947 Abnormal UGI series (R93.3) Active confirmed Vital Signs Temperature 96.9 degrees Fahrenheit 03/05/2025 Blood pressure diastolic 01 mm Hg 03/05/2025 Height 64.50 in 03/05/2025 Blood pressure systolic 001 mm Hg 03/05/2025 Weight 125 lbs 03/05/2025 BMI 21.12 kg/m2 03/05/2025 Encounters Encounter Location Date Provider Diagnosis [facility] [address] [place] [address] 03/05/2025 Parish Zuluaga Jr Plan Of Treatment Pending Test Test Name Order Date CBC w/o DIFF 03/20/2015 CBC w/o DIFF 10/29/2020 CELIAC DISEASE ANTIBODY PANEL 10/29/2020 CELIAC DISEASE ANTIBODY PANEL 03/20/2015 OVA & PARASITES (O&P) 10/29/2020 XR GI SMALL BOWEL SERIES 04/20/2022 TSH REFLEX FREE T4 10/29/2020 STOOL WBC 10/29/2020 Stool Culture 10/29/2020 Future Test Test Name Order Date UPPER GI ENDOSCOPY 12/10/2022 Next Appt Details Provider Name:Parish zhang Jr, 03/07/2026 01:15:00 PM, [address], [address], [place], [address], Insurance Providers Payer Name Payer Address Payer Phone Subscriber Number Group Number Insured Name Patient Relationship to Insured Coverage Start Date Coverage End Date [facility] [address] [address] [place] [address] [id number] JANET LONG Self - patient is the insured Medical (General) History Medical History History ICD Code Anxiety/depression Colonoscopy 08/05 hyperplasti c polyps x2, biopsies negative for colitis, ten-year recall Asthma Fatty liver Irritable bowel syndrome with diarrhea p redominance Hyperlipidemia Osteoporosis Gastroesophageal reflux dise ase, EGD 12/28 erosive gastritis, biopsies negative for H. pylori. No BE Gallstones Surgical History Surgery Date(Month/Year) cataracts left hip replacement 2024 right hip fractured 2022 Tonsillectomy
--- OUTSIDE RECORDS SUMMARY | 2025-03-15 16:02 | XMS_ITS | Encounter Summary ---
Author Organization [facility] Address [address] [place] [phone] Phone Care Team Providers Care Toppiece Cutter Name Role Phone Francisco Parnell MD Primary Care Provider [phone] Encounter Details Date Type Department Care Team (Late st Contact Info) Description 02/13/2020 Procedure Pass [address] [place] [id number] Social History Tobacco Use Types Packs/Day Years [...] on filedocumented in this encounter Care Teams Toppiece Cutter Relationship Specialty Start Date End Date Francisco Parnell MD [address] [place] [id number] PCP - General Internal Medicine 01/04/18 documented as of this encounter Additional Source Comments The information contained in this document represents components of the legal health record. It is not the complete legal health record.[facility]
== END 2025-03-15 14:45 | disposition home or self-care (01) ==
LOC: HO.PMC 14:26
PROVIDERS: PCP Internal Medicine; Visit Provider Anesthesiology
DX: M47.816 Spondylosis without myelopathy or radiculopathy, lumbar region (principal); G89.4 Chronic pain syndrome; M51.369 Other intervertebral disc degeneration, lumbar region without mention of lumbar back pain or lower extremity pain
CPT/HCPCS: 99213

== ENCOUNTER → 2025-03-15 14:25 | Outpatient (BNVA) | payer MEDICARE, SELFPAY | PROVIDERS: PCP Internal Medicine; Visit Provider Anesthesiology | DX: M47.816 Spondylosis without myelopathy or radiculopathy, lumbar region (principal); M51.369 Other intervertebral disc degeneration, lumbar region without mention of lumbar back pain or lower extremity pain; G89.4 Chronic pain syndrome | CPT/HCPCS: 99212 ==